=== PATIENT | female | born 1935 | race Caucasian/White ===

== ENCOUNTER 2020-07-23 14:07 | Outpatient (REF) | payer MEDICARE, SELFPAY | END 2020-07-23 14:08 | disposition home or self-care (01) | LOC: HO.LAB 14:07 | PROVIDERS: PCP Internal Medicine Geriatric Medicine; Visit Provider Internal Medicine | DX: Z20.828 Contact with and (suspected) exposure to other viral communicable diseases (principal) | CPT/HCPCS: C9803; U0003 ==

== ENCOUNTER 2020-11-04 13:27 | Outpatient (REF) | payer MEDICARE, SELFPAY ==
--- NOTE | 2020-11-04 16:35 | MHC.AU.P13 ---
Adult Audiological Evaluation Date of Visit: 11/04/20 Reason for Appointment: Audiological evaluation due to concern for decreased hearing. Patient reports that she has been having trouble with her ear and hearing since she had shingles three years ago. She reports frequent pain and drainage from her ears, especially the right ear. Does patient feel they have a hearing loss?: Yes If Yes, Which Ear?: Both Ears When Was Hearing Difficulty First Noticed?: ~3 years ago Has hearing been tested previously?: No Hearing Handicap Inventory: HHIE SCORE: 0 Based on HHIE score, patient has: No perceived hearing handicap Ear History: Recent Ear Drainage: Both Ears Recent Ear Pain: Both Ears Recent Ear Infections: Both Ears Bothersome Tinnitus/Ringing/Noises in Ears: Both Ears Medical History: Medical History: Heart Problems, High Blood Pressure, Stroke, Thyroid Disease Otoscopy: Right Ear: Unremarkable Left Ear: Unremarkable Tympanometry: Tympanometry performed due to: Conductive component found in audiometric results Right Ear: Normal Middle Ear System (Type A) Left Ear: Normal Middle Ear System (Type A) Hearing Evaluation: Transducer(s) Used: Insert Earphones, Bone Conduction Method: Conventional Audiometry Stimuli Used: Pure Tones Right Ear: Description of Hearing: Moderate mixed hearing loss from 250-1000 Hz, sloping to a moderate to severe sensorineural hearing loss from 5485-8222 Hz. Left Ear: Description of Hearing: Mild sloping to severe sensorineural hearing loss from 250-8000 Hz. Speech Recognition Threshold (SRT): Method Used: Recorded Lists Stimuli Used: Spondee Words Right Ear: 45 dBHL Left Ear: 35 dBHL Word Discrimination: Method: Recorded Lists Word Lists Used: Lista Bisil?bica (Egyptian) Right Ear: 96% at 85 dBHL Left Ear: 88% at 75 dBHL Recommendations: Audiological re-evaluation in one year. Trial with amplification is recommended. Medical clearance from a physician is required before fitting. Hearing Aid Fitting will be scheduled when all materials arrive. Referral to Ear, Nose, and Throat is recommended. See Hearing Aid Evaluation report for more information. Hearing aid(s) will be ordered after approval is received. Ms. Sanchez reports that she has an upcoming appointment at [facility] on 11/08/2020 and she would like today's report faxed over to them. Recommend seeing ENT due to conductive component in the right ear and complaints of frequent ear pain and drainage. Hearing aids are recommended. Discussed options. Going with a VENTURA style hearing aid with custom molds. Once MD clearance is received, prior authorization will be requested from her insurance. Diagnosis: Primary Diagnosis: H90.3 Bilateral Sensorineural Hearing Loss Services Performed: Services Performed: Comprehensive Audiological Evaluation (CPT 47037) Tympanometry (CPT 17451) Signature: Provider: Katelynn Higgins, CCC-A
--- NOTE | 2020-11-05 16:37 | MHC.AU.P13 ---
Hearing Aid Evaluation- Binaural Date of Visit: 11/04/20 Description of Hearing: Mild sloping to severe SNHL in the right ear, moderate mixed low-frequency loss sloping to a moderate to severe SNHL in the left ear. Additional Information: Ms. Sanchez was seen today for an audiological evaluation and diagnosed with a bilateral hearing loss. She reports hearing difficulties in many situations. Binaural amplification is recommended to facilitate improved communication. Options were discussed. She is interested in VENTURA style aids. Rechargeable is recommended due to dexterity problems and arthritis. Hearing Instrument Selection: Right Ear: Veneer Drier Tailer: Phonak Model: Audeo P70-R Battery Size: Rechargeable Color: P4- Eure Touch Up Edger: Size 1 M Type of Mold: c-Shell Left Ear: Veneer Drier Tailer: Phonak Model: Audeo P70-R Battery Size: Rechargeable Color: P4- Eure Touch Up Edger: Size 1 M Type of Mold: c-Shell Plan: Plan of Care for Hearing Instrument Fitting: Patient wishes to purchase hearing aids as prescribed Action Taken/Action Needed: Earmold Impressions Taken, Prior authorization to be requested, Medical Clearance to be requested from PCP/ENT, Hearing Fitting to be scheduled when materials arrive Diagnosis Code(s): Primary Diagnosis: H90.3 Bilateral Sensorineural Hearing Loss Signature: Provider: Katelynn Higgins, LEONEL-A
--- NOTE | 2020-11-05 16:40 | MHC.AU.MED ---
Medical Clearance for Hearing Instrumentation Date: 11/05/20 Patient Name: Ольга Sanchez Date of : 1935 Referring Provider: Francisco Murillo MD We have seen your patient on 11/05/20 and have determined that they are a candidate for amplification (See accompanying report). Specifically, they would benefit from: Hearing aid use in both ears There is a statute that addresses Medical Evaluation Requirements prior to fitting a patient with a hearing aid. According to [place] statute 265 CMR:6.03(1), (a) General. Except as provided in 265 CMR 6.03(1)(b), a mid level clinician shall not sell a hearing aid unless the prospective user has presented to the mid level clinician a written statement signed by a licensed physician that states that the patient's hearing loss has been medically evaluated and the patient may be considered a candidate for a hearing aid. The medical evaluation must have taken place within the preceding six months. Please note: Due to the [place] Statute referenced above, we cannot accept a signature other than that of a licensed physician. AUTO BUMPER STRAIGHTENER and PA signatures cannot be accepted. I am in agreement with the above recommendation. There is no medical contraindication for hearing instrumentation. Physician Signature Date Physician Name (Printed)
== END 2020-11-04 13:28 | disposition home or self-care (01) ==
LOC: HO.SH 13:27
PROVIDERS: Visit Provider Internal Medicine Geriatric Medicine
DX: Z46.1 Encounter for fitting and adjustment of hearing aid (principal); H90.3 Sensorineural hearing loss, bilateral
CPT/HCPCS: 92557; 92567; 92591; V5275

== ENCOUNTER 2020-12-17 11:55 | Outpatient (REF) | payer MEDICARE, SELFPAY | END 2020-12-17 11:56 | disposition home or self-care (01) | LOC: HO.HAP 11:55 | PROVIDERS: Visit Provider Internal Medicine Geriatric Medicine | DX: Z46.1 Encounter for fitting and adjustment of hearing aid (principal); H90.3 Sensorineural hearing loss, bilateral | CPT/HCPCS: V5011; V5020; V5160; V5261; V5264 ==

== ENCOUNTER 2020-12-22 12:07 | Outpatient (REF) | payer MEDICARE, SELFPAY ==
--- NOTE | ~2020-12-22 | MM_ITS ---
EXAMINATION: MM SCREENING DIGITAL BREAST TOMOSYNTHESIS, BILATERAL CLINICAL INFORMATION: Screening. Asymptomatic. The lifetime risk of breast cancer based on the Tyrer-Cuzick Model is 0.3%. COMPARISON: Mammography: 02/27/2019 and studies dating back to 07/09/2012 TECHNIQUE: Digital breast tomosynthesis is performed in both the craniocaudal and mediolateral oblique views along with computer-aided detection (CAD). Synthesized 2-D images are generated from the tomosynthesis. FINDINGS: There are scattered areas of fibroglandular density (ACR BI-RADS breast composition Category b). There is a stable appearance of the right breast with no new abnormal dominant mass or suspicious grouping of microcalcifications. About the anterior aspect of the left breast approximately 3 cm from the nipple, there is a somewhat lobular well-circumscribed density measuring approximately 6 x 5 mm in size for which spot compression film is recommended. MM/MM tomosynthesis screening BI IMPRESSION: Left breast density for further evaluation, as described above. ASSESSMENT: BI-RADS 0: Incomplete - Need Additional Imaging Evaluation. RECOMMENDATION: 1. Additional views of the left breast. 2. Targeted ultrasound if warranted after review of the additional views. 3. Radiology department staff will contact the patient for additional imaging.
== END 2020-12-22 12:08 | disposition home or self-care (01) ==
LOC: HO.MAMMO 12:07
PROVIDERS: Visit Provider Internal Medicine Geriatric Medicine
DX: Z12.31 Encounter for screening mammogram for malignant neoplasm of breast (principal)
CPT/HCPCS: 77063; 77067

== ENCOUNTER 2020-12-30 11:24 | Outpatient (REF) | payer MEDICARE, SELFPAY | END 2020-12-30 11:25 | disposition home or self-care (01) | LOC: HO.HAP 11:24 | PROVIDERS: Visit Provider Internal Medicine Geriatric Medicine | DX: Z13.89 Encounter for screening for other disorder (principal) ==

== ENCOUNTER 2021-01-21 10:09 | Outpatient (REF) | payer MEDICARE, SELFPAY ==
--- NOTE | ~2021-01-21 | MM_ITS ---
EXAMINATION: MM DIAGNOSTIC DIGITAL BREAST TOMOSYNTHESIS, LEFT CLINICAL INFORMATION: Recall from screening for asymmetric density anterior breast on CC view, 4 cm from nipple. No correlate MLO view. COMPARISON: Mammography: 12/22/2020, 02/27/2019, 01/29/2018 TECHNIQUE: Digital breast tomosynthesis is performed. 2D images are generated from the tomosynthesis. The following views are obtained: 3-D spot CC, 3-D rolled CC x2. FINDINGS: There are scattered areas of fibroglandular density (ACR BI-RADS breast composition Category b). Additional views show no asymmetric density. There is no mass or architectural abnormality in the targeted area. No significant changes from prior studies. Results are discussed with the patient at time of visit, using an district superintendent. MM/MM tomosynthesis added views L IMPRESSION: Additional views show no persistent asymmetric density. ASSESSMENT: BI-RADS 1: Negative RECOMMENDATION: Routine annual mammography screening. This patient's information was entered into a reminder system with a target due date for their next mammogram.
--- NOTE | ~2021-01-21 | XR_ITS ---
EXAMINATION: XR LUMBOSACRAL SPINE CLINICAL INFORMATION: Low back pain. Chronic back pain COMPARISON: None TECHNIQUE: Three views of the lumbosacral spine. FINDINGS: There is normal lumbar lordosis. Lumbar lordosis is maintained normal. There is L5-S1 bilateral pedicle screws with interconnecting rods and disc bone grafts for fusion. Mild loss of L2-L3 disc height is noted. The soft tissues are normal. The SI joints are normal. XR/XR lumbar spine 2-3V IMPRESSION: There is L5-S1 fusion with posterior hardware and a disc bone graft in satisfactory position .mild loss of L2-L3 disc height is noted
== END 2021-01-21 10:10 | disposition home or self-care (01) ==
LOC: HO.MAMMO 10:09
PROVIDERS: Absent Provider Internal Medicine Geriatric Medicine; PCP Internal Medicine Geriatric Medicine; Visit Provider Internal Medicine Geriatric Medicine
DX: G89.29 Other chronic pain (principal); M54.5 Low back pain; R92.2 Inconclusive mammogram
CPT/HCPCS: 72100; 77061; 77065

== ENCOUNTER 2021-06-07 18:36 | Outpatient (REF) | payer MEDICARE, SELFPAY ==
--- NOTE | ~2021-06-07 | MR_ITS ---
EXAMINATION: MR LUMBAR SPINE WITHOUT CONTRAST CLINICAL INFORMATION: Low back pain. COMPARISON: Lumbar spine MRI 03/01/2011. Lumbar spine radiographs 01/21/2021. TECHNIQUE: MRI of the lumbar spine was obtained using routine sequences without contrast. FINDINGS: There is transitional spinal anatomy at the lumbosacral junction with partial lumbarization of the S1 vertebral segment. There is a well-formed intervertebral disc at S1-S2. There are chronic postoperative changes of a spinal fusion with a transpedicular hardware construct extending from L5 to S1. Bridging bone completely fuses the L5 and S1 vertebra. There is slight grade 1 retrolisthesis of L2 on L3. Slight grade 1 anterolisthesis of L4 on L5. Vertebral heights are preserved. No acute bone marrow signal changes. There is slight loss of intervertebral disc height and T2 signal intensity at multiple levels related to disc degeneration. The tip of the conus medullaris is located at L1-L2. No mass effect on the conus. Visualized distal cord signal intensity is normal. At L1-L2 there is a slightly bulging disc. No canal stenosis. No mass effect on the traversing or foraminal nerve roots. At L2-L3 there is a slightly bulging disc. Bilateral facet degenerative change. No canal stenosis. No mass effect on the traversing or foraminal nerve roots. At L3-L4 there is a shallow left far lateral protrusion superimposed upon a bulging disc. Advanced facet degenerative change. Moderate canal stenosis. Subarticular zone narrowing causes medial displacement and possible compression of both traversing L4 nerve roots. Mild mass effect on the foraminal and extraforaminal segments of the left L3 nerve roots. At L4-L5 there is a pseudodisc bulge. Advanced facet degenerative change. Moderate canal stenosis. Subarticular zone narrowing causes medial displacement and possible compression of both traversing L5 nerve roots. Mild to moderate compression of both L4 foraminal nerve root. At L5-S1 the canal is decompressed. No foraminal nerve root compression. At S1-S2 there is no canal or neuroforaminal compromise. Limited visualization the retroperitoneal anatomy reveals no abnormal finding. Psoas and paraspinal muscle groups are symmetric. MR/MR lumbar spine wo con IMPRESSION: There is transitional spinal anatomy at the lumbosacral junction with lumbarization of the S1 vertebral segment. There is also a well-formed intervertebral disc at S1-S2. There are chronic changes of a spinal fusion with a transpedicular hardware construct extending from L5 to S1. Bridging bone completely fuses the L5 and S1 vertebra. There is junctional spondylosis above the fusion. Moderate canal stenosis at L3-L4 and L4-L5. There are varying degrees of mass effect on the traversing and foraminal segments the nerve roots as described above. For instance at L4-L5 there is mild to moderate compression of both L4 foraminal nerve roots.
== END 2021-06-07 18:37 | disposition home or self-care (01) ==
LOC: HO.MRI 18:36
PROVIDERS: Visit Provider Internal Medicine Geriatric Medicine
DX: M54.10 Radiculopathy, site unspecified (principal); M54.50 Low back pain, unspecified
CPT/HCPCS: 72148

== ENCOUNTER 2022-07-04 09:33 | Outpatient (REF) | payer OTHER, SELFPAY ==
--- NOTE | ~2022-07-04 | CT_ITS ---
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 COMPARISON: 09/09/2017 CT. TECHNIQUE: Contiguous axial imaging was performed from the skull base to vertex without intravenous administration of contrast. This CT examination was performed using dose optimization techniques as appropriate, variously including the following: *Automated exposure control. *Adjustment of mA and/or kV according to patient size (this includes techniques or standardized protocols for targeted exams where dose is matched to indication/reason for exam; i.e. extremities or head). *Use of iterative reconstruction technique. DLP: 731 mGy-cm FINDINGS: Brain Volume: Mild generalized diffuse brain parenchymal volume loss appears moderately progressed from previous exam. Structural: No malformations. 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 No acute cortical infarct, hemorrhage, extra-axial fluid collection, space-occupying process or mass effect. Ganglionic structures and brainstem appear grossly intact accounting for some artifacts. There are bilateral carotid calcifications of the carotid siphons similar to previous study. There are atheromatous calcifications of the vertebral arteries, left more than right, progressed from previous study. Ventricles and Subarachnoid Spaces: The ventricular system and subarachnoid spaces appear slightly more prominent than on the previous exam suggesting interval volume loss without hydrocephalus. Orbital Structures: Bilateral lens extractions are noted, unchanged in appearance. Osseous Structures, Sinuses/Mastoids, Extracranial Soft Tissues: Only a small portion of the maxillary sinuses are included in the [id number]. There is complete opacification of the visualized right maxillary sinus, with a partially imaged 2.2 cm lobulated soft tissue mass in the right nasal cavity, which has increased in size from previous study, with erosion of the right medial maxillary sinus wall suggesting the possibility of a polyp or schneiderian papilloma. Recommend correlation with direct visualization and CT of the sinuses with contrast to further assess. CT/CT head/brain wo IV con IMPRESSION: 1. 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 MRI of the brain may be of additional value for further assessment. 2. Atheromatous calcifications of the vertebral and carotid arteries progressed involving the vertebral arteries. Consider CT angiography of the head. 3. Findings in the right maxillary sinus and right nasal cavity progressed from previous study as detailed above. Cannot exclude a right nasal cavity polyp or schneiderian papilloma. Correlate with direct visualization and consider CT of the sinuses with contrast for additional assessment.
== END 2022-07-04 09:34 | disposition home or self-care (01) ==
LOC: HO.CT 09:33
PROVIDERS: PCP Internal Medicine Geriatric Medicine; Visit Provider Internal Medicine Geriatric Medicine
DX: H54.40 Blindness, one eye, unspecified eye (principal); R51.9 Headache, unspecified
CPT/HCPCS: 70450

== ENCOUNTER → 2022-08-07 09:01 | Outpatient (BNVA) | payer OTHER, SELFPAY | PROVIDERS: PCP Internal Medicine Geriatric Medicine; Visit Provider Anesthesiology | DX: M96.1 Postlaminectomy syndrome, not elsewhere classified (principal); M54.16 Radiculopathy, lumbar region; M51.36 Other intervertebral disc degeneration, lumbar region | CPT/HCPCS: 99202 ==

== ENCOUNTER 2022-11-03 08:38 | Outpatient (REF) | payer OTHER, SELFPAY ==
--- NOTE | ~2022-11-03 | US_ITS ---
EXAMINATION: US ABDOMEN COMPLETE CLINICAL INFORMATION: Weight loss. COMPARISON: MRI abdomen 09/11/2017. Ultrasound abdomen 09/09/2017 and 09/09/2013. CT abdomen and pelvis 10/29/2015. TECHNIQUE: Real-time imaging of the abdominal viscera. FINDINGS: PANCREAS: The visualized portions of the pancreas are unremarkable but a large portion of the gland is obscured by bowel gas. ABDOMINAL AORTA: Limited visualization, atherosclerotic changes are seen in the aorta. No mid or distal aneurysm is seen. The proximal aorta was not visualized. INFERIOR VENA CAVA: Visualized portions are normal. LIVER: The liver is normal in size. The liver contour is normal. No focal hepatic lesion. There is no intrahepatic biliary duct dilatation seen. GALLBLADDER: Surgically absent. COMMON BILE DUCT: Normal in caliber measuring 0.9 cm in diameter. RIGHT KIDNEY: No hydronephrosis. No renal calculi or focal parenchymal lesions. The kidney measures 9.5 cm in maximum dimension. LEFT KIDNEY: No hydronephrosis. No renal calculi or focal parenchymal lesions. The kidney measures 9.3 cm in maximum dimension. SPLEEN: Normal. The spleen measures 8.2 cm in maximum dimension. FREE FLUID: None. US/US abdomen complete IMPRESSION: A cause for the patient's weight loss has not been found. No significant abnormality is seen. A large portion of the pancreas was not visualized.
== END 2022-11-03 08:39 | disposition home or self-care (01) ==
LOC: HO.US 08:38
PROVIDERS: PCP Internal Medicine Geriatric Medicine; Visit Provider Internal Medicine Geriatric Medicine
DX: R63.4 Abnormal weight loss (principal); R79.89 Other specified abnormal findings of blood chemistry
CPT/HCPCS: 76700

== ENCOUNTER → 2022-11-15 14:06 | Outpatient (BNVA) | payer OTHER, SELFPAY | PROVIDERS: PCP Internal Medicine Geriatric Medicine; Visit Provider Anesthesiology | DX: M51.36 Other intervertebral disc degeneration, lumbar region (principal); M54.16 Radiculopathy, lumbar region; M96.1 Postlaminectomy syndrome, not elsewhere classified | CPT/HCPCS: 99212 ==

== ENCOUNTER 2022-11-27 16:51 | Emergency (ER) | payer OTHER, SELFPAY ==
[2022-11-27 16:58] VITALS: BP 132/82; BP 166/77; PULSE 76; PULSE 78; RESP 16; TEMP 36.8; O2SAT 96; O2SAT 99; BMI 28.8
--- NOTE | 2022-11-27 16:58 | ED_ITS ---
HPI - General Adult General Chief complaint: Animal Bite Stated complaint: dog bite Time Seen by Provider: 11/27/22 16:56 Source: patient, EMS and equal employment opportunity officer Mode of arrival: EMS Limitations: language barrier History of Present Illness HPI narrative: Patient is a 87 year old assigned female at with a history of type 2 DM, CAD, COPD, HTN, and hyperlipidemia presenting to the emergency department today with a dog bite to the right distal ring finger. Patient states that she was bitten by her dog when she was closing her front door to stop the dog from getting out. Patient is up to date with her tetanus shot, last one was Sep 2022. Patient states that her dog, although inside only, is 2 years late on rabies vaccinations. Patient denies any dizziness, lightheadedness, abdominal pain, nausea, vomiting, fever, chills, blurry vision, double vision, loss of vision, chest pain, difficulty breathing, shortness of breath, back pain, night sweats, pain with urination, increased urinary frequency, increased urinary urgency, blood in her urine or stool, syncope or a near syncopal episode, bowel incontinence, bladder incontinence, bowel retention, bladder retention, or any other complaints at this time. Onset (ago): hour(s) Location: upper extremity (right 4th digit) Radiation: non-radiation Severity: mild Severity scale (1-10): 3 Quality: aching Pain Consistency: intermittent Relieving factors: rest Exacerbating factors: movement Associated symptoms: denies other symptoms Treatments prior to arrival: none Related Data Home Medications Medication Instructions Recorded Confirmed amlodipine 5 mg-olmesartan 20 mg 1 tab PO DAILY 08/07/22 11/15/22 tablet aspirin 81 mg tablet,delayed 81 mg PO DAILY 08/07/22 11/15/22 release (Adult Low Dose Aspirin) atorvastatin 40 mg tablet 40 mg PO DAILY 08/07/22 11/15/22 pantoprazole 40 mg tablet,delayed 40 mg PO DAILY 08/07/22 11/15/22 release levothyroxine 75 mcg tablet 50 mcg PO DAILY 11/15/22 11/15/22 Previous Rx's Medication Instructions Recorded clindamycin HCl 150 mg capsule 450 mg PO TID 7 days #63 caps 11/27/22 doxycycline hyclate 100 mg tablet 100 mg PO BID 7 days #14 tabs 11/27/22 Allergies Allergy/AdvReac Type Severity Reaction Status Date / Time Penicillins Allergy Unknown SWELLING Verified 11/15/22 14:11 Review of Systems Constitutional: Constitutional: Reports no additional constitutional complaints, Denies chills, Denies fever(s) and Denies night sweats Eyes: Eyes: Reports no additional eye complaints, Denies blurry vision, Denies change in vision, Denies diplopia, Denies eye discharge, Denies loss of vision and Denies eye pain ENT: Denies dizziness Cardiovascular: Cardiovascular: Reports no additional cardiovascular complaints, Denies chest pain, Denies lightheadedness, Denies Loss of Consciousness and Denies dyspnea Respiratory: Respiratory: Reports no additional respiratory complaints and Denies dyspnea Gastrointestinal: Gastrointestinal: Reports no additional gastrointestinal complaints, Denies abdominal pain, Denies melena, Denies hematochezia, Denies change in bowel habits and Denies change in stool character Genitourinary: Genitourinary: Denies hematuria, Denies urinary frequency, Denies dysuria, Denies urinary incontinence, Denies urinary hesitancy and Denies urinary urgency Musculoskeletal: Musculoskeletal: Reports no additional musculoskeletal complaints, Denies numbness and Denies tingling Integumentary/Breasts: Comments: right ring finger pain Neurologic: Denies dizziness, Denies loss of vision, Denies numbness and Denies tingling Psychiatric: Psychiatric: Reports no additional psychiatric complaints Endocrine: Endocrine: Reports no additional endocrine complaints Hematologic/Lymphatic: Hematologic/Lymphatic: Reports no additional hematologic/lymphatic complaints Allergic/Immunologic: Allergic/Immunologic: Reports no additional allergic/immunologic complaints PMFSH Past Medical History Attestation statement: The following information was validated with the patient. (all information validated with the patient's daughter) Source: old records reviewed, obtained from family (patient's daughter) and nursing notes reviewed Medical History Acute epigastric pain Age related osteoporosis Angina of effort Asthma CAD (coronary artery disease) Chronic eczema Chronic radicular low back pain COPD, severe Depression Diabetes mellitus Elevated LFTs Gastroesophageal reflux History of CVA (cerebrovascular accident) History of shingles Hyperlipidemia Hypertension Pancreatitis due to common bile duct stone Pathological fracture Postherpetic neuralgia PTSD (post-traumatic stress disorder) Sciatica Venous insufficiency Surgical History History of lumbosacral spine surgery Social History Social History Advance Directives: No Advance Directives Information Provided: No Physical Exam ED Vital Signs: Vital Signs - 24 hr 11/27/22 16:58 Temperature 98.2 F Pulse Rate 78 Respiratory Rate 16 Blood Pressure 166/77 H Pulse Oximetry 96 Oxygen Delivery Method Room Air BMI result Body Mass Index 28.8 Const General: cooperative Nutritional Appearance: average body habitus Orientation/consciousness: oriented to person, oriented to place, oriented to time and patient oriented x3 Limitations: language barrier HENMT Head: Yes normal to inspection Ears: hearing grossly normal bilaterally General nose exam: Normal external nose present Face and sinus: Yes normal facial exam Mouth: Normal oral and palatal mucosa present, no drooling and no muffled voice Eyes General: appearance normal, both eyes and all related structures Periorbital: periorbital findings normal Eyelids: Yes eyelids normal Conjunctivae: conjunctivae normal Pupils: Equal, round and reactive pupils present EOM: EOMs intact bilaterally Neck Neck: Yes normal visual inspection Chest Chest palpation & inspection: normal inspection of the chest Resp Effort & Inspection: normal respiratory effort Cardio Jugular venous distension: no JVD GI Inspection: Yes normal to inspection Skin Trauma: laceration right 4th finger linear; no foreign bodies present Neuro General: oriented to person, oriented to place, oriented to time and patient oriented x3 Cranial nerves: Yes Equal, round and reactive pupils present Cognition (Neuro): normal cognition Motor exam (neuro): 5/5 motor strength present throughout Sensory Exam: Normal double simultaneous stimulation for sensation Coordination: [id number] test normal Extrem General: Yes full ROM and Yes capillary refill normal Psych Appearance: grossly normal Mental Status: mental status grossly normal Affect: normal affect Attitude: cooperative Thought process: Normal thought process present Thought content: Normal thought content present Insight: Good insight present (Psych) Medications Administered Discontinued Medications Generic Name Dose Route Start Last Admin Trade Name Freq PRN Reason Stop Dose Admin Clindamycin HCl 450 mg 11/27/22 17:22 11/27/22 18:25 Clindamycin Hcl 150 Mg Capsule PO 11/27/22 17:23 450 mg ONCE ONE Administration Doxycycline Monohydrate 100 mg 11/27/22 17:22 11/27/22 18:25 Doxycycline Monohydrate 100 Mg Capsule PO 11/27/22 17:23 100 mg ONCE ONE Administration Medical Decision Making Medical Decision Making [facility] Narrative: Patient is an 87 year old assigned female at with a history of DM type 2, CAD, COPD, HTN, hyperlipidemia presenting to the emergency department today with a dog bite to the right 4th finger. Patient's physical exam unremarkable other than the injury to the affected area as noted in the physical examination portion of this chart. Patient's injury was not gaping and did not require manual closure. I explained my physical exam findings as well as all test results to the patient and the patient's daughter. I answered all questions asked by the patient and the patient's daughter. Patient received her first dose of the rabies vaccine and immunoglobulin. I stressed the importance of the patient to finish the vaccine series. I stressed the importance of the patient continuing to take her medications as prescribed as well as taking the newly prescribed antibiotics. Patient was given first dose of antibiotics in the department while here. Patient unable to have Augmentin due to swelling/anaphylaxis secondary to PCN. I stressed the importance of the patient following up with her primary care provider. I stressed the importance of the patient returning to the emergency department immediately if her symptoms were to worsen or if she were to develop any dizziness, shortness of breath, difficulty breathing, chest pain, blurry vision, loss of vision, nausea, vomiting, abdominal pain, fever, chills, back pain, or any other complaints. Patient and the patient's daughter verbalized agreement and understanding with this treatment plan and discharge. Differential Diagnosis Differential Diagnoses: The differential diagnosis associated with the presentation includes dog bite Independent Historian Clinical information obtained from an independent historian. History obtained from or confirmed by: EMS and Other (patient's daughter) Discharge Plan Discharge Clinical Impression: Dog bite Patient Disposition: Home, Self-Care Instructions: Animal Bite (ED), Rabies (ED) Additional Instructions: TAKE YOUR ANTIBIOTICS PRESCRIBED. TAKE A PROBIOTIC WITH IT TO AVOID FURTHER INFECTION. Follow up with your primary care provider. Return to the emergency department immediately if your symptoms worsen or if you develop any dizziness, shortness of breath, difficulty breathing, chest pain, blurry vision, loss of vision, nausea, vomiting, abdominal pain, fever, chills, back pain, or any other complaints. TOME MADAI ANTIBI?TICOS SEG?N LO RECETADO. TOME UN PROBI?DOREEN PARA EVITAR M?S INFECCIONES. Neha un seguimiento con santos proveedor de atenci?n primaria. Regrese al departamento de emergencias de inmediato si madai s?ntomas empeoran o si presenta mareos, falta de aire, dificultad para respirar, dolor de pecho, visi?n borrosa, p?rdida de la visi?n, n?useas, v?mitos, dolor abdominal, fiebre, escalofr?os, dolor de espalda o cualquier otras quejas. Prescriptions: New clindamycin HCl 150 mg capsule 450 mg PO TID 7 Days Qty: 63 0RF doxycycline hyclate 100 mg tablet 100 mg PO BID 7 Days Qty: 14 0RF No Action amlodipine-olmesartan 5-20 mg tablet 1 tab PO DAILY aspirin [Adult Low Dose Aspirin] 81 mg tablet,delayed release (DR/EC) 81 mg PO DAILY atorvastatin 40 mg tablet 40 mg PO DAILY pantoprazole 40 mg tablet,delayed release (DR/EC) 40 mg PO DAILY levothyroxine 75 mcg tablet 50 mcg PO DAILY Referrals: [facility] [place]] (Call to establish and follow up with a primary care provider. If you already have a primary care provider, please follow up with them. Llame para establecer y hacer un seguimiento con un proveedor de atenci?n primaria. Si ya tiene un proveedor de atenci?n primaria, neha un seguimiento con ?l.) [facility] [Provider Group] (Call to establish and follow up with a primary care provider. If you already hubbard ve a primary care provider, please follow up with them. Llame para establecer y hacer un seguimiento con un proveedor de atenci?n primaria. Si ya tiene un proveedor de atenci?n primaria, neha un seguimiento con ?l.) [facility] [[facility]] (Call to establish and follow up with a primary care provider. If you already have a primary care provider, please follow up with them. Llame para establecer y hacer un seguimiento con un proveedor de atenci?n primaria. Si ya tiene un proveedor de atenci?n primaria, neha un seguimiento con ?l.) Print Language: Ecuadorean
--- NOTE | 2022-11-27 17:11 | PC.NURSE ---
bite to R ring finger by Candido, dog attempted to wander after granddaughter, pt attempted to stop dog from getting out of house - dog bit her. dog up to date on shots pt up to date on tetanus - this year.
[2022-11-27] MEDS: Clindamycin HCL 150 MG CAPSULE 450 MG PO (18:25)
[2022-11-27] MEDS: Doxycycline Monohydrate 100 MG CAPSULE PO (18:25)
[2022-11-27] MEDS: Rabies Immune Globulin/PF 900 UNIT/3 ML VIAL 1340 UNIT IM (18:48)
[2022-11-27] MEDS: Rabies Vaccine (PCEC)/PF 1 ML VIAL IM (18:49)
== END 2022-11-27 19:06 | disposition home or self-care (01) ==
PROVIDERS: Emergency Provider Emergency Medicine
DX: S61.254A Open bite of right ring finger without damage to nail, initial encounter (principal); W54.0XXA Bitten by dog, initial encounter; I25.10 Atherosclerotic heart disease of native coronary artery without angina pectoris; I10 Essential (primary) hypertension; Y93.9 Activity, unspecified; Y92.009 Unspecified place in unspecified non-institutional (private) residence as the place of occurrence of the external cause; Y99.9 Unspecified external cause status; Z29.14 Encounter for prophylactic rabies immune globulin; Z20.3 Contact with and (suspected) exposure to rabies; Z79.899 Other long term (current) drug therapy; Z23 Encounter for immunization
CPT/HCPCS: 90375; 90471; 90675; 96372; 99282; 99284

== ENCOUNTER 2023-02-14 11:41 | Outpatient (REF) | payer OTHER, SELFPAY ==
[2023-02-14 12:15] LABS: Ammonia 46 umol/L (13-55)
[2023-02-14 13:59] LABS: ~HepC Num1 0.19 S/CO (0.00-0.79); ~Hepatitis C Antibody Nonreactive (Nonreactive)
[2023-02-14 14:01] LABS: HBsAGNum1 0.27 S/CO (0.00-0.99); Hepatitis A Antibody IgG REACTIVE (Nonreactive); Hepatitis B Surface Antigen Negative (Negative); ~Hepatitis A Antibody IgG 10.34 S/CO (0.00-0.99)
== END 2023-02-14 11:42 | disposition home or self-care (01) ==
LOC: HO.LAB 11:41
PROVIDERS: PCP Internal Medicine Geriatric Medicine; Visit Provider Internal Medicine Geriatric Medicine
DX: K76.0 Fatty (change of) liver, not elsewhere classified (principal); K76.82 Hepatic encephalopathy; E72.20 Disorder of urea cycle metabolism, unspecified
CPT/HCPCS: 36415; 82140; 86708; 86803; 87340

== ENCOUNTER 2023-03-16 09:36 | Outpatient (AMB) | payer OTHER, SELFPAY ==
--- NOTE | 2023-03-16 09:30 | MHC.OFFVIS ---
Intake Intake Visit Reasons: Complicated UTi's Intake Note: NEW Patient presents today to established treatment for Complicated UTI'S Meds- Clindamycin? Allergies to Antibiotic- Penicillin's Blood Thinner- Aspirins PVR- 0ml Patient has been having chronic current UTI. Her symptoms causes her to be very dizzy, confused and discomfort Allergies Penicillins Allergy (Unknown, Verified 11/15/22 14:11) SWELLING Medication List - Last Reconciled 03/16/23 by Randy Vogel MD amlodipine-olmesartan 5-20 mg 1 tab PO DAILY aspirin (Adult Low Dose Aspirin) 81 mg PO DAILY atorvastatin 40 mg PO DAILY blood sugar diagnostic (FreeStyle Lite Strips) As directed calcium carbonate-vitamin D3 500 mg-10 mcg (400 unit) (Oyster Shell Calcium-Vitamin D3) 1 tab PO BID lancets (TRUEplus Lancets) As directed olmesartan 5 mg PO QAM HPI HPI Comments History of Present Illness Details Ольга is an 87-year-old female who presents to the office as a new patient evaluation for complicated UTI. 03/16/23-- The patient is a Chinese speaking female and is accompanied by her granddaughter who interpreted for her and gave the history. PMH significant for HTN and diabetes States that she had dog bite in November which required hospitalization. She was sedated during that visit and a Smalls was placed after that hospitalization she had repeated symptoms of UTI. Her UTI symptoms include dysuria and cognitive changes. Last episode of UTI was a month ago. The patient has underwent antibiotic therapies in the past for UTI. Is scheduled for a renal US ordered by her PCP due to swelling. CTAP results reviewed-- Kidneys: WNL. No renal calculi or parenchymal lesion visualized. Evaluation today UA: Blood: negative, leukocytes: 15 Carolina/uL. Bladder scan PVR: 0 mL. On exam: tenderness in the right lower quadrant and some CVA tenderness. Plan: Cystoscopy discussed to be scheduled. CTAP stone protocol scan prior was ordered. [facility] Medical History Acute epigastric pain Age related osteoporosis Angina of effort Asthma CAD (coronary artery disease) Chronic eczema Chronic radicular low back pain COPD, severe Depression Diabetes mellitus Elevated LFTs Gastroesophageal reflux History of CVA (cerebrovascular accident) History of shingles Hyperlipidemia Hypertension Pancreatitis due to common bile duct stone Pathological fracture Postherpetic neuralgia PTSD (post-traumatic stress disorder) Sciatica Venous insufficiency Surgical History History of lumbosacral spine surgery Review of Systems Const All systems reviewed & are unremarkable except as noted in HPI and below Reports no additional complaints Eyes Reports no additional complaints ENT Reports no additional complaints Card Denies dyspnea Resp Denies cough and Denies dyspnea GI Reports no additional complaints Reports no additional complaints Musc Reports no additional complaints Skin/Breast Denies rash and Denies unusual bruising Neuro Reports no additional complaints Psych Reports no additional complaints Endo Reports no additional complaints Shree/Lymph Reports no additional complaints Aller/Immun Reports no additional complaints Physical Exam Const General: cooperative, healthy appearing and no acute distress Orientation/consciousness: patient oriented x3 HEENT Head: Yes normal to inspection, Yes normocephalic and Yes atraumatic Eyes Conjunctivae: conjunctivae normal Neck Neck: Yes normal visual inspection and Yes trachea midline Chest Chest palpation & inspection: normal inspection of the chest Resp Effort & Inspection: normal respiratory effort Cardio Rate: regular rate GI Inspection: Yes normal to inspection Palpation (GI): Soft to palpation and Tenderness to palpation present (GI) in the RLQ General: Yes CVA tenderness on the right Back/Spine/Pelvis Back: CVA tenderness Skin General skin exam: no rashes or lesions noted Neuro General: patient oriented x3 Psych Appearance: grossly normal Office Procedures Post Void Residual Post Residual Void Post Void Residual (PVR): 0 [id number] Void Residual by ultrasound Results AMB Urinalysis, Automated UA Leukoctes 15 Carolina/uL Last Edit by ELOINA Bains on 03/16/23 09:56 UA Nitrite Negative Last Edit by ELOINA Bains on 03/16/23 09:56 UA Urobilinogen 0.2 mg/dL Last Edit by ELOINA Bains on 03/16/23 09:56 UA Protein 0 mg/dL Last Edit by ELOINA Bains on 03/16/23 09:56 UA pH 6.0 Last Edit by ELOINA Bains on 03/16/23 09:56 UA Blood 0 Benjy/uL Last Edit by ELOINA Bains on 03/16/23 09:56 UA Specific [place] 1.010 Last Edit by Rere Suero, RMA on 03/16/23 09:56 UA Ketone Negative Last Edit by Rere Pio, RMA on 03/16/23 09:56 UA Bilirubin 0 mg/dL Last Edit by Rere Suero, RMA on 03/16/23 09:56 UA Glucose 0 mg/dL Last Edit by Rere Suero, A on 03/16/23 09:56 Results Reviewed Results Reviewed: Laboratory Last Values Urine pH (Auto) 6.0 03/16/23 09:46 Specific [place] (Auto) 1.010 03/16/23 09:46 Urine Protein (Auto) 0 mg/dL 03/16/23 09:46 Glucose (UA)(Auto) 0 mg/dL 03/16/23 09:46 Urine Ketones (Auto) Negative 03/16/23 09:46 Urine Blood (Auto) 0 Benjy/uL 03/16/23 09:46 Urine Nitrite (Auto) Negative 03/16/23 09:46 Urine Bilirubin (Auto) 0 mg/dL 03/16/23 09:46 Urine Urobilinogen (Auto) 0.2 mg/dL 03/16/23 09:46 Leukocyte Esterase (Auto) 15 Carolina/uL 03/16/23 09:46 Date of Service: 11/03/22 EXAMINATION: US ABDOMEN COMPLETE CLINICAL INFORMATION: Weight loss. COMPARISON: MRI abdomen 09/11/2017. Ultrasound abdomen 09/09/2017 and 09/09/2013. CT abdomen and pelvis 10/29/2015. TECHNIQUE: Real-time imaging of the abdominal viscera. FINDINGS: PANCREAS: The visualized portions of the pancreas are unremarkable but a large portion of the gland is obscured by bowel gas. ABDOMINAL AORTA: Limited visualization, atherosclerotic changes are seen in the aorta. No mid or distal aneurysm is seen. The proximal aorta was not visualized. INFERIOR VENA CAVA: Visualized portions are normal. LIVER: The liver is normal in size. The liver contour is normal. No focal hepatic lesion. There is no intrahepatic biliary duct dilatation seen. GALLBLADDER: Surgically absent. COMMON BILE DUCT: Normal in caliber measuring 0.9 cm in diameter. RIGHT KIDNEY: No hydronephrosis. No renal calculi or focal parenchymal lesions. The kidney measures 9.5 cm in maximum dimension. LEFT KIDNEY: No hydronephrosis. No renal calculi or focal parenchymal lesions. The kidney measures 9.3 cm in maximum dimension. SPLEEN: Normal. The spleen measures 8.2 cm in maximum dimension. FREE FLUID: None. IMPRESSION: A cause for the patient's weight loss has not been found. No significant abnormality is seen. A large portion of the pancreas was not visualized. ? Assessment & Plan Assessment & Plan (1) Recurrent UTI: Code(s): N39.0 - Urinary tract infection, site not specified (2) Right sided abdominal pain: Code(s): R10.9 - Unspecified abdominal pain Plan Cystoscopy discussed to be scheduled. CTAP stone protocol scan prior was ordered. Orders: Orders CT abdomen pelvis wo IV con Today N39.0 - Urinary tract infection, site not specified, R10.9 - Unspecified abdominal pain AMB Urinalysis Automated Today Z13.9 - Encounter for screening, unspecified AMB Post Void Residual by ultrasound Today Z13.9 - Encounter for screening, unspecified Patient Instructions: The patient had an opportunity to ask questions regarding treatment plan. All questions were answered. Imaging, Laboratory studies and physical exam results were discussed and reviewed in detail. No major barriers to understanding were identified. The patient expressed understanding and agreement with the above treatment plan. The patient is aware they should contact our office by phone for worsening of their current condition or the appearance of new symptoms. Compliance is encouraged with any medications and followup testing that is ordered. It is a privilege to be allowed the opportunity to participate in the urologic care of your patient. If you have any questions or concerns regarding treatment for the above conditions please do not hesitate to contact me. The office telephone contact is [phone]. This note is constructed in part using voice recognition software. While every effort has been made to ensure accuracy lead solutions architect errors may have been included. Yours sincerely, Randy Vogel MD Coding Level of Care Code New Pt Level 4 (89198) Diagnoses Recurrent UTI N39.0 Right sided abdominal pain R10.9 CPT Codes Post Residual Void - PVR CPT Code: 24149-Jzsx Void Residual by ultrasound ([id number])
== END 2023-03-16 10:16 | disposition home or self-care (01) ==
PROVIDERS: PCP Registered Nurse; Visit Provider Urology
DX: N39.0 Urinary tract infection, site not specified (principal); R10.9 Unspecified abdominal pain
CPT/HCPCS: 99204

== ENCOUNTER → 2023-03-16 09:36 | Outpatient (BNVA) | payer OTHER, SELFPAY | PROVIDERS: PCP Registered Nurse; Visit Provider Urology ==

== ENCOUNTER 2023-03-16 10:25 | Outpatient (REF) | payer OTHER, SELFPAY ==
--- NOTE | ~2023-03-16 | XR_ITS ---
EXAMINATION: XR HIP, RIGHT CLINICAL INFORMATION: Acute right hip pain. COMPARISON: CT abdomen and pelvis 09/09/2017. TECHNIQUE: Two views of the right hip. FINDINGS: No fracture. Alignment is anatomic. Hip joint space is maintained. Soft tissues are unremarkable. XR/XR hip RT min 2V IMPRESSION: Normal right hip.
== END 2023-03-16 10:26 | disposition home or self-care (01) ==
LOC: HO.XRAY 10:25
PROVIDERS: PCP Internal Medicine Geriatric Medicine; Visit Provider Internal Medicine Geriatric Medicine
DX: M25.551 Pain in right hip (principal); R10.9 Unspecified abdominal pain; N39.0 Urinary tract infection, site not specified
CPT/HCPCS: 51798; 73502; 99202

== ENCOUNTER 2023-03-29 09:31 | Outpatient (REF) | payer OTHER, SELFPAY ==
--- NOTE | ~2023-03-29 | US_ITS ---
EXAMINATION: US ABDOMEN LIMITED CLINICAL INFORMATION: Other specified soft tissue disorders. Rule out ascites. COMPARISON: Ultrasound abdomen complete 11/03/2022 and 09/09/2017. MRI abdomen 09/11/2017. TECHNIQUE: Real-time imaging of the 4 quadrants and midline of the abdomen. FINDINGS: Targeted ultrasound images were obtained by the helium arc welder of the 4 quadrants of the abdomen to evaluate for possible ascites. Radiologist was not in attendance. Images were later provided for interpretation. Visualization limited due to bowel gas. No gross fluid collections to suggest ascites were identified in the 4 quadrants of the abdomen. US/US abdomen limited IMPRESSION: No gross fluid collections to suggest ascites were identified in the 4 quadrants of the abdomen. Limited visualization due to bowel gas.
== END 2023-03-29 09:32 | disposition home or self-care (01) ==
LOC: HO.US 09:31
PROVIDERS: PCP Internal Medicine Geriatric Medicine; Visit Provider Internal Medicine Geriatric Medicine
DX: K75.81 Nonalcoholic steatohepatitis (NASH) (principal); M79.89 Other specified soft tissue disorders
CPT/HCPCS: 76705

== ENCOUNTER 2023-04-12 10:07 | Outpatient (REF) | payer OTHER, SELFPAY ==
--- NOTE | ~2023-04-12 | CT_ITS ---
EXAMINATION: CT ABDOMEN AND PELVIS WITHOUT CONTRAST CLINICAL INFORMATION: Right abdominal pain; recurrent urinary tract infections. COMPARISON: Abdominal ultrasound dated 03/29/2023; MRI abdomen dated 09/11/2017; CT abdomen and pelvis dated 09/09/2017. TECHNIQUE: Multidetector volumetric imaging was performed from the superior aspect of the liver through the pubic symphysis. Sagittal and coronal reformatted images were obtained on the technologist's workstation. This CT examination was performed using dose optimization techniques as appropriate, variously including the following: *Automated exposure control *Adjustment of mA and/or kV according to patient size (this includes techniques or standardized protocols for targeted exams where dose is matched to indication/reason for exam; i.e. extremities or head) *Use of iterative reconstruction technique DLP: 380.00 mGy-cm FINDINGS: LUNG BASES: There is bibasilar linear scar/subsegmental atelectasis. There are coronary artery atherosclerotic calcifications. LIVER, GALLBLADDER, AND BILIARY TREE: The liver is normal in size, shape, and attenuation. No focal hepatic lesion or biliary ductal dilatation is present. The gallbladder is surgically absent. PANCREAS: Unremarkable. SPLEEN: Unremarkable. ADRENAL GLANDS: Unremarkable. KIDNEYS AND URETERS: The kidneys are normal in size, shape, and attenuation. No hydronephrosis, hydroureter, or calculi seen. No perinephric stranding. BLADDER: Decompressed and otherwise unremarkable. GASTROINTESTINAL TRACT: There is a moderately large stool burden, suggesting possible constipation. No obstruction, free intraperitoneal air or abscess is seen. There is no focal bowel wall thickening. The vermiform appendix is not identified with certainty; however, there is no finding to suggest appendicitis. ABDOMINAL WALL: No significant hernia is appreciated. LYMPH NODES: Normal. VASCULAR: There is moderate aortoiliac atherosclerotic calcification. No abdominal aortic aneurysm is seen PELVIC VISCERA: Surgically absent. No pelvic mass, free fluid or lymphadenopathy is seen. 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 There is stable alignment status-post L4-L5 posterior fusion and discectomy. No acute or aggressive osseous abnormality is seen. CT/CT abdomen pelvis wo IV con IMPRESSION: 1. There is a moderately large stool burden, suggesting constipation. No kem bowel obstruction is seen. 2. The gallbladder is surgically absent. 3. There is no urinary calculus or obstructive uropathy. 4. No abdominopelvic mass, free fluid or lymphadenopathy is seen. 5. There are multi-level marked degenerative changes of the thoracolumbar spine. There has been a prior posterior fusion at L4-L5. No acute or aggressive osseous finding is noted. 6. There are coronary artery atherosclerotic calcifications. Fleischner guidelines were followed.
== END 2023-04-12 10:08 | disposition home or self-care (01) ==
LOC: HO.CT 10:07
PROVIDERS: PCP Internal Medicine Geriatric Medicine; Visit Provider Urology
DX: R10.9 Unspecified abdominal pain (principal); N39.0 Urinary tract infection, site not specified
CPT/HCPCS: 74176

== ENCOUNTER 2023-06-06 12:38 | Outpatient (REF) | payer OTHER, SELFPAY ==
[2023-06-06 13:10] LABS: Ammonia 82 umol/L (13-55)
[2023-06-06 14:18] LABS: Anion Gap 12 (12-20); Blood Urea Nitrogen 17 mg/dL (9-16); Calcium 9.4 mg/dL (8.4-10.2); Carbon Dioxide 27 mmol/L (22-29); Chloride 104 mmol/L (96-108); Estimated Glomerular Filt Rate > 60; Glucose Random 80 mg/dL (60-115); Magnesium 1.8 mg/dL (1.6-2.6); Potassium 4.7 mmol/L (3.3-5.1); Sodium 138 mmol/L (135-145)
== END 2023-06-06 12:39 | disposition home or self-care (01) ==
LOC: HO.HHCL 12:38
PROVIDERS: Visit Provider Registered Nurse
DX: E83.42 Hypomagnesemia (principal)
CPT/HCPCS: 36415; 80048; 82140; 83735

== ENCOUNTER 2023-06-25 12:10 | Outpatient (REF) | payer OTHER, SELFPAY ==
[2023-06-25 14:05] LABS: Estimated Average Glucose 111 mg/dL; Hemoglobin A1c % 5.5 % (<6.0)
== END 2023-06-25 12:11 | disposition home or self-care (01) ==
LOC: HO.HHCL 12:10
PROVIDERS: Visit Provider Internal Medicine Geriatric Medicine
DX: K76.82 Hepatic encephalopathy (principal); E11.9 Type 2 diabetes mellitus without complications
CPT/HCPCS: 36415; 83036

== ENCOUNTER 2023-06-26 17:01 | Outpatient (REF) | payer OTHER, SELFPAY ==
[2023-06-26 20:00] LABS: CDiff Gene PCR NEGATIVE (Negative)
== END 2023-06-26 17:02 | disposition home or self-care (01) ==
LOC: HO.HHCLNP 17:01
PROVIDERS: Visit Provider Internal Medicine Geriatric Medicine
DX: R19.7 Diarrhea, unspecified (principal)
CPT/HCPCS: 87493

== ENCOUNTER 2023-07-09 12:51 | Outpatient (REF) | payer OTHER, SELFPAY ==
[2023-07-09 13:14] LABS: Ammonia 95 umol/L (13-55)
== END 2023-07-09 12:52 | disposition home or self-care (01) ==
LOC: HO.LAB 12:51
PROVIDERS: PCP Internal Medicine Geriatric Medicine; Visit Provider Internal Medicine Geriatric Medicine
DX: K76.82 Hepatic encephalopathy (principal)
CPT/HCPCS: 36415; 82140

== ENCOUNTER 2023-10-17 11:15 | Outpatient (REF) | payer OTHER, SELFPAY ==
[2023-10-17 11:45] LABS: MANUAL DIFF FLAG NO
[2023-10-17 11:53] LABS: Ammonia 54 umol/L (13-55)
[2023-10-17 11:57] LABS: Basophils Absolute Auto 0.1 X10*3/uL (0.0-0.2); Basophils Percent Auto 1.2 % (0-2); Eosinophils Absolute Auto 0.3 X10*3/uL (0.0-0.4); Eosinophils Percent Auto 5.3 % (0-4); Hematocrit 43.7 % (37.0-47.0); Hemoglobin 14.8 g/dl (12.0-16.0); Imm Gran Abs Auto 0.02 X10*3/uL (0.00-0.03); Imm Gran Pct Auto 0.3 % (0.0-0.4); Lymphocytes Absolute Auto 2.4 X10*3/uL (1.2-4.9); Lymphocytes Percent Auto 38.9 % (20-40); Mean Corpuscular HGB Conc 33.9 g/dl (31.0-35.0); Mean Corpuscular Hemoglobin 31.4 pg (27.0-33.0); Mean Corpuscular Volume 92.6 fL (80.0-98.0); Mean Platelet Volume 9.9 fL (9.4-12.3); Monocytes Absolute Auto 0.9 X10*3/uL (0.1-1.2); Monocytes Percent Auto 14.2 % (2-11); NRBC Pct Auto 0.5 /100WBC (0.0-0.2); Neutrophils Absolute Auto 2.4 x10*3/uL (2.0-8.3); Neutrophils Percent Auto 40.1 % (45-73); Platelet Count 195 X10*3/uL (160-400); Red Blood Count 4.72 X10*6/uL (4.20-5.50); Red Cell Distribution Width 15.5 % (11.0-16.0); White Blood Count 6.1 X10*3/uL (4.8-10.8)
[2023-10-17 12:14] LABS: Estimated Average Glucose 123 mg/dL; Hemoglobin A1c % 5.9 % (<6.0)
[2023-10-17 12:53] LABS: Alanine Aminotransferase 45 U/L (0-31); Alkaline Phosphatase 162 U/L (39-117); Anion Gap 10 (12-20); Aspartate Amino Transferase 54 U/L (5-31); Bilirubin Total 1.1 mg/dL (0.0-1.0); Blood Urea Nitrogen 13 mg/dL (9-16); Calcium 9.2 mg/dL (8.4-10.2); Carbon Dioxide 29 mmol/L (22-29); Chloride 105 mmol/L (96-108); Estimated Glomerular Filt Rate 59; Glucose Random 156 mg/dL (60-115); Potassium 4.9 mmol/L (3.3-5.1); Sodium 139 mmol/L (135-145); TSH reflex Free T4 2.43 uIU/mL (0.32-4.0); Total Protein 7.6 g/dL (6.5-8.0)
== END 2023-10-17 11:16 | disposition home or self-care (01) ==
LOC: HO.LAB 11:15
PROVIDERS: PCP Internal Medicine Geriatric Medicine; Visit Provider Internal Medicine Geriatric Medicine
DX: E11.65 Type 2 diabetes mellitus with hyperglycemia (principal); E03.9 Hypothyroidism, unspecified; R79.89 Other specified abnormal findings of blood chemistry
CPT/HCPCS: 36415; 80053; 82140; 83036; 84443; 85025

== ENCOUNTER 2024-07-25 12:03 | Outpatient (REF) | payer OTHER, SELFPAY ==
[2024-07-25 13:07] LABS: MANUAL DIFF FLAG NO
[2024-07-25 13:15] LABS: Basophils Absolute Auto 0.1 X10*3/uL (0.0-0.2); Basophils Percent Auto 1.3 % (0-2); Eosinophils Absolute Auto 0.2 X10*3/uL (0.0-0.4); Eosinophils Percent Auto 2.8 % (0-4); Hematocrit 44.5 % (37.0-47.0); Hemoglobin 15.5 g/dl (12.0-16.0); Imm Gran Abs Auto 0.02 X10*3/uL (0.00-0.03); Imm Gran Pct Auto 0.3 % (0.0-0.4); Lymphocytes Absolute Auto 1.8 X10*3/uL (1.2-4.9); Lymphocytes Percent Auto 29.4 % (20-40); Mean Corpuscular HGB Conc 34.8 g/dl (31.0-35.0); Mean Corpuscular Hemoglobin 32.4 pg (27.0-33.0); Mean Corpuscular Volume 92.9 fL (80.0-98.0); Mean Platelet Volume 10.4 fL (9.4-12.3); Monocytes Absolute Auto 0.7 X10*3/uL (0.1-1.2); Monocytes Percent Auto 11.3 % (2-11); Neutrophils Absolute Auto 3.3 x10*3/uL (2.0-8.3); Neutrophils Percent Auto 54.9 % (45-73); Platelet Count 156 X10*3/uL (160-400); Red Blood Count 4.79 X10*6/uL (4.20-5.50); Red Cell Distribution Width 14.5 % (11.0-16.0); White Blood Count 6.1 X10*3/uL (4.8-10.8)
[2024-07-25 13:33] LABS: Alanine Aminotransferase 52 U/L (0-31); Alkaline Phosphatase 178 U/L (39-117); Anion Gap 12 (12-20); Aspartate Amino Transferase 74 U/L (5-31); Bilirubin Total 1.9 mg/dL (0.0-1.0); Blood Urea Nitrogen 11 mg/dL (9-16); Calcium 9.6 mg/dL (8.4-10.2); Carbon Dioxide 27 mmol/L (22-29); Chloride 99 mmol/L (96-108); Cholesterol 115 mg/dL (<200); Estimated Glomerular Filt Rate > 60; Glucose Random 140 mg/dL (60-115); HDL Cholesterol 47 mg/dL (>40); LDL Cholesterol Calculated 57 mg/dL (<100); Potassium 5.1 mmol/L (3.3-5.1); Sodium 133 mmol/L (135-145); Total Protein 7.7 g/dL (6.5-8.0); Triglycerides 59 mg/dL (<150)
== END 2024-07-25 12:04 | disposition home or self-care (01) ==
LOC: HO.HHCL 12:03
PROVIDERS: Visit Provider Internal Medicine Geriatric Medicine
DX: E11.9 Type 2 diabetes mellitus without complications (principal)
CPT/HCPCS: 36415; 80053; 80061; 85025

== ENCOUNTER 2024-08-04 13:31 | Outpatient (REF) | payer OTHER, SELFPAY ==
[2024-08-04 17:50] LABS: Creatinine Urine 127.97 mg/dL; Microalbum/Creatinine Ratio Ur 6.2 ug/mg cr (<30)
== END 2024-08-04 13:32 | disposition home or self-care (01) ==
LOC: HO.HHCL 13:31
PROVIDERS: Visit Provider Internal Medicine Geriatric Medicine
DX: E11.9 Type 2 diabetes mellitus without complications (principal)
CPT/HCPCS: 82043; 82570

== ENCOUNTER 2024-09-26 12:23 | Outpatient (REF) | payer OTHER, SELFPAY ==
--- NOTE | ~2024-09-26 | XR_ITS ---
EXAMINATION: XR KNEE 4 OR MORE VIEWS RIGHT HISTORY: Cronic knee pain and DJD COMPARISON: There are no prior studies available for comparison. FINDINGS: Three views of the right knee are submitted. Osseous mineralization is normal. There is no fracture or dislocation. There is mild narrowing of the patellofemoral compartment. There is calcification of the popliteal artery. There is no joint effusion. XR/XR knee RT 4V IMPRESSION: Mild narrowing of the patellofemoral compartment. Electronically signed by: Nando Giron MD 09/26/2024 02:15 PM YAHIR
--- NOTE | ~2024-09-26 | XR_ITS ---
EXAMINATION: XR KNEE 4 OR MORE VIEWS LEFT HISTORY: Cronic knee pain and DJD COMPARISON: There are no prior studies available for comparison. FINDINGS: Four views of the left knee are submitted. Osseous mineralization is normal. There is no fracture or dislocation. There is mild narrowing of the patellofemoral compartment. There is no joint effusion. There is chondrocalcinosis. There is calcification of the popliteal artery. XR/XR knee LT 4V IMPRESSION: Mild narrowing of the patellofemoral compartment. Chondrocalcinosis. Electronically signed by: Nando Giron MD 09/26/2024 02:16 PM YAHIR
--- OUTSIDE RECORDS SUMMARY | 2024-09-26 14:25 | XMS_ITS | Encounter Summary ---
Author Organization [employer] Address [address] [place] [address] Care Team Providers Care Core Rescuer Name Role Phone Name, Francisco NAVA Primary Care Provider [phone] Reason for Visit * Reason Onset Date Comments Med Refill 09/25/2024 Encounter Details Date Type Department Care Team (Late st Contact Info) Description 09/25/2024 Refill [facility] [address] [place], [place] [phone] Name, MD Francisco [address] [place], [place] [phone] Lumbago with sciatica, left side Social History Tobacco Use Types Packs/Day Years Used Date Smoking Tobacco: Never Smokeless Tobacco: Never Alcohol Use Standard Drinks/Week Comments Never 0 (1 standard drink = 0.6 oz pur e alcohol) Alcohol Answer Date Recorded Frequency of Alcohol Consumption Not on file 01/02/2024 Average Number of Drinks Not on file 024 Frequency of Binge Drinking Not on file 09/2023 Score 0 01/02/2024 Depression Answer Date Recorded Patient Health Questionnaire-9 Score 0 01/02/2024 Patient Health Questionnaire-9 Score 0 01/02/2024 Last PHQ-9: Questionnaire Data Not on file 0 01/02/2024 Housing Stability Answer Date Recorded What is your housing situation today? I have jayne stevenson 01/02/[address] you li ve. Do you have problems with any of the following? None of the above 01/02/2024 Food Insecurity Answer Date Recorded Within the past 12 months, y ou worried that your food would run out before you got money to buy more: Never True 01/02/2024 Within the past 12 months,th e food you bought just didn't last and you didn't have enough money to get more: Never True 09/2023 Transportation Answer Date Recorded In the past 12 months, has l ack of transportation kept you from medical appts, meetings, work or from getting things needed for daily living? No 01/02/2024 Utilities Answer Date Recorded In the past 12 months, has t he electric, gas, oil or water company threatened to shut off services in your home? No 01/02/2024 Depression Answer Date Recorded Patient Health Questionnaire-2 Score 0 01/02/2024 Comments Unknown Sex and Gender Information Value Date Recorded Sex Assigned at Female 07/03/2022 10:14 AM EDT Legal Sex Female 10:14 AM EDT Gender Identity Female 07/03/2022 10:14 AM EDT Sexual Orientation Straight 07/03/2022 10 :14 AM EDT documented as of this encounter Miscellaneous Notes * Addendum Note - Meena Lisa RN - 09/25/2024 3:19 PM ESTAddended by: MEENA LISA on: 09/25/2024 03:19 PM Modules accepted: Orders * Telephone Encounter - Brandy Lindsay LPN - 09/25/2024 2:35 PM EST Received request on traMADol (Ultram) 50 MG tablet documented in this encounter Plan of Treatment Upcoming Encounters Date Type Department Care Team (Late st Contact Info) Description 10/10/2024 9:00 AM EST Telemedicine [facility] [address] [place] [phone] Meena Lisa RN 12/29/2024 11:00 AM EDT Office Visit [facility] [address] [place] [phone] Name, MD Francisco [address] [place] [phone] documented as of this encounter Visit Diagnoses Diagnosis Lumbago with sciatica, left side documented in this encounter Additional Health Concerns Assessment Noted Time PHQ-9 Depression Total Score: 0 01/02/20 24 11:09 AM EDT documented as of this encounter Care Teams Core Rescuer Relationship Specialty Start Date End Date Name, MD Francisco [address] [place] [address] PCP - General Family Medicine 05/16/17 documented as of this encounter
--- OUTSIDE RECORDS SUMMARY | 2024-09-26 14:25 | XMS_ITS | Encounter Summary ---
Author Organization [employer] Address [address] [place] [address] Care Team Providers Care Tube Knitter Name Role Phone Name, Francisco NAVA Primary Care Provider [phone] Reason for Visit * Reason Onset Date Comments Medication Question 07/17/2023 Encounter Details Date Type Department Care Team ([facility] st Contact Info) Description 07/17/2023 Telephone [facility] [address] [place], [place] [phone] Name, MD Francisco [address] [place], [place] [phone] Medication Question Social History Tobacco Use Types Packs/Day Years Used Date Smoking Tobacco: Never Smokeless Tobacco: Never Alcohol Use Standard Drinks/Week Comments Never 0 (1 standard drink = 0.6 oz pur e alcohol) Depression Answer Date Recorded Patient Health Questionnaire-9 Score 0 12/20/2022 Housing Stability Answer Date Recorded What is your housing situation today? I have jayne stevenson 06/19/[address] you li ve. Do you have problems with any of the following? None of the above 06/19/2023 Food Insecurity Answer Date Recorded Within the past 12 months, y ou worried that your food would run out before you got money to buy more: Never True 06/19/2023 Within the past 12 months,th e food you bought just didn't last and you didn't have enough money to get more: Never True Transportation Answer Date Recorded In the past 12 months, has l ack of transportation kept you from medical appts, meetings, work or from getting things needed for daily living? No 06/19/2023 Utilities Answer Date Recorded In the past 12 months, has t he electric, gas, oil or water company threatened to shut off services in your home? No 06/19/2023 Depression Answer Date Recorded Patient Health Questionnaire-2 Score 0 12/20/2022 Comments Unknown Sex and Gender Information Value Date Recorded Sex Assigned at Female 07/03/2022 10:14 AM EDT Legal Sex Female 10:14 AM EDT Gender Identity Female 07/03/2022 10:14 AM EDT Sexual Orientation Straight 07/03/2022 10 :14 AM EDT documented as of this encounter Miscellaneous Notes * Telephone Encounter - Georgia Tong RN - 07/20/2023 6:03 PM EST Tc from Nav with [employer] requesting a call back in regards questions on medications. Please call aNv [phone] TC was placed to Nav at above number with [facility] (patient's [facility] service).Nav stated that he was calling when with the patient. Ольга and her family were concerned about her high ammonia level in recent bloodwork and also had questions regarding a new medication. I assured Nav that I would call the patient to answer any questions and refer anything to her PCP. Nav states that he is thinking of discharging patient in the next few weeks because her grandchildren are managing her care well. He states that she was a fall risk and has inconsistent BMs. Advised Nav to please be in touch with us if he decides patient is ready to be discharged from [facility]NA services. TC placed to patient. Spoke with her granddaughter, Phuong. Phuong wanted to know last two ammonia results and inquired about prescription for rifaximin. She was informed of the ammonia level of 95 from 07/26 and the level of 82 from 06/25 and assured that the prescription for rifaximin was sent to the [facility] pharmacy ten days ago. No other questions or concerns at this time. Patient has follow-up visit with Dr. Murillo on 07/30/23. Routing message to Dr. Murillo so he is aware patient may be discharged from [facility]NA services in coming weeks. * Telephone Encounter - Ariadne Johnson - 07/17/2023 11:15 AM EST Tc from Nav with [employer] requesting a call back in regards questions on medications. Please call Nav [phone] documented in this encounter Plan of Treatment Upcoming Encounters Date Type Department Care Team (Late st Contact Info) Description 10/10/2024 9:00 AM EST Telemedicine [facility] [address] [place] [phone] Kym Lisa RN 12/29/2024 11:00 AM EDT Office Visit [facility] [address] [place] [phone] Name, MD Francisco [address] [place] [phone] documented as of this encounter Visit Diagnoses Not on filedocumented in this encounter Additional Health Concerns Assessment Noted Time PHQ-9 Depression Total Score: 0 12/21/19 23 11:04 AM EDT documented as of this encounter Care Teams Tube Knitter Relationship Specialty Start Date End Date Name, MD Francisco [address] [place] [phone] PCP - General Family Medicine 05/16/17 documented as of this encounter
--- OUTSIDE RECORDS SUMMARY | 2024-09-26 14:25 | XMS_ITS | Encounter Summary ---
Author Organization [employer] Address [address] [facility] 7[address] [place] [address] Care Team Providers Care Organisational Psychologist Name Role Phone Francisco Murillo MD Primary Care Provider [phone] Reason for Referral * Consultation (Routine) - Authorized Specialty Diagnoses / Procedures Referred By Martin t Referred To Contact Family Medicine Diagnoses Osteoarthritis of left knee, unspecified osteoarthritis type Francisco Murillo MD [address] [place] [address] Phone: tel: fax: Nicki Alvarado MD [address] [place] [address] Phone: tel: fax: Referral ID Status Reason Start Date Expiration Date Visits Requested Visits Authorized [id number] Authorized Consult and Treat 09/26/2024 09/26/2025 1 1 * Imaging (Routine) - Authorized Specialty Diagnoses / Procedures Referred By Contjeff t Referred To Contact Radiology Diagnoses Age related osteoporosis, unspecified pathological fracture presence Procedures BD DEXA Axial Francisco Murillo MD [address] [place] [address] Phone: tel: fax: [facility] [address] [place] [address] Phone: tel: fax: Referral ID Status Reason Start Date Expiration Date V isits Requested Visits Authorized [id number] Authorized 09/26/2024 09/26/2025 1 1 Reason for Visit * Reason Comments Diabetes Encounter Details Date Type Department Care Team (Latest Contact Info) Description 09/26/2024 11:00 AM EST Office Visit [facility] [address] [place] [address] Name, MD Francisco [address] [place] [address] Type 2 diabetes mellitus without complication, without long-term current use of insulin ([facility]) (Primary Dx); Acquired hypothyroidism; Age related osteoporosis, unspecified pathological fracture presence; Osteoarthritis of left knee, unspecified osteoarthritis type; Encounter for immunization Social History Tobacco Use Types Packs/Day Years Used Date Smoking Tobacco: Never Smokeless Tobacco: Never Tobacco Cessation:Counseling Given: Not Answered Alcohol Use Standard Drinks/Week Comments Never 0 [...] AM EDT documented as of this encounter Last Filed Vital Signs Vital Sign Reading Time Taken Comments Blood Pressure 109/64 09/26/2024 11:31 AM EST Pulse 110 09/26/2024 11:31 AM EST Temperature 37 ??C (98.6 ??F) 09/26/2024 11:31 AM EST Respiratory Rate 14 09/26/2024 11:31 AM EST Oxygen Saturation 96% 09/26/2024 11:31 AM EST Inhaled Oxygen Concentration - - Weight 69.6 kg (153 lb 6.4 oz) 09/26/2024 11:31 AM EST Height 167.6 cm (5' 6 ) 09/26/2024 11:31 AM EST Body Mass Index 24.76 09/26/2024 11:31 AM EST documented in this encounter Progress Notes * Francisco Murillo MD - 09/26/2024 11:00 AM EST Subjective Patient ID: Ольга Sanchez is a 89 y.o. female who presents for Diabetes. Patient comes for a follow-up visit. She is accompanied by her granddaughter that is her main crane engineer. The patient complains of bilateral knee pain secondary to DJD. 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 She describes several falls at home. She lives independently with the help of her family. Her pain is well-controlled on her current dose of tramadol. Blood sugars well-controlled on current dose of metformin. She has a past medical history of osteoporosis. She is currently treated with calcium and vitamin D that she buys [id number]. She does not have any recent bone density test. I am not sure if she ever used Fosamax. The patient has a very good memory. She is due to repeat TSH. She is on thyroid replacement therapy for hypothyroidism. Review of Systems Constitutional: Negative for chills and fever. HENT: Negative for sore throat. Respiratory: Negative for cough, shortness of breath and wheezing. Cardiovascular: Negative for chest pain, palpitations and leg swelling. Gastrointestinal: Negative for abdominal pain. Musculoskeletal: See HPI Visit Vitals BP 109/64 (BP Location: Left arm, Patient Position: Sitting, BP Cuff Size: Adult) Pulse 110 Temp 98.6 ??F (37 ??C) (Temporal) Resp 14 Ht 5' 6 (1.676 m) Wt 153 lb 6.4 oz (69.6 kg) SpO2 96% BMI 24.76 kg/m?? Smoking Status Never BSA 1.8 m?? Objective Physical Exam Constitutional: Appearance: Normal appearance. Cardiovascular: Rate and Rhythm: Normal rate and regular rhythm. Heart sounds: No murmur heard. No gallop. Pulmonary: Effort: Pulmonary effort is normal. No respiratory distress. Breath sounds: Normal breath sounds. No wheezing. Musculoskeletal: Right knee: No swelling. Decreased range of motion. Tenderness present. Left knee: No swelling. Decreased range of motion. Tenderness present. Right lower leg: No edema. Left lower leg: No edema. Neurological: Mental Status: She is alert. Lab Results Component Value Date HGBA1C 6.3 (A) 09/26/2024 HGBA1C 6.6 (A) 01/02/2024 HGBA1C 5.9 10/17/2023 HGBA1C 5.5 06/25/2023 HGBA1C 6.1 (A) 03/15/2023 HGBA1C 5.9 (H) 09/26/2022 HGBA1C 7.2 (H) 12/27/2021 Lab Results Component Value Date WBC 6.1 07/25/2024 HGB 15.5 07/25/2024 HCT 44.5 07/25/2024 MCV 92.9 07/25/2024 PLT 156 (L) 07/25/2024 Lab Results Component Value Date GLUCOSE 140 (H) 07/25/2024 NA 133 (L) 07/25/2024 K 5.1 07/25/2024 CO2 27 07/25/2024 CL 99 07/25/2024 BUN 11 07/25/2024 CREATININE 0.83 07/25/2024 Current Outpatient Medications on File Prior to Visit Medication Sig Dispense Refill albuterol 108 (90 Base) MCG/ACT inhaler Inhale 2 puffs every 4 (four) hours. Aspirin Low Dose 81 MG EC tablet TAKE 1 TABLET BY MOUTH EVERYDAY AT NOON 90 tablet 0 atorvastatin (Lipitor) 40 MG tablet TAKE 1 TABLET BY MOUTH EVERYDAY AT NOON 90 tablet 3 cyanocobalamin (Vitamin B-12) 1000 MCG tablet TAKE 1 TABLET BY MOUTH EVERY MORNING 90 tablet 3 Estrogens Conjugated (Premarin) 0.625 MG/GM cream Insert 1 each into the vagina See administration instructions. 0.5 to 1 g once daily for 2 weeks, then reduce dose and/or frequency to lowest effective dose (usual maintenance dose: 0.5 to 1 g one to 3 times/week) 30 g 1 gabapentin (Neurontin) 100 MG capsule TAKE 1 CAPSULE BY MOUTH EVERY EVENING 90 capsule 1 glucose blood (FREESTYLE LITE) test strip TEST BLOOD SUGAR ONCE DAILY 50 strip 11 lactulose (Chronulac) 10 GM/15ML solution TAKE 45 ML BY MOUTH THREE TIMES DAILY. HOLD IF 3 BOWEL MOVEMENT (s) IN 1 DAY 946 mL 3 levothyroxine (Synthroid, Levoxyl) 50 MCG tablet TAKE 1 TABLET BY MOUTH EVERY MORNING BEFORE BREAKFAST 30 tablet 5 loratadine (Claritin) 10 MG tablet TAKE 1 TABLET BY MOUTH EVERYDAY AT NOON 30 tablet 5 metFORMIN (Glucophage) 500 MG tablet Take 0.5 tablets (250 mg) by mouth with breakfast and with evening meal. 30 tablet 11 olmesartan (BENIcar) 5 MG tablet TAKE 1 TABLET BY MOUTH EVERY MORNING 90 tablet 3 pantoprazole (ProtoNix) 40 MG EC tablet TAKE 1 TABLET BY MOUTH EVERYDAY AT NOON 90 tablet 3 risperiDONE (RisperDAL) 0.25 MG tablet TAKE 1 TABLET BY MOUTH TWICE DAILY NEEDED FOR AGITATION thiamine (Vitamin B-1) 100 MG tablet TAKE 1 TABLET BY MOUTH EVERY MORNING 90 tablet 3 traMADol (Ultram) 50 MG tablet Take 1 tablet (50 mg) by mouth every 12 (twelve) hours if needed forsevere pain for up to 28 days. 56 tablet 0 Trelegy Ellipta 200-62.5-25 MCG/ACT aerosol powder INHALE 1 PUFF BY MOUTH EVERY MORNING 60 each 11 TRUEplus Lancets 33G misc TEST BLOOD SUGAR ONCE DAILY DIRECTED 100 each 3 Ca Phosphate-Cholecalciferol (Calcium 500 + D3) 250-12.5 MG-MCG chewable tablet Chew. fluticasone (Flonase) 50 MCG/ACT nasal spray Administer 1 spray into each nostril Once per day. 16 g 2 [DISCONTINUED] olmesartan (BENIcar) 5 MG tablet TAKE 1 TABLET BY MOUTH EVERY MORNING 90 tablet 3 [DISCONTINUED] traMADol (Ultram) 50 MG tablet Take 1 tablet (50 mg) by mouth every 12 (twelve) hours if needed for severe pain for up to 28 days. Do not start before August 26, 2024. 56 tablet 0 No current facility-administered medications on file prior to visit. Assessment/Plan Diagnoses and all orders for this visit: Type 2 diabetes mellitus without complication, without long-term current use of insulin ([facility]) Comments: Continue aspirin, statin, Benicar, metformin. Avoid sweets. Orders: - POCT Glucose - POCT HGB A1C Acquired hypothyroidism Comments: Continue levothyroxine and recheck TSH Orders: - TSH W/Reflex to FT4; Future Age related osteoporosis, unspecified pathological fracture presence Comments: Continue calcium plus vitamin D, check vitamin D levels, repeat bone density test. Consider starting Fosamax. Orders: - BD DEXA Axial; Future - Vitamin D, 25-Hydroxy, Total, Immunoassay; Future Osteoarthritis of left knee, unspecified osteoarthritis type Comments: Check x-ray of the knees. Referral to joint injection clinic. Orders: - XR Knee 4+ Views Right; Future - XR Knee 4+ Views Left; Future - Referral to Joint Injection Clinic; Future Encounter for immunization Comments: Flu vaccine today. Orders: - FLU VACCINE TRIVALENT HIGH DOSE 65 yrs + documented in this encounter Plan of Treatment Upcoming Encounters Date Type Department Care Team (Late st Contact Info) Description 10/10/2024 9:00 AM EST Telemedicine [facility] [address] [place] [address] Kym Lisa RN 12/29/2024 11:00 AM EDT Office Visit [facility] [address] [place] [address] Francisco Murillo MD [address] [place] [address] Scheduled Orders Name Type Priority Associated Diagnoses Orde r Schedule BD DEXA Axial Imaging Routine Age related osteoporosis, unspecified pathological fracture presence Expected: 09/26/2024, Expires: 09/26/2025 TSH W/Reflex to FT4 Lab Routine Acquired hypothyroidism Expected: 09/26/2024 (Approximate), Expires: 09/26/2025 Vitamin D, 25-Hydroxy, Total, Immunoassay Lab Routine Age related osteoporosis, unspecified pathological fracture presence Expected: 09/26/2024 (Approximate), Expires: 09/26/2025 Scheduled Referrals Name Type Priority Associated Diagnoses Orde r Schedule Referral to Joint Injection Clinic Outpatient Referral Routine Osteoarthritis of left knee, unspecified osteoarthritis type Expected: 09/26/2024 (Approximate), Expires: 09/26/2025 documented as of this encounter Procedures Procedure Name Priority Date/Time Associated Diagnosis Comments XR KNEE 4+ VIEWS RIGHT Routine 09/26/2024 1:04 PM EST Osteoarthritis of left knee, unspecified osteoarthritis type XR KNEE 4+ VIEWS LEFT Routine 09/26/2024 1:04 PM EST Osteoarthritis of left knee, unspecified osteoarthritis type POCT GLYCATED HEMOGLOBIN, TOTAL Routine 09/26/2024 11:32 AM EST Type 2 diabetes mellitus without complication, without long-term current use of insulin ([facility]) POCT GLUCOSE Routine 09/26/2024 11:32 AM EST Type 2 diabetes mellitus without complication, without long-term current use of insulin ([facility]) documented in this encounter Results * XR Knee 4+ Views Left (09/26/2024 1:04 PM EST) Anatomical Region Laterality Modality Lower Extremities, Knee Left Radiogra phic Imaging 09/26/2024 1:04 PM EST Narrative 09/26/2024 2:19 PM EST ? [facility] ?[address] ?[place] [address] ?XRay Report ? Signed ? Patient: Daniel,Emily ?MR#: [id number] ?? [id number] ? : 1935 ?Acct:[id number] ? Age/Sex: 89 / F ?ADM Date: 09/26/24 ? Loc: HO.HHCL ? Attending Dr: Francisco Murillo MD ? Ordering Physician: Francisco Murillo MD ?? Date of Service: 09/26/24 ?? Procedure(s): XR knee LT 4V ?? Accession Number(s): [id number] ? cc: Francisco Murillo MD ? EXAMINATION: ??XR KNEE 4 OR MORE VIEWS LEFT ? HISTORY: Cronic knee pain and DJD ? COMPARISON: There are no prior studies available for comparison. ? FINDINGS: ? Four views of the left knee are submitted. ??Osseous mineralization is ?? normal. ??There is no fracture or dislocation. ??There is mild narrowing ?? of the patellofemoral compartment. ??There is no joint effusion. There ?? is chondrocalcinosis. There is calcification of the popliteal artery. ? XR/XR knee LT 4V ?? IMPRESSION: ? Mild narrowing of the patellofemoral compartment. Chondrocalcinosis. ? Electronically signed by: ??Nando Giron MD ??09/26/2024 02:16 PM EST ?? RP ? Dictated By: ?Nadno Giron MD ? Signed By: ?<Electronically signed by Nando Giron MD in OV> ?09/26/24 1416 ? DD/ 1304 ? TD/TT: 09/26/24 1332 ? Dog Races Manager: ? Procedure Note Alberto Longoria - 09/26/[address] [address] XRay Report Signed Patient: Ольга Sanchez [facility]#: [id number] : 6Acct:[id number] Age/Sex: 89 / FADM Date: 09/26/24 Loc: HO.HHCL Attending Dr: Francisco Murillo MD Ordering Physician: Francisco Murillo MD Date of Service: 09/26/24 Procedure(s): XR knee LT 4V Accession Number(s): [id number] cc: Francisco Murillo MD EXAMINATION: XR KNEE 4 OR MORE VIEWS LEFT HISTORY: Cronic knee pain and DJD COMPARISON: There are no prior studies available for comparison. FINDINGS: Four views of the left knee are submitted. Osseous mineralization is normal. There is no fracture or dislocation. There is mild narrowing of the patellofemoral compartment. There is no joint effusion. There is chondrocalcinosis. There is calcification of the popliteal artery. XR/XR knee LT 4V IMPRESSION: Mild narrowing of the patellofemoral compartment. Chondrocalcinosis. Electronically signed by: Nando Giron MD 09/26/2024 02:16 PM EST RP Dictated By: Nando Giron MD Signed By: <Electronically signed by Nando Giron MD in OV> 09/26/24 1416 DD/ 1304 TD/TT: 09/26/24 1332 Dog Races Manager: us Francisco Name IMG XR PROCEDURES Final Result * XR Knee 4+ Views Right (09/26/2024 1:04 PM EST) Anatomical Region Laterality Modality Lower Extremities, Knee Right Radiogra phic Imaging 09/26/2024 1:04 PM EST Narrative 09/26/2024 2:18 PM EST ? [facility] ?[address] ?[place] [address] ?XRay Report ? Signed ? Patient: Daniel,Emily ?MR#: [id number] ?? [id number] ? : 1935 ?Acct:[id number] ? Age/Sex: 89 / F ?ADM Date: 09/26/24 ? Loc: HO.HHCL ? Attending : Francisco Murillo MD ? Ordering Physician: Name,Francisco NAVA ?? Date of Service: 09/26/24 ?? Procedure(s): XR knee RT 4V ?? Accession Number(s): [id number] ? cc: Name,Francisco NAVA ? EXAMINATION: ??XR KNEE 4 OR MORE VIEWS RIGHT ? HISTORY: Cronic knee pain and DJD ? COMPARISON: There are no prior studies available for comparison. ? FINDINGS: ? Three views of the right knee are submitted. ??Osseous mineralization is ?? normal. ??There is no fracture or dislocation. ??There is mild narrowing ?? of the patellofemoral compartment. There is calcification of the ?? popliteal artery. ??There is no joint effusion. ? XR/XR knee RT 4V ?? IMPRESSION: ? Mild narrowing of the patellofemoral compartment. ? Electronically signed by: ??Nando Giron MD ??09/26/2024 02:15 PM EST ?? RP ? Dictated By: ?Nando Giron MD ? Signed By: ?<Electronically signed by Nando Giron MD in OV> ?09/26/24 1415 ? DD/ 1304 ? TD/TT: 09/26/24 1332 ? Dog Races Manager: ? Procedure Note DonAlberto friedman - 09/26/[address] [address] XRay Report Signed Patient: Ольга Sanchez SMR#: [id number] : 6Acct:[id number] Age/Sex: 89 / FADM Date: 09/26/24 Loc: HO.HHCL Attending Dr: Francisco Murillo MD Ordering Physician: Francisco Murillo MD Date of Service: 09/26/24 Procedure(s): XR knee RT 4V Accession Number(s): [id number] cc: Francisco Murillo MD EXAMINATION: XR KNEE 4 OR MORE VIEWS RIGHT HISTORY: Cronic knee pain and DJD COMPARISON: There are no prior studies available for comparison. FINDINGS: Three views of the right knee are submitted. Osseous mineralization is normal. There is no fracture or dislocation. There is mild narrowing of the patellofemoral compartment. There is calcification of the popliteal artery. There is no joint effusion. XR/XR knee RT 4V IMPRESSION: Mild narrowing of the patellofemoral compartment. Electronically signed by: Nando Giron MD 09/26/2024 02:15 PM EST Dictated By: Nando Giron MD Signed By: <Electronically signed by Nando Giron MD in OV> 09/26/24 1415 DD/ 1304 TD/TT: 09/26/24 1332 Dog Races Manager: Francisco Murillo MD IMG XR PROCEDURES Final Result * (ABNORMAL) POCT HGB A1C (09/26/2024 11:32 AM EST) Hemoglobin A1C 6.3(A) 4.0 - 6.0 % QC Media Lot # [id number] Lot# Expiration Date 71,626 Blood 09/26/2024 11:3 2 AM EST Francisco Murillo MD POINT OF CARE TEST ENTER/EDIT OR DERABLES Final Result * POCT Glucose (09/26/2024 11:32 AM EST) Glucose Blood, POC 196 60 - 200 mg/dL QC Media Lot # [id number] Lot# Expiration Date 53,025 Blood Capillary blood specimen / Unknown 09/26/2024 11:32 AM EST Francisco Murillo MD POINT OF CARE TEST ENTER/EDIT OR DERABLES Final Result documented in this encounter Visit Diagnoses Diagnosis Type 2 diabetes mellitus without complication, without long-term current use of insulin ([facility])- Primary Acquired hypothyroidism Unspecified hypothyroidism Age related osteoporosis, unspecified pathological fracture presence Osteoarthritis of left knee, unspecified osteoarthritis type Encounter for immunization documented in this encounter Additional Health Concerns Assessment Noted Time PHQ-9 Depression Total Score: 0 01/02/20 24 11:09 AM EDT documented as of this encounter Care Teams Organisational Psychologist Relationship Specialty Start Date End Date Name, MD Francisco [address] [place] [address] PCP - General Family Medicine 05/16/17 documented as of this encounter
--- OUTSIDE RECORDS SUMMARY | 2024-09-26 14:25 | XMS_ITS | Encounter Summary ---
Author Organization [employer] Address [address] 7[address] [place] [address] Care Team Providers Care Him Director Name Role Phone Name, Francisco NAVA Primary Care Provider [phone] Reason for Visit * Reason Onset Date Comments Med Refill 09/23/2024 Encounter Details Date Type Department Care Team (Late st Contact Info) Description 09/23/2024 Refill [facility] [address], [place] [phone] Name, MD Francisco [address] [place], [place] [phone] Hypertension, unspecified type Social History Tobacco Use Types Packs/Day Years [...] encounter Miscellaneous Notes * Telephone Encounter - Rere Robles LPN - 09/23/2024 9:58 AM EST Next appointment 09/26/24. documented in this encounter Plan of Treatment Upcoming Encounters Date Type Department Care Team (Late st Contact Info) Description 10/10/2024 9:00 AM EST Telemedicine [facility] [address] [place] [address] Kmy Lisa RN 12/29/2024 11:00 AM EDT Office Visit [facility] [address] [place] [address] Name, MD Francisco [address] [place] [address] documented as of this encounter Visit Diagnoses Diagnosis Hypertension, unspecified type documented in this encounter Additional Health Concerns Assessment Noted Time PHQ-9 Depression Total Score: 0 01/02/20 24 11:09 AM EDT documented as of this encounter Care Teams Him Director Relationship Specialty Start Date End Date Name, MD Francisco [address] [place] [address] PCP - General Family Medicine 05/16/17 documented as of this encounter
--- OUTSIDE RECORDS SUMMARY | 2024-09-26 14:25 | XMS_ITS | Encounter Summary ---
Author Organization [employer] Address [address] [place] [address] Care Team Providers Care Pharmacy Consultant Name Role Phone Name, Francisco NAVA Primary Care Provider [phone] Reason for Visit * Reason Comments Med Refill Encounter Details Date Type Department Care Team (Late st Contact Info) Description 07/12/2023 Refill [facility] [address] [place] [address] Name, MD Francisco [address] [place] [address] Social History Tobacco Use Types Packs/Day Years [...] AM EDT documented as of this encounter Plan of Treatment Upcoming Encounters Date Type Department Care Team (Late st Contact Info) Description 10/10/2024 9:00 AM EST Telemedicine [facility] [address] [place] [address] Kym Lisa RN 12/29/2024 11:00 AM EDT Office Visit [facility] [address] [place] [address] Name, MD Francisco [address] [place] [address] documented as of this encounter Visit Diagnoses Not on filedocumented in this encounter Additional Health Concerns Assessment Noted Time PHQ-9 Depression Total Score: 0 12/21/19 23 11:04 AM EDT documented as of this encounter Care Teams Pharmacy Consultant Relationship Specialty Start Date End Date Name, MD Francisco [address] [place] [address] PCP - General Family Medicine 05/16/17 documented as of this encounter
--- OUTSIDE RECORDS SUMMARY | 2024-09-26 14:25 | XMS_ITS | Encounter Summary ---
Author Organization [employer] Address [address] [place] [address] Care Team Providers Care Action Finisher Name Role Phone Name, Francisco NAVA Primary Care Provider [phone] Reason for Visit * Reason Comments Med Refill Encounter Details Date Type Department Care Team (Late st Contact Info) Description 09/21/2024 Refill [facility] [address] [place], [place] [phone] Name, MD Francisco [address] [place], [place] [phone] Chronic low back pain, unspecified back pain laterality, unspecified whether sciatica present; Hypertension, unspecified type Social History Tobacco Use [...] Info) Description 10/10/2024 9:00 AM EST Telemedicine [facility] [address] [place] [address] Kym Lisa RN 12/29/2024 11:00 AM EDT Office Visit [facility] [address] [place] [phone] NameFrancisco MD [address] [place] [address] documented as of this encounter Visit Diagnoses Diagnosis Chronic low back pain, unspecified back pain laterality, unspecified whether sciatica present Hypertension, unspecified type documented in this encounter Additional Health Concerns Assessment Noted Time PHQ-9 Depression Total Score: 0 01/02/20 24 11:09 AM EDT documented as of this encounter Care Teams Action Finisher Relationship Specialty Start Date End Date Francisco Murillo MD [address] [place] [address] PCP - General Family Medicine 05/16/17 documented as of this encounter
--- OUTSIDE RECORDS SUMMARY | 2024-09-26 14:25 | XMS_ITS | Encounter Summary ---
Author Organization [employer] Address 75 [facility] 7t [place] [address] Care Team Providers Care Efficiency Engineer Name Role Phone Name, Francisco NAVA Primary Care Provider Encounter Details Date Type Department Care Team (Late Contact Info) Description 10/04/2022 Orders Only [address] [address] Brandy Lindsay LPN Social History Tobacco Use Types Packs/Day Years Used Date Smoking Tobacco: Never Smokeless Tobacco: Never Comments Unknown Sex and Gender Information Value Date Recorded Sex Assigned at Female 07/03/2022 10:14 AM EDT Legal Sex Female 10:14 AM EDT Gender Identity Female 07/03/2022 10:14 AM EDT Sexual Orientation Straight 07/03/2022 10 :14 AM EDT COVID-19 Exposure Response Date Recorded In the last 10 days, have yo u been in contact with someone who was confirmed or suspected to have Coronavirus/COVID-19? No / Unsure 09/26/2022 10:49 AM EST documented as of this encounter Plan of Treatment Upcoming Encounters Date Type Department Care Team (Late Contact Info) Description 10/10/2024 9:00 AM EST Telemedicine [address] [phone] Kym Lisa RN 12/29/2024 11:00 AM EDT Office Visit [address] [phone] NameFrancisco MD [address] [place] [address] [place] [address] documented as of this encounter Procedures Procedure Name Priority Date/Time Associated Diagnosis Comments US ABDOMEN COMPLETE Routine 11/03/2022 9 :14 AM EST documented in this encounter Results * US Abdomen Complete (11/03/2022 9:14 AM EST) Anatomical Region Laterality Modality Abdomen Ultrasound 11/03/2022 9:14 AM EST Narrative 11/05/2022 11:42 PM EST ? [facility] ?[address] ?Corine Schulte [address] ? Ultrasound Report ? Signed ? Patient: Ольга Sanchez ?MR#: [id number] ?? [id number] ? : 1935 ?Acct:[id number] ? Age/Sex: 87 / F ?ADM Date: 11/03/22 ? Loc: HO.US ? Attending Dr: Francisco Murillo MD ? Ordering Physician: Francisco Murillo MD ?? Date of Service: 11/03/22 ?? Procedure(s): US abdomen complete ?? Accession Number(s): [id number] ? cc: Francisco Murillo MD ? EXAMINATION: ?? US ABDOMEN COMPLETE ? CLINICAL INFORMATION: ?? Weight loss. ? COMPARISON: ?? MRI abdomen 09/11/2017. Ultrasound abdomen 09/09/2017 and 09/09/2013. ?? CT abdomen and pelvis 10/29/2015. ? TECHNIQUE: ?? Real-time imaging of the abdominal viscera. ? FINDINGS: ? PANCREAS: The visualized portions of the pancreas are unremarkable but ?? a large portion of the gland is obscured by bowel gas. ? ABDOMINAL AORTA: Limited visualization, atherosclerotic changes are ?? seen in the aorta. No mid or distal aneurysm is seen. The proximal ?? aorta was not visualized. ? INFERIOR VENA CAVA: Visualized portions are normal. ? LIVER: The liver is normal in size. The liver contour is normal. No ?? focal hepatic lesion. There is no intrahepatic biliary duct dilatation ?? seen. ? GALLBLADDER: Surgically absent. ? COMMON BILE DUCT: Normal in caliber measuring 0.9 cm in diameter. ? RIGHT KIDNEY: No hydronephrosis. No renal calculi or focal parenchymal ?? lesions. The kidney measures 9.5 cm in maximum dimension. ? LEFT KIDNEY: No hydronephrosis. No renal calculi or focal parenchymal ?? lesions. The kidney measures 9.3 cm in maximum dimension. ? SPLEEN: Normal. The spleen measures 8.2 cm in maximum dimension. ? FREE FLUID: None. ? US/US abdomen complete ?? IMPRESSION: ?? A cause for the patient's weight loss has not been found. No ?? significant abnormality is seen. A large portion of the pancreas was ?? not visualized. ? Dictated By: ?Nirav Perez MD ? Signed By: ?<Electronically signed by Nirav Perez MD in OV> ? 11/05/229 ? DD/ 0914 ? TD/TT: ? Golf Starter And Ranger: SS ? Procedure Note Dondeniseter, Image - 11/05/2022 [place] [address] Ultrasound Report Signed Patient: Ольга Sanchez SMR#: [id number] : 6Acct:[id number] Age/Sex: 87 / FADM Date: 11/03/22 Loc: HO.US Attending Dr: Francisco Murillo MD Ordering Physician: Francisco Murillo MD Date of Service: 11/03/22 Procedure(s): US abdomen complete Accession Number(s): [id number] cc: Francisco Murillo MD EXAMINATION: US ABDOMEN COMPLETE CLINICAL INFORMATION: Weight loss. COMPARISON: MRI abdomen 09/11/2017. Ultrasound abdomen 09/09/2017 and 09/09/2013. CT abdomen and pelvis 10/29/2015. TECHNIQUE: Real-time imaging of the abdominal viscera. FINDINGS: PANCREAS: The visualized portions of the pancreas are unremarkable but a large portion of the gland is obscured by bowel gas. ABDOMINAL AORTA: Limited visualization, atherosclerotic changes are seen in the aorta. No mid or distal aneurysm is seen. The proximal aorta was not visualized. INFERIOR VENA CAVA: Visualized portions are normal. LIVER: The liver is normal in size. The liver contour is normal. No focal hepatic lesion. There is no intrahepatic biliary duct dilatation seen. GALLBLADDER: Surgically absent. COMMON BILE DUCT: Normal in caliber measuring 0.9 cm in diameter. RIGHT KIDNEY: No hydronephrosis. No renal calculi or focal parenchymal lesions. The kidney measures 9.5 cm in maximum dimension. LEFT KIDNEY: No hydronephrosis. No renal calculi or focal parenchymal lesions. The kidney measures 9.3 cm in maximum dimension. SPLEEN: Normal. The spleen measures 8.2 cm in maximum dimension. FREE FLUID: None. US/US abdomen complete IMPRESSION: A cause for the patient's weight loss has not been found. No significant abnormality is seen. A large portion of the pancreas was not visualized. Dictated By: Nirav Perez MD Signed By: <Electronically signed by Nirav Perez MD in OV> 11/05/22 2339 DD/ TD/TT: Golf Starter And Ranger: [facility] External Provider IMG US PROCEDURES Edited Result - Final documented in this encounter Visit Diagnoses Not on filedocumented in this encounter Care Teams Efficiency Engineer Relationship Specialty Start Date End Date Name, MD Francisco [address] [place] [address] PCP - General Family Medicine 05/16/17 documented as of this encounter
--- OUTSIDE RECORDS SUMMARY | 2024-09-26 14:25 | XMS_ITS | Encounter Summary ---
Author Organization [employer] Address [address] [place] [address] 7 [place] [address] Care Team Providers Care Annealing Furnace Operator Name Role Phone Name, Francisco NAVA Primary Care Provider [phone] Encounter Details Date Type Department Care Team (Late st Contact Info) Description 09/14/2022 Orders Only [facility] [address] [place] [address] Brandy Lindsay LPN Social History Tobacco Use Types Packs/Day Years Used Date Smoking Tobacco: Never Assessed Comments Unknown Sex and Gender Information Value Date Recorded Sex Assigned at Female 07/03/2022 10:14 AM EDT Legal Sex Female 10:14 AM EDT Gender Identity Female 07/03/2022 10:14 AM EDT Sexual Orientation Straight 07/03/2022 10 :14 AM EDT documented as of this encounter Plan of Treatment Upcoming Encounters Date Type Department Care Team (Late st Contact Info) Description 10/10/2024 9:00 AM EST Telemedicine [facility] [address] [place] [address] [phone] Kym Lisa, RN 12/29/2024 11:00 AM EDT Office Visit [facility] [address] [place] [address] [phone] Francisco Murillo MD [address] [place] [address] documented as of this encounter Visit Diagnoses Not on filedocumented in this encounter Care Teams Annealing Furnace Operator Relationship Specialty Start Date End Date Francisco Murillo, MD [address] [place] [address] PCP - General Family Medicine 05/16/17 documented as of this encounter
--- OUTSIDE RECORDS SUMMARY | 2024-09-26 14:25 | XMS_ITS | Encounter Summary ---
Author Organization [employer] Address [address] [facility] [address] 7t [place] [address] Care Team Providers Care Poultry Scientist Name Role Phone Name, Francisco NAVA Primary Care Provider [phone] Encounter Details Date Type Department Care Team (Latest Contact Info) Description 09/26/2024 Travel Social History Tobacco Use Types Packs/Day Years [...] Info) Description 10/10/2024 9:00 AM EST Telemedicine [address] [address] Kym Lisa RN 12/29/2024 11:00 AM EDT Office Visit [facility] [address] [place] [address] Name, MD Francisco [address] [place] [address] documented as of this encounter Visit Diagnoses Not on filedocumented in this encounter Additional Health Concerns Assessment Noted Time PHQ-9 Depression Total Score: 0 01/02/20 24 11:09 AM EDT documented as of this encounter Care Teams Poultry Scientist Relationship Specialty Start Date End Date NameFrancisco MD [address] [place] [address] PCP - General Family Medicine 05/16/17 documented as of this encounter
--- OUTSIDE RECORDS SUMMARY | 2024-09-26 14:25 | XMS_ITS | Encounter Summary ---
Author Organization [employer] Address [address] [facility] [address] 7t [place] [address] Care Team Providers Care Spice Blender Name Role Phone Name, Francisco NAVA Primary Care Provider [phone] Reason for Visit * Reason Onset Date Comments Durable Medical Equipment 08/10/2023 Incont inence Supplies Encounter Details Date Type Department Care Team (Late st Contact Info) Description 08/10/2023 Telephone [facility] [address] [place], [place] [phone] Name, MD Francisco [address] [place], [place] [phone] Durable Medical Equipment (Incontinence Supplies) Social History Tobacco Use Types Packs/Day Years [...] encounter Miscellaneous Notes * Telephone Encounter - Bernie Sanchez - 08/20/2023 1:18 PM EST Order has been generated and placed on providers desk for review and signature. * Telephone Encounter - Eva Reynolds - 08/15/2023 11:45 AM EST Tc from pt requesting status in regards to message above. * Telephone Encounter - Eva Reynolds - 08/10/2023 9:08 AM EST Tc from granddaughter requesting a script for pull-ups (size L), Gloves (size L), and bed pads to be faxed to [phone] documented in this encounter Plan of Treatment Upcoming Encounters Date Type Department Care Team (Late st Contact Info) Description 10/10/2024 9:00 AM EST Telemedicine [facility] [address] [place] [address] Kym Lisa RN 12/29/2024 11:00 AM EDT Office Visit [facility] [address] [place] [phone] Name, MD Francisco [address] [place] [address] documented as of this encounter Visit Diagnoses Not on filedocumented in this encounter Additional Health Concerns Assessment Noted Time PHQ-9 Depression Total Score: 0 12/21/19 23 11:04 AM EDT documented as of this encounter Care Teams Spice Blender Relationship Specialty Start Date End Date Name, MD Francisco [address] [place] [address] PCP - General Family Medicine 05/16/17 documented as of this encounter
--- OUTSIDE RECORDS SUMMARY | 2024-09-26 14:25 | XMS_ITS | Encounter Summary ---
Author Organization [employer] Address [address] [facility] [address] 7t [place] [address] Care Team Providers Care Customer Solutions Supervisor Name Role Phone Name, Francisco NAVA Primary Care Provider [phone] Reason for Visit * Reason Comments Med Refill Encounter Details Date Type Department Care Team (Late st Contact Info) Description 08/24/2023 Refill [facility] PEDS [address] [place] [address] Name, MD Francisco [address] [place] [address] Social History Tobacco Use Types Packs/Day Years [...] Info) Description 10/10/2024 9:00 AM EST Telemedicine [facility] [address] [place] [address] Kym Lisa RN 12/29/2024 11:00 AM EDT Office Visit [facility] [address] [place] [phone] Name, MD Francisco [address] [place] [address] documented as of this encounter Visit Diagnoses Not on filedocumented in this encounter Additional Health Concerns Assessment Noted Time PHQ-9 Depression Total Score: 0 12/21/19 23 11:04 AM EDT documented as of this encounter Care Teams Customer Solutions Supervisor Relationship Specialty Start Date End Date Name, MD Francisco [address] [place] [address] PCP - General Family Medicine 05/16/17 documented as of this encounter
--- OUTSIDE RECORDS SUMMARY | 2024-09-26 14:25 | XMS_ITS | Encounter Summary ---
Author Organization [employer] Address 75 [facility] 7 [place] [address] Care Team Providers Care Linen Keeper Name Role Phone Name, Francisco NAVA Primary Care Provider [phone] Reason for Visit * Reason Comments Med Refill Encounter Details Date Type Department Care Team ([facility] Contact Info) Description 10/16/2022 Refill [facility] [address] [place] [address] [phone] Name, MD Francisco [address] [place], [place] [phone] Social History Tobacco Use Types Packs/Day Years [...] Upcoming Encounters Date Type Department Care Team ([facility] Contact Info) Description 10/10/2024 9:00 AM EST Telemedicine [facility] [address] [place] [address] Kym Lisa RN 12/29/2024 11:00 AM EDT Office Visit [facility] [address] [place] [address] Name, MD Francisco [address] [place] [address] documented as of this encounter Visit Diagnoses Not on filedocumented in this encounter Care Teams Linen Keeper Relationship Specialty Start Date End Date Name, MD Francisco [address] [place] [address] PCP - General Family Medicine 05/16/17 documented as of this encounter
--- OUTSIDE RECORDS SUMMARY | 2024-09-26 14:25 | XMS_ITS | Encounter Summary ---
Author Organization [employer] Address 75 [facility] 7t [place] [address] Care Team Providers Care Mechanical Laboratory Technician Name Role Phone Name, Francisco NAVA Primary Care Provider [phone] Encounter Details Date Type Department Care Team (Late Contact Info) Description 11/06/2022 Orders Only [facility] PEDS [address] [place] [address] Rere Robles LPN Social History Tobacco Use Types Packs/Day [...] Info) Description 10/10/2024 9:00 AM EST Telemedicine [facility] [address] [place] [address] [phone] Kym Lisa, RN 12/29/2024 11:00 AM EDT Office Visit [facility] [address] [place] [address] [phone] Name, MD Francisco [address] [place] [address] documented as of this encounter Visit Diagnoses Not on filedocumented in this encounter Care Teams Mechanical Laboratory Technician Relationship Specialty Start Date End Date Name, MD Francisco [address] [place] [address] PCP - General Family Medicine 05/16/17 documented as of this encounter
--- OUTSIDE RECORDS SUMMARY | 2024-09-26 14:25 | XMS_ITS | Clinical Summary ---
Author Organization [employer] [facility] Address [address] [place] [address] Care Team Providers Care Early Childhood Education Specialist Name Role Phone Elvin Freedman NP Primary Care Provider [phone] Social History Tobacco Use Types Packs/Day Years Used Date Smoking Tobacco: Never Assessed Sex and Gender Information Value Date Recorded Sex Assigned at Not on file Gender Identity Not on file Sexual Orientation Not on file Plan of Treatment Health Maintenance Due Date Last Done Comments DTaP,Tdap,and Td Vaccines (1 - Tdap) 1955 Zoster Vaccines (1 of 2) 1986 Pneumococcal Vaccine: 65+ Ye ars (1 of 1 - PCV) 2001 RSV Immunization Patients 60 + Years Old (1 - 1-dose 75+ series) 2011 Depression Screening 10/02/2023 Falls Risk Assessment 10/02/2023 Osteoporosis Screening (Bone Density Screening) 10/02/2023 Social Influencers of Health Screening 10/02/2023 COVID-19 Vaccine ( - 2023-2 5 season) 2024 Influenza Vaccine (#1) 2024 HIB Vaccines Aged Out No longer eligi ble based on patient's age to complete this topic HPV Vaccines Aged Out No longer eligi ble based on patient's age to complete this topic Hepatitis A Vaccines Aged Out No long er eligible based on patient's age to complete this topic Hepatitis B Vaccines Aged Out No long er eligible based on patient's age to complete this topic IPV Vaccines Aged Out No longer eligi ble based on patient's age to complete this topic MMR Vaccines Aged Out No longer eligi ble based on patient's age to complete this topic Meningococcal ACWY Vaccine Aged Out N o longer eligible based on patient's age to complete this topic RSV Immunization Patients Un michael 20 months Aged Out No longer eligible b ased on patient's age to complete this topic Varicella Vaccines Aged Out No longer eligible based on patient's age to complete this topic Care Teams Early Childhood Education Specialist Relationship Specialty Start Date End Date Elvin Freedman NP [address] [facility] NILSON Shen PCP - General 06/22/08
--- OUTSIDE RECORDS SUMMARY | 2024-09-26 14:25 | XMS_ITS | Encounter Summary ---
Author Organization [employer] Address [address] [facility] [address] 7t [place] [address] Care Team Providers Care Friction Paint Machine Tender Name Role Phone Name, Francisco NAVA Primary Care Provider [phone] Reason for Visit * Reason Comments Med Refill Encounter Details Date Type Department Care Team (Late st Contact Info) Description 12/28/2023 Refill [facility] [address] [place], [place] [phone] Name, MD Francisco [address] [place], [place] [phone] Lumbago with sciatica, left side Social History [...] Info) Description 10/10/2024 9:00 AM EST Telemedicine [facility] [address] [place] [address] Kym Lisa RN 12/29/2024 11:00 AM EDT Office Visit [facility] [address] [place] [address] Name, MD Francisco [address] [place] [address] documented as of this encounter Visit Diagnoses Diagnosis Lumbago with sciatica, left side documented in this encounter Additional Health Concerns Assessment Noted Time PHQ-9 Depression Total Score: 0 12/21/19 23 11:04 AM EDT documented as of this encounter Care Teams Friction Paint Machine Tender Relationship Specialty Start Date End Date NameFrancisco MD [address] [place] [address] PCP - General Family Medicine 05/16/17 documented as of this encounter
--- OUTSIDE RECORDS SUMMARY | 2024-09-26 14:25 | XMS_ITS ---
Author Organization [facility] Address [address] [place] [phone] Care Team Providers Care Hand Spray Operator Name Role Phone NICK OWENS MD Primary Care Provider Unavaila Nando Garcia Unavailable [phone] REASON FOR VISIT New pt no showed Encounters Encounter Location Date Provider Diagnosis [place] [facility] [address] [place] [phone] 10/03/2023 Nando Sparks PLAN OF TREATMENT No Information
--- OUTSIDE RECORDS SUMMARY | 2024-09-26 14:25 | XMS_ITS | Encounter Summary ---
Author Organization [employer] Address 75 [facility] 7t [place] [address] Care Team Providers Care Melter Supervisor Open Hearth Furnace Name Role Phone Name, Francisco NAVA Primary Care Provider [phone] Reason for Visit * Reason Comments Med Refill Encounter Details Date Type Department Care Team (Late st Contact Info) Description 10/04/2022 Refill [facility] [address] [place], [place] [phone] Name, MD Francisco [address] [place], [place] [phone] Social History Tobacco Use Types Packs/Day Years [...] AM EST documented as of this encounter Miscellaneous Notes * Telephone Encounter - Francisco Murillo MD - 10/04/2022 11:09 AM EST I am holding for now, she was not eating much, was loosing weight and the HbA1c is now below 6 documented in this encounter Plan of Treatment Upcoming Encounters Date Type Department Care Team (Late st Contact Info) Description 10/10/2024 9:00 AM EST Telemedicine [address] [address] Kym Lisa RN 12/29/2024 11:00 AM EDT Office Visit [address] [address] Francisco Murillo MD [address] [place] [phone] documented as of this encounter Visit Diagnoses Not on filedocumented in this encounter Care Teams Melter Supervisor Open Hearth Furnace Relationship Specialty Start Date End Date Francisco Murillo MD [address] [place] [address] PCP - General Family Medicine 05/16/17 documented as of this encounter
--- OUTSIDE RECORDS SUMMARY | 2024-09-26 14:25 | XMS_ITS ---
Author Organization [facility] Address [address] [place] [phone] Care Team Providers Care Offal Separator Name Role Phone NICK OWENS MD Primary Care Provider UnavailNando Lagunas Unavailable [phone] REASON FOR VISIT Patient presents today for elevated amonia level Encounters Encounter Location Date Provider Diagnosis [facility] [address] [place] [address] 10/03/2023 Nando Sparks PLAN OF TREATMENT No Information
--- OUTSIDE RECORDS SUMMARY | 2024-09-26 14:25 | XMS_ITS | Encounter Summary ---
Author Organization [employer] Address 75 [facility] 7t [place] [address] Care Team Providers Care Auto Accessories Installer Name Role Phone Name, Francisco NAVA Primary Care Provider [phone] Encounter Details Date Type Department Care Team (Late Contact Info) Description 02/13/2023 Abstract [facility] [address] [place], [place] [phone] Name, MD Francisco [address] [place] [address] Social History Tobacco Use Types Packs/Day Years Used Date Smoking Tobacco: Never Smokeless Tobacco: Never Alcohol Use Standard Drinks/Week Comments Never 0 (1 standard drink = 0.6 oz pur e alcohol) Depression Answer Date Recorded Patient Health Questionnaire-9 Score 0 12/20/2022 Depression Answer Date Recorded Patient Health Questionnaire-2 [...] suspected to have Coronavirus/COVID-19? No / Unsure 02/09/2023 10:59 AM EDT documented as of this encounter Plan of Treatment Upcoming Encounters Date Type Department Care Team (Late st Contact Info) Description 10/10/2024 9:00 AM EST Telemedicine [facility] [address] [place] [address] Kym Lisa, RN 12/29/2024 11:00 AM EDT Office Visit [address] [address] Name, MD Francisco [address] [place] [address] documented as of this encounter Visit Diagnoses Not on filedocumented in this encounter Additional Health Concerns Assessment Noted Time PHQ-9 Depression Total Score: 0 12/21/19 23 11:04 AM EDT documented as of this encounter Care Teams Auto Accessories Installer Relationship Specialty Start Date End Date Name, MD Francisco [address] [place] [address] PCP - General Family Medicine 05/16/17 documented as of this encounter
--- OUTSIDE RECORDS SUMMARY | 2024-09-26 14:26 | XMS_ITS | Encounter Summary ---
Author Organization [employer] Address [address] [place] [address] Care Team Providers Care Account Relationship Manager Name Role Phone Name, Francisco NAVA Primary Care Provider [phone] Reason for Visit * Reason Onset Date Comments ER Follow-up 05/23/2023 Encounter Details Date Type Department Care Team (Late st Contact Info) Description 05/23/2023 Telephone [facility] MEDICINE [address], [place] [phone] Name, MD Francisco [address] [place], [place] [phone] ER Follow-up Social History Tobacco Use Types Packs/Day Years [...] the past 12 months, has t he [employer], gas, oil or water [employer] threatened to shut off services in your [...] encounter Miscellaneous Notes * Telephone Encounter - Meghan Looney RN - 05/23/2023 11:27 AM EDT Triage call with granddaughter , MARIA GUADALUPE Dawson, [facility] visit yesterday 05/22/23 with transfer to Ed. Pt dx is low magnesium. Pt has no further vomiting, nausea today. Pt does have mild cough, congestion today. Pt bowels were ok but, in order to keep ammonia level down Pt must continue to drink lactulose tid. Pt is aware and is cooperating. ED follow up apt with ANDERSON Montes De [facility], 1130am 06/06/23. Insurance is verified as active prior to booking. Protocol Used: Nausea (Adult) Protocol-Based Disposition: See in Office or Video Visit within 2 Weeks Video visit not offered Positive Triage Question: * Nausea is a chronic symptom (recurrent or ongoing AND present > 4 weeks) * All higher-acuity triage questions were negative Care Advice Discussed: * Reassurance and Education - Nausea * Clear Fluids * Reasons To Call Back - Nausea lasts over 1 week - You become worse * Telephone Encounter - Beck Jimenez - 05/23/2023 10:41 AM EDT Patient calling to report ED visit on 05/22/23at [facility]. Diagnosed with low magnesium Reports to be seen for vomiting, dizziness, stomachache,, states still feels lightheaded. Patient advised will forward to team nurse for follow up. Please contact at [phone] documented in this encounter Plan of Treatment Upcoming Encounters Date Type Department Care Team (Late st Contact Info) Description 10/10/2024 9:00 AM EST Telemedicine [address] [address] Kym Lisa RN 12/29/2024 11:00 AM EDT Office Visit [facility] MEDICINE [address] [place] [phone] Name, MD Francisco [address] [place] [phone] documented as of this encounter Visit Diagnoses Not on filedocumented in this encounter Additional Health Concerns Assessment Noted Time PHQ-9 Depression Total Score: 0 12/21/19 11:04 AM EDT documented as of this encounter Care Teams Account Relationship Manager Relationship Specialty Start Date End Date Name, MD Francisco [address] [place] [phone] PCP - General Family Medicine 05/16/17 documented as of this encounter
--- OUTSIDE RECORDS SUMMARY | 2024-09-26 14:26 | XMS_ITS | Clinical Summary ---
Author Organization [employer] Address [address] [facility] [address] [place] [address] Care Team Providers Care Door Liner Name Role Phone Name, Francisco NAVA Primary Care Provider [phone] Allergies Active Allergy Reactions Criticality Noted Date Comments Acetaminophen 08/30/2010 Other reaction(s): vomiting Ceftriaxone 02/05/2019 Codeine 08/30/2010 Other reaction(s): vomiting Lisinopril 09/07/2017 Other reaction(s): Rash Penicillin V 08/30/2010 Other reaction(s): unspecified Vancomycin 01/04/2023 Medications albuterol 108 (90 Base) MCG/ACT inhaler Inhale 2 puffs every 4 (four) hours. 019 Active risperiDONE (RisperDAL) 0.25 MG tablet TAKE 1 TABLET BY MOUTH TWICE DAILY NEEDED FOR AGITATION 023 Active TRUEplus Lancets 33G misc TEST BLOOD SUGAR ONCE DAILY DIRECTED 100 each 3 023 Active Estrogens Conjugated (Premarin) 0.625 MG/GM cream Insert 1 each into the vagina See administration instructions. 0.5 to 1 g once daily for 2 weeks, then reduce dose and/or frequency to lowest effective dose (usual maintenance dose: 0.5 to 1 g one to 3 times/week) 30 g 1 023 Active lactulose (Chronulac) 10 GM/15ML solution TAKE 45 ML BY MOUTH THREE TIMES DAILY. HOLD IF 3 BOWEL MOVEMENT (s) IN 1 DAY 946 mL 3 02/14/2 024 Active cyanocobalamin (Vitamin B-12) 1000 MCG tablet TAKE 1 TABLET BY MOUTH EVERY MORNING 90 tablet 3 Active thiamine (Vitamin B-1) 100 MG tablet TAKE 1 TABLET BY MOUTH EVERY MORNING 90 tablet 3 Active fluticasone (Flonase) 50 MCG/ACT nasal spray Administer 1 spray into each nostril Once per day. 16 g 2 Active metFORMIN (Glucophage) 500 MG tablet Take 0.5 tablets (250 mg) by mouth with breakfast and with evening meal. 30 tablet 2024 Active Trelegy Ellipta 200-62.5-25 MCG/ACT aerosol powder INHALE 1 PUFF BY MOUTH EVERY MORNING 60 each Active glucose blood (FREESTYLE LITE) test strip TEST BLOOD SUGAR ONCE DAILY 50 strip Active levothyroxine (Synthroid, Levoxyl) 50 MCG tabletIndicati ons:Hypothyroi dism, unspecified type TAKE 1 TABLET BY MOUTH EVERY MORNING BEFORE BREAKFAST 30 tablet 5 024 Active atorvastatin (Lipitor) 40 MG tablet TAKE 1 TABLET BY MOUTH EVERYDAY AT NOON 90 tablet 3 024 Active pantoprazole (ProtoNix) 40 MG EC tablet TAKE 1 TABLET BY MOUTH EVERYDAY AT NOON 90 tablet 3 024 Active loratadine (Claritin) 10 MG tabletIndicati ons:Asthma, unspecified asthma severity, unspecified whether complicated, unspecified whether persistent TAKE 1 TABLET BY MOUTH EVERYDAY AT NOON 30 tablet 5 024 Active gabapentin (Neurontin) 100 MG capsuleIndicat ions:Chronic low back pain, unspecified back pain laterality, unspecified whether sciatica present TAKE 1 CAPSULE BY MOUTH EVERY EVENING 90 capsule 1 024 Active Aspirin Low Dose 81 MG EC tablet TAKE 1 TABLET BY MOUTH EVERYDAY AT NOON 90 tablet 024 Active olmesartan (BENIcar) 5 MG tabletIndicati ons:Hypertensi on, unspecified type TAKE 1 TABLET BY MOUTH EVERY MORNING 90 tablet 3 025 Active traMADol (Ultram) 50 MG tabletIndicati ons:Lumbago with sciatica, left side Take 1 tablet (50 mg) by mouth every 12 (twelve) hours if needed for severe pain for up to 28 days. 56 tablet 025 2024 Active Ca Phosphate-Chol ecalciferol (Calcium 500 + D3) 250-12.5 MG-MCG chewable tablet Chew. Active olmesartan (BENIcar) 5 MG tabletIndicati ons:Hypertensi on, unspecified type TAKE 1 TABLET BY MOUTH EVERY MORNING 90 tablet 3 024 2024 Discontinued(R eorder (will not trigger notification to Pharmacy)) traMADol (Ultram) 50 MG tabletIndicati ons:Lumbago with sciatica, left side Take 1 tablet (50 mg) by mouth every 12 (twelve) hours if needed for severe pain for up to 28 days. Do not start before August 26, 2024. 56 tablet 024 2024 Discontinued(R eorder (will not trigger notification to Pharmacy)) Active Problems Problem Noted Date Diagnosed Date Cortical visual impairment 01/02/2024 Overview (01/02/2024): CT/CT head/brain wo IV con IMPRESSION: 1. 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 MRI of the brain may be of additional value for further assessment. 2. Atheromatous calcifications of the vertebral and carotid arteries progressed involving the vertebral arteries. Consider CT angiography of the head. 3. Findings in the right maxillary sinus and right nasal cavity progressed from previous study as detailed above. Cannot exclude a right nasal cavity polyp or schneiderian papilloma. Correlate with direct visualization and consider CT of the sinuses with contrast for additional assessment. Dictated By: JUJU HIDALGO MD Signed By: <Electronically signed by JUJU HIDALGO MD in OV> 07/05/222020 Clostridium difficile diarrhea 03/02/2023 Type 2 diabetes mellitus wit hout complication, without long-term current use of insulin 09/19/2022 Chronic low back pain 12/05/2018 Elevated LFTs 10/11/2018 Osteoporosis 04/19/2018 Hypothyroidism 04/19/2018 Chronic eczema of hand 04/19/2018 Coronary arteriosclerosis 09/26/2017 Exercise-induced angina 08/03/2017 Emphysema/COPD 07/24/2017 Posttraumatic stress disorder 07/05/2017 Idiopathic urticaria 06/26/2017 Osteopenia 08/02/2012 Depressive disorder 03/18/2012 Hyperlipidemia 03/08/2012 Chronic GERD 03/08/2012 Hypertension 03/08/2012 Asthma 03/08/2012 Resolved Problems Problem Noted Date Diagnosed Date Resolved Date Neuropathy 02/08/2023 09/26/2024 Complicated UTI (urinary tract infection) 01/17/2023 01/02/2024 Assessment & Plan (01/24/2023 4:58 PM EDT): Advised vaginal hygiene, lots of fluids (cranberry juice). ED precautions advised. Patient never picked up her previous script of levofloxacin. Previous culture showed susceptibility to levofloxacin New prescription sent Stat referral to urology sent. Nerve root disorder 12/05/2018 09/26/19 25 Pain in lower limb 10/11/2018 Disorder of vein 02/05/2018 10/17/2023 Gallstone pancreatitis 10/15/201710/17 Overview (03/15/2023): Remote history cholecystectomy ERCP at [facility] 2018 Common bile duct calculus 09/26/2017 Postherpetic neuralgia 08/23/201709/26 Epigastric pain 08/23/2017 10/17/2023 Dizziness 08/23/2017 10/17/2023 Dyspnea on exertion 07/05/2017 10/17/19 24 Encounters Date Type Department Care Team Description 09/26/2024 11:00 AM EST Office Visit [facility] [address] [place], [place] [phone] Name, MD Francisco Type 2 diabetes mellitus without complication, without long-term current use of insulin ([facility]) (Primary Dx); Acquired hypothyroidism; Age related osteoporosis, unspecified pathological fracture presence; Osteoarthritis of left knee, unspecified osteoarthritis type; Encounter for immunization 09/26/2024 Travel 09/25/2024 Refill [facility] [address] [place], [place] [phone] NameFrancisco MD Lumbago with sciatica, left side 09/23/2024 Refill [facility] [address] [place] [address] NameFrancisco MD Hypertension, unspecified type 09/21/2024 Refill [facility] [address] [place] [address] Francisco Murillo MD Chronic low back pain, unspecified back pain laterality, unspecified whether sciatica present; Hypertension, unspecified type 08/25/2024 Refill [facility] [address] [place] [address] Francisco Murillo MD Lumbago with sciatica, left side 08/25/2024 Refill [facility] [address] [place] [address] Annetta Holland NP Lumbago with sciatica, left side 08/06/2024 Telephone [facility] [address] [place] [address] Beverley Xiao MA D[facility] [place] 07/28/2024 Refill [facility] [address] [place] [address] Francisco Murillo MD Lumbago with sciatica, left side 07/18/2024 10:30 AM EST Telemedicine [facility] [address] [place] [address] Kym Lisa RN Chronic low back pain, unspecified back pain laterality, unspecified whether sciatica present 07/18/2024 Travel 07/17/2024 Refill [facility] [address] [place] [address] Francisco Murillo MD 07/04/2024 Telephone [facility] [address] [place] [address] Alexx Mancini MA jamison recalls 07/04/2024 Telephone [facility] [address] [place] [phone] Francisco Murillo MD Lab Orders 07/01/2024 Refill [facility] [address] [place] [address] Francisco Murillo MD Lumbago with sciatica, left side from Last 3 Months Immunizations Name Administration Dates Next Due Influenza High-dose Quadriva lent Preservative Free 06/06/2023,06/02/2022,09/30/2020 Influenza injectable quadriv alent IIV4 with preservative 07/05/2017,05/26/2016,05/31/2015 Influenza injectable quadriv alent preservative free 08/09/2018 Influenza, High Dose Seasona l, Preservative Free 09/26/2024,07/15/2019 Influenza, IIV3, injectable 06/30/2014, 1 Influenza, Split (incl. romario fied surface antigen) 06/17/2013,06/03/2012 Pneumococcal Conjugate PCV 13 07/05/2017 Pneumococcal Polysaccharide PPSV23 04/15/2009 Rabies - IM Fibroblast Culture 11/27/2022 Rabies, IM Diploid Cell Culture 12/11/2022,12/04,11/30/2022 TD (adult), 2 Lf tetanus tox oid, preservative free, adsorbed 04/15/2009 Tdap 10/17/2023,06/03/2012 Zoster, Recombinant 12/03/2020,10/01/2020 Zoster, live 06/30/2014 Social History Tobacco Use Types Packs/Day Years [...] Orientation Straight 07/03/2022 10 :14 AM EDT Last Filed Vital Signs Vital Sign Reading [...] Mass Index 24.76 09/26/2024 11:31 AM EST Plan of Treatment Upcoming Encounters Date Type Department Care Team (Late st Contact Info) Description 10/10/2024 9:00 AM EST Telemedicine [facility] [address] [place] [phone] Kym Lisa RN 12/29/2024 11:00 AM EDT Office Visit [facility] [address] [place] [phone] Name, MD Francisco [address] [place] [phone] Health Maintenance Due Date Last Done Comments RSV Patients and Patients Aged 60 years or older (1 - 1-dose 75+ series) 2011 Eye Exam 01/19/2024 01/18/2023 COVID-19 Vaccine ( season) 2024 06/29/2022, 08/18/2021, 01/21/2021, Additional history exists Alcohol/Substance Use Screening 01/01/2025 01/02/2024 Depression Screening 01/01/2025 01/02/2024, 01/02/20 Diabetes: Foot Exam 01/01/2025 01/02/2024, 01/02/2024, 01/02/2024, Additional history exists SDOH Screening 01/01/2025 01/02/2024 Diabetes: Hemoglobin A1C 03/26/2025 025, 01/02/2024, 10/17/2023, Additional history exists Lipid Panel 07/25/2025 07/25/2024, 05/16/2021 Diabetes: Urine Protein Screening 08/04/2025 08/04/2024 Tobacco Screening 09/26/2025 09/26/2024 DTaP/Tdap/Td Vaccines (3 - Td or Tdap) 10/17/2033 10/17/2023, 06/03/2012, 04/15/2009 Pneumococcal Vaccine: 65+ Years Completed 07/05/2017, 04/15/2009 Zoster Vaccines Completed 12/03/2020, 09/04, 06/30/2014 Influenza Vaccine Completed 09/26/2024, , 06/02/2022, Additional history exists HIB Vaccines Aged Out No longer eligi [...] patient's age to complete this topic Meningococcal Vaccine Aged Out No iron clara eligible based on patient's age to complete this topic RSV under 20 months Aged Out No longe r eligible based on patient's age to complete this topic Rotavirus Vaccines Aged Out No longer eligible based on patient's age to complete this topic Procedures Procedure Name Priority Date/Time Associated Diagnosis Comments XR KNEE 4+ VIEWS LEFT Routine 09/26/2024 1:04 PM EST Osteoarthritis of left knee, unspecified osteoarthritis type XR KNEE 4+ VIEWS RIGHT Routine 09/26/2024 1:04 PM EST Osteoarthritis of left knee, unspecified osteoarthritis type POCT GLYCATED HEMOGLOBIN, TOTAL Routine 09/26/2024 11:32 AM EST Type 2 diabetes mellitus without complication, without long-term current use of insulin (CMS/HCC) POCT GLUCOSE Routine 09/26/2024 11:32 AM EST Type 2 diabetes mellitus without complication, without long-term current use of insulin (CMS/HCC) ALBUMIN, RANDOM URINE W/CREATININE Routine 08/04/2024 1:00 PM EST Type 2 diabetes mellitus without complication, without long-term current use of insulin (CMS/HCC) LIPID PANEL, STANDARD Routine 07/25/2024 12:05 PM EST Type 2 diabetes mellitus without complication, without long-term current use of insulin (CMS/HCC) CBC WITH AUTO DIFFERENTIAL Routine 07/25/2024 12:05 PM EST Type 2 diabetes mellitus without complication, without long-term current use of insulin (CMS/HCC) COMPREHENSIVE METABOLIC PANEL Routine 07/25/2024 12:05 PM EST Type 2 diabetes mellitus without complication, without long-term current use of insulin (CMS/HCC) HM DIABETES EYE EXAM Routine 01/18/2023 from Last 3 Months or Most Recently Relevant to Health Maintenance Results * XR Knee 4+ Views Right (09/26/2024 1:04 PM EST) Anatomical Region Laterality Modality Lower Extremities, Knee Right Radiogra phic Imaging 09/26/2024 1:04 PM EST Narrative 09/26/2024 2:18 PM EST ? [facility] ?[address] ?[place] [address] ?XRay Report ? Signed ? Patient: Daniel,Emily ?MR#: [id number] ?? [id number] ? : 1935 ?Acct:[id number] ? Age/Sex: 89 / F ?ADM Date: 09/26/24 ? Loc: HO.HHCL ? Attending Dr: Francisco Murillo MD ? Ordering Physician: Francisco Murillo MD ?? Date of Service: 09/26/24 ?? Procedure(s): XR knee RT 4V ?? Accession Number(s): [id number] ? cc: Francisco Murillo MD ? EXAMINATION: [...] DD/ 1304 ? TD/TT: 09/26/24 1332 ? Quality Assurance Intern: ? Procedure Note Von, Alberto - 09/26/[address] [address] XRay Report Signed Patient: Ольга Sanchez [facility]#: [id number] : 6Acct:[id number] Age/Sex: 89 / FADM Date: 09/26/24 Loc: HO.HHCL Attending Dr: Francisco Murillo MD Ordering Physician: Francisco Murillo MD Date of Service: 09/26/24 Procedure(s): XR knee RT 4V Accession Number(s): [id number] cc: Francisco Murillo MD EXAMINATION: XR KNEE [...] Nando Giron MD 09/26/2024 02:15 PM EST RP Dictated By: Nadno Giron MD Signed By: <Electronically signed by Nando Giron MD in OV> 09/26/24 1415 DD/ 1304 TD/TT: 09/26/24 1332 Quality Assurance Intern: Francisco Murillo MD IMG XR PROCEDURES Final Result * XR Knee 4+ Views Left (09/26/2024 1:04 PM EST) Anatomical Region Laterality Modality Lower Extremities, Knee Left Radiogra phic Imaging 09/26/2024 1:04 PM EST Narrative 09/26/2024 2:19 PM EST ? [facility] ?[address] ?[place] [address] ?XRay Report ? Signed ? Patient: Ольга Sanchez ?MR#: [id number] ?? [id number] ? : 1935 ?Acct:[id number] ? Age/Sex: 89 / F ?ADM Date: 09/26/24 ? Loc: HO.HHCL ? Attending Dr: Francisco Murillo MD ? Ordering Physician: NameFrancisco MD ?? Date of Service: 09/26/24 ?? Procedure(s): XR knee LT 4V ?? Accession Number(s): [id number] ? cc: Name,Francisco NAVA ? EXAMINATION: ??XR [...] ??Nando Giron MD ??09/26/2024 02:16 PM EST ? Dictated By: ?Nando Giron MD ? Signed By: ?<Electronically signed by Nando Giron MD in OV> ?09/26/24 1416 ? DD/ 1304 ? TD/TT: 09/26/24 1332 ? Quality Assurance Intern: ? Procedure Note Von, Image - 09/26/2024 [place] [address] XRay Report Signed Patient: Ольга Sanchez SMR#: [id number] : 6Acct:[id number] Age/Sex: 89 / FADM Date: 09/26/24 Loc: .CL Attending Dr: Francisco Murillo MD Ordering Physician: Francisco Murillo MD Date of Service: 09/26/24 Procedure(s): XR knee LT 4V Accession Number(s): [id number] cc: Francisco Murillo MD EXAMINATION: XR KNEE [...] by: Nando Giron MD 09/26/2024 02:16 PM [facility] Dictated By: Nando Giron MD Signed By: <Electronically signed by Nando Giron MD in OV> 09/26/24 1416 DD/ 1304 TD/TT: 09/26/24 1332 Quality Assurance Intern: Result Karrie Murillo MD IMG XR PROCEDURES Final Result * (ABNORMAL) POCT HGB A1C (09/26/2024 11:32 AM EST) Hemoglobin A1C 6.3(A) 4.0 - 6.0 % QC Media Lot # [id number] Lot# Expiration Date 71,626 Blood 09/26/2024 11:3 2 AM EST Result Karrie Murillo MD POINT OF CARE TEST ENTER/EDIT OR DERABLES Final Result * POCT Glucose (09/26/2024 11:32 AM EST) Glucose Blood, POC 196 60 - 200 mg/dL QC Media Lot # [id number] Lot# Expiration Date 53,025 Blood Capillary blood specimen / Unknown 09/26/2024 11:32 AM EST Result Karrie Murillo MD POINT OF CARE TEST ENTER/EDIT OR DERABLES Final Result * Albumin, Random Urine W/Creatinine (08/04/2024 1:00 PM EST) Creatinine, Urine 127.97 mg/dL [facility] Microalbumin Urine 8.0 mg/L [facility] Microalbum Creatinine Ratio Ur 6.2 <30 ug/mg cr [facility] Comment:Albumin/Creatinine R atio Reference Ranges: Normal: < 30 ug/mg creatinine Microalbuminuria: 30 - 300 ug/mg creatinineClinical Albuminuria: > 300 ug/mg creatinine Urine (Urine, Random) 08/04/2024 1:00 PM EST 08/04/2024 4:25 PM EST Result Karrie Murillo MD LAB URINE ORDERABLES Final Resul t [facility] [address] [place] [address] [phone] * (ABNORMAL) CBC auto differential (07/25/2024 12:05 PM EST) White Blood Count 6.1 4.8 - 10.8 X10*3/uL [facility] Red Blood Count 4.79 4.20 - 5.50 X10*6/uL [facility] Hemoglobin 15.5 12.0 - 16.0 g/dl [facility] Hematocrit 44.5 37.0 - 47.0 % [facility] Mean Corpuscular Volume 92.9 80.0 - 98.0 fL [facility] Mean Corpuscular Hemoglobin 32.4 27.0 - 33.0 pg [facility] Mean Corpuscular HGB Conc 34.8 31.0 - 35.0 g/dl [facility] Red Cell Distribution Width 14.5 11.0 - 16.0 % [facility] Platelet Count 156(L) 160 - 400 X10*3/uL [facility] Mean Platelet Volume 10.4 9.4 - 12.3 fL [facility] Neutrophils Percent Auto 54.9 45 - 73 % [facility] Imm Gran Pct Auto 0.3 0.0 - 0.4 % [facility] Lymphocytes Percent Auto 29.4 20 - 40 % [facility] Monocytes Percent Auto 11.3(H) 2 - 11 % [facility] Eosinophils Percent Auto 2.8 0 - 4 % [facility] Basophils Percent Auto 1.3 0 - 2 % [facility] NRBC Pct Auto 0.0 0.0 - 0.2 /100WBC [facility] Neutrophils Absolute Auto 3.3 2.0 - 8.3 x10*3/uL [facility] Imm Gran Abs Auto 0.02 0.00 - 0.03 X10*3/uL [facility] Lymphocytes Absolute Auto 1.8 1.2 - 4.9 X10*3/uL [facility] Monocytes Absolute Auto 0.7 0.1 - 1.2 X10*3/uL [facility] Eosinophils Absolute Auto 0.2 0.0 - 0.4 X10*3/uL [facility] Basophils Absolute Auto 0.1 0.0 - 0.2 X10*3/uL [facility] NRBC Abs Auto 0.000 0.0 - 0.012 X10*3/uL [facility] Blood Venous blood specimen / Unknown 07/25/2024 12:05 PM EST 07/25/2024 1:03 PM EST us Francisco Murillo MD LAB BLOOD ORDERABLES Final Resul t [facility] [address] [place] [address] [phone] * Lipid Panel, Standard (07/25/2024 12:05 PM EST) Triglycerides 59 <150 mg/dL [facility] Comment:Desirable Triglyceri de: less than 150 mg/dLBorderline High Triglyceride 150-199 mg/dLHigh Triglyceride: 200-499 mg/dLVery High Triglyceride: greater than or equal to 5OO mg/dL Cholesterol 115 <200 mg/dL [facility] Comment:Desirable Cholestero l: less than 200 mg/dLBorderline High Cholesterol: 200-239 mg/dLHigh Cholesterol: greater than 239 mg/dL LDL Cholesterol Calculated 57 <100 mg/dL [facility] Comment:Desirable LDL: less than 100 mg/dLNear Optimal/Above Optimal LDL: 110- 129 mg/dLBorderline High LDL: 130-159 mg/dLHigh LDL: 160-189 mg/dLVery High LDL: greater than or equal to 190 mg/dL HDL Cholesterol 47 >40 mg/dL [facility] Comment:Desirable HDL: great er than 40 mg/dL Note: This HDL assay may give artificially low results in patients with liver disease. Blood Venous blood specimen / Unknown 07/25/2024 12:05 PM EST 07/25/2024 1:07 PM EST us Francisco Murillo MD LAB BLOOD ORDERABLES Final Resul t Performing Organization Address [facility]/ZIP Co de Phone Number [facility] [address] [place] [address] [phone] * (ABNORMAL) Comprehensive Metabolic Panel (07/25/2024 12:05 PM EST) Sodium 133(L) 135 - 145 mmol/L [facility] Potassium 5.1 3.3 - 5.1 mmol/L [facility] Chloride 99 96 - 108 mmol/L [facility] Carbon Dioxide 27 22 - 29 mmol/L [facility] Anion Gap 12 12 - 20 [facility] Urea Nitrogen (BUN) 11 9 - 16 mg/dL [facility] Creatinine, Serum 0.83 0.5 - 1.4 mg/dL [facility] Estimated Glomerular Filt Rate >60 [facility] Comment:Chronic Kidney Disea se: Estimated GFR < 60 mL/min/1.20n2Hkowfc Kidney Disease: Estimated GFR < 15 mL/min/1.73m2 Glucose 140(H) 60 - 115 mg/dL [facility] Calcium 9.6 8.4 - 10.2 mg/dL [facility] Bilirubin, Total 1.9(H) 0.0 - 1.0 mg/dL [facility] Comment:Slight Icterus. Aspartate Amino Transferase 74(H) 5 - 31 U/L [facility] Alanine Aminotransferase 52(H) 0 - 31 U/L [facility] Total Protein 7.7 6.5 - 8.0 g/dL [facility] Albumin Level 3.0(L) 3.5 - 5.0 g/dL [facility] Alkaline Phosphatase 178(H) 39 - 117 U/L [facility] Blood Venous blood specimen / Unknown 07/25/2024 12:05 PM EST 07/25/2024 1:07 PM EST us Francisco Name LAB BLOOD ORDERABLES Final Resul t Performing Organization Address City/[facility]/ZIP Co de Phone Number [facility] [address] [place] [phone] * Diabetes Eye Exam (01/18/2023) Eye Exam Normal Normal Francisco Murillo MD HEALTH MAINTENANCE Final Result from Last 3 Months or Most Recently Relevant to Health Maintenance [place] [id number] - [employer] Care Teams Door Liner Relationship Specialty Start Date End Date Name, MD Francisco [address] [place] [phone] PCP - General Family Medicine 05/16/17
--- OUTSIDE RECORDS SUMMARY | 2024-09-26 14:26 | XMS_ITS | Encounter Summary ---
Author Organization [employer] Address 75 [facility] 7t [place] [address] Care Team Providers Care Financial Internship Name Role Phone Name, Francisco NAVA Primary Care Provider [phone] Reason for Visit * Reason Onset Date Comments call back 01/25/2023 Encounter Details Date Type Department Care Team (Late st Contact Info) Description 01/25/2023 Telephone [facility] 230 [place], [place] [phone] Name, MD Francisco 230 [place], [place] [phone] call back Social History Tobacco Use Types Packs/Day Years [...] suspected to have Coronavirus/COVID-19? No / Unsure 01/24/2023 2:19 PM EDT documented as of this encounter Miscellaneous Notes * Telephone Encounter - Orquidea Stout - 01/25/2023 12:27 PM EDT VM left at [facility] for Janeth regarding Boost for patient. * Telephone Encounter - Nav Herring - 01/25/2023 11:47 AM EDT Tc from Radha with [facility] requesting a call back to have verbal order for script for boost shakes and what kind of flavor. Please contact radha at [phone] ext [phone] documented in this encounter Plan of Treatment Upcoming Encounters Date Type Department Care Team (Late st Contact Info) Description 10/10/2024 9:00 AM EST Telemedicine [facility] [address] [place] [phone] Kym Lisa, FITZ 12/29/2024 11:00 AM EDT Office Visit [facility] [address] [place] [address] Name, MD Francisco [address] [place] [address] documented as of this encounter Visit Diagnoses Not on filedocumented in this encounter Additional Health Concerns Assessment Noted Time PHQ-9 Depression Total Score: 0 12/21/19 23 11:04 AM EDT documented as of this encounter Care Teams Financial Internship Relationship Specialty Start Date End Date Name, MD Francisco [address] [place] [address] PCP - General Family Medicine 05/16/17 documented as of this encounter
--- OUTSIDE RECORDS SUMMARY | 2024-09-26 14:26 | XMS_ITS | Patient Health Record ---
Author Organization [facility] Address [address] [place] [phone] Care Team Providers Care Post Exchange Manager Name Role Phone NICK OWENS MD Primary Care Provider Nando Hernandez [phone] REASON FOR REFERRAL No Information SOCIAL HISTORY Sex Assigned At : Social History Observation Description Sex Assigned At Unknown Encounters Encounter Location Date Provider Diagnosis [facility] [address] [place] [phone] 10/03/2023 Nando Sparks [facility] [address] [place] [phone] 10/03/2023 Nando Sparks PLAN OF TREATMENT No Information Insurance Providers Payer Name Payer Address Payer Phone Subscriber Number Group Number Insured Name Patient Relationship to Insured Coverage Start Date Coverage End Date [facility] [address] [place] [address] [id number] EMILE ZAVALA Self - patient is the insured
[2024-09-26 16:52] LABS: TSH reflex Free T4 1.27 uIU/mL (0.32-4.0); Vitamin D 25-OH Total 6.9 ng/mL (>30)
== END 2024-09-26 12:24 | disposition home or self-care (01) ==
LOC: HO.HHCL 12:23
PROVIDERS: Visit Provider Internal Medicine Geriatric Medicine
DX: E03.9 Hypothyroidism, unspecified (principal); M17.12 Unilateral primary osteoarthritis, left knee; M81.0 Age-related osteoporosis without current pathological fracture; M25.561 Pain in right knee
CPT/HCPCS: 36415; 73564; 82306; 84443

== ENCOUNTER → 2024-09-26 13:04 | Outpatient (BNV) | payer OTHER, SELFPAY | PROVIDERS: Visit Provider Radiology Diagnostic Radiology | DX: M11.262 Other chondrocalcinosis, left knee (principal); M25.561 Pain in right knee; M17.11 Unilateral primary osteoarthritis, right knee | CPT/HCPCS: 73564 ==

== ENCOUNTER 2024-11-03 12:21 | Outpatient (REF) | payer OTHER, SELFPAY ==
--- NOTE | ~2024-11-03 | XR_ITS ---
EXAMINATION: XR RIBS, RIGHT CLINICAL INFORMATION: 89 y.o F s/p fall, right rib pain COMPARISON: September 09, 2017. TECHNIQUE: 3 views of the right ribs were obtained. FINDINGS: Cortical irregularity/deformity in the anterior lateral aspect of the ribs in the right lower hemithorax probably involving the right eighth, ninth and questionable 10th ribs. Pulmonary reticular pattern no fully included in the [id number]. Vascular clips in the right upper quadrant abdomen. Multilevel thoracolumbar spondylosis. XR/XR ribs RT 2V IMPRESSION: Probable old traumatic deformities in the anterior lateral right eighth ninth and questionable 10th ribs. Electronically signed by: Angel Bueno MD 11/04/2024 10:12 AM YAHIR HOANG
--- OUTSIDE RECORDS SUMMARY | 2024-11-03 14:31 | XMS_ITS | Encounter Summary ---
Author Organization [employer] Address [address] [facility] [address] 7t [place] [address] Care Team Providers Care Mining Engineering Technologist Name Role Phone Name, Francisco NAVA Primary Care Provider [phone] Reason for Visit * Reason Onset Date Comments Medication Question 07/17/2023 Encounter Details Date Type Department Care Team ([facility] st Contact Info) Description 07/17/2023 Telephone [facility] 230 [place], [place] [phone] Name, MD Francisco 230 [place], [place] [phone] Medication Question Social History Tobacco Use Types [...] 6:03 PM EST Tc from Nav with [employer] requesting a call back in regards questions on medications. Please call Nav [phone] TC was placed to Nav at above number with [employer] (patient's VNA service).Nav stated that he was [...] prescription for rifaximin was sent to the [facility] pharmacy ten days ago. No other questions or concerns at this time. Patient has follow-up visit with Dr. Murillo on 07/30/23. Routing message to Dr. Murillo so he is aware patient may be discharged from [facility]NA services in coming weeks. * Telephone Encounter - Ariadne Johnson - 07/17/2023 11:15 AM EST Tc from [facility] with [employer] requesting a call back in regards questions on medications. Please call Nav [phone] documented in this encounter Plan of Treatment Upcoming Encounters Date Type Department Care Team (Late st Contact Info) Description 11/14/2024 10:15 AM EDT Procedure Visit [facility] CH[facility] MED & PEDS [address] [place], [place] [phone] Nicki Alvarado MD 505 [place] [address] 12/29/2024 11:00 AM EDT Office Visit [facility] MED[facility]INE 230 [place] [address] Name, MD Francisco 230 [place] [address] documented as of this encounter Visit Diagnoses Not on filedocumented in this encounter Additional Health Concerns Assessment Noted Time PHQ-9 Depression Total Score: 0 12/21/19 23 11:04 AM EDT documented as of this encounter Care Teams Mining Engineering Technologist Relationship Specialty Start Date End Date NameFrancisco MD [address] [place] [address] PCP - General Family Medicine 05/16/17 documented as of this encounter
--- OUTSIDE RECORDS SUMMARY | 2024-11-03 14:31 | XMS_ITS | Encounter Summary ---
Author Organization [employer] Address [address] [facility] [address] 7[address] [place] [address] Care Team Providers Care Automatic Drilling Machine Operator Name Role Phone Name, Francisco NAVA Primary Care Provider [phone] Reason for Visit * Reason Comments Med Refill Encounter Details Date Type Department Care Team (Late st Contact Info) Description 07/12/2023 Refill [facility] MED & PEDS [address] [place] [address] Name, MD Francisco 230 [place] [address] Social History Tobacco Use Types Packs/Day Years [...] Description 11/14/2024 10:15 AM EDT Procedure Visit [facility] MED & PEDS 505 [place] [address] Nicki Alvarado MD 505 [place] [address] 12/29/2024 11:00 AM EDT Office Visit [facility] MEDICINE 230 [place] [address] Francisco Murillo MD 230 [place] [address] documented as of this encounter Visit Diagnoses Not on filedocumented in this encounter Additional Health Concerns Assessment Noted Time PHQ-9 Depression Total Score: 0 12/21/19 23 11:04 AM EDT documented as of this encounter Care Teams Automatic Drilling Machine Operator Relationship Specialty Start Date End Date Francisco Murillo MD [address] [place] [address] PCP - General Family Medicine 05/16/17 documented as of this encounter
--- OUTSIDE RECORDS SUMMARY | 2024-11-03 14:31 | XMS_ITS ---
Author Organization [facility] Address [address] [place] [phone] Care Team Providers Care Nutritional Yeast Supervisor Name Role Phone NICK OWENS MD Primary Care Provider Unavaila Nando Garcia Unavailable [phone] REASON FOR VISIT New pt no showed Encounters Encounter Location Date Provider Diagnosis [facility] [address] [place] [phone] 10/03/2023 Nando Sparks PLAN OF TREATMENT No Information
--- OUTSIDE RECORDS SUMMARY | 2024-11-03 14:31 | XMS_ITS ---
Author Organization [facility] Address [address] [place] [phone] Care Team Providers Care Butt Presser Name Role Phone NICK OWENS MD Primary Care Provider UnavailNando Lagunas Unavailable [phone] REASON FOR VISIT Patient presents today for elevated amonia level Encounters Encounter Location Date Provider Diagnosis [facility] [address] [place] [address] 10/03/2023 Nando Sparks PLAN OF TREATMENT No Information
--- OUTSIDE RECORDS SUMMARY | 2024-11-03 14:31 | XMS_ITS | Encounter Summary ---
Author Organization [employer] Address [address] [facility] [address] 7t [place] [address] Care Team Providers Care Pack Train Driver Name Role Phone Name, Francisco NAVA Primary Care Provider [phone] Reason for Visit * Reason Comments Med Refill Encounter Details Date Type Department Care Team (Late st Contact Info) Description 12/28/2023 Refill [facility] MED[facility]INE 230 [place], [place] [phone] Name, MD Francisco 230 [place], [place] [phone] Lumbago with sciatica, left side Social History [...] Description 11/14/2024 10:15 AM EDT Procedure Visit [facility] CH[facility] MED & PEDS 505 [place] [address] Nicki Alvarado MD 505 [place] [address] 12/29/2024 11:00 AM EDT Office Visit [facility] MEDICINE 230 [place] [address] NameFrancisco MD 230 [place] [address] documented as of this encounter Visit Diagnoses Diagnosis Lumbago with sciatica, left side documented in this encounter Additional Health Concerns Assessment Noted Time PHQ-9 Depression Total Score: 0 12/21/19 23 11:04 AM EDT documented as of this encounter Care Teams Pack Train Driver Relationship Specialty Start Date End Date Name, MD Francisco [address] [place] [address] PCP - General Family Medicine 05/16/17 documented as of this encounter
--- OUTSIDE RECORDS SUMMARY | 2024-11-03 14:31 | XMS_ITS | Encounter Summary ---
Author Organization [employer] Address [address] [facility] [address] 7t [place] [address] Care Team Providers Care Cover Stripper Name Role Phone Name, Francisco NAVA Primary Care Provider [phone] Reason for Visit * Reason Onset Date Comments Durable Medical Equipment 08/10/2023 Incont inence Supplies Encounter Details Date Type Department Care Team (Late st Contact Info) Description 08/10/2023 Telephone [facility] MED[facility]INE 230 [place], [place] [phone] Name, MD Francisco 230 [place], [place] [phone] Durable Medical Equipment (Incontinence Supplies) Social History [...] and bed pads to be faxed to [phone] documented in this encounter Plan of Treatment Upcoming Encounters Date Type Department Care Team (Late st Contact Info) Description 11/14/2024 10:15 AM EDT Procedure Visit [facility] MED & PEDS 505 [place] [address] Nicki Alvarado MD 505 [place] [address] 12/29/2024 11:00 AM EDT Office Visit [facility] 230 [place] [address] Name, MD Francisco 230 [place] [address] documented as of this encounter Visit Diagnoses Not on filedocumented in this encounter Additional Health Concerns Assessment Noted Time PHQ-9 Depression Total Score: 0 12/21/19 23 11:04 AM EDT documented as of this encounter Care Teams Cover Stripper Relationship Specialty Start Date End Date Name, MD Francisco [address] [place] [address] PCP - General Family Medicine 05/16/17 documented as of this encounter
--- OUTSIDE RECORDS SUMMARY | 2024-11-03 14:31 | XMS_ITS | Encounter Summary ---
Author Organization [employer] Address [address] [facility] [address] 7t [place] [address] Care Team Providers Care Tax Assistant Name Role Phone Name, Francisco NAAV Primary Care Provider [phone] Reason for Visit * Reason Comments Med Refill Encounter Details Date Type Department Care Team (Late st Contact Info) Description 08/24/[address] [facility] MED & PEDS [address] [place] [address] Name, MD Francisco [address] [place] [address] Social History Tobacco Use Types Packs/Day Years [...] Description 11/14/2024 10:15 AM EDT Procedure Visit [facility] MED & PEDS 505 [place] [address] Nicki Alvarado MD 505 [place] [address] 12/29/2024 11:00 AM EDT Office Visit [facility] MED[facility] 230 [place] [address] Francisco Murillo MD 230 [place] [address] documented as of this encounter Visit Diagnoses Not on filedocumented in this encounter Additional Health Concerns Assessment Noted Time PHQ-9 Depression Total Score: 0 12/21/19 23 11:04 AM EDT documented as of this encounter Care Teams Tax Assistant Relationship Specialty Start Date End Date Francisco Murillo MD [address] [place] [address] PCP - General Family Medicine 05/16/17 documented as of this encounter
--- OUTSIDE RECORDS SUMMARY | 2024-11-03 14:31 | XMS_ITS | Encounter Summary ---
Author Organization [employer] Address [address] [facility] 7t [place] [address] Care Team Providers Care Computer Technologist Name Role Phone Name, Francisco NAVA Primary Care Provider [phone] Reason for Visit * Reason Comments Med Refill Encounter Details Date Type Department Care Team (Late st Contact Info) Description 10/04/2022 Refill [facility] MED[facility]INE 230 [place], [place] [phone] Name, MD Francisco [address] [place], [place] [phone] Social History Tobacco Use Types Packs/Day Years [...] Description 11/14/2024 10:15 AM EDT Procedure Visit [facility] MED & PEDS [address] [place] [address] Nicki Alvarado MD 505 [place] [address] 12/29/2024 11:00 AM EDT Office Visit [facility] MED[facility] 230 [place] [address] Francisco Murillo MD 230 [place] [address] documented as of this encounter Visit Diagnoses Not on filedocumented in this encounter Care Teams Computer Technologist Relationship Specialty Start Date End Date Francisco Murillo MD [address] [place] [address] PCP - General Family Medicine 05/16/17 documented as of this encounter
--- OUTSIDE RECORDS SUMMARY | 2024-11-03 14:31 | XMS_ITS | Encounter Summary ---
Author Organization [employer] Address [address] [facility] 7 [place] [address] Care Team Providers Care Electrical Timing Device Calibrator Name Role Phone Name, Francisco NAVA Primary Care Provider [phone] Encounter Details Date Type Department Care Team (Late st Contact Info) Description 09/14/2022 Orders Only [facility] MEDICINE [address] [place] [phone] Brandy Lindsay LPN Social History Tobacco Use [...] Description 11/14/2024 10:15 AM EDT Procedure Visit [facility] CHC MED & PEDS [address] [place] [address] Nicki Alvarado MD 505 [place] [address] 12/29/2024 11:00 AM EDT Office Visit [facility] MEDICINE [address] [place] [address] Name, MD Francisco 230 [place] [address] documented as of this encounter Visit Diagnoses Not on filedocumented in this encounter Care Teams Electrical Timing Device Calibrator Relationship Specialty Start Date End Date Name, MD Francisco 230 [place] [address] PCP - General Family Medicine 05/16/17 documented as of this encounter
--- OUTSIDE RECORDS SUMMARY | 2024-11-03 14:31 | XMS_ITS | Clinical Summary ---
Author Organization [facility] Address [address] [place] [address] Phone Care Team Providers Care Truck Sales Representative Name Role Phone Elvin Freedman NP Primary Care Provider [phone] Allergies Active Allergy Reactions Criticality Noted Date Comments Penicillins Hives,Swelling 10/14/2024 Medications atorvastatin (LIPITOR) 40 mg tablet Take 1 tablet (40 mg total) by mouth 1 (one) time each day. Active cholecalcifero l (VITAMIN D3) 1,250 mcg (50,000 unit) tablet Take 1 tablet (50,000 Units total) by mouth 1 (one) time per week. 09/29/19 25 025 Active cyanocobalamin (VITAMIN B-12) 1,000 mcg tablet Take 1 tablet (1,000 mcg total) by mouth 1 (one) time each day in the morning. 12/18/19 24 Active gabapentin (NEURONTIN) 100 mg capsule Take 1 capsule (100 mg total) by mouth at bedtime. 05/20/20 24 Active levothyroxine (SYNTHROID, LEVOTHROID) 50 mcg tablet Take 1 tablet (50 mcg total) by mouth 1 (one) time each day before breakfast. 10/13/19 25 Active loratadine (CLARITIN) 10 mg tablet Take 1 tablet (10 mg total) by mouth 1 (one) time each day. NOON Active metFORMIN (GLUCOPHAGE) 500 mg tablet Take 0.5 tablets (250 mg total) by mouth 2 (two) times a day with meals. NOON + EVENING 01/02/20 24 025 Active thiamine 100 mg tablet Take 1 tablet (100 mg total) by mouth 1 (one) time each day in the morning. 09/19/19 Active lactulose (CHRONULAC) solution Take 15 mL (10 g total) by mouth 2 (two) times a day. 480 mL 10/15/19 Active pantoprazole (PROTONIX) 40 mg EC tablet Take 1 tablet (40 mg total) by mouth 2 (two) times a day. NOON 60 each 10/16/19 025 Active aspirin 81 mg EC tablet Take 1 tablet (81 mg total) by mouth 1 (one) time each day. 07/17/20 025 Discontinued(St op Taking at Discharge) fluticasone propionate (FLONASE) 50 mcg/actuation nasal spray Administer 1 spray into each nostril 1 (one) time each day. 025 Discontinued(En tered in Error) Trelegy Ellipta 200-62.5-25 mcg inhaler Inhale 1 puff (200 mcg total) by mouth 1 (one) time each day. 01/30/20 025 Discontinued(En tered in Error) olmesartan (BENICAR) 5 mg tablet Take 1 tablet (5 mg total) by mouth 1 (one) time each day in the morning. 09/23/19 025 Discontinued(St op Taking at Discharge) pantoprazole (PROTONIX) 40 mg EC tablet Take 1 tablet (40 mg total) by mouth 1 (one) time each day before breakfast. NOON 025 Discontinued traMADoL (ULTRAM) 50 mg tablet Take 2 tablets (100 mg total) by mouth at bedtime. 09/26/19 025 Discontinued(St op Taking at Discharge) Active Problems Problem Noted Date Diagnosed Date Gait instability 10/14/2024 Right orbital fracture 10/14/2024 Postconcussive syndrome 10/14/2024 Resolved Problems Problem Noted Date Diagnosed Date Resolved Date Hepatic encephalopathy 10/14/202410/15 Encounters Date Type Department Care Team Description 10/14/2024 2:51 PM EST - 10/16/2024 6:49 PM EST Emergency [facility] [address] [place] [id number] Sourav Russ MD Bukalo, Nermina, MD Ishtiaq, Rizwan, MD Bell, Alistair A, MD Encephalopathy, unspecified type (Primary Dx); Head injury with loss of consciousness (CMS/HCC); Closed fracture of orbital floor, unspecified laterality, initial encounter (CMS/HCC) Discharge Disposition: Home-Health Care [facility] from Last 3 Months Medical History Medical History Date Comments COPD (chronic obstructive pulmonary disease) (CM S/HCC) Diabetes mellitus (CMS/HCC) GERD (gastroesophageal reflux disease) Headache Hypercholesteremia Hypertension Hepatic steatosis Hyperammonemia (CMS/HCC) Disease of thyroid gland Family History Medical History Relation Name Comments Diabetes Neg Hx Social History Tobacco Use Types Packs/Day Years Used Date Smoking Tobacco: Never Smokeless Tobacco: Never Tobacco Cessation:Counseling Given: Not Answered Alcohol Use Standard Drinks/Week Comments Not Currently 0 (1 standard drink = 0.6 oz pur e alcohol) Interpersonal Safety Answer Date Record ed Physical Abuse 10/14/2024 Verbal Abuse 10/14/2024 Comments Unknown Sex and Gender Information Value Date Recorded Sex Assigned at Female 10/14/2024 3:25 PM EST Legal Sex Female 4:55 AM EST Gender Identity Female 10/14/2024 3:25 PM EST Sexual Orientation Straight 10/14/2024 3: 25 PM EST Obstetrics History Last Filed Vital Signs Vital Sign Reading Time Taken Comments Blood Pressure 145/66 10/16/2024 2:51 PM EST Pulse 77 10/16/2024 2:51 PM EST Temperature 36.8 ??C (98.3 ??F) 10/16/2024 2:51 PM ES T Respiratory Rate 14 10/16/2024 2:51 PM EST Oxygen Saturation 96% 10/16/2024 2:51 PM EST Inhaled Oxygen Concentration - - Weight 63.5 kg (139 lb 15.9 oz) 10/16/2024 1:21 PM EST Height 165.1 cm (5' 5 ) 10/16/2024 1:27 PM EST Body Mass Index 23.3 10/16/2024 1:21 PM EST Plan of Treatment Health Maintenance Due Date Last Done Comments Diabetes: Annual Foot Exam 1945 Diabetes: Annual Retina Eye Exam 1945 RSV Immunization Patients 60+ Years Old (1 - 1-dose 75+ series) 2011 Medicare Annual Wellness Visit 10/02/2023 Osteoporosis Screening (Bone Density Screening) 10/02/2023 Social Influencers of Health Screening 10/02/2023 COVID-19 Vaccine ( season) 2024 06/29/2022, 08/18/2021, 01/21/2021, Additional history exists Depression Screening 01/01/2025 01/02/2024 Diabetes: Blood Sugar Control Test (HGBA1C) 03/26/2025 09/26/2024 Falls Risk Assessment 10/16/2025 10/16/2024 Hypertension/CHF/CAD Annual BMP Blood Test 10/16/2025 10/16/2024, 10/15/2024, 10/14/2024, Additional history exists Cholesterol Screening (Lipid Panel) 07/25/2029 07/25/2024 DTaP,Tdap,and Td Vaccines (4 - Td or Tdap) 10/17/2033 10/17/2023, 06/03/2012, 04/15/2009 Pneumococcal Vaccine: 50+ Years Completed 07/05/2017, 04/15/2009 Zoster Vaccines Completed [...] patient's age to complete this topic Meningococcal B Vacine Aged Out No lo nger eligible based on patient's age to complete this topic RSV Immunization Patients Under 20 months Aged Out No longer eligible based on patient's age to complete this topic Varicella Vaccines Aged Out No longer eligible based on patient's age to complete this topic Procedures Procedure Name Priority Date/Time Associated Diagnosis Comments HEMOGLOBIN AND HEMATOCRIT Timed 10/16/2024 4:23 PM EST POCT GLUCOSE BLOOD Routine 10/16/2024 11 :11 AM EST POCT GLUCOSE BLOOD Routine 10/16/2024 8: 13 AM EST HEMOGLOBIN AND HEMATOCRIT Timed 10/16/2024 6:49 AM EST BASIC METABOLIC PANEL Routine 10/16/2024 6:49 AM EST HEMOGLOBIN AND HEMATOCRIT Timed 10/16/2024 12:15 AM EST POCT GLUCOSE BLOOD Routine 10/15/2024 9: 33 PM EST HEMOGLOBIN AND HEMATOCRIT Timed 10/15/2024 4:00 PM EST POCT GLUCOSE BLOOD Routine 10/15/2024 3: 54 PM EST POCT GLUCOSE BLOOD Routine 10/15/2024 11 :13 AM EST POCT GLUCOSE BLOOD Routine 10/15/2024 8: 20 AM EST CBC WITH AUTO DIFFERENTIAL Routine 10/15/2024 7:07 AM EST MAGNESIUM Routine 10/15/2024 7:07 AM EST CBC AND DIFFERENTIAL Routine 10/15/2024 7:07 AM EST AMMONIA Routine 10/15/2024 7:07 AM EST COMPREHENSIVE METABOLIC PANEL Routine 10/15/2024 7:07 AM EST ECG 12-LEAD STAT 10/14/2024 10:23 PM EST OCCULT BLOOD STOOL, GUAIAC Routine 10/14/2024 9:[address] CERVICAL SPINE WO CONTRAST STAT 10/14/2024 3:[address] MAXILLOFACIAL WO CONTRAST STAT 10/14/2024 3:[address] HEAD WO CONTRAST STAT 10/14/2024 3 :55 PM EST AMMONIA STAT 10/14/2024 3:26 PM EST CBC WITH AUTO DIFFERENTIAL STAT 10/14/2024 3:26 PM EST BASIC METABOLIC PANEL STAT 10/14/2024 3:26 PM EST CBC AND DIFFERENTIAL STAT 10/14/2024 3:26 PM EST from Last 3 Months Results * Hemoglobin and hematocrit (10/16/2024 4:23 PM EST) Only the most recent of4 resultswithin the time period is included. Pathologist [facility] Hemoglobin 12.8 11.5 - 16.0 g/dL LAB HEMETOLOGY METHOD 10/16/2024 4:37 PM EST [facility] Hematocrit 37.9 35.0 - 47.0 % LAB HEMETOLOGY METHOD 10/16/2024 4:37 PM EST [facility] Blood Venous blood specimen / Unknown Venipuncture / Unknown 10/16/2024 4:23 PM EST 10/16/2024 4:30 PM EST us Marcos Dawson MD LAB BLOOD ORDERABLES Final Re sult [facility] [address] [place] [address], * (ABNORMAL) POCT Glucose, blood (10/16/2024 11:11 AM EST) Only the most recent of6 resultswithin the time period is included. Glucose POCT 131(H) 70 - 100 mg/dL 10/16/2024 11:12 AM [facility] Blood Capillary blood specimen / Unknown 10/16/2024 11:11 AM EST 10/16/2024 11:13 AM EST us Marcos Dawson MD LAB POINT OF CARE TE ST DOCKED DEVICE UNSOLICITED RESULTS Final Result [facility] [address] [place] [address], [place] [phone] * (ABNORMAL) Basic metabolic panel (10/16/2024 6:49 AM EST) Only the most recent of2 resultswithin the time period is included. Sodium 140 133 - 145 mmol/L LAB CHEMISTRY METHOD 10/16/2024 7:41 AM [facility] Potassium 3.5 3.5 - 5.5 mmol/L LAB CHEMISTRY METHOD 10/16/2024 7:41 AM [facility] Chloride 105 96 - 110 mmol/L LAB CHEMISTRY METHOD 10/16/2024 7:41 AM [facility] CO2 29 21 - 32 mmol/L LAB CHEMISTRY METHOD 10/16/2024 7:41 AM [facility] Anion Gap 6 3 - 11 LAB CHEMISTRY METHOD 10/16/2024 7:41 AM [facility] Glucose 127(H) 70 - 100 mg/dL LAB CHEMISTRY METHOD 10/16/2024 7:41 AM [facility] BUN 16 5 - 25 mg/dL LAB CHEMISTRY METHOD 10/16/2024 7:41 AM [facility] Creatinine 1.08 0.50 - 1.10 mg/dL LAB CHEMISTRY METHOD 10/16/2024 7:41 AM [facility] eGFR 50(L) >=60 mL/min/1. 73m2 LAB CHEMISTRY METHOD 10/16/2024 7:41 AM [facility] Comment:Calculation based on the??Chronic Kidney Disease Epidemiology Collaboration (CKD-EPI) equation refit??without adjustment for race. BUN/Creatinine Ratio 14.8 LAB CHEMISTRY METHOD 10/16/2024 7:41 AM [facility] Calcium 8.9 8.5 - 10.5 mg/dL LAB CHEMISTRY METHOD 10/16/2024 7:41 AM [facility] Blood Venous blood specimen / Unknown Venipuncture / Unknown 10/16/2024 6:49 AM EST 10/16/2024 7:04 AM EST us Marcos Dawson MD LAB BLOOD ORDERABLES Final Re sult [facility] [address] [place] [address], * (ABNORMAL) CBC auto differential (10/15/2024 7:07 AM EST) Only the most recent of2 resultswithin the time period is included. WBC 10.2 4.8 - 10.8 K/mcL LAB HEMETOLOGY METHOD 10/15/2024 7:44 AM [facility] RBC 4.40 3.80 - 4.80 M/mcL LAB HEMETOLOGY METHOD 10/15/2024 7:44 AM [facility] Hemoglobin 14.2 11.5 - 16.0 g/dL LAB HEMETOLOGY METHOD 10/15/2024 7:44 AM [facility] Hematocrit 41.8 35.0 - 47.0 % LAB HEMETOLOGY METHOD 10/15/2024 7:44 AM [facility] MCV 94.1 79.0 - 98.0 FL LAB HEMETOLOGY METHOD 10/15/2024 7:44 AM [facility] MCH 32.0 27.0 - 32.0 pcg LAB HEMETOLOGY METHOD 10/15/2024 7:44 AM [facility] MCHC 34.0 32.0 - 37.0 g/dL LAB HEMETOLOGY METHOD 10/15/2024 7:44 AM [facility] RDW 14.7 11.0 - 15.0 % LAB HEMETOLOGY METHOD 10/15/2024 7:44 AM [facility] Platelets 165 130 - 400 K/mcL LAB HEMETOLOGY METHOD 10/15/2024 7:44 AM [facility] MPV 10.3 7.0 - 11.0 FL LAB HEMETOLOGY METHOD 10/15/2024 7:44 AM [facility] NRBC 0.0 <1.0 % LAB HEMETOLOGY METHOD 10/15/2024 7:44 AM [facility] NRBC Absolute 0.00 <0.10 K/mcL LAB HEMETOLOGY METHOD 10/15/2024 7:44 AM [facility] Neutrophils Relative 77.1 % LAB HEMETOLOGY METHOD 10/15/2024 7:44 AM [facility] Lymphocytes Relative 12.4 % LAB HEMETOLOGY METHOD 10/15/2024 7:44 AM [facility] Monocytes Relative 9.7 % LAB HEMETOLOGY METHOD 10/15/2024 7:44 AM [facility] Eosinophils Relative 0.0 % LAB HEMETOLOGY METHOD 10/15/2024 7:44 AM [facility] Basophils Relative 0.3 % LAB HEMETOLOGY METHOD 10/15/2024 7:44 AM [facility] Immature Granulocytes Relative 0.5 % LAB HEMETOLOGY METHOD 10/15/2024 7:44 AM [facility] Neutrophils Absolute 7.90(H) 1.50 - 7.00 K/mcL LAB HEMETOLOGY METHOD 10/15/2024 7:44 AM EST [facility] Lymphocytes Absolute 1.27 1.00 - 5.00 K/mcL LAB HEMETOLOGY METHOD 10/15/2024 7:44 AM EST [facility] Monocytes Absolute 0.99 0.20 - 1.00 K/mcL LAB HEMETOLOGY METHOD 10/15/2024 7:44 AM EST [facility] Eosinophils Absolute 0.00 0.00 - 0.50 K/[facility] LAB HEMETOLOGY METHOD 10/15/2024 7:44 AM EST [facility] Basophils Absolute 0.03 0.00 - 0.20 K/mcL LAB HEMETOLOGY METHOD 10/15/2024 7:44 AM EST [facility] Immature Granulocytes Absolute 0.05(H) 0.00 - 0.03 K/mcL LAB HEMETOLOGY METHOD 10/15/2024 7:44 AM EST [facility] Blood Venous blood specimen / Unknown Venipuncture / Unknown 10/15/2024 7:07 AM EST 10/15/2024 7:24 AM EST us Surya Prieto MD LAB BLOOD ORDERABLES Final Res ult [facility] [address] [place] [address], [place] [phone] * (ABNORMAL) Magnesium (10/15/2024 7:07 AM EST) Magnesium 1.4(L) 1.9 - 2.6 mg/dL LAB CHEMISTRY METHOD 10/15/2024 8:09 AM EST [facility] Blood Venous blood specimen / Unknown Venipuncture / Unknown 10/15/2024 7:07 AM EST 10/15/2024 7:24 AM EST us Surya Prieto MD LAB BLOOD ORDERABLES Final Res ult [facility] [address] [place] [address], [place] [phone] * (ABNORMAL) Ammonia (10/15/2024 7:07 AM EST) Only the most recent of2 resultswithin the time period is included. Ammonia 54(H) 11 - 35 mcmol/L LAB CHEMISTRY METHOD 10/15/2024 7:52 AM [facility] Blood Venous blood specimen / Unknown Venipuncture / Unknown 10/15/2024 7:07 AM EST 10/15/2024 7:23 AM EST Surya Prieto MD LAB BLOOD ORDERABLES Final Res ult [facility] [address] [place] [address], * (ABNORMAL) Comprehensive metabolic panel (10/15/2024 7:07 AM EST) Sodium 135 133 - 145 mmol/L LAB CHEMISTRY METHOD 10/15/2024 8:09 AM [facility] Potassium 3.8 3.5 - 5.5 mmol/L LAB CHEMISTRY METHOD 10/15/2024 8:09 AM [facility] Chloride 105 96 - 110 mmol/L LAB CHEMISTRY METHOD 10/15/2024 8:09 AM [facility] CO2 25 21 - 32 mmol/L LAB CHEMISTRY METHOD 10/15/2024 8:09 AM [facility] Anion Gap 5 3 - 11 LAB CHEMISTRY METHOD 10/15/2024 8:09 AM [facility] Glucose 151(H) 70 - 100 mg/dL LAB CHEMISTRY METHOD 10/15/2024 8:09 AM [facility] BUN 13 5 - 25 mg/dL LAB CHEMISTRY METHOD 10/15/2024 8:09 AM [facility] Creatinine 0.96 0.50 - 1.10 mg/dL LAB CHEMISTRY METHOD 10/15/2024 8:09 AM [facility] eGFR 57(L) >=60 mL/min/1. 73m2 LAB CHEMISTRY METHOD 10/15/2024 8:09 AM [facility] Comment:Calculation based on the??Chronic Kidney Disease Epidemiology Collaboration (CKD-EPI) equation refit??without adjustment for race. BUN/Creatinine Ratio 13.5 LAB CHEMISTRY METHOD 10/15/2024 8:09 AM [facility] Calcium 9.1 8.5 - 10.5 mg/dL LAB CHEMISTRY METHOD 10/15/2024 8:09 AM [facility] AST (SGOT) 64(H) 10 - 42 unit/L LAB CHEMISTRY METHOD 10/15/2024 8:09 AM [facility] ALT (SGPT) 49 10 - 60 unit/L LAB CHEMISTRY METHOD 10/15/2024 8:09 AM [facility] Alkaline Phosphatase 143(H) 42 - 121 unit/L LAB CHEMISTRY METHOD 10/15/2024 8:09 AM [facility] Total Protein 6.9 6.0 - 8.0 g/dL LAB CHEMISTRY METHOD 10/15/2024 8:09 AM [facility] Albumin 2.6(L) 3.2 - 5.0 g/dL LAB CHEMISTRY METHOD 10/15/2024 8:09 AM [facility] Total Bilirubin 1.7(H) 0.0 - 1.4 mg/dL LAB CHEMISTRY METHOD 10/15/2024 8:09 AM [facility] Blood Venous blood specimen / Unknown Venipuncture / Unknown 10/15/2024 7:07 AM EST 10/15/2024 7:24 AM EST us Surya Prieto MD LAB BLOOD ORDERABLES Final Res ult [facility] [address] [place] [address], [place] [phone] * ECG 12 lead PRN (10/14/2024 10:23 PM EST) Ventricular Rate ECG 94 BPM GEMUSE Atrial Rate 94 BPM GEMUSE P-R Interval 190 ms GEMUSE QRS Duration 78 ms GEMUSE Q-T Interval 408 ms GEMUSE QTc 510 ms GEMUSE P Wave [place] 50 degrees GEMUSE R [place] -29 degrees GEMUSE T [place] 81 degrees GEMUSE ECG Interpretation Normal sinus rhythm Minimal voltage criteria for LVH, may be normal variant Prolonged QT Abnormal ECG When compared with ECG of 22-MAY-2023 13:43, No significant changes are noted Confirmed by STACY IRWIN ([id number]) on 10/15/2024 11:34:59 AM GEMUSE 10/14/2024 10:2 3 PM EST 10/15/2024 11:34 AM EST Surya Prieto MD ECG ORDERABLES Final Result Performing Organization Address [facility] de Phone Number MARILY * (ABNORMAL) Occult blood stool, guaiac (10/14/2024 9:54 PM EST) Pathologist [facility] Occult Blood, Stool #1 Positive( A) Negative 10/14/2024 10:09 PM EST [facility] Stool Stoma site / Unknown Non-blood Collection / Unknown 10/14/2024 9:54 PM EST 10/14/2024 10:00 PM EST Meghan ALFREDO LAB BODY FLUIDS AND STOOLS OR DERABLES Final Result Performing Organization Address [facility] Co de Phone Number [facility] [address] [place] [address], [place] [phone] * CT Cervical Spine wo Contrast (10/14/2024 3:55 PM EST) Anatomical Region Laterality Modality Spine, C-spine Computed Tomogra phy 10/14/2024 4:23 PM EST Impressions 10/14/2024 4:25 PM EST No acute cervical spine fracture. -------- FINAL REPORT -------- Dictated By: Antonieta Trent Dictated Date: 10/14/2024 16:23 ET Assigned Physician: Antonieta Trent Reviewed and Electronically Signed By: Antonieta Trent Signed Date: 10/14/2024 16:25 ET Workstation ID: [id number] Transcribed By: Self Edit Transcribed Date: 10/14/2024 16:23 ET Narrative 10/14/2024 4:25 PM EST PROCEDURE: CT cervical spine INDICATION: Trauma TECHNIQUE: Noncontrast CT of the cervical spine with multiplanar reformats. The examination was performed utilizing dose reduction techniques. COMPARISON: ??No priors available. FINDINGS: ?? No fracture or prevertebral swelling. Multilevel degenerative changes are seen throughout the cervical spine with uncovertebral spurring and facet arthropathy present. ??Endplate degenerative changes and intervertebral disc height loss. ??There is straightening of the cervical spine. ??Multilevel posterior disc osteophyte complexes. Lung apices are clear. Soft tissues of the neck are unremarkable. Procedure Note Antonieta Trent MD - 10/14/2024 PROCEDURE: CT cervical spine INDICATION: Trauma TECHNIQUE: Noncontrast CT of the cervical spine with multiplanarreformats. The examination was performed utilizing dose reduction techniques. COMPARISON: No priors available. FINDINGS: No fracture or prevertebral swelling. Multilevel degenerative changes are seen throughout the cervical spinewith uncovertebral spurring and facet arthropathy present. Endplatedegenerative changes and intervertebral disc height loss. There isstraightening of the cervical spine. Multilevel posterior disc osteophytecomplexes. Lung apices are clear. Soft tissues of the neck are unremarkable. IMPRESSION: No acute cervical spine fracture. -------- FINAL REPORT -------- Dictated By: Antonieta Trent Dictated Date: 10/14/2024 16:23 ET Assigned Physician: Antonieta Trent Reviewed and Electronically Signed By: Antonieta Trent Signed Date: 10/14/2024 16:25 ET Workstation ID: [id number] Transcribed By: Self Edit Transcribed Date: 10/14/2024 16:23 ET us Dale ALFREDO IM CT PROCEDURES Final Resu lt * CT Maxillofacial wo Contrast (10/14/2024 3:55 PM EST) Anatomical Region Laterality Modality Head and Neck Computed Tomogra phy 10/14/2024 4:15 PM EST Impressions 10/14/2024 4:21 PM EST Large right periorbital hematoma without retrobulbar hematoma or visible globe injury. ??This hematoma extends to the premaxillary region. There is chronic opacification of the right maxillary sinus, underlying lesion is not excluded. ??There is a nondisplaced fracture of the inferior orbital wall as well as subtle fractures involving the anterior and lateral maxillary sinus jin. -------- FINAL REPORT -------- Dictated By: Antonieta Trent Dictated Date: 10/14/2024 16:15 ET Assigned Physician: Antonieta Trent Reviewed and Electronically Signed By: Antonieta Trent Signed Date: 10/14/2024 16:21 ET Workstation ID: [id number] Transcribed By: Self Edit Transcribed Date: 10/14/2024 16:15 ET Narrative 10/14/2024 4:21 PM EST PROCEDURE: HEAD CT INDICATION: Trauma TECHNIQUE: CT of the head without intravenous contrast. Multiplanar reformats. The examination was performed utilizing dose reduction techniques. Total DLP 2100 COMPARISON: ??No priors available. FINDINGS: ??There is a right periorbital hematoma. ??There is no retrobulbar hematoma. ??There is a nondisplaced fracture of the inferior orbital wall. ??There is a mildly displaced fracture of the lateral wall of the maxillary sinus. Complete opacification of the right maxillary sinus with expansion of the jin and appear most likely chronic nondisplaced fracture of the adjacent jin with thinning and bowing of the medial wall. ??Dentures. ??No mandible fracture. ??There is debris within the left maxillary sinus, sphenoid sinuses and ethmoid air cells. ??Mastoid air cells are unremarkable. Procedure Note Antonieta Trent MD - 02/11/2025 PROCEDURE: HEAD CT INDICATION: Trauma TECHNIQUE: CT of the head without intravenous contrast. Multiplanarreformats. The examination was performed utilizing dose reductiontechniques. Total DLP 2100 COMPARISON: No priors available. FINDINGS: There is a right periorbital hematoma. There is no retrobulbarhematoma. There is a nondisplaced fracture of the inferior orbital wall.There is a mildly displaced fracture of the lateral wall of the maxillarysinus. Complete opacification of the right maxillary sinus with expansion of thewalls and appear most likely chronic nondisplaced fracture of the adjacentwalls with thinning and bowing of the medial wall. Dentures. No mandiblefracture. There is debris within the left maxillary sinus, sphenoidsinuses and ethmoid air cells. Mastoid air cells are unremarkable. IMPRESSION: Large right periorbital hematoma without retrobulbar hematoma or visibleglobe injury. This hematoma extends to the premaxillary region. There is chronic opacification of the right maxillary sinus, underlyinglesion is not excluded. There is a nondisplaced fracture of the inferiororbital wall as well as subtle fractures involving the anterior andlateral maxillary sinus jin. -------- FINAL REPORT -------- Dictated By: Antonieta Trent Dictated Date: 10/14/2024 16:15 ET Assigned Physician: Antonieta Trent Reviewed and Electronically Signed By: Antonieta Trent Signed Date: 10/14/2024 16:21 ET Workstation ID: [id number] Transcribed By: Self Edit Transcribed Date: 10/14/2024 16:15 ET Dale ALFREDO IMFelipe CT PROCEDURES Final Resu lt * CT Head wo Contrast (10/14/2024 3:55 PM EST) Anatomical Region Laterality Modality Head and Neck Computed Tomogra phy 10/14/2024 4:09 PM EST Impressions 10/14/2024 4:15 PM EST NO ACUTE INTRACRANIAL ABNORMALITY. -------- FINAL REPORT -------- Dictated By: Antonieta Trent Dictated Date: 10/14/2024 16:09 ET Assigned Physician: Antonieta Trent Reviewed and Electronically Signed By: Antonieta Trent Signed Date: 10/14/2024 16:15 ET Workstation ID: [id number] Transcribed By: Self Edit Transcribed Date: 10/14/2024 16:09 ET Narrative 10/14/2024 4:15 PM EST PROCEDURE: HEAD CT INDICATION: Trauma TECHNIQUE: CT of the head without intravenous contrast. Multiplanar reformats. The examination was performed utilizing dose reduction techniques. Total DLP 2100 COMPARISON: ??No priors available. FINDINGS: ?? No acute territorial infarct, mass effect, or intracranial hemorrhage. Severe scattered periventricular and subcortical white matter hypodensities are most likely related to chronic small vessel ischemic change. Ventricles, sulci, and cisterns are normal in size and configuration. No hydrocephalus or volume loss. Visualized paranasal sinuses and mastoid air cells are clear. Right periorbital hematoma without underlying fracture visualized, see CT face dictated separately. Procedure Note Antonieta Trent MD - 10/14/2024 PROCEDURE: HEAD CT INDICATION: Trauma TECHNIQUE: CT of the head without intravenous contrast. Multiplanarreformats. The examination was performed utilizing dose reductiontechniques. Total DLP 2100 COMPARISON: No priors available. FINDINGS: No acute territorial infarct, mass effect, or intracranial hemorrhage. Severe scattered periventricular and subcortical white matterhypodensities are most likely related to chronic small vessel ischemicchange. Ventricles, sulci, and cisterns are normal in size and configuration. Nohydrocephalus or volume loss. Visualized paranasal sinuses and mastoid air cells are clear. Right periorbital hematoma without underlying fracture visualized, see CTface dictated separately. IMPRESSION: NO ACUTE INTRACRANIAL ABNORMALITY. -------- FINAL REPORT -------- Dictated By: Antonieta Trent Dictated Date: 10/14/2024 16:09 ET Assigned Physician: Antonieta Trent Reviewed and Electronically Signed By: Antonieta Trent Signed Date: 10/14/2024 16:15 ET Workstation ID: [id number] Transcribed By: Self Edit Transcribed Date: 10/14/2024 16:[address] PROCEDURES Final Resu lt from Last 3 Months Insurance MEDICAID - [place] [employer] MEDICARE Member Subscriber Plan / Payer (Ef fective 2017-Present) Name:Ольга Sanchez Relation to Subscriber:Self Name:Ольга Sanchez Payer ID:[id number] Group ID:[id number] Type:Not on file Address: [address] [place] [address] Advance Directives * Full Code - Default (Latest Code Status on File) Date Activated Date Inactivated Comments 10/14/2024 5:25 PM 10/16/2024 8:59 PM This is orde r is used when code status has not been discussed with the patient, or code status is otherwise unknown/unconfirmed To update the patient's code status, place a code status order. Do not modify or discontinue any currently active code status orders. Care Teams Truck Sales Representative Relationship Specialty Start Date End Date Elvin Freedman NP [address] [place], [place] PCP - General 06/22/08
--- OUTSIDE RECORDS SUMMARY | 2024-11-03 14:31 | XMS_ITS | Encounter Summary ---
Author Organization [employer] Address [address] [facility] 7 [place] [address] Care Team Providers Care Wrist Closer Name Role Phone Name, Francisco NAVA Primary Care Provider [phone] Encounter Details Date Type Department Care Team (Late st Contact Info) Description 11/06/2022 Orders Only [facility] MED & PEDS [address] [place] [address] Rere Robles LPN Social History Tobacco Use [...] Description 11/14/2024 10:15 AM EDT Procedure Visit [facility] MED & PEDS [address] [place] [address] Nicki Alvarado MD [address] [place] [address] 12/29/2024 11:00 AM EDT Office Visit [facility] MEDICINE [address] [place], [place] [phone] Name, MD Francisco [address] [place] [address] documented as of this encounter Visit Diagnoses Not on filedocumented in this encounter Care Teams Wrist Closer Relationship Specialty Start Date End Date Name, MD Francisco [address] [place] [address] PCP - General Family Medicine 05/16/17 documented as of this encounter
--- OUTSIDE RECORDS SUMMARY | 2024-11-03 14:32 | XMS_ITS | Encounter Summary ---
Author Organization [email or web address] Address [address] [place] [address] Care Team Providers Care Manufacturing Recruiter Name Role Phone Name, Francisco NAVA Primary Care Provider [phone] Reason for Visit * Reason Onset Date Comments Lab Orders 10/22/2024 Encounter Details Date Type Department Care Team (Late st Contact Info) Description 10/22/2024 Telephone [facility] MEDICINE [address] [place], [place] [phone] Name, MD Francisco [address] [place], [place] [phone] Lab Orders Social History Tobacco Use Types Packs/Day Years [...] t he electric, gas, oil or water [employer] threatened to shut off services in your [...] encounter Miscellaneous Notes * Telephone Encounter - Federica Gu RN - 10/23/2024 2:09 PM EST Call returned to pt's granddaughter who reports they were able to obtain a sooner appointment and agrees to discuss x-ray request at scheduled [facility]. * Telephone Encounter - Erik Bernal - 10/22/2024 9:31 AM EST Tc from pt requesting to get a Imaging order for a Xray. Pt was advised by the Doctor at the ER to get it done due to the Fall that he had the week before. Contact pt Granddaughter at [phone] documented in this encounter Plan of Treatment Upcoming Encounters Date Type Department Care Team (Late st Contact Info) Description 11/14/2024 10:15 AM EDT Procedure Visit [facility] MED & PEDS [address] [place] [address] Nicki Alvarado MD [address] [place] [address] 12/29/2024 11:00 AM EDT Office Visit [facility] MED[facility]INE [address] [place] [address] Name, MD Francisco [address] [place] [address] documented as of this encounter Visit Diagnoses Not on filedocumented in this encounter Additional Health Concerns Assessment Noted Time PHQ-9 Depression Total Score: 0 01/02/20 11:09 AM EDT documented as of this encounter Care Teams Manufacturing Recruiter Relationship Specialty Start Date End Date Name, MD Francisco [address] [place] [address] PCP - General Family Medicine 05/16/17 documented as of this encounter
--- OUTSIDE RECORDS SUMMARY | 2024-11-03 14:32 | XMS_ITS | Encounter Summary ---
Author Organization [employer] Address [address] [place] [address] Care Team Providers Care Giant Tire Repairer Name Role Phone Name, Francisco NAVA Primary Care Provider [phone] Reason for Visit * Reason Onset Date Comments Recommend SYSTEM SPECIALIST Tele Tier 2 10/15/2024 Encounter Details Date Type Department Care Team (Late st Contact Info) Description 10/15/2024 Telephone [facility] MEDICINE [address] [place] [address] Kym Lisa, FITZ Recommend SYSTEM SPECIALIST Tele Tier 2 Social History Tobacco Use Types Packs/Day Years [...] encounter Miscellaneous Notes * Telephone Encounter - Kym Lisa RN - 10/15/2024 7:53 AM EST What SYSTEM SPECIALIST Tier would you like this patient to be? I recommend Tele Tier 2, please let me know if you agree or would rather patient be in another SYSTEM SPECIALIST Tier. Tier 1 = HIGH RISK, Monthly SYSTEM SPECIALIST visits Tier 2 = MODerate RISK, Q3 Month visits Tier 3 = LOW RISK = Q4-6 month visits documented in this encounter Plan of Treatment Upcoming Encounters Date Type Department Care Team (Late st Contact Info) Description 11/14/2024 10:15 AM EDT Procedure Visit [facility] CHC MED & PEDS [address] [place] [address] Nicki Alvarado MD [address] [place] [address] 12/29/2024 11:00 AM EDT Office Visit [facility] MEDICINE [address] [place] [address] Name, MD Francisco [address] [place] [address] documented as of this encounter Visit Diagnoses Not on filedocumented in this encounter Additional Health Concerns Assessment Noted Time PHQ-9 Depression Total Score: 0 01/02/20 24 11:09 AM EDT documented as of this encounter Care Teams Giant Tire Repairer Relationship Specialty Start Date End Date Name, MD Francisco [address] [place] [address] PCP - General Family Medicine 05/16/17 documented as of this encounter
--- OUTSIDE RECORDS SUMMARY | 2024-11-03 14:32 | XMS_ITS | Encounter Summary ---
Author Organization [employer] Address [address] 7[address] [place] [address] Care Team Providers Care Punchboard Stuffer Name Role Phone Name, Francisco NAVA Primary Care Provider [phone] Encounter Details Date Type Department Care Team ([facility] st Contact Info) Description 10/17/2024 Telephone [facility] MEDICINE [address] [place], [place] [phone] Name, MD Francisco [address] [place], [place] [phone] Social History Tobacco Use Types Packs/Day Years [...] Description 11/14/2024 10:15 AM EDT Procedure Visit [facility] CH[facility] MED & PEDS [address] [place] [address] Nicki Alvarado MD [address] [place] [address] 12/29/2024 11:00 AM EDT Office Visit [facility] MEDICINE [address] [place] [address] Francisco Murillo MD [address] [place] [address] documented as of this encounter Visit Diagnoses Not on filedocumented in this encounter Additional Health Concerns Assessment Noted Time PHQ-9 Depression Total Score: 0 01/02/20 24 11:09 AM EDT documented as of this encounter Care Teams Punchboard Stuffer Relationship Specialty Start Date End Date Francisco Murillo MD [address] [place] [address] PCP - General Family Medicine 05/16/17 documented as of this encounter
--- OUTSIDE RECORDS SUMMARY | 2024-11-03 14:32 | XMS_ITS | Encounter Summary ---
Author Organization [employer] Address [address] [place] [address] Care Team Providers Care Rip/Mould Operator Name Role Phone Name, Francisco NAVA Primary Care Provider [phone] Reason for Visit * Reason Onset Date Comments Durable Medical Equipment 10/06/2024 boost Encounter Details Date Type Department Care Team (Late st Contact Info) Description 10/06/2024 Telephone [facility] MEDICINE [address] [place], [place] [phone] Name, MD [employer]co [address] [place], [place] [phone] Durable Medical Equipment (boost) Social History Tobacco Use Types Packs/Day Years [...] encounter Miscellaneous Notes * Telephone Encounter - Vera Gupta - 10/08/2024 10:34 AM EST Confirmation of order for Boost signed and faxed to Sylvia . Confirmation received and sent to scan. If patient calls to check status on above, please advise them to contact Sylvia at [phone]. * Telephone Encounter - Vera Gupta - 10/06/2024 3:29 PM EST Confirmation of order for Boost from Sylvia placed on PCP desk for signature. documented in this encounter Plan of Treatment Upcoming Encounters Date Type Department Care Team ([facility] st Contact Info) Description 11/14/2024 10:15 AM EDT Procedure Visit [facility] MED & PEDS [address] [place] [address] Nicki Alvarado MD [address] [place], [place] [phone] 12/29/2024 11:00 AM EDT Office Visit [facility] MEDICINE [address] [place] [address] Name, MD Francisco [address] [place] [address] documented as of this encounter Visit Diagnoses Not on filedocumented in this encounter Additional Health Concerns Assessment Noted Time PHQ-9 Depression Total Score: 0 01/02/20 24 11:09 AM EDT documented as of this encounter Care Teams Rip/Mould Operator Relationship Specialty Start Date End Date Name, MD Francisco [address] [place] [address] PCP - General Family Medicine 05/16/17 documented as of this encounter
--- OUTSIDE RECORDS SUMMARY | 2024-11-03 14:32 | XMS_ITS | Encounter Summary ---
Author Organization [employer] Address [address] [place] [address] Care Team Providers Care Autoglazier Name Role Phone Name, Francisco NAVA Primary Care Provider [phone] Reason for Visit * Reason Onset Date Comments Error (VOID this visit) 10/15/2024 Encounter Details Date Type Department Care Team ([facility] st Contact Info) Description 10/15/2024 Telephone [facility] MEDICINE [address] [place] [address] Kym Lisa, FITZ Error (VOID this visit) Social History Tobacco Use Types Packs/Day Years [...] Description 11/14/2024 10:15 AM EDT Procedure Visit [facility] MED & PEDS [address] [place] [address] Nicki Alvarado MD [address] [place] [address] 12/29/2024 11:00 AM EDT Office Visit [facility] MEDICINE [address] [place] [address] Francisco Murillo MD [address] [place] [address] documented as of this encounter Visit Diagnoses Not on filedocumented in this encounter Additional Health Concerns Assessment Noted Time PHQ-9 Depression Total Score: 0 01/02/20 24 11:09 AM EDT documented as of this encounter Care Teams Autoglazier Relationship Specialty Start Date End Date Francisco Murillo MD [address] [place] [address] PCP - General Family Medicine 05/16/17 documented as of this encounter
--- OUTSIDE RECORDS SUMMARY | 2024-11-03 14:32 | XMS_ITS | Encounter Summary ---
Author Organization [employer] Address [address] [facility] [address] [place] [address] Care Team Providers Care Mutual Fund Manager Name Role Phone Name, Francisco NAVA Primary Care Provider [phone] Reason for Referral * Consultation (Routine) - Authorized Specialty Diagnoses / Procedures Referred By Martin valdovinos Referred To Contact Gastroenterology Diagnoses Chronic liver disease Lou Galaviz FNP [address] [place] [address] Phone: tel: fax: [facility] [address] [place] [address] [address] [place], [place] Phone: tel: fax: Referral ID Status Reason Start Date Expiration Date Visits Requested Visits Authorized [id number] Authorized Specialty Services Required 10/26/2024 10/26/2025 1 1 Reason for Visit * Reason Comments Hospital discharge Encounter Details Date Type Department Care Team (Late st Contact Info) Description 10/24/2024 1:30 PM EST Office Visit [facility] [address] [place] [address] Lou Galaviz FNP [address] [place], [place] Orbital fracture, closed, initial encounter (CMS/HCC) (Primary Dx); Rib pain on right side; Primary hypertension; Chronic liver disease; Encounter for removal of sutures Social History Tobacco Use Types Packs/Day Years [...] Sign Reading Time Taken Comments Blood Pressure 118/72 10/24/2024 1:34 PM EST Pulse 89 10/24/2024 1:34 PM EST Temperature 36.8 ??C (98.2 ??F) 10/24/2024 1:34 PM ES T Respiratory Rate 20 10/24/2024 1:34 PM EST Oxygen Saturation 98% 10/24/2024 1:34 PM EST Inhaled Oxygen Concentration - - Weight 69.4 kg (153 lb) 10/24/2024 1:34 PM EST Height 167.6 cm (5' 6 ) 10/24/2024 1:34 PM EST Body Mass Index 24.69 10/24/2024 1:34 PM EST documented in this encounter Progress Notes * [facility], INVESTIGATIONS CHIEF - 10/24/2024 1:30 PM ESTAssociated Order(s): Suture Removal Post-Procedure Diagnose(s): Encounter for removal of sutures SUBJECTIVE: Ольга Sanchez is a 89 y.o. year old female with type 2 diabetes, hypertension, coronary artery disease, chronic liver disease who presents for hospital discharge follow-up. Accompanied by her granddaughter, Eunice. [facility] (10/14/24-10/16/24) Patient with PMH including chronic liver disease, mild dementia, T2DM presented following a witnessed fall and striking their face. CT scan of head showed large right periorbital hematoma. Patient also had nondisplaced fracture of the inferior orbital wall and subtle fractures involving anterior and lateral maxillary sinus jin. Admitted for observation. Facial swelling and pain improved with conservative treatment. Noted to have elevated ammonia of 103 which improved to 54 with lactulose. Denied taking lactulose at home. Vomited coffee-ground emesis, likely swallowed blood. GI consulted, likely esophagitis or gastritis. No EGD was recommended. pantoprazole increased to twice a day. PT recommended home PT. Patient was discharged. Added Lactulose 15 ml (10 mg) twice a day Changed Pantoprazole 40 mg once daily increased to twice a day Discontinued: aspirin, olmesartan, tramadol Today patient reports right sided rib pain at place of impact where she fall. Ribs were not imaged during hospital stay. Difficulty sleeping due to pain. Previously on chronic tramadol through PCP which was discontinued during hospitalization due to fall risk concern Established with home PT Patient Active Problem List Diagnosis Idiopathic urticaria Emphysema/COPD (CMS/HCC) Posttraumatic stress disorder Osteoporosis Osteopenia Type 2 diabetes mellitus without complication, without long-term current use of insulin (CMS/HCC) Hypothyroidism Hyperlipidemia Chronic GERD Exercise-induced angina (CMS/HCC) Elevated LFTs Depressive disorder Coronary arteriosclerosis Chronic low back pain Chronic eczema of hand Hypertension Asthma Clostridium difficile diarrhea Cortical visual impairment Review of Systems Constitutional: Negative for fatigue, fever and unexpected weight change. HENT: Positive for facial swelling. Eyes: Negative for photophobia, discharge and visual disturbance. Respiratory: Negative for apnea, chest tightness and shortness of breath. Cardiovascular: Negative for chest pain, palpitations and leg swelling. Neurological: Negative for dizziness, light-headedness and headaches. OBJECTIVE: Vitals: 10/24/24 1334 BP: 118/72 Pulse: 89 Resp: 20 Temp: 98.2 ??F (36.8 ??C) SpO2: 98% Physical Exam Constitutional: General: She is not in acute distress. Appearance: Normal appearance. HENT: Head: Normocephalic. Contusion present. Comments: Right periorbital ecchymosis, edema; Right Ear: External ear normal. Left Ear: External ear normal. Nose: Nose normal. Eyes: Extraocular Movements: Extraocular movements intact. Conjunctiva/sclera: Conjunctivae normal. Cardiovascular: Rate and Rhythm: Normal rate and regular rhythm. Heart sounds: Normal heart sounds. Pulmonary: Effort: Pulmonary effort is normal. Breath sounds: Normal breath sounds. Musculoskeletal: Comments: Tenderness along lateral aspect of right ribs at approximately level of ninth rib Skin: General: Skin is warm and dry. Comments: Laceration, well-approximated with [address], located along right eyebrow Neurological: General: No focal deficit present. Mental Status: She is alert and oriented to person, place, and time. Psychiatric: Mood and Affect: Mood normal. Behavior: Behavior normal. ASSESSMENT/PLAN Suture Removal Date/Time: 10/24/2024 3:11 PM Performed by: MEREDITH Hendricks Authorized by: MEREDITH Hendricks Consent: Consent obtained: Written Consent given by: Patient Risks, benefits, and alternatives were discussed: yes Risks discussed: Bleeding, pain and wound separation Alternatives discussed: Referral Tonica protocol: Procedure explained and questions answered to patient or proxy's satisfaction: yes Relevant documents present and verified: yes Required blood products, implants, devices, and special equipment available: yes Immediately prior to procedure, a time out was called: yes Patient identity confirmed: Verbally with patient Location: Location: Head/neck Head/neck location: Eyebrow Eyebrow location: R eyebrow Procedure details: Wound appearance: No signs of infection, good wound healing and clean Number of sutures removed: 7 Post-procedure details: Post-removal: Antibiotic ointment applied Procedure completion: Tolerated Right rib pain -Will obtain x-ray and follow-up pending results Orbital wall fracture - Significant improvement in ecchymosis and edema - No retrobulbar hematoma, no globe injury on imaging. Patient denies pain with eye movement, no new vision abnormalities. - conservative management only at this time. Caregivers advised to contact [facility] if new visual concern at which time would consult with ophthalmology-Shared decision making with patient and daughter regarding restarting tramadol prescription. Pain options limited due to concern for gastritis, chronic liver disease - Will provide short-term course x 2 weeks of tramadol with close home monitoring for dizziness or over sedation -Follow-up with PCP regarding long-term tramadol use GI - Continue pantoprazole twice daily - No further episodes of coffee-ground emesis - Continue to hold aspirin - No evidence of ascites on exam - Referral to [facility] for chronic liver disease - Continue lactulose 15 mL twice daily Skin laceration -Laceration along superior aspect of right orbital hollow appears well-healed -7 stitches were removed in office without incident -Patient and daughter instructed to apply bacitracin ointment -See procedure note above HTN - Olmesartan 5 mg was held during hospitalization - Blood pressure remains well-controlled - Will continue to hold at this time -Continue to monitor BP and follow-up with PCP Diagnosis Plan 1. Orbital fracture, closed, initial encounter ([facility]) 2. Rib pain on right side XR Ribs 2 Views Right XR Ribs 2 Views Right traMADol (Ultram) 50 MG tablet 3. Primary hypertension Blood Pressure kit 4. Chronic liver disease Referral to Gastroenterology Referral to Gastroenterology 5. Encounter for removal of sutures Suture Removal Follow Up: 1 month with PCP Current Outpatient Medications on File Prior to Visit Medication Sig Dispense Refill albuterol 108 (90 Base) MCG/ACT inhaler Inhale 2 puffs every 4 (four) hours. atorvastatin (Lipitor) 40 MG tablet TAKE 1 TABLET BY MOUTH EVERYDAY AT NOON 90 tablet 3 Ca Phosphate-Cholecalciferol (Calcium 500 + D3) 250-12.5 MG-MCG chewable tablet Chew. cholecalciferol (Vitamin D3) 1.25 MG (25534 UT) tablet Take 1 tablet (50,000 Units) by mouth 1 (one) time per week. Please write the instructions in Tanzanian also. Make sure she knows is once a week for 2 months only 4 tablet 1 cyanocobalamin (Vitamin B-12) 1000 MCG tablet TAKE 1 TABLET BY MOUTH EVERY MORNING 90 tablet 3 Estrogens Conjugated (Premarin) 0.625 MG/GM cream Insert 1 each into the vagina See administration instructions. 0.5 to 1 g once daily for 2 weeks, then reduce dose and/or frequency to lowest effective dose (usual maintenance dose: 0.5 to 1 g one to 3 times/week) 30 g 1 fluticasone (Flonase) 50 MCG/ACT nasal spray Administer 1 spray into each nostril Once per day. 16 g 2 gabapentin (Neurontin) 100 MG capsule TAKE 1 [...] 1 TABLET BY MOUTH EVERY MORNING BEFORE MEALS 30 tablet 5 loratadine (Claritin) 10 MG tablet TAKE 1 TABLET BY MOUTH EVERYDAY AT NOON 30 tablet 5 metFORMIN (Glucophage) 500 MG tablet Take 0.5 tablets (250 mg) by mouth with breakfast and with evening meal. 30 tablet 11 pantoprazole (ProtoNix) 40 MG EC tablet TAKE 1 TABLET BY MOUTH EVERYDAY AT NOON 90 tablet 3 risperiDONE (RisperDAL) 0.25 MG tablet TAKE 1 TABLET BY MOUTH TWICE DAILY NEEDED FOR AGITATION thiamine (Vitamin B-1) 100 MG tablet TAKE 1 TABLET BY MOUTH EVERY MORNING 90 tablet 3 Trelegy Ellipta 200-62.5-25 MCG/ACT aerosol powder INHALE 1 PUFF BY MOUTH EVERY MORNING 60 each 11 TRUEplus Lancets 33G misc TEST BLOOD SUGAR ONCE DAILY DIRECTED 100 each 3 [DISCONTINUED] Aspirin Low Dose 81 MG EC tablet TAKE 1 TABLET BY MOUTH EVERYDAY AT NOON 90 tablet 0 [DISCONTINUED] olmesartan (BENIcar) 5 MG tablet TAKE 1 TABLET BY MOUTH EVERY MORNING 90 tablet 3 [DISCONTINUED] traMADol (Ultram) 50 MG tablet Take 1 tablet (50 mg) by mouth every 12 (twelve) hours if needed for severe pain for up to 28 days. 56 tablet 0 No current facility-administered medications on file prior to visit. Tanzanian Translation: Provided by patient's granddaughter with her consent documented in this encounter Plan of Treatment Upcoming Encounters Date Type Department Care Team (Late st Contact Info) Description 11/14/2024 10:15 AM EDT Procedure Visit [facility] [address] [place], [place] [phone] Nicki Alvarado MD [address] [place], [place] [phone] 12/29/2024 11:00 AM EDT Office Visit [facility] [address] [place], [place] [phone] Francisco Murillo MD [address] [place] [address] Scheduled Orders Name Type Priority Associated Diagnoses Orde r Schedule XR Ribs 2 Views Right Imaging Routine Rib pain on right side Expected: 10/24/2024, Expires: 10/24/2025 Scheduled Referrals Name Type Priority Associated Diagnoses Order Schedule Referral to Gastroenterology Outpatient Referral Routine Chronic liver disease Expected: 10/26/2024 (Approximate), Expires: 10/26/2025 documented as of this encounter Procedures Procedure Name Priority Date/Time Associated Diagnosis Comments SUTURE REMOVAL Routine 10/24/2024 3:11 PM EST Encounter for removal of sutures documented in this encounter Results * Suture Removal (10/24/2024 3:11 PM EST) Lou Guidry FNP - 10/24/2024 3:11 PM EST MEREDITH Hendricks ? 10/27/2024 ??4:09 PM Suture Removal Date/Time: 10/24/2024 3:11 PM Performed by: MEREDITH Hendricks Authorized by: MEREDITH Hendricks ?? Consent: ??Consent obtained: ??Written ??Consent given by: ??Patient ??Risks, benefits, and alternatives were discussed: yes ?Risks discussed: ??Bleeding, pain and wound separation ??Alternatives discussed: ??Referral Tonica protocol: ??Procedure explained and questions answered to patient or proxy's satisfaction: yes ?Relevant documents present and verified: yes ?Required blood products, implants, devices, and special equipment available: yes ?Immediately prior to procedure, a time out was called: yes ?Patient identity confirmed: ??Verbally with patient Location: ??Location: ??Head/neck ??Head/neck location: ??Eyebrow ??Eyebrow location: ??R eyebrow Procedure details: ??Wound appearance: ??No signs of infection, good wound healing and clean ??Number of sutures removed: ??7 Post-procedure details: ??Post-removal: ??Antibiotic ointment applied ??Procedure completion: ??Tolerated Result [facility] INVESTIGATIONS CHIEF IN CLINIC/BEDSIDE ORDERABLES Final Result documented in this encounter Visit Diagnoses Diagnosis Orbital fracture, closed, initial encounter (CMS/HCC)- Primary Rib pain on right side Primary hypertension Unspecified essential hypertension Chronic liver disease Unspecified chronic liver disease without mention of alcohol Encounter for removal of sutures documented in this encounter Additional Health Concerns Assessment Noted Time PHQ-9 Depression Total Score: 0 01/02/20 24 11:09 AM EDT documented as of this encounter Care Teams Mutual Fund Manager Relationship Specialty Start Date End Date Name, MD Francisco [address] [place] [id number] PCP - General Family Medicine 05/16/17 documented as of this encounter
--- OUTSIDE RECORDS SUMMARY | 2024-11-03 14:32 | XMS_ITS | Encounter Summary ---
Author Organization [employer] Address [address] [place] [address] Care Team Providers Care Event Specialist Food Demonstrator Name Role Phone Name, Francisco NAVA Primary Care Provider [phone] Reason for Visit * Reason Onset Date Comments Call Back Request 10/21/2024 Encounter Details Date Type Department Care Team (Late st Contact Info) Description 10/21/2024 Telephone [facility] [address] [place], [place] [phone] Name, MD Francisco [address] [place], [place] [phone] Call Back Request Social History Tobacco Use Types Packs/Day Years [...] the past 12 months, has t he [employer], gas, oil or water [employer] threatened to shut off services in your [...] encounter Miscellaneous Notes * Telephone Encounter - Ilia Alves RN - 10/23/2024 9:40 AM EST Late entry. Returned call to patients daughter. Patient scheduled for 10/24/24. See patient out reach encounter from 10/17/24. * Telephone Encounter - Erik Bernal - 10/22/2024 9:35 AM EST Tc from pt regarding prior message. Pt would like to speak to a Nurse regarding Getting a Sooner Apt with PCP for Follow up. Contact Pt granddaughter at [phone] * Telephone Encounter - Rozina Davenport - 10/21/2024 11:02 AM EST Tc from granddaughter returning call 10/17. [phone] Eunice documented in this encounter Plan of Treatment Upcoming Encounters Date Type Department Care Team (Late st Contact Info) Description 11/14/2024 10:15 AM EDT Procedure Visit [facility] [address] [place], [place] [phone] Nicki Alvarado MD [address] [place], [place] [phone] 12/29/2024 11:00 AM EDT Office Visit [facility] [address] [place] [address] Name, MD Francisco [address] [place], [place] [phone] documented as of this encounter Visit Diagnoses Not on filedocumented in this encounter Additional Health Concerns Assessment Noted Time PHQ-9 Depression Total Score: 0 01/02/20 24 11:09 AM EDT documented as of this encounter Care Teams Event Specialist Food Demonstrator Relationship Specialty Start Date End Date Name, MD Francisco [address] [place] [phone] PCP - General Family Medicine 05/16/17 documented as of this encounter
--- OUTSIDE RECORDS SUMMARY | 2024-11-03 14:32 | XMS_ITS | Encounter Summary ---
Author Organization [employer] Address [address] [facility] [address] [place] [address] Care Team Providers Care Bilingual Teacher Name Role Phone Name, Francisco NAVA Primary Care Provider [phone] Reason for Visit * Reason Comments Med Refill Encounter Details Date Type Department Care Team ([facility] Contact Info) Description 10/16/2022 Refill [facility] [address] [place], [place] [phone] Name, MD Francisco [address] [place] [address] Social History Tobacco Use Types Packs/Day Years [...] Department Care Team (Late Contact Info) Description 11/14/2024 10:15 AM EDT Procedure Visit [facility] [address] [place] [address] Nicki Alvarado MD [address] [place] [address] 12/29/2024 11:00 AM EDT Office Visit [facility] [address] [place] [address] Name, MD Francisco [address] [place] [phone] documented as of this encounter Visit Diagnoses Not on filedocumented in this encounter Care Teams Bilingual Teacher Relationship Specialty Start Date End Date Name, MD Francisco [address] [place] [phone] PCP - General Family Medicine 05/16/17 documented as of this encounter
--- OUTSIDE RECORDS SUMMARY | 2024-11-03 14:32 | XMS_ITS | Encounter Summary ---
Author Organization [employer] Address [address] [place] [address] Care Team Providers Care Pmo Consultant Name Role Phone Elvin Freedman NP Primary Care Provider [phone] Reason for Visit * Reason Comments Fall * Auth/Cert (Routine) Specialty Diagnoses / Procedures Referred By Contjeff t Referred To Contact Diagnoses Gait instability Head injury with loss of consciousness (CMS/HCC) Closed fracture of orbital floor, unspecified laterality, initial encounter (CMS/HCC) Encephalopathy, unspecified type Procedures . Sharda Correia MD [address] [place] [address] Phone: tel: fax: [facility] [address] [place] [phone] Phone: tel: Referral ID Status Reason Start Date Expiration Date Visits Re quested Visits Authorized [id number] 1 1 Encounter Details Date Type Department Care Team (Late st Contact Info) Description 10/14/2024 2:51 PM EST - 10/16/2024 6:49 PM EST Emergency [facility] [address] [place] [phone] Sourav Russ MD [address] [place] [address] Sharda Correia MD [address] [place] [address] Surya Prieto MD [address] [place] [phone] Marcos Dawson MD [address] [place] [phone] Encephalopathy, unspecified type (Primary Dx); Head injury with loss of consciousness ([facility]); Closed fracture of orbital floor, unspecified laterality, initial encounter ([facility]) Discharge Disposition: Home-Health Care [facility] Social History Tobacco Use Types Packs/Day Years [...] Orientation Straight 10/14/2024 3: 25 PM EST documented as of this encounter Last Filed [...] Mass Index 23.3 10/16/2024 1:21 PM EST documented in this encounter Discharge Summaries * Marcos Dawson MD - 10/16/2024 3:27 PM EST Images from the original note were not included. HOSPITAL MEDICINE DISCHARGE SUMMARY Patient Information Ольга Sanchez : 1935 [89 y.o.] Admitting Provider Sharda Correia MD Discharge Provider Marcos Dawson MD Primary Care Physician Elvni Freedman NP Admission Date 10/14/2024 Discharge Date 10/16/2024 Summary of Hospital Problems Primary Discharge Diagnosis: Gait instability Facial bone fracture Fall Secondary Discharge Diagnosis: Hematemesis Liver cirrhosis Discharge Disposition Home-Health Care [facility] Code Status at Discharge: Full Code - Default Hospital Course Summary Presenting Problem/History of Present Illness Gait instability [R26.81] Head injury with loss of consciousness ([facility]) [S06.9X9A] Closed fracture of orbital floor, unspecified laterality, initial encounter ([facility]) [S02.30XA] Encephalopathy, unspecified type [G93.40] Chief Complaint Patient presents with ??? Fall HPI Patient is an 89-year-old female with a past medical history of hepatic steatosis, mild dementia, diabetes type 2 and ataxia who presents to the emergency room status post a fall witnessed by her granddaughter. She was not using her wheeled walker at the time while getting out of bed she fell forward onto her right side striking her face. Workup in the emergency room was performedWhite blood cellcount 6.0 hemoglobin 13.9 glucose 162 sodium 134 BUN [address] scan of the head showed large right periorbital hematoma without retrobulbar hematoma or visible globe injury. Patient has a nondisplaced fracture of the inferior orbital wall as well as subtle fractures involving anterior and lateral maxillary sinus jin. CT scan was negative for cervical neck fracture. She will be admitted for observation Hospital Course Ольга Sanchez is a 89 y.o. female who has PMH of liver cirrhosis, dementia, diabetes type 2, ataxia. Patient presented to hospital after suffering a witnessed fall. Patient was getting out of bed without using her walker when she fell and hit the right side of her face. CT head showed no acute intracranial abnormality. CT C-spine was unremarkable, CT maxillofacial showed large right periorbitalhematoma without visible globe injury, nondisplaced fracture of the inferior orbital wall and septal fractures along the anterior and lateral maxillary sinus jin. 1. Mechanical fall Patient seen by physical therapist and recommendation was for home PT. 2. Facial fracture CT showed nondisplaced inferior orbital and septal fractures along anterior and lateral maxillary sinus jni. Facial swelling and pain improved with conservative treatment. 3. Liver cirrhosis Clinically no ascites. Patient had elevated ammonia of 103 which improved to 54 with lactulose. According to patient's granddaughter she has not been taking lactulose at home. Lactulose was prescribed. She follows with GI at [place]. 4. Hematemesis Patient had vomited coffee-ground, likely swallowed blood. Hemoglobin remained stable. GI was consulted and no endoscopic evaluation recommended at this time. Likely esophagitis or gastritis. Protonix was increased to twice daily. Prior to discharge she was tolerating diet well without any vomiting. 5. Dementia Reportedly has mild dementia. Patient is oriented to person and place. 6. COPD Not currently in exacerbation, not wheezing. Operative Procedures Performed: None Consults: GI LABS/IMAGING CT Cervical Spine wo Contrast Result Date: 10/14/2024 PROCEDURE: CT cervical spine INDICATION: Trauma TECHNIQUE: Noncontrast CT of the cervical spine with multiplanar reformats. The examination was performed utilizing dose reduction techniques. COMPARISON: No priors available. FINDINGS: No fracture or prevertebral swelling. Multilevel degenerative changes are seen throughout the cervical spine with uncovertebral spurring and facet arthropathy present. Endplate degenerative changes and intervertebral disc height loss. There is straightening of the cervical spine. Multilevel posterior disc osteophyte complexes. Lung apices are clear. Soft tissues of the neck are unremarkable. No acute cervical spine fracture. -------- FINAL REPORT -------- Dictated By: Antonieta Trent Dictated Date: 10/14/2024 16:23 ET Assigned Physician: Antonieta Trent Reviewed and Electronically Signed By: Antonieta Trent Signed Date: 10/14/2024 16:25 ET Workstation ID: [id number] Transcribed By: Self Edit Transcribed Date: 10/14/2024 16:[address] Maxillofacial wo Contrast Result Date: 10/14/2024 PROCEDURE: HEAD CT INDICATION: Trauma TECHNIQUE: CT of the head without intravenous contrast. Multiplanar reformats. The examination was performed utilizing dose reduction techniques. Total DLP 2100 COMPARISON: No priors available. FINDINGS: There is a right periorbital hematoma. There is no retrobu lbar hematoma. There is a nondisplaced fracture of the inferior orbital wall. There is a mildly displaced fracture of the lateral wall of the maxillary sinus. Complete opacification of the right maxillary sinus with expansion of the jin and appear most likely chronic nondisplaced fracture of the adjacent jin with thinning and bowing of the medial wall. Dentures. No mandible fracture. There isdebris within the left maxillary sinus, sphenoid sinuses and ethmoid air cells. Mastoid air cells are unremarkable. Large right periorbital hematoma without retrobulbar hematoma or visible globe injury. This hematoma extends to the premaxillary region. There is chronic opacification of the right maxillary sinus, underlying lesion is not excluded. There is a nondisplaced fracture of the inferior orbital wall as well as subtle fractures involving the anterior and lateral maxillary sinus jin. -------- FINAL REPORT -------- Dictated By: Antonieta Trent Dictated Date: 10/14/2024 16:15 ET Assigned Physician: Antonieta Trent Reviewed and Electronically Signed By: Antonieta Trent Signed Date: 10/14/2024 16:21 ET WorkstationID: [id number] Transcribed By: Self Edit Transcribed Date: 10/14/2024 16:[address] Head wo Contrast Result Date: 10/14/2024 PROCEDURE: HEAD CT INDICATION: Trauma TECHNIQUE: CT of the head without intravenous contrast. Multiplanar reformats. The examination was performed utilizing dose reduction techniques. Total DLP 2100 COMPARISON: No priors available. FINDINGS: No acute territorial infarct, mass effect, or intracranial hemorrhage. Severe scattered periventricular and subcortical white matter hypodensities are most likely related to chronic small vessel ischemic change. Ventricles, sulci, and cisterns are normal insize and configuration. No hydrocephalus or volume loss. Visualized paranasal sinuses and mastoid air cells are clear. Right periorbital hematoma without underlying fracture visualized, see CT face dictated separately. NO ACUTE INTRACRANIAL ABNORMALITY. -------- FINAL REPORT -------- Dictated By: Antonieta Trent DictatedDate: 10/14/2024 16:09 ET Assigned Physician: Antonieta Trent Reviewed and Electronically Signed By: Antonieta Trent Signed Date: 10/14/2024 16:15 ET Workstation ID: [id number] Transcribed By: Self Edit Transcribed Date: 10/14/2024 16:09 ET No results found for: INR , PROTIME Lab Results Component Value Date NA 140 10/16/2024 K 3.5 10/16/2024 CL 105 10/16/2024 CO2 29 10/16/2024 GLUCOSE 131 (H) 10/16/2024 BUN 16 10/16/2024 CREATININE 1.08 10/16/2024 CALCIUM 8.9 10/16/2024 PROT 6.9 10/15/2024 ALBUMIN 2.6 (L) 10/15/2024 BILITOT 1.7 (H) 10/15/2024 AST 64 (H) 10/15/2024 ALT 49 10/15/2024 MG 1.4 (L) 10/15/2024 ALKPHOS 143 (H) 10/15/2024 EGFR 50 (L) 10/16/2024 Lab Results Component Value Date WBC 10.2 10/15/2024 HGB 13.6 10/16/2024 HCT 40.5 10/16/2024 MCV 94.1 10/15/2024 PLT 165 10/15/2024 Discharge Medications Your medication list START taking these medications Instructions Last Dose Given Next Dose Due lactulose solution Commonly known as: CHRONULAC Take 15 mL (10 g total) by mouth 2 (two) times a day. CHANGE how you take these medications Instructions Last Dose Given Next Dose Due pantoprazole 40 mg EC tablet Commonly known as: PROTONIX What changed: when to take this Take 1 tablet (40 mg total) by mouth 2 (two) times a day. NOON CONTINUE taking these medications Instructions Last Dose Given Next Dose Due atorvastatin 40 mg tablet Commonly known as: LIPITOR Take 1 tablet (40 mg total) by mouth 1 (one) time each day. cholecalciferol 1,250 mcg (50,000 unit) tablet Commonly known as: VITAMIN D3 Take 1 tablet (50,000 Units total) by mouth 1 (one) time per week. cyanocobalamin 1,000 mcg tablet Commonly known as: VITAMIN B-12 Take 1 tablet (1,000 mcg total) by mouth 1 (one) time each day in the morning. gabapentin 100 mg capsule Commonly known as: NEURONTIN Take 1 capsule (100 mg total) by mouth at bedtime. levothyroxine 50 mcg tablet Commonly known as: SYNTHROID, LEVOTHROID Take 1 tablet (50 mcg total) by mouth 1 (one) time each day before breakfast. loratadine 10 mg tablet Commonly known as: CLARITIN Take 1 tablet (10 mg total) by mouth 1 (one) time each day. NOON metFORMIN 500 mg tablet Commonly known as: GLUCOPHAGE Take 0.5 tablets (250 mg total) by mouth 2 (two) times a day with meals. NOON + EVENING thiamine 100 mg tablet Commonly known as: VITAMIN B-1 Take 1 tablet (100 mg total) by mouth 1 (one) time each day in the morning. STOP taking these medications aspirin 81 mg EC tablet olmesartan 5 mg tablet Commonly known as: BENICAR traMADoL 50 mg tablet Commonly known as: ULTRAM Where to Get Your Medications These medications were sent to [facility] at [address] [address] lactulose solution pantoprazole 40 mg EC tablet Follow-Up Instructions and Recommendations No follow-up provider specified. No discharge procedures on file. There are no outpatient Patient Instructions on file for this admission. Outpatient Follow-Up No future appointments. Test Results Pending at Discharge Physical Exam at time of Discharge Vitals Visit Vitals BP (!) 145/66 (BP Location: Left arm, Patient Position: Lying) Pulse 77 Temp 36.8 ??C (98.3 ??F) (Temporal) Resp 14 Temp (24hrs), Av.7 ??C (98 ??F), Min:36.5 ??C (97.7 ??F), Max:36.8 ??C (98.3 ??F) Body mass index is 23.3 kg/m??. No results found for: PTWT , PTHT Physical Exam Vitals and nursing note reviewed. Constitutional: General: She is not in acute distress. Appearance: She is not toxic-appearing. HENT: Head: Comments: Right facial swelling with right periorbital hematoma and right lower face bruising Nose: Nose normal. Mouth/Throat: Mouth: Mucous membranes are moist. Eyes: Extraocular Movements: Extraocular movements intact. Pupils: Pupils are equal, round, and reactive to light. Cardiovascular: Rate and Rhythm: Normal rate and regular rhythm. Pulmonary: Effort: Pulmonary effort is normal. Breath sounds: Normal breath sounds. Abdominal: General: There is no distension. Palpations: Abdomen is soft. Tenderness: There is no abdominal tenderness. There is no guarding. Musculoskeletal: General: No swelling. Normal range of motion. Cervical back: Normal range of motion. Skin: General: Skin is warm and dry. Neurological: General: No focal deficit present. Mental Status: She is alert. Sensory: No sensory deficit. Motor: No weakness. I spoke with the patient and daughter regarding the discharge plan. The discharge plan was discussed with case management and nursing staff. Patient verbalized understanding and was agreeable with the discharge plan. Total Time Spent on Discharge Process: Greater than 30 minutes. Time was spent educating patient, making a comprehensive discharge plan, discussion with staff regarding the discharge plan, medication reconciliation and discharge summary. Marcos Dawson MD 10/16/2024 3:29 PM EST * Geena Marcano RD - 10/16/2024 1:57 PM EST Dietitian provided diet education handouts in Indian with name and department number. Handouts from nutrition care manual included: carbohydrate counting for people with diabetes, diabetes label reading tips, using nutrition labels: carbohydrates, plate method for people with diabetes, eating right with plate method, sodium free flavoring tips, low sodium nutrition therapy. documented in this encounter Discharge Instructions * Discharge Instructions* Marcos Dawson MD - 10/15/2024 9:23 AM EST Make follow-up appointment to see primary care provider. Monitor for symptoms such as headache, increased lethargy, vomiting, feeling weakness. Take Tylenol as needed for pain. * Attachments The following attachments cannot be sent through Care Everywhere. * Acute Concussion (Indian) * Facial Fracture (Indian) documented in this encounter Medications at Time of Discharge atorvastatin (LIPITOR) 40 mg tablet Take 1 tablet (40 mg total) by mouth 1 (one) time each day. cyanocobalamin (VITAMIN B-12) 1,000 mcg tablet Take 1 tablet (1,000 mcg total) by mouth 1 (one) time each day in the morning. 12/18/2023 gabapentin (NEURONTIN) 100 mg capsule Take 1 capsule (100 mg total) by mouth at bedtime. 05/20/2024 levothyroxine (SYNTHROID, LEVOTHROID) 50 mcg tablet Take 1 tablet (50 mcg total) by mouth 1 (one) time each day before breakfast. 10/13/2024 loratadine (CLARITIN) 10 mg tablet Take 1 tablet (10 mg total) by mouth 1 (one) time each day. NOON metFORMIN (GLUCOPHAGE) 500 mg tablet Take 0.5 tablets (250 mg total) by mouth 2 (two) times a day with meals. NOON + EVENING 01/02/2024 01/01/2025 pantoprazole (PROTONIX) 40 mg EC tablet Take 1 tablet (40 mg total) by mouth 2 (two) times a day. NOON 60 each 10/16/2024 11/15/2024 thiamine 100 mg tablet Take 1 tablet (100 mg total) by mouth 1 (one) time each day in the morning. 09/19/2024 cholecalciferol (VITAMIN D3) 1,250 mcg (50,000 unit) tablet Take 1 tablet (50,000 Units total) by mouth 1 (one) time per week. 09/29/2024 11/24/2024 lactulose (CHRONULAC) solution Take 15 mL (10 g total) by mouth 2 (two) times a day. 480 mL 10/15/2024 06/12/2025 documented as of this encounter Ordered Prescriptions Prescription Sig Dispense Quantity Refills Last Filled Start Date End Date pantoprazole (PROTONIX) 40 mg EC tablet Take 1 tablet (40 mg total) by mouth 2 (two) times a day. NOON 60 each 10/16/2024 11/15/2024 lactulose (CHRONULAC) solution Take 15 mL (10 g total) by mouth 2 (two) times a day. 480 mL 10/15/2024 06/12/2025 documented in this encounter Discharge Disposition Disposition Code Departure Means Destination Comment s Home-Health Care [facility] Car Home documented in this encounter Progress Notes * Galina Magallanes RN - 10/16/2024 6:00 PM EST Problem: Cognitive: Acute Pain Goal: Expressions of feelings of enhanced comfort will increase Outcome: Progressing Problem: Bowel/Gastric: Nausea Goal: Occurrences of nausea will decrease Outcome: Progressing Problem: Fluid Volume: Nausea Goal: Will show no signs and symptoms of electrolyte imbalance Outcome: Progressing Problem: Cognitive:Nausea Goal: Will verbalize understanding of the information provided Outcome: Progressing Problem: Nutritional:Nausea Goal: Maintenance of adequate nutrition will improve Outcome: Progressing Goals: Identify possible barriers to meeting goals/advancing plan of care: N/V Stability of the patient: Moderately Stable - Low risk of patient condition declining or worsening End of Shift Summary: VSS, PT DENIES N/V. PAIN WELL CONTROLLED, MINIMAL PAIN. PT BEING DC HOME AT 1800 IN THE CARE OF GRANDDAUGHTER * Cat Lema RN - 10/16/2024 3:33 PM EST 10/16/24 1533 Initial Transition Plan Initial Transition Plan Home Health Care Discharge Planning Living Arrangements Children Type of Residence Private residence Assistive Devices Other (Comment) Support Systems Immediate family;Children Medication Coverage Has Med Coverage Under Insurance Plan Yes Medication Affordability No concerns related to payment for meds Anticipated Discharge Needs Discipline following for SNF placement Financial Investment Adviser Informed Choice Informed Choice Given? Yes Transportation Transportation at discharge Family Final Discharge Disposition Home Health Care Services * Christopher Schmitz - 10/16/2024 2:37 PM EST SPIRITUAL CARE Date/Time:10/16/24 at 2:37 PM EST Type of Visit: Initial Visit and Supervisor Contingents Rounding Reason for Visit: Spiritual/Emotional Support Time Spent: 10 Minutes Location: [address] [place] [address] Sacramental Encounters: Sacrament of Sick-Anointing: Anointed Spiritual Distress Assessment: Spiritual Assessment/Distress Spiritual Care Assessment: Assessment: Ольга, is Indian speaking and some Paraguayan. Raised no concern. Voiced desire to receive anointing when asked if she would love to receive the sacrament. Prayed for recovery and good health. Thankful for the visit. Intervention: NE Spiritual Care Interventions : provided support and provided prayer Outcomes: expressed gratitude Plan of Care: Visit as needed *Reference: Spiritual Distress Assessment Tool: The SDAT is a clinical tool used by chaplains to identify unmet spiritual and emotional needs that can impact Goals of Care in the following categories: Spiritual Distress Assessment Legend Spiritual Needs Related Questions Meaning Are you having difficulties coping with what is happening to your now? Does your hospitalization have any repercussions on the way you live usually? Transcendence Do you have a particular spiritism, ace, or spirituality? Is your spiritism/spirituality/ace challenged by what is happening to you now? Values Do you think that the health professionals caring for you know you well enough? Do you feel that you are participating in the decisions made about your care? Psycho-Social Identity Do you have any worries or difficulties regarding your family or other persons close to you? Do you feel lonely? Do you have links to your ace community? SCALE 0= no evidence of unmet spiritual needs 1= some evidence of unmet spiritual needs 2= substantial evidence of unmet spiritual needs 3= evidence of severe unmet spiritual needs * Geena MarcanoBURAK - 10/16/2024 1:44 PM EST 10/16/2024 @ 1:57 PM EST Nutrition Initial Assessment Asphalt Distributor Operator Services: Language: Bristle Machine Operator Name or Number: [id number] Reason for RD Intervention: Assessment Type: Nutrition Trigger Reason for Assessment: High MST Score Anthropometrics: Height: 165.1 cm (65 ) Weight: 63.5 kg (139 lb 15.9 oz) Weight Method: (per nursing stated) BMI (Calculated): 23.3 BMI Class: Normal IBW (lbs): 125 % IBW: 111.99 Recent Weight Change: Yes Other (Comment): pt was 163 pounds 5 months ago, 154 pounds 2 to 3 weeks ago, stated weight of 140 pound on admission ABW Needed: No Current Diet and Supplements: Dietary Orders (From admission, onward) Start Ordered 10/16/24 1346 Adult diet [facility]; General; Regular Diet effective now Question Answer Comment Location [facility] Diet Type (req) General General Diet Regular 10/16/24 1345 History of presenting illness: Patient is a 89 y.o. female with a history of Past Medical History: Diagnosis Date COPD (chronic obstructive pulmonary disease) (CMS/HCC) Diabetes mellitus (CMS/HCC) Disease of thyroid gland GERD (gastroesophageal reflux disease) Headache Hepatic steatosis Hyperammonemia (CMS/HCC) Hypercholesteremia Hypertension History reviewed. No pertinent surgical history. admitted 10/14/2024 with Gait instability. Food/Nutrition History: Previously prescribed diets: (pt/tungter deny food allergies, dificulty chewing/swallowing or food insecurities. pt has new and old dentures. pt recieves food stamps. uyen reports pt lost 10 pounds in 5 months from 163 5 months ago to 154 2 to 3 weeks ago.) Previous Diet / Nutrition Education / Counseling: (constipation is chronic, pt has aBM every 2-3 days and it takes her a long time to go ) Self-selected diet(s) followed: pt follows a low sodium, no concentrated sweets diet Appetite MORTGAGE OR LOAN UNDERWRITER: Poor Intake MORTGAGE OR LOAN UNDERWRITER: Decreased Weight History: Wt Readings from Last 10 Encounters: 10/16/24 63.5 kg (139 lb 15.9 oz) Subjective Assessment: Pt admitted after fall-striking head. Pt with hepatic encephalopathy and mild dementia. Pt has an episode of bloody vomiting 10/15, 350 ml. No further evidence of bleeding- GI following. Per GI note, family noted pt often vomits when she gets constipated. Pt has been NPO/clear liquids for 3 days since admission. RN reports pt tolerating clears well and likely diet to be advanced. Stated weight of 140 pounds on admission. Last BM 10/15. Pt reports trying to follow low salt, no concentrated sweets.Pt and granddaughter agreeable to diet education. Provided diabetic, low sodium diet handouts in Indian, with name and department number Nutrition-Related Lab Values: Results from last 7 days Lab Units 10/16/24 1111 10/16/24 0813 10/16/24 0649 10/15/24 0820 10/15/24 0707 SODIUM mmol/L -- -- 140 -- 135 POTASSIUM mmol/L -- -- 3.5 -- 3.8 MAGNESIUM mg/dL -- -- -- -- 1.4* CHLORIDE mmol/L -- -- 105 -- 105 CO2 mmol/L -- -- 29 -- 25 BUN mg/dL -- -- 16 -- 13 CREATININE mg/dL -- -- 1.08 -- 0.96 EGFR mL/min/1.73m2 -- -- 50* -- 57* CALCIUM mg/dL -- -- 8.9 -- 9.1 BILIRUBIN TOTAL mg/dL -- -- -- -- 1.7* ALK PHOS unit/L -- -- -- -- 143* ALT unit/L -- -- -- -- 49 AST unit/L -- -- -- -- 64* POCT GLUCOSE mg/dL 131* < > -- < > -- GLUCOSE mg/dL -- -- 127* -- 151* WBC AUTO K/mcL -- -- -- -- 10.2 < > = values in this interval not displayed. No results found for: LIPASE Medications: atorvastatin, 40 mg, oral, Daily cyanocobalamin, 1,000 mcg, oral, q AM gabapentin, 100 mg, oral, Nightly insulin lispro, 1-6 Units, subcutaneous, TID AC lactulose, 20 g, oral, TID levothyroxine, 50 mcg, oral, q AM AC losartan, 25 mg, oral, Daily pantoprazole, 40 mg, oral, q AM AC thiamine, 100 mg, oral, q AM CONTINUOUS: PRN medications: acetaminophen, dextrose 50%, dextrose 50%, dextrose, dextrose, glucagon injection,morphine OR morphine, naloxone, promethazine Energy Needs: kcal, gm protein, mL fluid per day. Total Energy Estimated Needs: based on 64 [id number] calories (25-30 gus/kg), 64 g protien (1 g/kg), 8318-4370 ml fluid (25-30 ml/kg) Height: 165.1 cm (65 ) Weight Used for Equation Calculations: 63.5 kg (139 lb 15.9 oz) [place] Equation: [facility] Equation (Overweight or Obese Patients): 1066 Temp: 36.5 ??C (97.7 ??F) Food/Nutrition-Current Status: Intake Type: P.O. (clear liquids) Current Diet Status: Appropriate Current Supplement Status: (not yet ordered) Appetite: Poor Intake Amount (%): 0-25% Intake Assessment: Inadequate Main IVF: None Propofol?: No Nutrition Focused Physical Findings: Overall Appearance: pt lying in bed blankets half covering face. then clear liquid lunch came. physical exam deferred. Digestive System (Mouth to Rectum): (last BM 10/15) Nerves and Cognition: Alert Skin: intact, bruised Fluid Accumulation/Edema: Not Examined Nutrition Diagnosis: Code Type: (at risk for malnutrition. pt with 5.5% loss of body weight in 5 monnths, not yet significant.) Status: New Diagnosis: Inadequate Oral Intake Etiology: Changes in taste and appetite or preference Symptoms: as evidenced by report of 5.5% loss of body weight in the past 5 months along with decreased appetite Nutrition Interventions: Medical Food Supplement Medical Food Supplement(s): Ensure Clear (asked for nutrition consult to be ordered so dietitian can add supplements) Ensure Clear Frequency: TID Goals: Patient will tolerate diet progression. , Patient will initially consume at least 50% of meals. , Patient will consume ONS., Monitor/control glucose levels, Improvement in renal labs., Electrolytes within normal range., Maintain weight., Stooling appropriately., and Maintain skin integrity. Coordination of Patient Care: Discussed with RN via [email or web address] Secure [email or web address]. , Verbal discussion with provider., and Discussed with provider(s) via Relaborate Chat/[email or web address]. Monitoring/Evaluation: Fluid/Beverage Intake, Weight, Renal/Electrolyte Profile, Gastrointestinal Profile, Diet Order Nutrition Recommendations/Plan of Care: Follow Up: Nutrition Priority Level: Moderate Follow up Date: 10/20/24 Please consult nutrition if needed sooner. Nutritional Discharge Recommendations: Recommended Discharge Diet: (low sodium, diabetic diet) RD remains available and will continue to follow. Signature: Geena Marcano RD * Lien Balderas MD - 10/16/2024 11:12 AM EST GI PROGRESS NOTE Acute overnight events: No further vomiting overnight. Tolerated her medication and lactulose this morning. She denies any further dysphagia or odynophagia. She denies any sort of pain or discomfort at this time. She is interested in eating. Per nursing she has not moved her bowels yet. PHYSICAL EXAM: Visit Vitals BP (!) 168/87 (BP Location: Left arm, Patient Position: Lying) Pulse 98 Temp 36.5 ??C (97.7 ??F) (Temporal) Resp 16 Ht 1.651 m (65 ) Wt 63.5 kg (140 lb) SpO2 97% BMI 23.30 kg/m?? Smoking Status Never BSA 1.7 m?? APPEARANCE: No distress. Non-toxic appearing. HEART: RRR with normal S1 and S2, no murmurs appreciated LUNG: CTA on anterior exam. Not on supplemental O2. ABDOMEN: Obese and soft RECTAL: Exam deferred EXTREMITIES: No edema. NEURO: AOx3. No focal weaknesses. SKIN: No jaundice. LABS: Lab Results Component Value Date WBC 10.2 10/15/2024 HGB 13.6 10/16/2024 HCT 40.5 10/16/2024 MCV 94.1 10/15/2024 PLT 165 10/15/2024 Lab Results Component Value Date ALT 49 10/15/2024 AST 64 (H) 10/15/2024 ALKPHOS 143 (H) 10/15/2024 BILITOT 1.7 (H) 10/15/2024 Lab Results Component Value Date NA 140 10/16/2024 K 3.5 10/16/2024 CL 105 10/16/2024 CO2 29 10/16/2024 GLUCOSE 129 (H) 10/16/2024 BUN 16 10/16/2024 CREATININE 1.08 10/16/2024 CALCIUM 8.9 10/16/2024 PROT 6.9 10/15/2024 ALBUMIN 2.6 (L) 10/15/2024 BILITOT 1.7 (H) 10/15/2024 AST 64 (H) 10/15/2024 ALT 49 10/15/2024 MG 1.4 (L) 10/15/2024 ALKPHOS 143 (H) 10/15/2024 EGFR 50 (L) 10/16/2024 No results found for: LIPASE IMAGING: Pertinent new radiology results/studies: CT Cervical Spine wo Contrast Narrative: PROCEDURE: CT cervical spine INDICATION: Trauma TECHNIQUE: Noncontrast CT of the cervical spine with multiplanar reformats. The examination was performed utilizing dose reduction techniques. COMPARISON: No priors available. FINDINGS: No fracture or prevertebral swelling. Multilevel degenerative changes are seen throughout the cervical spine with uncovertebral spurring and facet arthropathy present. Endplate degenerative changes and intervertebral disc height loss. There is straightening of the cervical spine. Multilevel posterior disc osteophyte complexes. Lung apices are clear. Soft tissues of the neck are unremarkable. Impression: No acute cervical spine fracture. -------- FINAL REPORT -------- Dictated By: Antonieta Trent Dictated Date: 10/14/2024 16:23 ET Assigned Physician: Antonieta Trent Reviewed and Electronically Signed By: Antonieta Trent Signed Date: 10/14/2024 16:25 ET Workstation ID: [id number] Transcribed By: Self Edit Transcribed Date: 10/14/2024 16:[address] Maxillofacial wo Contrast Narrative: PROCEDURE: HEAD CT INDICATION: Trauma TECHNIQUE: CT of the head without intravenous contrast. Multiplanar reformats. The examination was performed utilizing dose reduction techniques. Total DLP 2100 COMPARISON: No priors available. FINDINGS: There is a right periorbital hematoma. There is no retrobulbar hematoma. There is a nondisplaced fracture of the inferior orbital wall. There is a mildly displaced fracture of the lateral wall of the maxillary sinus. Complete opacification of the right maxillary sinus with expansion of the jin and appear most likely chronic nondisplaced fracture of the adjacent jin with thinning and bowing of the medial wall.Dentures. No mandible fracture. There is debris within the left maxillary sinus, sphenoid sinuses and ethmoid air cells. Mastoid air cells are unremarkable. Impression: Large right periorbital hematoma without retrobulbar hematoma or visible globe injury. This hematoma extends to the premaxillary region. There is chronic opacification of the right maxillary sinus, underlying lesion is not excluded. There is a nondisplaced fracture of the inferior orbital wall as well as subtle fractures involving theanterior and lateral maxillary sinus jin. -------- FINAL REPORT -------- Dictated By: Antonieta Trent Dictated Date: 10/14/2024 16:15 ET Assigned Physician: Antonieta Trent Reviewed and Electronically Signed By: Antonieta Trent Signed Date: 10/14/2024 16:21 ET Workstation ID: [id number] Transcribed By: Self Edit Transcribed Date: 10/14/2024 16:[address] Head wo Contrast Narrative: PROCEDURE: HEAD CT INDICATION: Trauma TECHNIQUE: CT of the head without intravenous contrast. Multiplanar reformats. The examination was performed utilizing dose reduction techniques. Total DLP 2100 COMPARISON: No priors available. FINDINGS: No acute territorial infarct, mass effect, or intracranial hemorrhage. Severe scattered periventricular and subcortical white matter hypodensities are most likely relatedto chronic small vessel ischemic change. Ventricles, sulci, and cisterns are normal in size and configuration. No hydrocephalus or volume loss. Visualized paranasal sinuses and mastoid air cells are clear. Right periorbital hematoma without underlying fracture visualized, see CT face dictated separately. Impression: NO ACUTE INTRACRANIAL ABNORMALITY. -------- FINAL REPORT -------- Dictated By: Antonieta Trent Dictated Date: 10/14/2024 16:09 ET Assigned Physician: Antonieta Trent Reviewed and Electronically Signed By: Antonieta Trent Signed Date: 10/14/2024 16:15 ET Workstation ID: [id number] Transcribed By: Self Edit Transcribed Date: 10/14/2024 16:09 ET ASSESSMENT AND PLAN: Vomiting with possible coffee-ground emesis: 89-year-old woman admitted after a fall at home with a resulting facial contusion and orbital fracture. In the ER she had an episode of emesis that looked coffee-ground in nature and was heme positive. Patient's blood count has been completely stable. She has had no further vomiting today. She may have had some mild esophagitis or gastritis. She is already on pantoprazole and I would continue that. I do not feel that she needs EGD as it will most likely not global director air and climate change at this time. I would advance her diet and monitor her clinically. If she is has recurrent issues with vomiting or any evidence of active GI bleeding please let me know. Signatures Board Certified, Gastroenterology and Internal Medicine Gastroenterology and Hepatology Practice [facility] [phone] [place] [address] [email or web address] * Johanna Dahl, PT - 10/16/2024 10:30 AM EST [facility] Physical Therapy Evaluation & Treatment PT Discharge Recommendations: Home PT Staff Recommendations for safe patient handling: CG with walker 30' Modified [place] Scale Score: Precautions Medical Precautions: Fall Risk (dementia) Safety Interventions: Call dawson within reach, ID band on, Bed alarm RUE Weight Bearing Status: Full LUE Weight Bearing Status: Full RLE Weight Bearing Status: Full LLE Weight Bearing Status: Full Fall prevention education provided including use of call light in hospital, use of appropriate assistive device, safe mobility techniques, and safety measures at home. PT Received On: 10/16/24 PT Start Time: 1030 PT Stop Time: 1100 PT Time Calculation (min): 30 min General Family/Caregiver Present: No Precautions Medical Precautions: Fall Risk (dementia) Safety Interventions: Call dawson within reach, ID band on, Bed alarm RUE Weight Bearing Status: Full LUE Weight Bearing Status: Full RLE Weight Bearing Status: Full LLE Weight Bearing Status: Full Cognition Overall Cognitive Status: Impaired Arousal/Alertness: Appropriate responses to stimuli Orientation Level: (alert to self and that she is in the hospital, does not remember falling) Following Commands: Follows all commands and directions without difficulty Safety Judgment: Decreased awareness of need for safety Hearing: Intact Vision: Intact Speech: Intact Integumentary: large bruised area right eye and lower face with mod edema History of Present Illness: Patient is a 89 y.o. female admitted to [facility] on 10/14/2024. Patient Active Problem List Diagnosis Gait instability Right orbital fracture (CMS/HCC) Postconcussive syndrome Past Medical History: Diagnosis Date COPD (chronic obstructive pulmonary disease) (CMS/HCC) Diabetes mellitus (CMS/HCC) Disease of thyroid gland GERD (gastroesophageal reflux disease) Headache Hepatic steatosis Hyperammonemia (CMS/HCC) Hypercholesteremia Hypertension History reviewed. No pertinent surgical history. Social History Home Living Environment: Home Living Type of Home: House Lives With: Family Home Adaptive Equipment: Walker - rolling, Wheelchair-manual Home Living Comments: chart indicates the pt has 24 our care at home Home Layout: One level Home Access: Level entry Prior Function Level of [place]: Needs assistance with mobility, Needs assistance with functional transfers Ambulation Status: Household ambulator Receives Help From: Family Indoor Mobility Assistance: Needed Some Help Prior Device Use: Walker Which is your dominant hand?: Right General Assessment I 10/16/24 1030 PT Last Visit PT Received On 10/16/24 General Family/Caregiver Present No PT Time Calculation PT Start Time 1030 PT Stop Time 1100 PT Time Calculation (min) 30 min Precautions Medical Precautions Fall Risk (dementia) Safety Interventions Call dawson within reach;ID band on;Bed alarm RUE Weight Bearing Status Full LUE Weight Bearing Status Full RLE Weight Bearing Status Full LLE Weight Bearing Status Full Vital Signs Patient Identification Yes Pain Assessment Pain Assessment 0-10 Pain Score 0 - No pain Cognition Overall Cognitive Status Impaired Arousal/Alertness Appropriate responses to stimuli Orientation Level (alert to self and that she is in the hospital, does not remember falling) Following Commands Follows all commands and directions without difficulty Safety Judgment Decreased awareness of need for safety Home Living Type of Home House Lives With Family Home Adaptive Equipment Walker - rolling;Wheelchair-manual Home Living Comments chart indicates the pt has 24 our care at home Home Layout One level Home Access Level entry Prior Function Level of [place] Needs assistance with mobility;Needs assistance with functional transfers Ambulation Status Household ambulator Receives Help From Family Indoor Mobility Assistance Needed Some Help Prior Device Use Walker Which is your dominant hand? Right Static Sitting Balance Static Sitting-Level of Assistance Supervision Dynamic Sitting Balance Dynamic Sitting-Level of Assistance Supervision Static Standing Balance Static Standing-Level of Assistance Contact guard Static Standing-Balance Support Right upper extremity supported;Left upper extremity supported Dynamic Standing Balance Dynamic Standing-Level of Assistance Contact guard Dynamic Standing-Balance Ambulation Bed Mobility Sitting to Lying Assistance Supervision Lying to Sitting Assistance Supervision Transfers Sit to Stand Assistance Contact guard Sit to Stand Deficit Steadying Chair/Bed to Chair/Bed Transfer Assistance Contact guard Chair/Bed to Chair/Bed Transfer Deficit Steadying Ambulation Walking Assistance Contact guard Walking Deficit Steadying Device Rolling walker Distance Ambulated (ft) 40 Additional Ambulation Assessments? (the pt demonstrates mild ataxia with ambulation but no overt loss of balance) RUE Assessment RUE Assessment Within Functional Limits LUE Assessment LUE Assessment Within Functional Limits RLE Assessment RLE Assessment Within Functional Limits LLE Assessment LLE Assessment Within Functional Limits PT Assessment PT Assessment Results Decreased strength;Decreased endurance Prognosis Good Evaluation/Treatment Tolerance Patient tolerated treatment well Medical Staff Made Aware Yes Plan Treatment/Interventions LE strengthening/ROM;Endurance training;Patient/family training;Gait training;Balance training PT Plan Skilled PT PT Frequency 2-5 days per week PT Discharge Recommendations Home PT PT - Evaluation Status Complete PT Evaluation Time Entry PT Evaluation (Moderate) Time Entry 30 Treatment performed during evaluation: None performed ADDITIONAL COMMENTS: Chart reviewed. RN clears pt for session. Pt agrees to participate and presented in supine upon PT arrival. All lines in place. Medical precautions observed appropriately. Initiated education on the importance of PT, bed mobility safety, Transfer Safety, Ambulation Safety , Therapy Plan of Care, Home Safety, Energy Conservations strategies, and importance of OOB activity . Pt verbalized understanding. EXIT STATUS: Session ended with patient supine, tray table and call light within reach, and RN made aware. Physical Therapy Assessment/Plan Ольга Sanchez is a 89 y.o. female admitted to [facility] on 10/14/2024 for Gait instability [R26.81] Head injury with loss of consciousness ([facility]) [S06.9X9A] Closed fracture of orbital floor, unspecified laterality, initial encounter ([facility]) [S02.30XA] Encephalopathy, unspecified type [G93.40] . Pt presents with decreased BLE strength, balance deficits, decreased activity tolerance, and far below functional baseline. Pt performed bed mobility Supervision, , Transfers with Contact guard, FWW and ambulates Contact guard with FWW 30 ft . Pt will benefit from skilled acute PT during hospital stay to improve the deficits listed above and optimize function. PT recommends Home PT when medically stable for safe discharge and to optimize functional mobility and independence. Goals Encounter Problems Encounter Problems (Active) Template: Physical Therapy Problem: PT Short Term Goals Dates: Start: 10/16/24 Goal: PT STG 1 the pt will ambulate 40' with walker and supervision Dates: Start: 10/16/24 Expected End: 10/23/24 Goal: PT STG 2 the pt will complete al transfers with supervision Dates: Start: 10/16/24 Expected End: 10/23/24 Encounter Problems (Resolved) There are no resolved problems. Education Documentation Mobility Training, taught by Johanna Dahl, PT at 10/16/2024 3:06 PM. Learner: Patient Readiness: Acceptance Method: Explanation, Cognitively Impaired Response: Verbalizes Understanding Comment: The pt states she wants to go home. She appears appropriate to go home with home PT services. Needs reinforcement for safety Education Comments No comments found. Johanna Dahl, PT * Pam Bar RN - 10/15/2024 4:41 PM EST Problem: Cognitive: Acute Pain Goal: Expressions of feelings of enhanced comfort will increase Outcome: Progressing Problem: Bowel/Gastric: Nausea Goal: Occurrences of nausea will decrease Outcome: Progressing Problem: Fluid Volume: Nausea Goal: Will show no signs and symptoms of electrolyte imbalance Outcome: Progressing Problem: Cognitive:Nausea Goal: Will verbalize understanding of the information provided Outcome: Progressing Problem: Nutritional:Nausea Goal: Maintenance of adequate nutrition will improve Outcome: Progressing Identify possible barriers to meeting goals/advancing plan of care: IV fluids, tolerate diet and emesis. Stability of the patient: Moderately Stable - Low risk of patient condition declining or worsening End of Shift Summary: Patient alert & orient with stable VS. GI was consulted for EGD. Patient rested comfortably. * Marcos Dawson MD - 10/15/2024 9:48 AM EST Images from the original note were not included. BAILEY PROGRESS NOTE Date: 10/15/2024 Author: Marcos Dawson MD Patient ID: Ольга Sanchez is a 89 y.o. female : 1935 MR#: [id number] ASSESSMENT & PLAN Assessment/Plan Principal Problem: Gait instability Active Problems: Right orbital fracture (CMS/HCC) Postconcussive syndrome Ольга Sanchez is a 89 y.o. female who has PMH of liver cirrhosis, dementia, diabetes type 2, ataxia. Patient presented to hospital after suffering a witnessed fall. Patient was getting out of bed without using her walker when she fell and hit the right side of her face. CT head showed no acute intracranial abnormality. CT C-spine was unremarkable, CT maxillofacial showed large right periorbitalhematoma without visible globe injury, nondisplaced fracture of the inferior orbital wall and septal fractures along the anterior and lateral maxillary sinus jin. 1. Mechanical fall Pending PT eval. 2. Facial fracture Patient complaining of right-sided facial pain. She has no focal deficit. Plan is conservative, continue with acetaminophen for pain. 3. Liver cirrhosis Clinically no ascites. Patient had elevated ammonia of 103 which improved to 54. I will continue lactulose. As per patient's relative she is not taking lactulose at home. 4. Hematemesis Patient had vomited coffee-ground, likely swallowed blood. Hemoglobin has been stable at 14.2. Willmonitor for further vomiting and monitor hemoglobin. 5. Dementia Reportedly has mild dementia. Patient is oriented to person only. She thought she was at [facility]. 6. COPD Not currently in exacerbation, not wheezing. SUBJECTIVE Subjective No events overnight. Patient complained of vomit x 1 overnight and vomited x 1 this morning with coffee-ground. She denied abdominal pain, nausea, fever, chill, chest pain, shortness of breath. Allergies Penicillins Current Medications: atorvastatin, 40 mg, oral, Daily cyanocobalamin, 1,000 mcg, oral, q AM gabapentin, 100 mg, oral, Nightly insulin lispro, 1-6 Units, subcutaneous, TID AC lactulose, 20 g, oral, TID levothyroxine, 50 mcg, oral, q AM AC losartan, 25 mg, oral, Daily pantoprazole, 40 mg, oral, q AM AC thiamine, 100 mg, oral, q AM PRN medications: acetaminophen, dextrose 50%, dextrose 50%, dextrose, dextrose, glucagon injection,morphine OR morphine, naloxone, promethazine OBJECTIVE Vitals: 10/14/24 1836 10/14/24 1946 10/15/24 0313 10/15/24 0818 BP: (!) 163/89 (!) 163/88 (!) 120/98 (!) 164/86 BP Location: Right arm;Upper Left arm Right arm Right arm Patient Position: Lying Lying Lying Lying Pulse: 95 95 99 92 Resp: 16 18 15 Temp: 36.8 ??C (98.2 ??F) 36.3 ??C (97.3 ??F) 36.6 ??C (97.9 ??F) 36.5 ??C (97.7 ??F) TempSrc: Oral Temporal Temporal Temporal SpO2: 95% 99% 100% 97% Weight: Height: Physical Exam Vitals and nursing note reviewed. Constitutional: General: She is not in acute distress. Appearance: She is not toxic-appearing. HENT: Head: Comments: Right facial swelling with right periorbital hematoma and right lower face bruising Nose: Nose normal. Mouth/Throat: Mouth: Mucous membranes are moist. Eyes: Extraocular Movements: Extraocular movements intact. Pupils: Pupils are equal, round, and reactive to light. Cardiovascular: Rate and Rhythm: Normal rate and regular rhythm. Pulmonary: Effort: Pulmonary effort is normal. Breath sounds: Normal breath sounds. Abdominal: General: There is no distension. Palpations: Abdomen is soft. Tenderness: There is no abdominal tenderness. There is no guarding. Musculoskeletal: General: No swelling. Normal range of motion. Cervical back: Normal range of motion. Skin: General: Skin is warm and dry. Neurological: General: No focal deficit present. Mental Status: She is alert. Sensory: No sensory deficit. Motor: No weakness. LABS HEMATOLOGY Lab Results Component Value Date WBC 10.2 10/15/2024 HGB 14.2 10/15/2024 HCT 41.8 10/15/2024 MCV 94.1 10/15/2024 PLT 165 10/15/2024 CHEMISTRY Lab Results Component Value Date GLUCOSE 141 (H) 10/15/2024 NA 135 10/15/2024 K 3.8 10/15/2024 CO2 25 10/15/2024 CL 105 10/15/2024 BUN 13 10/15/2024 CREATININE 0.96 10/15/2024 EGFR 57 (L) 10/15/2024 CALCIUM 9.1 10/15/2024 MG 1.4 (L) 10/15/2024 ANIONGAP 5 10/15/2024 No results found for this or any previous visit (from the past week). Imaging: CT Cervical Spine wo Contrast Narrative: PROCEDURE: CT cervical spine INDICATION: Trauma TECHNIQUE: Noncontrast CT of the cervical spine with multiplanar reformats. The examination was performed utilizing dose reduction techniques. COMPARISON: No priors available. FINDINGS: No fracture or prevertebral swelling. Multilevel degenerative changes are seen throughout the cervical spine with uncovertebral spurring and facet arthropathy present. Endplate degenerative changes and intervertebral disc height loss. There is straightening of the cervical spine. Multilevel posterior disc osteophyte complexes. Lung apices are clear. Soft tissues of the neck are unremarkable. Impression: No acute cervical spine fracture. -------- FINAL REPORT -------- Dictated By: Antonieta Trent Dictated Date: 10/14/2024 16:23 ET Assigned Physician: Antonieta Trent Reviewed and Electronically Signed By: Antonieta Trent Signed Date: 10/14/2024 16:25 ET Workstation ID: [id number] Transcribed By: Self Edit Transcribed Date: 10/14/2024 16:[address] Maxillofacial wo Contrast Narrative: PROCEDURE: HEAD CT INDICATION: Trauma TECHNIQUE: CT of the head without intravenous contrast. Multiplanar reformats. The examination was performed utilizing dose reduction techniques. Total DLP 2100 COMPARISON: No priors available. FINDINGS: There is a right periorbital hematoma. There is no retrobulbar hematoma. There is a nondisplaced fracture of the inferior orbital wall. There is a mildly displaced fracture of the lateral wall of the maxillary sinus. Complete opacification of the right maxillary sinus with expansion of the jin and appear most likely chronic nondisplaced fracture of the adjacent jin with thinning and bowing of the medial wall.Dentures. No mandible fracture. There is debris within the left maxillary sinus, sphenoid sinuses and ethmoid air cells. Mastoid air cells are unremarkable. Impression: Large right periorbital hematoma without retrobulbar hematoma or visible globe injury. This hematoma extends to the premaxillary region. There is chronic opacification of the right maxillary sinus, underlying lesion is not excluded. There is a nondisplaced fracture of the inferior orbital wall as well as subtle fractures involving theanterior and lateral maxillary sinus jin. -------- FINAL REPORT -------- Dictated By: Antonieta Trent Dictated Date: 10/14/2024 16:15 ET Assigned Physician: Antonieta Trent Reviewed and Electronically Signed By: Antonieta Trent Signed Date: 10/14/2024 16:21 ET Workstation ID: [id number] Transcribed By: Self Edit Transcribed Date: 10/14/2024 16:[address] Head wo Contrast Narrative: PROCEDURE: HEAD CT INDICATION: Trauma TECHNIQUE: CT of the head without intravenous contrast. Multiplanar reformats. The examination was performed utilizing dose reduction techniques. Total DLP 2100 COMPARISON: No priors available. FINDINGS: No acute territorial infarct, mass effect, or intracranial hemorrhage. Severe scattered periventricular and subcortical white matter hypodensities are most likely relatedto chronic small vessel ischemic change. Ventricles, sulci, and cisterns are normal in size and configuration. No hydrocephalus or volume loss. Visualized paranasal sinuses and mastoid air cells are clear. Right periorbital hematoma without underlying fracture visualized, see CT face dictated separately. Impression: NO ACUTE INTRACRANIAL ABNORMALITY. -------- FINAL REPORT -------- Dictated By: Antonieta Trent Dictated Date: 10/14/2024 16:09 ET Assigned Physician: Antonieta Trent Reviewed and Electronically Signed By: Antonieta Trent Signed Date: 10/14/2024 16:15 ET Workstation ID: [id number] Transcribed By: Self Edit Transcribed Date: 10/14/2024 16:09 ET DAILY CARE CHECKLIST Length of Stay: VTE Prophylaxis: Mechanical Resuscitation: Full Code - Default IV Access: Peripheral Tubes, Catheters, Devices: None PCP: Elvin Freedman NP Disposition: Pending PT eval. Likely discharge within 24 hours Marcos Dawson MD 10/15/24 9:48 AM EST * Niels Pollock RN - 10/15/2024 2:58 AM EST Goals: Identify possible barriers to meeting goals/advancing plan of care: nausea, encephalopathy, fracture Stability of the patient: Moderately Unstable - Medium risk of patient condition declining or worsening End of Shift Summary: Pt was nauseous and vomited early in the shift. Emesis was sent to lab and was + for blood. Pt was given Promethazine for nausea which worked. Pain was treated w/ Morphine 2 mg.Pt still slept a few hours. Pt was made NPO. Eyelid is purple w/ sutures, and swollen; R sided orbital fx; no cranial injury, no neck fx. Pt was admitted for observation. * Juan Leyva RN - 10/14/2024 6:40 PM EST ED RN HANDOFF (All Remy Below Must Be Completed) Reason/Diagnosis for Admission: Encephalopathy Type of Admission: [x] Medsurg, [] Telemetry Already in a Hospital Bed: [] Yes / [x] No Room Considerations/Precautions (ex: fever, diarrhea, or any infectious concerns): [] Yes / [x] No Supervisor Graphite: [] Yes / [x] No If YES, Cardiac Rhythm: [] NSR, [] SB, [] ST, [] A-FIB, [] A-Flutter, [] Pacemaker, [] 1st Degree HB, [] 2nd Degree HB, [] 3rd Degree HB Reason for Supervisor Graphite: VS: Visit Vitals BP (!) 163/89 (BP Location: Right arm;Upper, Patient Position: Lying) Pulse 95 Temp 36.8 ??C (98.2 ??F) (Oral) Resp 14 Ht 1.651 m (65 ) Wt 63.5 kg (140 lb) SpO2 95% BMI 23.30 kg/m?? BSA 1.7 m?? Current Mental Status: A/O x [x]4, []3, []2, []1 Current Ambulation Status: unknown IV Access: [x] Yes / [] No Field IV present: [] Yes / [x] No Hx of Violence: [] Yes / [x] No / [] Unknown Fall Risk:[x] Yes / [] No Yellow Bracelet Applied [x] Yes / [] No Yellow Socks Applied [x] Yes / [] No Patient Belongings inventoried and BL completed: [x] Yes / [] No Patient belongings stored in the security closet: [] Yes (If Yes please supply Security bag #): [x] No Patient Medications stored in Pharmacy: [] Yes (If Yes please supply Medication Security bag #): [x] No ED Summary of Care: unwitneesed fall at home. CT head negative. Ct maxillo resulted showing nonsidplaced fx of inferior orbital wall. Tylenol 1,0000 mg given. Lactulose 20 mg adminsitered for ammoniaof 103. Aox4 with periods of confusion. Submitted by and Phone Extension: Juan Leyva [phone] * Juan Leyva RN - 10/14/2024 6:39 PM EST This RN qualified bilingual nurse in portuguese so no need for construction trades contractor at this time. * Juan Leyva RN - 10/14/2024 6:38 PM EST Fall risk band applied. Fall risk non-skid socks on patient. Stretcher at lowest position. Gurney rails up x2. Call dawson within reach. Pt instructed not to get out of bed without assistance. * Juan Leyva RN - 10/14/2024 2:57 PM EST BIBA from home for a fall. Mechanical fall out of bed. + head strike. 2 in lac above R eye. R sidedfacial swelling. Not on any blood thinners. No LOC. 2nd fall this week. C-collar in place. Denies any neck or back pain. * Sourav Russ MD - 10/14/2024 2:41 PM EST This is a split/shared visit with JUNI Carrero. I personally performed the medical decision making (MDM) for the care of this patient on 10/14/2024 as documented below 89-year-old female with a history of hepatic encephalopathy presents after fall. Family states patient had a fall striking the right side of the head. No intracranial injury on CT. She does have a right sided inferior orbital fracture without evidence of entrapment. Ammonia elevated, fall most likely due to hepatic encephalopathy. Admit for hepatic encephalopathy, orbital floor fracture, head injury without loss of consciousness.. Sourav Russ MD 10/14/24 6:59 PM EST Emergency Medicine Note Patient Name: Ольга Sanchez Initial Evaluation: 10/14/2024 : 1935 Patient's PCP: Elvin Freedman NP Emergency Physician: Sourav Russ MD History of Present Illness Chief Complaint: Chief Complaint Patient presents with Fall HPI: 89-year-old female with a history of liver disease/hepatic encephalopathy comes to the emergency via EMS secondary to a fall. Patient's granddaughter states that her grandmother was supposed to use a walker to ambulate, however when she was getting out of bed today she did not use her walker fell forward onto her right side striking her head and face. There was significant bleeding so the granddaughter called 911 and patient was transported to hospital. Patient's states that the patient issupposed to be taking lactulose for hepatic encephalopathy but she does not always take it as prescribed. There is no report of recent illness. ROS: I have performed a ROS with the pertinent positives and negatives documented in the history ofpresent illness. Previous History History reviewed. No pertinent past medical history. History reviewed. No pertinent surgical history. No family history on file. is allergic to penicillins. No current facility-administered medications on file prior to encounter. Current Outpatient Medications on File Prior to Encounter Medication Sig Dispense Refill aspirin 81 mg EC tablet Take 1 tablet (81 mg total) by mouth 1 (one) time each day. atorvastatin (LIPITOR) 40 mg tablet Take 1 tablet (40 mg total) by mouth 1 (one) time each day. cyanocobalamin (VITAMIN B-12) 1,000 mcg tablet Take 1 tablet (1,000 mcg total) by mouth 1 (one) time each day in the morning. gabapentin (NEURONTIN) 100 mg capsule Take 1 capsule (100 mg total) by mouth at bedtime. levothyroxine (SYNTHROID, LEVOTHROID) 50 mcg tablet Take 1 tablet (50 mcg total) by mouth 1 (one) time each day before breakfast. loratadine (CLARITIN) 10 mg tablet Take 1 tablet (10 mg total) by mouth 1 (one) time each day. NOON metFORMIN (GLUCOPHAGE) 500 mg tablet Take 0.5 tablets (250 mg total) by mouth 2 (two) times a day with meals. NOON + EVENING olmesartan (BENICAR) 5 mg tablet Take 1 tablet (5 mg total) by mouth 1 (one) time each day in the morning. pantoprazole (PROTONIX) 40 mg EC tablet Take 1 tablet (40 mg total) by mouth 1 (one) time each day before breakfast. NOON thiamine 100 mg tablet Take 1 tablet (100 mg total) by mouth 1 (one) time each day in the morning. traMADoL (ULTRAM) 50 mg tablet Take 2 tablets (100 mg total) by mouth at bedtime. cholecalciferol (VITAMIN D3) 1,250 mcg (50,000 unit) tablet Take 1 tablet (50,000 Units total) by mouth 1 (one) time per week. fluticasone propionate (FLONASE) 50 mcg/actuation nasal spray Administer 1 spray into each nostril 1 (one) time each day. (Patient not taking: Reported on 10/14/2024) Trelegy Ellipta 200-62.5-25 mcg inhaler Inhale 1 puff (200 mcg total) by mouth 1 (one) time each day. (Patient not taking: Reported on 10/14/2024) Physical Exam ED Triage Vitals [10/14/24 1506] Temp Heart Rate Resp BP 36.4 ??C (97.5 ??F) 87 14 (!) 149/81 SpO2 Temp src Heart Rate Source Patient Position 96 % -- -- -- BP Location FiO2 (%) -- -- General: Well-appearing, well nourished, in no acute distress HEENT: PERRL, EOMI, external ears and nose appear unremarkable, airway is patent. 3.5 cm lacerationnoted to the right lateral supraorbital ridge. There is circumocular ecchymosis. Extraocular motionintact no hyphema Neck: Supple, full range of motion Chest: Clear to auscultation; no evidence of respiratory distress Circulatory: RRR, extremities well perfused Abdomen: Non-distended, Non-Tender Extremities: Normal ROM, No edema Skin: Warm and dry Neuro: Alert and oriented, no focal deficits Results Labs Reviewed BASIC METABOLIC PANEL - Abnormal Result Value Sodium 134 Potassium 3.8 Chloride 102 CO2 26 Anion Gap 6 Glucose 162 (*) BUN 9 Creatinine 0.86 eGFR 65 BUN/Creatinine Ratio 10.5 Calcium 9.2 AMMONIA - Abnormal Ammonia 103 (*) CBC AND DIFFERENTIAL Narrative: The following orders were created for panel order CBC and differential. Procedure Abnormality Status --------- ------ CBC auto differential[[id number]] Final result Please view results for these tests on the individual orders. CBC WITH AUTO DIFFERENTIAL WBC 6.0 RBC 4.30 Hemoglobin 13.9 Hematocrit 41.5 MCV 95.6 MCH 32.0 MCHC 33.5 RDW 14.7 Platelets 156 MPV 10.5 NRBC 0.0 NRBC Absolute 0.00 Neutrophils Relative 35.6 Lymphocytes Relative 41.9 Monocytes Relative 15.2 Eosinophils Relative 5.7 Basophils Relative 1.3 Immature Granulocytes Relative 0.3 Neutrophils Absolute 2.13 Lymphocytes Absolute 2.51 Monocytes Absolute 0.91 Eosinophils Absolute 0.34 Basophils Absolute 0.08 Immature Granulocytes Absolute 0.02 Abnormal Labs Reviewed BASIC METABOLIC PANEL - Abnormal; Notable for the following components: Result Value Glucose 162 (*) All other components within normal limits AMMONIA - Abnormal; Notable for the following components: Ammonia 103 (*) All other components within normal limits CT Head wo Contrast Final Result NO ACUTE INTRACRANIAL ABNORMALITY. -------- FINAL REPORT -------- Dictated By: Antonieta Trent Dictated Date: 10/14/2024 16:09 ET Assigned Physician: Antonieta Trent Reviewed and Electronically Signed By: Antonieta Trent Signed Date: 10/14/2024 16:15 ET Workstation ID: [id number] Transcribed By: Self Edit Transcribed Date: 10/14/2024 16:[address] Maxillofacial wo Contrast Final Result Large right periorbital hematoma without retrobulbar hematoma or visible globe injury. This hematoma extends to the premaxillary region. There is chronic opacification of the right maxillary sinus, underlying lesion is not excluded. There is a nondisplaced fracture of the inferior orbital wall as well as subtle fractures involving theanterior and lateral maxillary sinus jin. -------- FINAL REPORT -------- Dictated By: Antonieta Trent Dictated Date: 10/14/2024 16:15 ET Assigned Physician: Antonieta Trent Reviewed and Electronically Signed By: Antonieta Trent Signed Date: 10/14/2024 16:21 ET Workstation ID: [id number] Transcribed By: Self Edit Transcribed Date: 10/14/2024 16:[address] Cervical Spine wo Contrast Final Result No acute cervical spine fracture. -------- FINAL REPORT -------- Dictated By: Antonieta Trent Dictated Date: 10/14/2024 16:23 ET Assigned Physician: Antonieta Trent Reviewed and Electronically Signed By: Antonieta Trent Signed Date: 10/14/2024 16:25 ET Workstation ID: [id number] Transcribed By: Self Edit Transcribed Date: 10/14/2024 16:23 ET I have discussed the incidental/abnormal imaging and/or lab abnormalities with the patient and haveinstructed them the need for further evaluation and workup with their primary care doctor. I have provided the patient with a paper copy of the abnormality. The laboratory results, imaging results and other diagnostic exam results were reviewed in the EMR. EKG Interpretation Critical Care Time None ? Medical Decision Making Medications ibuprofen (ADVIL,MOTRIN) tablet 400 mg (has no administration in time range) lactulose (CHRONULAC) solution 20 g (has no administration in time range) acetaminophen (TYLENOL) tablet 1,000 mg (has no administration in time range) naloxone (NARCAN) injection 0.04 mg (has no administration in time range) morphine 2 mg/mL injection 2 mg (has no administration in time range) morphine injection 4 mg (has no administration in time range) lidocaine-EPINEPHrine (XYLOCAINE W/EPI) 1 %-1:100,000 injection 10 mL (10 mL infiltration Given 10/14/24 1650) lactulose (CHRONULAC) solution 20 g (20 g oral Given 10/14/24 1716) Clinical Impressions as of 10/14/24 1859 Encephalopathy, unspecified type Head injury with loss of consciousness (CMS/[facility]) Closed fracture of orbital floor, unspecified laterality, initial encounter ([facility]) Patient was evaluated. Patient arrived via EMS with cervical collar in place. Brain cervical spine CT scan negative, however there is a nondisplaced fracture of the inferior orbital wall was well as subtle fractures involving the anterior and lateral maxillary sinus jin. Extraocular motions are intact. Laceration was anesthetized with 1% lidocaine and epinephrine. Cleansed using sterile 4 x 4 and saline and closed using seven 6-0 Ethilon sutures. aMMONIA is 103. Care will be transferred to hospitalist service Procedures Procedures Diagnosis 1. Encephalopathy, unspecified type 2. Head injury with loss of consciousness (CMS/HCC) 3. Closed fracture of orbital floor, unspecified laterality, initial encounter (CMS/[facility]) Hepatic encephalopathy/facial laceration Disposition Admit to Inpatient Admit ED Prescriptions None Physician Attestation JUNI Carrero 10/14/24 1541 JUNI Carrero 10/14/24 1708 JUNI Carrero 10/14/24 1716 Sourav Russ MD 10/14/24 1859 documented in this encounter H&P Notes * JUNI Schmid - 10/14/2024 9:11 PM EST Images from the original note were not included. [facility]IST[facility] PHYS[facility] Please contact author [JUNI Schmid] via [email or web address] Patient: Ольга Sanchez Admission Date/Time: 10/14/2024 2:51 PM : 1935 [89 y.o.] Patient's PCP: Elvin Freedman NP Attending Provider: Surya Prieto MD CHIEF COMPLAINT Fall with head trauma HISTORY OF PRESENT ILLNESS Patient is an 89-year-old female with a past medical history of hepatic steatosis, mild dementia, diabetes type 2 and ataxia who presents to the emergency room status post a fall witnessed by her granddaughter. She was not using her wheeled walker at the time while getting out of bed she fell forward onto her right side striking her face. Workup in the emergency room was performedWhite blood cellcount 6.0 hemoglobin 13.9 glucose 162 sodium 134 BUN [address] scan of the head showed large right periorbital hematoma without retrobulbar hematoma or visible globe injury. Patient has a nondisplaced fracture of the inferior orbital wall as well as subtle fractures involving anterior and lateral maxillary sinus jin. CT scan was negative for cervical neck fracture. She will be admitted for observation Review of Systems Patient lying in bed she speaks Indian primarily Indian translation provided Sagar #[id number] Patient had an episode of nausea and vomiting over the side of her bed it is dark-colored no groundemesis undigested food is present. Denies headache at this time but does have a large right sided facial ecchymosis. No dizziness chest pain or palpitation she states is 2023 the month is September andwalter is in the hospital. She states she lives with her granddaughter Phuong and mentions another granddaughter but I did not catch the name legibly. In the computer phone number for daughter granddaughters [phone] I did attempt to call there is no option to leave a message and no one answered. MEDICAL HISTORY Past Medical History Past Medical History: Diagnosis Date COPD (chronic obstructive pulmonary disease) (CMS/HCC) Diabetes mellitus (CMS/HCC) Disease of thyroid gland GERD (gastroesophageal reflux disease) Headache Hepatic steatosis Hyperammonemia (CMS/HCC) Hypercholesteremia Hypertension Past Surgical History History reviewed. No pertinent surgical history. Social History reports that she has never smoked. She has never used smokeless tobacco. She reports that she does not currently use alcohol. She states she is lives in a house with her granddaughter does have a wheeled walker and a wheelchair at home for mobility Family History family history is not on file. He denies any family history of diabetes Allergies is allergic to penicillins. Home Medications No current facility-administered medications on file prior to encounter. Current Outpatient Medications on File Prior to Encounter Medication Sig Dispense Refill aspirin 81 mg EC tablet Take 1 tablet (81 mg total) by mouth 1 (one) time each day. atorvastatin (LIPITOR) 40 mg tablet Take 1 tablet (40 mg total) by mouth 1 (one) time each day. cyanocobalamin (VITAMIN B-12) 1,000 mcg tablet Take 1 tablet (1,000 mcg total) by mouth 1 (one) time each day in the morning. gabapentin (NEURONTIN) 100 mg capsule Take 1 capsule (100 mg total) by mouth at bedtime. levothyroxine (SYNTHROID, LEVOTHROID) 50 mcg tablet Take 1 tablet (50 mcg total) by mouth 1 (one) time each day before breakfast. loratadine (CLARITIN) 10 mg tablet Take 1 tablet (10 mg total) by mouth 1 (one) time each day. NOON metFORMIN (GLUCOPHAGE) 500 mg tablet Take 0.5 tablets (250 mg total) by mouth 2 (two) times a day with meals. NOON + EVENING olmesartan (BENICAR) 5 mg tablet Take 1 tablet (5 mg total) by mouth 1 (one) time each day in the morning. pantoprazole (PROTONIX) 40 mg EC tablet Take 1 tablet (40 mg total) by mouth 1 (one) time each day before breakfast. NOON thiamine 100 mg tablet Take 1 tablet (100 mg total) by mouth 1 (one) time each day in the morning. traMADoL (ULTRAM) 50 mg tablet Take 2 tablets (100 mg total) by mouth at bedtime. cholecalciferol (VITAMIN D3) 1,250 mcg (50,000 unit) tablet Take 1 tablet (50,000 Units total) by mouth 1 (one) time per week. [DISCONTINUED] fluticasone propionate (FLONASE) 50 mcg/actuation nasal spray Administer 1 spray into each nostril 1 (one) time each day. (Patient not taking: Reported on 10/14/2024) [DISCONTINUED] Trelegy Ellipta 200-62.5-25 mcg inhaler Inhale 1 puff (200 mcg total) by mouth 1 (one) time each day. (Patient not taking: Reported on 10/14/2024) OBJECTIVE Vitals Visit Vitals BP (!) 163/88 (BP Location: Left arm, Patient Position: Lying) Pulse 95 Temp 36.3 ??C (97.3 ??F) (Temporal) Resp 16 Temp (24hrs), Av.5 ??C (97.7 ??F), Min:36.3 ??C (97.3 ??F), Max:36.8 ??C (98.2 ??F) Body mass index is 23.3 kg/m??. No results found for: PTWT , PTHT Physical Examination Patient lying in bed in no acute distress. HEENT: Right periorbital ecchymosis and edema patient is able to open both eyes and see appropriately without double vision no subconjunctival hemorrhage Cardiac: S1-S2 regular rate and rhythm no rubs murmurs gallops Lungs: Clear to auscultation bilaterally Abdomen: Soft, nontender,bowel sounds in all 4 quadrants Extremities: Patient without pitting edema. Neuro: alert and oriented ??3 without focal neurologic deficit LAB RESULTS (most recent) HEMATOLOGY Lab Results Component Value Date WBC 6.0 10/14/2024 HGB 13.9 10/14/2024 HCT 41.5 10/14/2024 MCV 95.6 10/14/2024 PLT 156 10/14/2024 CHEMISTRY Lab Results Component Value Date GLUCOSE 162 (H) 10/14/2024 NA 134 10/14/2024 K 3.8 10/14/2024 CO2 26 10/14/2024 CL 102 10/14/2024 BUN 9 10/14/2024 CREATININE 0.86 10/14/2024 EGFR 65 10/14/2024 CALCIUM 9.2 10/14/2024 ANIONGAP 6 10/14/[address] Head wo Contrast Final Result NO ACUTE INTRACRANIAL ABNORMALITY. -------- FINAL REPORT -------- Dictated By: Antonieta Trent Dictated Date: 10/14/2024 16:09 ET Assigned Physician: Antonieta Trent Reviewed and Electronically Signed By: Antonieta Trent Signed Date: 10/14/2024 16:15 ET Workstation ID: [id number] Transcribed By: Self Edit Transcribed Date: 10/14/2024 16:[address] Maxillofacial wo Contrast Final Result Large right periorbital hematoma without retrobulbar hematoma or visible globe injury. This hematoma extends to the premaxillary region. There is chronic opacification of the right maxillary sinus, underlying lesion is not excluded. There is a nondisplaced fracture of the inferior orbital wall as well as subtle fractures involving theanterior and lateral maxillary sinus jin. -------- FINAL REPORT -------- Dictated By: Antonieta Trent Dictated Date: 10/14/2024 16:15 ET Assigned Physician: Antonieta Trent Reviewed and Electronically Signed By: Antonieta Trent Signed Date: 10/14/2024 16:21 ET Workstation ID: [id number] Transcribed By: Self Edit Transcribed Date: 10/14/2024 16:[address] Cervical Spine wo Contrast Final Result No acute cervical spine fracture. -------- FINAL REPORT -------- Dictated By: Antonieta Trent Dictated Date: 10/14/2024 16:23 ET Assigned Physician: Antonieta Trent Reviewed and Electronically Signed By: Antonieta Trent Signed Date: 10/14/2024 16:25 ET Workstation ID: [id number] Transcribed By: Self Edit Transcribed Date: 10/14/2024 16:23 ET ASSESSMENT & PLAN #Mechanical fall with facial trauma Right orbital fracture without entrapment on CT scan Patient with nausea and vomiting no signs of postconcussive syndrome== added Phenergan as patient has mildly prolonged QT at 510 added guaiac of emesis being obtained Hold aspirin and anticoagulant therapy #Hyperammonemia with a history of hepatic steatosis Ammonia level 103 may be the cause of mental status change and fall. Lactulose added 3 times daily monitor for loose stool per prior admissions patient had been on rifaximin but not on sidebar centimeter he called to discussed with patient's granddaughter whom she lives with as patient does not recall unable to leave a message #COPD will need to resume Trelegy at home as nonformulary would add albuterol as needed for shortness of breath or wheeze #Dementia: With Indian translation patient is forgetful Lives with her grandchildren who provide care #Diabetes type 2 she states new diagnosis Started metformin 250 at noon and 5 PM Monitor [id number] with sliding scale Patient with neuropathy on gabapentin 100 mg at bedtime #Dyslipidemia continuing statin #Hypothyroid continue levothyroxine #hypertension-continuing antihypertensives Hold aspirin due to increased risk of fall and bleed with known facial trauma Unclear as to why she is on this medication no history of coronary artery disease listed versus benefits should be discussed #GERD continue Protonix 40 mg per record before breakfast and lunch Did have nausea vomiting could be COVID postconcussive cause was maroon tinge without coffee grounds hemoglobin is 13.9 repeat CBC a.m. Case discussed Shereen with the care plan above Critical Care Time Please note that -60--- minutes or greater was spent on performing a medically appropriate history and physical examination, review of laboratory and radiology data requiring a high level of medical decision making. Admission checklist [x] Code status: Full Code - Default Dietary Orders (From admission, onward) Start Ordered 10/14/242120 Adult NPO diet Location: [facility]; Diet: NPO- Except for Medications Diet effective now Question Answer Comment Location [facility] Diet NPO- Except for Medications 10/14/242119 [x] Medication reconciliation--sidebar summary used tried to reconcile with healthcare proxy phone number listed however unavailable and could not leave a message Phuong Foreman [phone] Health Care proxy with Phone number Cosigned by Surya Prieto MD at 10/16/2024 9:25 AM EST Associated attestation - Surya Prieto MD - 10/16/2024 9:25 AM EST I have personally seen and examined the patient with the resident/PA/CRATE BUILDER and mendez elements of all parts of the encounter were performed by me. Patient was reassessed on more than one occasion when required. I reviewed the interval history, interpreted all available radiographic, laboratory and physiological data at the time of service. I agree with the assessment and plan as documented by the resident/PA/CRATE BUILDER with additions. 89-year-old female being admitted to the hospital for hepatic encephalopathy. Patient coming into the hospital after a fall striking the right side of forehead. On physical exam, the patient has right sided panda eye. On imaging, no intracranial injury. Patient has right-sided inferior orbital fracture on imaging. Patient being admitted for hepatic encephalopathy. Continue with lactulose 3 times daily for now. Titrate to 2-3 bowel movements per day. Tylenol and morphine for pain control. Zofranfor nausea. Will get one-time EKG for QTc. Check labs tomorrow. Patient had episode of hematemesis in the hospital. Will keep the patient n.p.o. for now. Additional records from previous providers were reviewed in detail. Case was discussed with control technician as well. I spent greater than 80 minutes caring for this patient today with greater than 50% of the time spent in direct offb-ym-tehw care/counseling/coordination with medical staff director, consultants, and reviewing patient chart. Surya Prieto MD [facility], 7am-7pm Available thru tiger text After 7pm, please tiger text cross coverage 10/16/2024 9:25 AM EST documented in this encounter Consult Notes * Lien Balderas MD - 10/15/2024 1:53 PM EST GI CONSULT CHIEF COMPLAINT: Consult was requested for the patient's coffee-ground emesis HPI: Ольга Sanchez is a 89 y.o. old female who was referred to us by Marcos Dawson MD for evaluation of coffee-ground emesis. Patient presented to the emergency room yesterday after having a fall at home where she hit the right side of her face. She had a right sided inferior orbital fracture and subsequent CT scan. In the emergency room she had an episode of vomiting that was noted to contain old food as well as what looks like coffee-ground emesis. She had 2 further episodes since coming to the floor overnight. She has had no hematemesis. She has no known history of GI bleeding. She reportedly has a history of encephalopathy however does not carry a diagnosis of cirrhosis. Patient currently complains of a headache. She also has had some mild odynophagia since her vomiting episodes. There is been no notable melena, hematochezia or bright red blood per rectum. She has remained hemodynamically stable with a normal hemoglobin and hematocrit. Patient is Indian-speaking and history is taken with family members at the bedside and through the chart. After speaking with her granddaughterit seems that the patient vomits quite frequently when she gets constipated. She is normally followed by Dr. Sparks in [place] for her GI care. ROS: Review of Systems Constitutional: Negative. HENT: Negative. Eyes: Negative. Respiratory: Negative. Cardiovascular: Negative. Gastrointestinal: Positive for vomiting. Negative for abdominal pain, constipation, diarrhea and nausea. Endocrine: Negative. Musculoskeletal: Positive for gait problem. Skin: Negative. PAST MEDICAL HISTORY: Patient Active Problem List Diagnosis Gait instability Right orbital fracture (CMS/HCC) Postconcussive syndrome Hepatic steatosis Mild dementia Type 2 diabetes Ataxia COPD Hypertension Hyperlipidemia GERD PAST SURGICAL HISTORY: Status post cholecystectomy Post right fourth finger I&D after dog bite SOCIAL HISTORY: Social History Tobacco Use Smoking status: Never Smokeless tobacco: Never Substance Use Topics Alcohol use: Not Currently She is wheelchair-bound but has limited use of a rolling walker as well. [facility] family members areinvolved in her care. FAMILY HISTORY: Family History Problem Relation Name Age of Onset Diabetes Neg Hx MEDICATIONS: Home medications: Aspirin, atorvastatin, vitamin B12, gabapentin, Synthroid, Claritin, metformin, Benicar, pantoprazole, thiamine, tramadol, vitamin D3, Flonase, Trelegy Ellipta. Current Facility-Administered Medications: acetaminophen (TYLENOL) tablet 650 mg, 650 mg, oral, q8h PRN, Surya Prieto MD atorvastatin (LIPITOR) tablet 40 mg, 40 mg, oral, Daily, JUNI Schmid, 40 mg at 10/15/24931 cyanocobalamin (VITAMIN B-12) tablet 1,000 mcg, 1,000 mcg, oral, q AM, JUNI Schmid, 1,000 mcg at 10/15/24 0614 dextrose (D50W) 50% injection 12.5 g, 12.5 g, intravenous, q15 min PRN, JUNI Schmid dextrose (D50W) 50% injection 25 g, 25 g, intravenous, q15 min PRN, JUNI Schmid dextrose 15 gram/60 mL oral solution 15 g, 15 g, oral, q15 min PRN, JUNI Schmid dextrose 15 gram/60 mL oral solution 30 g, 30 g, oral, q15 min PRN, JUNI Schmid gabapentin (NEURONTIN) capsule 100 mg, 100 mg, oral, Nightly, JUNI Schmid, 100 mg at 10/14/242051 Glucagon HCl (rDNA) injection 1 mg, 1 mg, intramuscular, Once PRN, JUNI Schmid insulin lispro injection 1-6 Units, 1-6 Units, subcutaneous, TID AC, JUNI Schmid lactated Ringer's infusion, 100 mL/hr, intravenous, Continuous, Marcos Dawson MD lactulose (CHRONULAC) solution 20 g, 20 g, oral, TID, Sharda Correia MD, 20 g at 10/15/24931 levothyroxine (SYNTHROID, LEVOTHROID) tablet 50 mcg, 50 mcg, oral, q AM AC, JUNI Schmid, 50mcg at 10/15/2412 losartan (COZAAR) tablet 25 mg, 25 mg, oral, Daily, JUNI Schmid, 25 mg at 02/12/25 0932 morphine 2 mg/mL injection 1 mg, 1 mg, intravenous, q4h PRN OR morphine 2 mg/mL injection 2 mg,2 mg, intravenous, q4h PRN, Surya Prieto MD, 2 mg at 10/15/24 0532 naloxone (NARCAN) injection 0.04 mg, 0.04 mg, intravenous, PRN, Sharda Correia MD [Held by provider] pantoprazole (PROTONIX) EC tablet 40 mg, 40 mg, oral, q AM AC, JUNI Schmid, 40 mg at 10/15/24 0613 pantoprazole (PROTONIX) injection 40 mg, 40 mg, intravenous, q12h [facility], Marcos Dawson MD, 40 mg at 10/15/24 1150 promethazine (PHENERGAN) tablet 12.5 mg, 12.5 mg, oral, q6h PRN, JUNI Schmid, 12.5 mg at 10/15/24 0612 thiamine (VITAMIN B-1) tablet 100 mg, 100 mg, oral, q AM, JUNI Schmid, 100 mg at 10/15/24 0612 ALLERGIES: Allergies Allergen Reactions Penicillins Hives and Swelling PHYSICAL EXAM: Visit Vitals BP (!) 144/74 (BP Location: Left arm, Patient Position: Lying) Pulse 94 Temp 36.5 ??C (97.7 ??F) (Oral) Resp 17 Ht 1.651 m (65 ) Wt 63.5 kg (140 lb) SpO2 99% BMI 23.30 kg/m?? Smoking Status Never BSA 1.7 m?? Physical Exam Constitutional: Appearance: She is obese. HENT: Head: Normocephalic. Contusion present. Comments: Significant ecchymoses around right orbit/cheek/forehead Mouth/Throat: Mouth: Mucous membranes are dry. Cardiovascular: Rate and Rhythm: Normal rate and regular rhythm. Pulmonary: Effort: Pulmonary effort is normal. Breath sounds: Normal breath sounds. Abdominal: Palpations: Abdomen is soft. Tenderness: There is no abdominal tenderness. There is no guarding or rebound. Comments: obese Skin: General: Skin is warm and dry. Neurological: General: No focal deficit present. Mental Status: She is alert. LABS: Lab Results Component Value Date WBC 10.2 10/15/2024 HGB 14.2 10/15/2024 HCT 41.8 10/15/2024 MCV 94.1 10/15/2024 PLT 165 10/15/2024 , Lab Results Component Value Date GLUCOSE 137 (H) 10/15/2024 CALCIUM 9.1 10/15/2024 NA 135 10/15/2024 K 3.8 10/15/2024 CO2 25 10/15/2024 CL 105 10/15/2024 BUN 13 10/15/2024 CREATININE 0.96 10/15/2024 , Lab Results Component Value Date NA 135 10/15/2024 K 3.8 10/15/2024 CL 105 10/15/2024 CO2 25 10/15/2024 GLUCOSE 137 (H) 10/15/2024 BUN 13 10/15/2024 CREATININE 0.96 10/15/2024 CALCIUM 9.1 10/15/2024 PROT 6.9 10/15/2024 ALBUMIN 2.6 (L) 10/15/2024 BILITOT 1.7 (H) 10/15/2024 AST 64 (H) 10/15/2024 ALT 49 10/15/2024 MG 1.4 (L) 10/15/2024 ALKPHOS 143 (H) 10/15/2024 EGFR 57 (L) 10/15/2024 , Lab Results Component Value Date ALT 49 10/15/2024 AST 64 (H) 10/15/2024 ALKPHOS 143 (H) 10/15/2024 BILITOT 1.7 (H) 10/15/2024 IMAGING: CT Head wo Contrast [[id number]] Collected: 10/14/24 1609 Order Status: Completed Updated: 10/14/24 1620 Narrative: PROCEDURE: HEAD CT INDICATION: Trauma TECHNIQUE: CT of the head without intravenous contrast. Multiplanar reformats. The examination was performed utilizing dose reduction techniques. Total DLP 2100 COMPARISON: No priors available. FINDINGS: No acute territorial infarct, mass effect, or intracranial hemorrhage. Severe scattered periventricular and subcortical white matter hypodensities are most likely relatedto chronic small vessel ischemic change. Ventricles, sulci, and cisterns are normal in size and configuration. No hydrocephalus or volume loss. Visualized paranasal sinuses and mastoid air cells are clear. Right periorbital hematoma without underlying fracture visualized, see CT face dictated separately. Impression: NO ACUTE INTRACRANIAL ABNORMALITY. -------- FINAL REPORT -------- Dictated By: Antonieta Trent Dictated Date: 10/14/2024 16:09 ET Assigned Physician: Antonieta Trent Reviewed and Electronically Signed By: Antonieta Trent Signed Date: 10/14/2024 16:15 ET Workstation ID: [id number] Transcribed By: Self Edit Transcribed Date: 10/14/2024 16:[address] Maxillofacial wo Contrast [[id number]] Collected: 10/14/24 1615 Order Status: Completed Updated: 10/14/24 1626 Narrative: PROCEDURE: HEAD CT INDICATION: Trauma TECHNIQUE: CT of the head without intravenous contrast. Multiplanar reformats. The examination was performed utilizing dose reduction techniques. Total DLP 2100 COMPARISON: No priors available. FINDINGS: There is a right periorbital hematoma. There is no retrobulbar hematoma. There is a nondisplaced fracture of the inferior orbital wall. There is a mildly displaced fracture of the lateral wall of the maxillary sinus. Complete opacification of the right maxillary sinus with expansion of the jin and appear most likely chronic nondisplaced fracture of the adjacent jin with thinning and bowing of the medial wall.Dentures. No mandible fracture. There is debris within the left maxillary sinus, sphenoid sinuses and ethmoid air cells. Mastoid air cells are unremarkable. Impression: Large right periorbital hematoma without retrobulbar hematoma or visible globe injury. This hematoma extends to the premaxillary region. There is chronic opacification of the right maxillary sinus, underlying lesion is not excluded. There is a nondisplaced fracture of the inferior orbital wall as well as subtle fractures involving theanterior and lateral maxillary sinus jin. -------- FINAL REPORT -------- Dictated By: Antonieta Trent Dictated Date: 10/14/2024 16:15 ET Assigned Physician: Antonieta Trent Reviewed and Electronically Signed By: Antonieta Trent Signed Date: 10/14/2024 16:21 ET Workstation ID: [id number] Transcribed By: Self Edit Transcribed Date: 10/14/2024 16:[address] Cervical Spine wo Contrast [[id number]] Collected: 10/14/24 1623 Order Status: Completed Updated: 10/14/24 1630 Narrative: PROCEDURE: CT cervical spine INDICATION: Trauma TECHNIQUE: Noncontrast CT of the cervical spine with multiplanar reformats. The examination was performed utilizing dose reduction techniques. COMPARISON: No priors available. FINDINGS: No fracture or prevertebral swelling. Multilevel degenerative changes are seen throughout the cervical spine with uncovertebral spurring and facet arthropathy present. Endplate degenerative changes and intervertebral disc height loss. There is straightening of the cervical spine. Multilevel posterior disc osteophyte complexes. Lung apices are clear. Soft tissues of the neck are unremarkable. Impression: No acute cervical spine fracture. -------- FINAL REPORT -------- Dictated By: Antonieta Trent Dictated Date: 10/14/2024 16:23 ET Assigned Physician: Antonieta Trent Reviewed and Electronically Signed By: Antonieta Trent Signed Date: 10/14/2024 16:25 ET Workstation ID: [id number] Transcribed By: Self Edit Transcribed Date: 10/14/2024 16:23 ET ASSESSMENT AND PLAN: Coffee ground emesis: 89-year-old woman with baseline ataxia who had a fall at home with nondisplaced orbital fracture and significant hematoma who also was noted to have episodes of coffee-ground emesis. She has had no evidence of active GI bleeding. Her hemoglobin and hematocrit have remained quite stable. She does describe some mild odynophagia after these episodes and may indeed have some esophagitis. The differential diagnosis includes gastritis, AVMs or small ulcers/erosions. There is no urgent need for endoscopic evaluation today. I would continue to give her Protonix and bowel rest. Iwill reassess her in the morning for possible endoscopy tomorrow if needed. I would also continue a significant bowel regimen as the patient's family does report frequent vomiting with constipation. I would like to thank Marcos Dawson MD for the opportunity to partake in the patient's care. Board Certified, Gastroenterology and Internal Medicine Gastroenterology and Hepatology Practice [facility] Lien Balderas MD 10/15/24 2:06 PM [facility] [phone] [place] [address] [email or web address] cc: Elvin Freedman NP documented in this encounter Plan of Treatment Not on file documented as of this encounter Procedures Procedure [...] AUTO DIFFERENTIAL Routine 10/15/2024 7:07 AM EST CBC AND DIFFERENTIAL Routine 10/15/2024 7:07 AM EST MAGNESIUM Routine 10/15/2024 7:07 AM EST AMMONIA Routine [...] CONTRAST STAT 10/14/2024 3 :55 PM EST CBC WITH AUTO DIFFERENTIAL STAT 10/14/2024 3:26 PM EST CBC AND DIFFERENTIAL STAT 10/14/2024 3:26 PM EST AMMONIA STAT 10/14/2024 3:26 PM EST BASIC METABOLIC PANEL STAT 10/14/2024 3:26 PM EST documented in this encounter Results * Hemoglobin and hematocrit (10/16/2024 4:23 PM EST) Hemoglobin 12.8 11.5 - 16.0 g/dL LAB HEMETOLOGY METHOD 10/16/2024 4:[address] [facility] Hematocrit 37.9 35.0 - 47.0 % LAB HEMETOLOGY METHOD 10/16/2024 4:[address] [facility] Blood Venous blood specimen / Unknown Venipuncture / Unknown 10/16/2024 4:23 PM EST 10/16/2024 4:30 PM EST us Marcos Dawson MD LAB BLOOD ORDERABLES Final Re sult [facility] [address] [place] [address], * (ABNORMAL) POCT Glucose, blood (10/16/2024 11:11 AM EST) Glucose POCT 131(H) 70 - 100 mg/dL 10/16/2024 11:[address] [facility] Blood Capillary blood specimen / Unknown 10/16/2024 11:11 AM EST 10/16/2024 11:13 AM EST us Marcos Dawson MD LAB POINT OF CARE TE ST DOCKED DEVICE UNSOLICITED RESULTS Final Result [facility] [address] [place] [address], [place] [phone] * (ABNORMAL) POCT Glucose, blood (10/16/2024 8:13 AM EST) [facility] Signature Glucose POCT 129(H) 70 - 100 mg/dL 10/16/2024 8:[address] [facility] Blood Capillary blood specimen / Unknown 10/16/2024 8:13 AM EST 10/16/2024 8:15 AM EST us Marcos Dawson MD LAB POINT OF CARE TE ST DOCKED DEVICE UNSOLICITED RESULTS Final Result [facility] [address] [place] [address], [place] [phone] * Hemoglobin and hematocrit (10/16/2024 6:49 AM EST) Hemoglobin 13.6 11.5 - 16.0 g/dL LAB HEMETOLOGY METHOD 10/16/2024 7:[address] [facility] Hematocrit 40.5 35.0 - 47.0 % LAB HEMETOLOGY METHOD 10/16/2024 7:[address] [facility] Blood Venous blood specimen / Unknown Venipuncture / Unknown 10/16/2024 6:49 AM EST 10/16/2024 7:03 AM EST us Marcos Dawson MD LAB BLOOD ORDERABLES Final Re sult [facility] [address] [place] [address], * (ABNORMAL) Basic metabolic panel (10/16/2024 6:49 AM EST) Sodium 140 133 - 145 mmol/L LAB CHEMISTRY METHOD 10/16/2024 7:[address] [facility] Potassium 3.5 3.5 - 5.5 mmol/L LAB CHEMISTRY METHOD 10/16/2024 7:41 AM [facility] Chloride 105 96 - 110 mmol/L LAB CHEMISTRY METHOD 10/16/2024 7:41 AM [facility] CO2 29 21 - 32 mmol/L LAB CHEMISTRY METHOD 10/16/2024 7:41 AM [facility] Anion Gap 6 3 - 11 LAB CHEMISTRY METHOD 10/16/2024 7:41 AM [facility] Glucose 127(H) 70 - 100 mg/dL LAB CHEMISTRY METHOD 10/16/2024 7:41 AM [facility] BUN 16 5 - 25 mg/dL LAB CHEMISTRY METHOD 10/16/2024 7:41 AM [facility] Creatinine 1.08 0.50 - 1.10 mg/dL LAB CHEMISTRY METHOD 10/16/2024 7:41 AM [facility] eGFR 50(L) >=60 mL/min/1. 73m2 LAB CHEMISTRY METHOD 10/16/2024 7:41 AM [facility] Comment:Calculation based on the??Chronic Kidney Disease Epidemiology Collaboration (CKD-EPI) equation refit??without adjustment for race. BUN/Creatinine Ratio 14.8 LAB CHEMISTRY METHOD 10/16/2024 7:41 AM [facility] Calcium 8.9 8.5 - 10.5 mg/dL LAB CHEMISTRY METHOD 10/16/2024 7:[address] [facility] Blood Venous blood specimen / Unknown Venipuncture / Unknown 10/16/2024 6:49 AM EST 10/16/2024 7:04 AM EST us Marcos Dawson MD LAB BLOOD ORDERABLES Final Re sult Performing Organization Address City/[facility]/ZIP Co de Phone Number [facility] [address] [place] [address], [place] [phone] * Hemoglobin and hematocrit (10/16/2024 12:15 AM EST) Hemoglobin 13.3 11.5 - 16.0 g/dL LAB HEMETOLOGY METHOD 10/16/2024 12:[address] [facility] Hematocrit 39.5 35.0 - 47.0 % LAB HEMETOLOGY METHOD 10/16/2024 12:[address] [facility] Blood Venous blood specimen / Unknown Venipuncture / Unknown 10/16/2024 12:15 AM EST 10/16/2024 12:27 AM EST us Marcos Dawson MD LAB BLOOD ORDERABLES Final Re sult Performing Organization Address [facility]/ZIP Co de Phone Number [facility] [address] [place] [address], [place] [phone] * (ABNORMAL) POCT Glucose, blood (10/15/2024 9:33 PM EST) Glucose POCT 136(H) 70 - 100 mg/dL 10/15/2024 9:[address] [facility] POCT Comment RN Notified 10/15/2024 9:[address] [facility] Blood Capillary blood specimen / Unknown 10/15/2024 9:33 PM EST 10/15/2024 9:35 PM EST us Marcos Dawson MD LAB POINT OF CARE TE ST DOCKED DEVICE UNSOLICITED RESULTS Final Result Performing Organization Address City/[facility]/ZIP Co de Phone Number [facility] [address] [place] [address], [place] [phone] * Hemoglobin and hematocrit (10/15/2024 4:00 PM EST) Hemoglobin 13.8 11.5 - 16.0 g/dL LAB HEMETOLOGY METHOD 10/15/2024 4:[address] [facility] Hematocrit 41.2 35.0 - 47.0 % LAB HEMETOLOGY METHOD 10/15/2024 4:[address] [facility] Blood Venous blood specimen / Unknown Venipuncture / Unknown 10/15/2024 4:00 PM EST 10/15/2024 4:10 PM EST us Marcos Dawson MD LAB BLOOD ORDERABLES Final Re sult Performing Organization Address City/[facility]/ZIP Co de Phone Number [facility] [address] [place] [address], [place] [phone] * (ABNORMAL) POCT Glucose, blood (10/15/2024 3:54 PM EST) Glucose POCT 126(H) 70 - 100 mg/dL 10/15/2024 3:[address] [facility] Blood Capillary blood specimen / Unknown 10/15/2024 3:54 PM EST 10/15/2024 3:56 PM EST us Marcos Dawson MD LAB POINT OF CARE TE ST DOCKED DEVICE UNSOLICITED RESULTS Final Result Performing Organization Address City/[facility]/ZIP Co de Phone Number [facility] [address] [place] [address], [place] [phone] * (ABNORMAL) POCT Glucose, blood (10/15/2024 11:13 AM EST) Glucose POCT 137(H) 70 - 100 mg/dL 10/15/2024 11:[address] [facility] Blood Capillary blood specimen / Unknown 10/15/2024 11:13 AM EST 10/15/2024 11:15 AM EST us Marcos Dawson MD LAB POINT OF CARE TE ST DOCKED DEVICE UNSOLICITED RESULTS Final Result [facility] [address] [place] [address], [place] [phone] * (ABNORMAL) POCT Glucose, blood (10/15/2024 8:20 AM EST) Glucose POCT 141(H) 70 - 100 mg/dL 10/15/2024 8:[address] [facility] Blood Capillary blood specimen / Unknown 10/15/2024 8:20 AM EST 10/15/2024 8:21 AM EST us Marcos Dawson MD LAB POINT OF CARE TE ST DOCKED DEVICE UNSOLICITED RESULTS Final Result [facility] [address] [place] [address], [place] [phone] * (ABNORMAL) CBC auto differential (10/15/2024 7:07 AM EST) WBC 10.2 4.8 - 10.8 K/mcL LAB HEMETOLOGY METHOD 10/15/2024 7:[address] [facility] RBC 4.40 3.80 - 4.80 M/mcL LAB HEMETOLOGY METHOD 10/15/2024 7:[address] [facility] Hemoglobin 14.2 11.5 - 16.0 g/dL LAB HEMETOLOGY METHOD 10/15/2024 7:44 AM [facility] Hematocrit 41.8 35.0 - 47.0 % LAB HEMETOLOGY METHOD 10/15/2024 7:44 AM [facility] MCV 94.1 79.0 - 98.0 FL LAB HEMETOLOGY METHOD 10/15/2024 7:44 AM [facility] MCH 32.0 27.0 - 32.0 pcg LAB HEMETOLOGY METHOD 10/15/2024 7:44 AM [facility] MCHC 34.0 32.0 - 37.0 g/dL LAB HEMETOLOGY METHOD 10/15/2024 7:44 AM [facility] RDW 14.7 11.0 - 15.0 % LAB HEMETOLOGY METHOD 10/15/2024 7:44 AM [facility] Platelets 165 130 - 400 K/mcL LAB HEMETOLOGY METHOD 10/15/2024 7:44 AM [facility] MPV 10.3 7.0 - 11.0 FL LAB HEMETOLOGY METHOD 10/15/2024 7:44 AM [facility] NRBC 0.0 <1.0 % LAB HEMETOLOGY METHOD 10/15/2024 7:44 AM [facility] NRBC Absolute 0.00 <0.10 K/mcL LAB HEMETOLOGY METHOD 10/15/2024 7:44 AM [facility] Neutrophils Relative 77.1 % LAB HEMETOLOGY METHOD 10/15/2024 7:44 AM [facility] Lymphocytes Relative 12.4 % LAB HEMETOLOGY METHOD 10/15/2024 7:44 AM [facility] Monocytes Relative 9.7 % LAB HEMETOLOGY METHOD 10/15/2024 7:44 AM [facility] Eosinophils Relative 0.0 % LAB HEMETOLOGY METHOD 10/15/2024 7:[address] [facility] Basophils Relative 0.3 % LAB HEMETOLOGY METHOD 10/15/2024 7:44 AM [facility] Immature Granulocytes Relative 0.5 % LAB HEMETOLOGY METHOD 10/15/2024 7:44 AM [facility] Neutrophils Absolute 7.90(H) 1.50 - 7.00 K/mcL LAB HEMETOLOGY METHOD 10/15/2024 7:44 AM [facility] Lymphocytes Absolute 1.27 1.00 - 5.00 K/mcL LAB HEMETOLOGY METHOD 10/15/2024 7:44 AM [facility] Monocytes Absolute 0.99 0.20 - 1.00 K/mcL LAB HEMETOLOGY METHOD 10/15/2024 7:44 AM [facility] Eosinophils Absolute 0.00 0.00 - 0.50 K/mcL LAB HEMETOLOGY METHOD 10/15/2024 7:44 AM [facility] Basophils Absolute 0.03 0.00 - 0.20 K/mcL LAB HEMETOLOGY METHOD 10/15/2024 7:44 AM [facility] Immature Granulocytes Absolute 0.05(H) 0.00 - 0.03 K/mcL LAB HEMETOLOGY METHOD 10/15/2024 7:44 AM [facility] Blood Venous blood specimen / Unknown Venipuncture / Unknown 10/15/2024 7:07 AM EST 10/15/2024 7:24 AM EST us Surya Prieto MD LAB BLOOD ORDERABLES Final Res ult [facility] [address] [place] [address], * (ABNORMAL) Magnesium (10/15/2024 7:07 AM EST) Magnesium 1.4(L) 1.9 - 2.6 mg/dL LAB CHEMISTRY METHOD 10/15/2024 8:[address] [facility] Blood Venous blood specimen / Unknown Venipuncture / Unknown 10/15/2024 7:07 AM EST 10/15/2024 7:24 AM EST us Surya Prieto MD LAB BLOOD ORDERABLES Final Res ult [facility] [address] [place] [address], [place] [phone] * (ABNORMAL) Ammonia (10/15/2024 7:07 AM EST) Pathologist [facility] Ammonia 54(H) 11 - 35 mcmol/L LAB CHEMISTRY METHOD 10/15/2024 7:[address] [facility] Blood Venous blood specimen / Unknown Venipuncture / Unknown 10/15/2024 7:07 AM EST 10/15/2024 7:23 AM EST us Surya Prieto MD LAB BLOOD ORDERABLES Final Res ult Performing Organization Address City/[facility]/ZIP Co de Phone Number [facility] [address] [place] [address], [place] [phone] * (ABNORMAL) Comprehensive metabolic panel (10/15/2024 7:07 AM EST) [facility] Sodium 135 133 - 145 mmol/L LAB CHEMISTRY METHOD 10/15/2024 8:[address] [facility] Potassium 3.8 3.5 - 5.5 mmol/L LAB CHEMISTRY METHOD 10/15/2024 8:[address] [facility] Chloride 105 96 - 110 mmol/L LAB CHEMISTRY METHOD 10/15/2024 8:[address] [facility] CO2 25 21 - 32 mmol/L LAB CHEMISTRY METHOD 10/15/2024 8:[address] [facility] Anion Gap 5 3 - 11 LAB CHEMISTRY METHOD 10/15/2024 8:09 AM [facility] Glucose 151(H) 70 - 100 mg/dL LAB CHEMISTRY METHOD 10/15/2024 8:09 AM [facility] BUN 13 5 - 25 mg/dL LAB CHEMISTRY METHOD 10/15/2024 8:09 AM [facility] Creatinine 0.96 0.50 - 1.10 mg/dL LAB CHEMISTRY METHOD 10/15/2024 8:09 AM [facility] eGFR 57(L) >=60 mL/min/1. 73m2 LAB CHEMISTRY METHOD 10/15/2024 8:09 AM [facility] Comment:Calculation based on the??Chronic Kidney Disease Epidemiology Collaboration (CKD-EPI) equation refit??without adjustment for race. BUN/Creatinine Ratio 13.5 LAB CHEMISTRY METHOD 10/15/2024 8:09 AM [facility] Calcium 9.1 8.5 - 10.5 mg/dL LAB CHEMISTRY METHOD 10/15/2024 8:09 AM [facility] AST (SGOT) 64(H) 10 - 42 unit/L LAB CHEMISTRY METHOD 10/15/2024 8:09 AM [facility] ALT (SGPT) 49 10 - 60 unit/L LAB CHEMISTRY METHOD 10/15/2024 8:09 AM [facility] Alkaline Phosphatase 143(H) 42 - 121 unit/L LAB CHEMISTRY METHOD 10/15/2024 8:09 AM [facility] Total Protein 6.9 6.0 - 8.0 g/dL LAB CHEMISTRY METHOD 10/15/2024 8:09 AM [facility] Albumin 2.6(L) 3.2 - 5.0 g/dL LAB CHEMISTRY METHOD 10/15/2024 8:09 AM [facility] Total Bilirubin 1.7(H) 0.0 - 1.4 mg/dL LAB CHEMISTRY METHOD 10/15/2024 8:[address] [facility] Blood Venous blood specimen / Unknown Venipuncture / Unknown 10/15/2024 7:07 AM EST 10/15/2024 7:24 AM EST Surya Prieto MD LAB BLOOD ORDERABLES Final Res ult Performing Organization Address City/[facility]/ZIP Co de Phone Number [facility]) [facility] [address] [place] [address], [place] [phone] * ECG 12 lead PRN (10/14/2024 10:23 PM EST) Ventricular Rate ECG 94 BPM GEMUSE Atrial Rate 94 BPM GEMUSE P-R Interval 190 ms GEMUSE QRS Duration 78 ms GEMUSE Q-T Interval 408 ms GEMUSE QTc 510 ms GEMUSE P Wave [place] 50 degrees GEMUSE R [place] -29 degrees GEMUSE T [place] 81 degrees GEMUSE ECG Interpretation Normal sinus rhythm Minimal voltage criteria for LVH, may be normal variant Prolonged QT Abnormal ECG When compared with ECG of 22-MAY-2023 13:43, No significant changes are noted Confirmed by STACY IRWIN ([id number]) on 10/15/2024 11:34:59 AM GEMUSE 10/14/2024 10:2 3 PM EST 10/15/2024 11:34 AM EST Surya Prieto MD ECG ORDERABLES Final Result Performing Organization Address City/[facility]/ZIP Co de Phone Number GEMUSE * (ABNORMAL) Occult blood stool, guaiac (10/14/2024 9:54 PM EST) Occult Blood, Stool #1 Positive( A) Negative 10/14/2024 10:[address] [facility] Stool Stoma site / Unknown Non-blood Collection / Unknown 10/14/2024 9:54 PM EST 10/14/2024 10:00 PM EST us Meghan ALFREDO LAB BODY FLUIDS AND STOOLS OR DERABLES Final Result [facility] [address] [place] [address], * CT Cervical Spine wo Contrast (10/14/2024 [...] Signed Date: 10/14/2024 16:25 ET Workstation ID: [id number] Transcribed By: Self Edit Transcribed Date: 10/14/2024 [...] Signed Date: 10/14/2024 16:25 ET Workstation ID: [id number] Transcribed By: Self Edit Transcribed Date: 10/14/2024 16:23 ET us Dale ALFREDO IMG CT PROCEDURES Final Resu lt * CT [...] Signed Date: 10/14/2024 16:21 ET Workstation ID: [id number] Transcribed By: Self Edit Transcribed Date: 10/14/2024 [...] Signed Date: 10/14/2024 16:21 ET Workstation ID: [id number] Transcribed By: Self Edit Transcribed Date: 10/14/2024 16:15 ET us Dale GUADALUPEG CT PROCEDURES Final Resu lt * CT [...] Signed Date: 10/14/2024 16:15 ET Workstation ID: [id number] Transcribed By: Self Edit Transcribed Date: 10/14/2024 [...] Signed Date: 10/14/2024 16:15 ET Workstation ID: [id number] Transcribed By: Self Edit Transcribed Date: 10/14/2024 16:09 ET Dale ALFREDO IMG CT PROCEDURES Final Resu lt * (ABNORMAL) Ammonia (10/14/2024 3:26 PM EST) [facility] Ammonia 103(H) 11 - 35 mcmol/L LAB CHEMISTRY METHOD 10/14/2024 4:[address] [facility] Comment:Hemolysis present Blood Venous blood specimen / Unknown Venipuncture / Unknown 10/14/2024 3:26 PM EST 10/14/2024 3:38 PM EST Dale ALFREDO LAB BLOOD ORDERABLES Final R esult [facility] [address] [place] [address], [place] [phone] * CBC auto differential (10/14/2024 3:26 PM EST) [facility] WBC 6.0 4.8 - 10.8 K/mcL LAB HEMETOLOGY METHOD 10/14/2024 3:[address] [facility] RBC 4.30 3.80 - 4.80 M/mcL LAB HEMETOLOGY METHOD 10/14/2024 3:[address] [facility] Hemoglobin 13.9 11.5 - 16.0 g/dL LAB HEMETOLOGY METHOD 10/14/2024 3:[address] [facility] Hematocrit 41.5 35.0 - 47.0 % LAB HEMETOLOGY METHOD 10/14/2024 3:54 PM [facility] MCV 95.6 79.0 - 98.0 FL LAB HEMETOLOGY METHOD 10/14/2024 3:[address] [facility] MCH 32.0 27.0 - 32.0 pcg LAB HEMETOLOGY METHOD 10/14/2024 3:54 PM [facility] MCHC 33.5 32.0 - 37.0 g/dL LAB HEMETOLOGY METHOD 10/14/2024 3:54 PM [facility] RDW 14.7 11.0 - 15.0 % LAB HEMETOLOGY METHOD 10/14/2024 3:54 PM [facility] Platelets 156 130 - 400 K/mcL LAB HEMETOLOGY METHOD 10/14/2024 3:54 PM [facility] MPV 10.5 7.0 - 11.0 FL LAB HEMETOLOGY METHOD 10/14/2024 3:54 PM [facility] NRBC 0.0 <1.0 % LAB HEMETOLOGY METHOD 10/14/2024 3:54 PM [facility] NRBC Absolute 0.00 <0.10 K/mcL LAB HEMETOLOGY METHOD 10/14/2024 3:54 PM [facility] Neutrophils Relative 35.6 % LAB HEMETOLOGY METHOD 10/14/2024 3:54 PM [facility] Lymphocytes Relative 41.9 % LAB HEMETOLOGY METHOD 10/14/2024 3:54 PM [facility] Monocytes Relative 15.2 % LAB HEMETOLOGY METHOD 10/14/2024 3:54 PM [facility] Eosinophils Relative 5.7 % LAB HEMETOLOGY METHOD 10/14/2024 3:54 PM [facility] Basophils Relative 1.3 % LAB HEMETOLOGY METHOD 10/14/2024 3:54 PM [facility] Immature Granulocytes Relative 0.3 % LAB HEMETOLOGY METHOD 10/14/2024 3:54 PM [facility] Neutrophils Absolute 2.13 1.50 - 7.00 K/mcL LAB HEMETOLOGY METHOD 10/14/2024 3:[address] [facility] Lymphocytes Absolute 2.51 1.00 - 5.00 K/mcL LAB HEMETOLOGY METHOD 10/14/2024 3:[address] [facility] Monocytes Absolute 0.91 0.20 - 1.00 K/[facility] LAB HEMETOLOGY METHOD 10/14/2024 3:[address] [facility] Eosinophils Absolute 0.34 0.00 - 0.50 K/[facility] HEMETOLOGY METHOD 10/14/2024 3:[address] [facility] Basophils Absolute 0.08 0.00 - 0.20 K/[facility] HEMETOLOGY METHOD 10/14/2024 3:54 PM [facility] Immature Granulocytes Absolute 0.02 0.00 - 0.03 K/[facility] HEMETOLOGY METHOD 10/14/2024 3:54 PM [facility] Blood Venous blood specimen / Unknown Venipuncture / Unknown 10/14/2024 3:26 PM EST 10/14/2024 3:38 PM EST us Sourav Russ MD LAB BLOOD ORDERABLES Final Resu lt [facility] [address] [place] [address], * (ABNORMAL) Basic metabolic panel (10/14/2024 3:26 PM EST) Sodium 134 133 - 145 mmol/L LAB CHEMISTRY METHOD 10/14/2024 4:[address] [facility] Potassium 3.8 3.5 - 5.5 mmol/L LAB CHEMISTRY METHOD 10/14/2024 4:17 PM [facility] Chloride 102 96 - 110 mmol/L LAB CHEMISTRY METHOD 10/14/2024 4:[address] [facility] CO2 26 21 - 32 mmol/L LAB CHEMISTRY METHOD 10/14/2024 4:17 PM [facility] Anion Gap 6 3 - 11 LAB CHEMISTRY METHOD 10/14/2024 4:17 PM [facility] Glucose 162(H) 70 - 100 mg/dL LAB CHEMISTRY METHOD 10/14/2024 4:17 PM [facility] BUN 9 5 - 25 mg/dL LAB CHEMISTRY METHOD 10/14/2024 4:17 PM [facility] Creatinine 0.86 0.50 - 1.10 mg/dL LAB CHEMISTRY METHOD 10/14/2024 4:17 PM [facility] eGFR 65 >=60 mL/min/1. 73m2 LAB CHEMISTRY METHOD 10/14/2024 4:17 PM [facility] Comment:Calculation based on the??Chronic Kidney Disease Epidemiology Collaboration (CKD-EPI) equation refit??without adjustment for race. BUN/Creatinine Ratio 10.5 LAB CHEMISTRY METHOD 10/14/2024 4:17 PM [facility] Calcium 9.2 8.5 - 10.5 mg/dL LAB CHEMISTRY METHOD 10/14/2024 4:17 PM [facility] Blood Venous blood specimen / Unknown Venipuncture / Unknown 10/14/2024 3:26 PM EST 10/14/2024 3:38 PM EST us Sourav Russ MD LAB BLOOD ORDERABLES Final Resu lt [facility] [address] [place] [address], [place] [phone] documented in this encounter Visit Diagnoses Diagnosis Gait instability- Primary Abnormality of gait Encephalopathy, unspecified type Head injury with loss of consciousness (CMS/HCC) Closed fracture of orbital floor, unspecified laterality, initial encounter (CMS/HCC) Right orbital fracture (CMS/HCC) Postconcussive syndrome Postconcussion syndrome Hepatic encephalopathy (CMS/HCC) Hepatic encephalopathy documented in this encounter Admitting Diagnoses Diagnosis Gait instability Abnormality of gait documented in this encounter Administered Medications Inactive Administered Medications - up to 3 most recent administrations Medication Order MAR Action Action Date Dose Rate Site acetaminophen (TYLENOL) tablet 1,000 mg 1,000 mg, oral, Every 12 hours, First dose on Sun10/14/24 at 1640 Given 10/14/2024 4:42 PM EST 1,000 mg acetaminophen (TYLENOL) tablet 650 mg 650 mg, oral, Every 8 hours PRN, mild pain, fever - temperature GREATER than 38 C (100.4 F), headaches, Starting on Sun10/14/24 at 2300, Scheduled medication for mild pain atorvastatin (LIPITOR) tablet 40 mg 40 mg, oral, Daily, First dose on Sun10/14/24 at 204 Given 10/16/2024 9:05 AM EST 40 mg Given 10/15/2024 9:32 AM EST 40 mg Given 10/14/2024 8:52 PM EST 40 mg cyanocobalamin (VITAMIN B-12) tablet 1,000 mcg 1,000 mcg, oral, Every morning, First dose on Sun10/15/24 at 0700 Given 10/15/2024 6:14 AM EST 1,000 mcg dextrose (D50W) 50% injection 12.5 g 12.5 g, intravenous, Every 15 min PRN, low blood sugar, moderate hypoglycemia *Patient is Unconscious, NPO, unable to swallow: BG 54 - 69 mg/dl*, Starting on Sun10/14/24 at 2018 dextrose (D50W) 50% injection 25 g 25 g, intravenous, Every 15 min PRN, low blood sugar, severe hypoglycemia *Patient is Unconscious, NPO, unable to swallow: BG LESS than 54 mg/dL*, Starting on Sun10/14/24 at 2019 dextrose 15 gram/60 mL oral solution 15 g 15 g, oral, Every 15 min PRN, low blood sugar, hypoglycemia *Patient conscious AND able to drink and swallow safely*, Starting on Sun10/14/24 at 2018 dextrose 15 gram/60 mL oral solution 30 g 30 g, oral, Every 15 min PRN, low blood sugar, hypoglycemia *Patient conscious AND able to drink and swallow safely*, Starting on Sun10/14/24 at 2018 gabapentin (NEURONTIN) capsule 100 mg 100 mg, oral, Nightly, First dose on Sun10/14/24 at 2100 Given 10/14/2024 8:52 PM EST 100 mg Glucagon HCl (rDNA) injection 1 mg 1 mg, intramuscular, Once as needed, low blood sugar, severe hypoglycemia, Starting on Sun10/14/24 at 2019, For 1 dose insulin lispro injection 1-6 Units 1-6 Units, subcutaneous, 3 times daily before meals, First dose on Sun10/15/24 at 0730, Indication: Total Daily Dose (TDD) LESS than 40 units Correction Scale: Low Dose Administer with meal and/or mealtime dose of insulin to correct high blood glucose If mealtime insulin dose not given (e.g. patient NPO or not eating), still administer correction factor for high blood glucose lactated Ringer's infusion 100 mL/hr, intravenous, Continuous, Starting on Sun10/15/24 at 1430, For 10 hours New Bag 10/15/2024 2:47 PM EST 100 mL/hr 100 mL/hr lactulose (CHRONULAC) solution 20 g 20 g, oral, Once, On Sun10/14/24 at 1711, For 1 dose Given 10/14/2024 5:16 PM EST 20 g lactulose (CHRONULAC) solution 20 g 20 g, oral, 3 times daily, First dose on Sun10/14/24 at 2100 Given 10/16/2024 2:55 PM EST 20 g Given 10/16/2024 9:05 AM EST 20 g Given 10/15/2024 2:51 PM EST 20 g levothyroxine (SYNTHROID, LEVOTHROID) tablet 50 mcg 50 mcg, oral, Every morning before breakfast, First dose on Sun10/15/24 at 0700, ORAL ROUTE: take on an empty stomach and separate from other medications. ENTERAL TUBE ROUTE: If newly initiated enteral nutrition duration is over 5 days, hold enteral nutrition 1 hour before and after drug administration, per ASPEN guidelines. Given 10/15/2024 6:12 AM EST 50 mcg lidocaine-EPINEPHrine (XYLOCAINE W/EPI) 1 %-1:100,000 injection 10 mL 10 mL, infiltration, Once, On Sun10/14/24 at 1644, For 1 dose Given 10/14/2024 4:50 PM EST 10 mL losartan (COZAAR) tablet 25 mg 25 mg, oral, Daily, First dose on Sun10/15/24 at 0900 Given 10/16/2024 9:05 AM EST 25 mg Given 10/15/2024 9:32 AM EST 25 mg morphine 2 mg/mL injection 1 mg 1 mg, intravenous, Every 4 hours PRN, moderate pain, Starting on Sun10/14/24 at 2115 morphine 2 mg/mL injection 2 mg 2 mg, intravenous, Every 4 hours PRN, severe pain, Starting on Sun10/14/24 at 2115 Given 10/15/2024 5:32 AM EST 2 mg pantoprazole (PROTONIX) EC tablet 40 mg 40 mg, oral, Every morning before breakfast, First dose on Sun10/15/24 at 0700, Do not crush, chew, or split. Given 10/15/2024 6:13 AM EST 40 mg pantoprazole (PROTONIX) injection 40 mg 40 mg, intravenous, Administer over 2 Minutes, Every 12 hours scheduled, First dose on Sun10/15/24 at 1145, Pantroprazole - IV push: Reconstitute powder for injection with 10 mL NS; final concentration: 4 mg/mL., Indication for IV Push Pantoprazole? Other, Indication for use? GI bleed Given 10/16/2024 9:05 AM EST 40 mg Given 10/15/2024 8:55 PM EST 40 mg Given 10/15/2024 11:50 AM EST 40 mg R ight Forearm promethazine (PHENERGAN) tablet 12.5 mg 12.5 mg, oral, Every 6 hours PRN, nausea, vomiting, Starting on Sun10/14/24 at 2230 Given 10/15/2024 6:12 AM EST 12 .5 mg thiamine (VITAMIN B-1) tablet 100 mg 100 mg, oral, Every morning, First dose on Sun10/15/24 at 0700 Given 10/15/2024 6:12 AM EST 100 mg traMADoL (ULTRAM) tablet 100 mg 100 mg, oral, Nightly, First dose on Sun10/14/24 at 2100, For 10 days, Max of 300 mg daily for patients greater than 75 years of age. Given 10/14/2024 8:51 PM EST 100 mg documented in this encounter Discontinued Medications Medication Sig Discontinue Reason Start Date End Da te fluticasone propionate (FLONASE) 50 mcg/actuation nasal spray Administer 1 spray into each nostril 1 (one) time each day. Entered in Error 10/14/2024 Trelegy Ellipta 200-62.5-25 mcg inhaler Inhale 1 puff (200 mcg total) by mouth 1 (one) time each day. Entered in Error 01/30/2024 10/14/2024 pantoprazole (PROTONIX) 40 mg EC tablet Take 1 tablet (40 mg total) by mouth 1 (one) time each day before breakfast. NOON 10/16/2024 aspirin 81 mg EC tablet Take 1 tablet (81 mg total) by mouth 1 (one) time each day. Stop Taking at Discharge 07/17/2024 10/16/2024 olmesartan (BENICAR) 5 mg tablet Take 1 tablet (5 mg total) by mouth 1 (one) time each day in the morning. Stop Taking at Discharge 09/23/2024 10/16/2024 traMADoL (ULTRAM) 50 mg tablet Take 2 tablets (100 mg total) by mouth at bedtime. Stop Taking at Discharge 09/26/2024 10/16/2024 documented as of this encounter Historical Medications * This list may reflect changes made after this encounter. thiamine 100 mg tablet Take 1 tablet (100 mg total) by mouth 1 (one) time each day in the morning. 09/19/2024 metFORMIN (GLUCOPHAGE) 500 mg tablet Take 0.5 tablets (250 mg total) by mouth 2 (two) times a day with meals. NOON + EVENING 01/02/2024 loratadine (CLARITIN) 10 mg tablet Take 1 tablet (10 mg total) by mouth 1 (one) time each day. NOON levothyroxine (SYNTHROID, LEVOTHROID) 50 mcg tablet Take 1 tablet (50 mcg total) by mouth 1 (one) time each day before breakfast. 10/13/2024 gabapentin (NEURONTIN) 100 mg capsule Take 1 capsule (100 mg total) by mouth at bedtime. 05/20/2024 cyanocobalamin (VITAMIN B-12) 1,000 mcg tablet Take 1 tablet (1,000 mcg total) by mouth 1 (one) time each day in the morning. 12/18/2023 cholecalciferol (VITAMIN D3) 1,250 mcg (50,000 unit) tablet Take 1 tablet (50,000 Units total) by mouth 1 (one) time per week. 09/29/2024 5 atorvastatin (LIPITOR) 40 mg tablet Take 1 tablet (40 mg total) by mouth 1 (one) time each day. traMADoL (ULTRAM) 50 mg tablet Take 2 tablets (100 mg total) by mouth at bedtime. 09/26/2024 5 pantoprazole (PROTONIX) 40 mg EC tablet Take 1 tablet (40 mg total) by mouth 1 (one) time each day before breakfast. NOON 5 olmesartan (BENICAR) 5 mg tablet Take 1 tablet (5 mg total) by mouth 1 (one) time each day in the morning. 09/23/2024 5 Trelegy Ellipta 200-62.5-25 mcg inhaler Inhale 1 puff (200 mcg total) by mouth 1 (one) time each day. 01/30/2024 5 fluticasone propionate (FLONASE) 50 mcg/actuation nasal spray Administer 1 spray into each nostril 1 (one) time each day. 5 aspirin 81 mg EC tablet Take 1 tablet (81 mg total) by mouth 1 (one) time each day. 07/17/2024 5 added in this encounter Active and Recently Administered Medications Times are shown in EST. Scheduled Medication Order 10/14/2024 10/15/2024 10/16/2024 acetaminophen (TYLENOL) tablet 1,000 mg (CANCELED) 1,000 mg, oral, Every 12 hours, First dose on Sun10/14/24 at 1640 1642 (Given - Provider: Juan Leyva RN) atorvastatin (LIPITOR) tablet 40 mg 40 mg, oral, Daily, First dose on Sun10/14/24 at 2045 2052 (Given - Provider: Niels Pollock RN) 0932 (Given - Provider: Pam Bar RN) 0905 (Given - Provider: Galina Magallanes RN) cyanocobalamin (VITAMIN B-12) tablet 1,000 mcg 1,000 mcg, oral, Every morning, First dose on Sun10/15/24 at 0700 0614 (Given - Provider: Niels Pollock RN) 0602 (Not Given - Provider: Ebony Cerda RN - Reason: NPO) gabapentin (NEURONTIN) capsule 100 mg 100 mg, oral, Nightly, First dose on Sun10/14/24 at 2100 2051 (Given - Provider: Niels Pollock RN) 2044 (Not Given - Provider: Ebony Cerda, FITZ - Reason: NPO) insulin lispro injection 1-6 Units 1-6 Units, subcutaneous, 3 times daily before meals, First dose on Sun10/15/24 at 0730, Indication: Total Daily Dose (TDD) LESS than 40 units Correction Scale: Low Dose Administer with meal and/or mealtime dose of insulin to correct high blood glucose If mealtime insulin dose not given (e.g. patient NPO or not eating), still administer correction factor for high blood glucose 0827 (Not Given - Provider: Pam Bar RN - Reason: Order parameters not met - Comment: POC 141)1119 (Not Given - Provider: Pam Bar RN - Reason: Order parameters not met - Comment: POC 137)1634 (Not Given - Provider: Pam Bar RN - Reason: Order parameters not met - Comment: POC 126) 0821 (Not Given - Provider: Galina Magallanes RN - Reason: Order parameters not met)1114 (Not Given - Provider: Galina Magallanes RN - Reason: Order parameters not met)1631 (Not Given - Provider: Galina Magallanes RN - Reason: Patient/Resident/Age nt refused - education provided - Comment: pt refused poc. tried x2) lactulose (CHRONULAC) solution 20 g (COMPLETED) 20 g, oral, Once, On Sun10/14/24 at 1711, For 1 dose 1716 (Given - Provider: Juan Leyva RN) lactulose (CHRONULAC) solution 20 g 20 g, oral, 3 times daily, First dose on Sun10/14/24 at 2100 2051 (Given - Provider: Niels Pollock RN) 0932 (Given - Provider: Pam Bar RN)1451 (Given - Provider: Pam Bar RN)2045 (Not Given - Provider: Ebony Cerda RN - Reason: NPO) 0905 (Given - Provider: Galina Magallanes, FITZ)1455 (Given - Provider: Galina Magallanes RN) levothyroxine (SYNTHROID, LEVOTHROID) tablet 50 mcg 50 mcg, oral, Every morning before breakfast, First dose on Sun10/15/24 at 0700, ORAL ROUTE: take on an empty stomach and separate from other medications. ENTERAL TUBE ROUTE: If newly initiated enteral nutrition duration is over 5 days, hold enteral nutrition 1 hour before and after drug administration, per ASPEN guidelines. 0612 (Given - Provider: Niels Pollock RN) 0602 (Not Given - Provider: Ebony Cerda RN - Reason: NPO) lidocaine-EPINEPHrine (XYLOCAINE W/EPI) 1 %-1:100,000 injection 10 mL (COMPLETED) 10 mL, infiltration, Once, On Sun10/14/24 at 1644, For 1 dose 1650 (Given - Provider: Juan Leyva RN) losartan (COZAAR) tablet 25 mg 25 mg, oral, Daily, First dose on Sun10/15/24 at 0900 0932 (Given - Provider: Pam Bar RN) 0905 (Given - Provider: Galina Magallanes RN) pantoprazole (PROTONIX) EC tablet 40 mg 40 mg, oral, Every morning before breakfast, First dose on Sun10/15/24 at 0700, Do not crush, chew, or split. 0613 (Given - Provider: Niels Pollock RN)1127 (Held by provider - Provider: Marcos Dawson MD - Reason: Other) 0700 (Not Given - Provider: Ebony Cerda RN - Reason: NPO - Comment: auto held by provider)1345 (Unheld by provider - Provider: Marcos Dawson MD) pantoprazole (PROTONIX) injection 40 mg (CANCELED) 40 mg, intravenous, Administer over 2 Minutes, Every 12 hours scheduled, First dose on Sun10/15/24 at 1145, Pantroprazole - IV push: Reconstitute powder for injection with 10 mL NS; final concentration: 4 mg/mL., Indication for IV Push Pantoprazole? Other, Indication for use? GI bleed 1150 (Given - Provider: Pam Bar, RN)2054 (Given - Provider: Ebony Cerda, FITZ) 09 (Given - Provider: Galina Magallanes, FITZ) thiamine (VITAMIN B-1) tablet 100 mg 100 mg, oral, Every morning, First dose on Sun10/15/24 at 0700 0612 (Given - Provider: Niels Pollock, FITZ) 06 (Not Given - Provider: Ebony Cerda RN - Reason: NPO) traMADoL (ULTRAM) tablet 100 mg (CANCELED) 100 mg, oral, Nightly, First dose on Sun10/14/24 at 2100, For 10 days, Max of 300 mg daily for patients greater than 75 years of age. 2050 (Given - Provider: Niels Pollock RN) Continuous Medication Order 10/14/2024 10/15/2024 10/16/2024 lactated Ringer's infusion (CANCELED) 100 mL/hr, intravenous, Continuous, Starting on Sun10/15/24 at 1430, For 10 hours 1447 (New Bag - Provider: Pam Bar RN) 1114 (Stopped - Provider: Galina Magallanes, RN) PRN Medication Order 10/14/2024 10/15/2024 10/16/2024 acetaminophen (TYLENOL) tablet 650 mg 650 mg, oral, Every 8 hours PRN, mild pain, fever - temperature GREATER than 38 C (100.4 F), headaches, Starting on Sun10/14/24 at 2300, Scheduled medication for mild pain dextrose (D50W) 50% injection 12.5 g 12.5 g, intravenous, Every 15 min PRN, low blood sugar, moderate hypoglycemia *Patient is Unconscious, NPO, unable to swallow: BG 54 - 69 mg/dl*, Starting on Sun10/14/24 at 2018 dextrose (D50W) 50% injection 25 g 25 g, intravenous, Every 15 min PRN, low blood sugar, severe hypoglycemia *Patient is Unconscious, NPO, unable to swallow: BG LESS than 54 mg/dL*, Starting on Sun10/14/24 at 2018 dextrose 15 gram/60 mL oral solution 15 g 15 g, oral, Every 15 min PRN, low blood sugar, hypoglycemia *Patient conscious AND able to drink and swallow safely*, Starting on Sun10/14/24 at 2019 dextrose 15 gram/60 mL oral solution 30 g 30 g, oral, Every 15 min PRN, low blood sugar, hypoglycemia *Patient conscious AND able to drink and swallow safely*, Starting on Sun10/14/24 at 2019 Glucagon HCl (rDNA) injection 1 mg 1 mg, intramuscular, Once as needed, low blood sugar, severe hypoglycemia, Starting on Sun10/14/24 at 2019, For 1 dose morphine 2 mg/mL injection 1 mg(Linked Group 1) 1 mg, intravenous, Every 4 hours PRN, moderate pain, Starting on Sun10/14/24 at 2115 0532 (See Alternative - Provider: Niels Pollock RN) morphine 2 mg/mL injection 2 mg(Linked Group 1) 2 mg, intravenous, Every 4 hours PRN, severe pain, Starting on Sun10/14/24 at 2115 0532 (Given - Provider: Abhijeet Pollock RN) naloxone (NARCAN) injection 0.04 mg 0.04 mg, intravenous, As needed, opioid reversal, IV Push every 1 min for 10 doses, Starting on Sun10/14/24 at 1725, For 10 doses, To Dilute: -Use 0.4 mg/mL vial , withdraw 1 mL and add 9 mL NS -FOLLOWING DILUTION, dose of 0.04 mg = 1 mL For PARTIAL Opioid Reversal: -For respiratory rate LESS than 10 or [place] Opioid-induced Sedation Scale (POSS) equal to 4 -May be repeated at 1 minute intervals to restore adequate respirations -Administer up to 10 doses (0.4 mg) promethazine (PHENERGAN) tablet 12.5 mg 12.5 mg, oral, Every 6 hours PRN, nausea, vomiting, Starting on Sun10/14/24 at 2230 0612 (Given - Provider: Abhijeet Pollock RN) Linked Groups Order Group 1: morphine 2 mg/mL injection 1 mgJump to med 1 mg, intravenous, Every 4 hours PRN, moderate pain, Starting on Sun10/14/24 at 2115 Or morphine 2 mg/mL injection 2 mgJump to med 2 mg, intravenous, Every 4 hours PRN, severe pain, Starting on Sun10/14/24 at 2115 documented in this encounter Orders Medications Ordered That Rizwan ht Not Have Been Administered Count Last Ordered Date First Ordered Date acetaminophen (TYLENOL) tablet 1,000 mg 1 0 10/14/2024 acetaminophen (TYLENOL) tablet 650 mg 1 07/2025 dextrose (D50W) 50% injection 12.5 g 1 10/04 dextrose (D50W) 50% injection 25 g 1 2024 dextrose 15 gram/60 mL oral solution 15 g 1 10/14/2024 dextrose 15 gram/60 mL oral solution 30 g 1 10/14/2024 Glucagon HCl (rDNA) injection 1 mg 1 2024 ibuprofen (ADVIL,MOTRIN) tablet 400 mg 1 insulin lispro injection 1-6 Units 1 2024 metFORMIN (GLUCOPHAGE) tablet 250 mg 1 10/04 morphine 2 mg/mL injection 1 mg 1 morphine 2 mg/mL injection 2 mg 1 morphine injection 4 mg 1 10/14/2024 naloxone (NARCAN) injection 0.04 mg 1 10/14 ondansetron (PF) (ZOFRAN) injection 4 mg 1 10/14/2024 Lab Orders Without Results Count Last Ordered D ate First Ordered Date POCT GLUCOSE, BLOOD 8 10/16/2024 10/14/19 25 Consult Count Last Ordered Date First Orde red Date IP CONSULT TO NUTRITION SERVICES 1 10/16/19 25 POST ACUTE HOME HEALTH CARE REQUEST 2 10/1610/15/2024 Admission Count Last Ordered Date First Orde red Date INITIATE OBSERVATION STATUS 1 10/14/2024 Transfer Count Last Ordered Date First Orde red Date ED TO FLOOR BED REQUEST 1 10/14/2024 Discharge Count Last Ordered Date First Orde red Date DISCHARGE PATIENT 1 10/16/2024 documented in this encounter Care Teams Pmo Consultant Relationship Specialty Start Date End Date Elvin Freedman NP [address] [facility] [place] PCP - General 06/22/08 documented as of this encounter
--- OUTSIDE RECORDS SUMMARY | 2024-11-03 14:32 | XMS_ITS | Encounter Summary ---
Author Organization [employer] Address [address] [place] [address] Care Team Providers Care Nanosystems Engineer Name Role Phone Name, Francisco NAVA Primary Care Provider [phone] Reason for Visit * Reason Onset Date Comments Appointment Request 10/07/2024 Encounter Details Date Type Department Care Team (Late st Contact Info) Description 10/07/2024 Telephone [facility] MEDICINE [address] [place], [place] [phone] Name, MD Francisco [address] [place], [place] [phone] Appointment Request Social History Tobacco Use Types Packs/Day [...] the past 12 months, has t he [employer], gas, oil or water [employer] threatened to shut off services in your [...] Telephone Encounter - Kym Lisa RN - 10/07/2024 2:42 PM EST TC to granddaughter EuniceBEN RV appt rescheduled for 10/16/24 @ 11:30am. * Telephone Encounter - Erik Bernal - 10/07/2024 9:27 AM EST TC from pt Granddaughter requesting to r/s Appt for 10/10 due to not being able to be present during that time. Granddaughter is requesting to see if its possible to get a later time that day. Contact pt Granddaughter at [phone] documented in this encounter Plan of Treatment Upcoming Encounters Date Type Department Care Team ([facility] st Contact Info) Description 11/14/2024 10:15 AM EDT Procedure Visit [facility] MED & PEDS [address] [place] [address] Nicki Alvarado MD [address] [place] [address] 12/29/2024 11:00 AM EDT Office Visit [facility] MEDICINE [address] [place] [address] Name, MD Francisco [address] [place] [id number] documented as of this encounter Visit Diagnoses Not on filedocumented in this encounter Additional Health Concerns Assessment Noted Time PHQ-9 Depression Total Score: 0 01/02/20 24 11:09 AM EDT documented as of this encounter Care Teams Nanosystems Engineer Relationship Specialty Start Date End Date Name, MD Francisco [address] [place] [id number] PCP - General Family Medicine 05/16/17 documented as of this encounter
--- OUTSIDE RECORDS SUMMARY | 2024-11-03 14:32 | XMS_ITS | Encounter Summary ---
Author Organization [employer] Address [address] [place] [address] Care Team Providers Care Lacquer Maker Name Role Phone Name, Francisco NAVA Primary Care Provider [phone] Reason for Visit * Reason Comments Med Refill Encounter Details Date Type Department Care Team (Late st Contact Info) Description 10/12/[address] [facility] MEDICINE [address] [place], [place] [phone] Name, MD Francisco [address] [place], [place] [phone] Hypothyroidism, unspecified type Social History Tobacco Use Types [...] the past 12 months, has t he [employer], gas, oil or water company threatened to [...] 10:15 AM EDT Procedure Visit [facility] MED & PEDS [address] [place], [place] [phone] Nicki Alvarado MD [address] [place] [address] 12/29/2024 11:00 AM EDT Office Visit [facility] MEDICINE [address] [place] [address] Francisco Murillo MD [address] [place] [address] documented as of this encounter Visit Diagnoses Diagnosis Hypothyroidism, unspecified type documented in this encounter Additional Health Concerns Assessment Noted Time PHQ-9 Depression Total Score: 0 01/02/20 24 11:09 AM EDT documented as of this encounter Care Teams Lacquer Maker Relationship Specialty Start Date End Date Francisco Murillo MD [address] [place] [address] PCP - General Family Medicine 05/16/17 documented as of this encounter
--- OUTSIDE RECORDS SUMMARY | 2024-11-03 14:32 | XMS_ITS | Encounter Summary ---
Author Organization [employer] Address [address] [facility] [address] [place] [address] Care Team Providers Care Paper Reel Operator Name Role Phone Name, Francisco NAVA Primary Care Provider [phone] Reason for Visit * Reason Onset Date Comments call back 01/25/2023 Encounter Details Date Type Department Care Team (Late st Contact Info) Description 01/25/2023 Telephone [facility] MEDICINE [address] [place], [place] [phone] Name, MD Francisco [address] [place], [place] [phone] call back Social History Tobacco Use Types [...] kind of flavor. Please contact radha at [phone] ext [phone] documented in this encounter Plan of Treatment Upcoming Encounters Date Type Department Care Team (Late st Contact Info) Description 11/14/2024 10:15 AM EDT Procedure Visit [facility] MED & PEDS [address] [place] [address] Nicki Alvarado MD [address] [place] [address] 12/29/2024 11:00 AM EDT Office Visit [facility] MEDICINE [address] [place] [address] NameFrancisco MD [address] [place] [address] documented as of this encounter Visit Diagnoses Not on filedocumented in this encounter Additional Health Concerns Assessment Noted Time PHQ-9 Depression Total Score: 0 12/21/19 23 11:04 AM EDT documented as of this encounter Care Teams Paper Reel Operator Relationship Specialty Start Date End Date Name, MD Francisco [address] [place] [id number] PCP - General Family Medicine 05/16/17 documented as of this encounter
--- OUTSIDE RECORDS SUMMARY | 2024-11-03 14:32 | XMS_ITS | Encounter Summary ---
Author Organization [employer] Address [address] [place] [address] Care Team Providers Care Product Development Manager Name Role Phone Name, Francisco NAVA Primary Care Provider Reason for Visit * Reason Onset Date Comments Durable Medical Equipment 10/27/2024 Encounter Details Date Type Department Care Team (Late st Contact Info) Description 10/27/2024 Telephone [facility] MEDICINE [address] [place], [place] [phone] Name, MD Francisco [address] [place], [place] [phone] Durable Medical Equipment Social History Tobacco Use Types Packs/Day Years [...] the past 12 months, has t he [employer], gas, oil or water [employer] threatened to shut off services in your [...] * Telephone Encounter - Vera Gupta - 10/31/2024 8:15 AM EST RX for Wipes signed and faxed to Jessica . Confirmation received and sent to scan. If patient calls to check status on above, please advise them to contact Jessica at [phone]. * Telephone Encounter - Vera Gupta - 10/27/2024 2:22 PM EST After School Teacher called pt grandchild/Eunice and lvm with status as well as L&C and Jessica ph# to call for updates. After School Teacher also provided info noted below: Boost (Vanilla) - Faxed to [facility], order in progress. Gloves, underpads and pull ups - Faxed to [facility] 10/13. Called Jessica today s/w [place] who stated fax was not received. Refaxed DME form for gloves, underpads and briefs 10/27/24. Wipes - DME Rx generated today. Placed on pcp desk for signature. * Telephone Encounter - Daisy Jr - 10/27/2024 11:18 AM EST Tc from granddaughter Eunice requesting DME Boost (Vanilla) Gloves size large Wipes Pull ups size Large documented in this encounter Plan of Treatment Upcoming Encounters Date Type Department Care Team (Late st Contact Info) Description 11/14/2024 10:15 AM EDT Procedure Visit [facility] MED & PEDS [address] [place], [place] [phone] Nicki Alvarado MD [address] [place] [address] 12/29/2024 11:00 AM EDT Office Visit [facility] MEDICINE [address] [place] [address] Name, MD Francisco [address] [place] [address] documented as of this encounter Visit Diagnoses Not on filedocumented in this encounter Additional Health Concerns Assessment Noted Time PHQ-9 Depression Total Score: 0 01/02/20 11:09 AM EDT documented as of this encounter Care Teams Product Development Manager Relationship Specialty Start Date End Date Name, MD Francisco [address] [place] [address] PCP - General Family Medicine 05/16/17 documented as of this encounter
--- OUTSIDE RECORDS SUMMARY | 2024-11-03 14:32 | XMS_ITS | Encounter Summary ---
Author Organization [employer] Address [address] [facility] [address] [place] [address] Care Team Providers Care Test Fixture Assembler Name Role Phone Name, Francisco NAVA Primary Care Provider [phone] Encounter Details Date Type Department Care Team (Late Contact Info) Description 02/13/2023 Abstract [facility] MEDICINE [address] [place], [place] [phone] Name, MD Francisco [address] [place] [address] Social History Tobacco Use Types Packs/Day Years [...] Description 11/14/2024 10:15 AM EDT Procedure Visit [facility] MED & PEDS [address] [place], [place] [phone] Nicki Alvarado MD [address] [place] [address] 12/29/2024 11:00 AM EDT Office Visit [facility] MEDICINE [address] [place] [address] Name, MD Francisco [address] [place] [address] documented as of this encounter Visit Diagnoses Not on filedocumented in this encounter Additional Health Concerns Assessment Noted Time PHQ-9 Depression Total Score: 0 12/21/19 23 11:04 AM EDT documented as of this encounter Care Teams Test Fixture Assembler Relationship Specialty Start Date End Date NameFrancisco MD [address] [place] [id number] PCP - General Family Medicine 05/16/17 documented as of this encounter
--- OUTSIDE RECORDS SUMMARY | 2024-11-03 14:32 | XMS_ITS | Clinical Summary ---
Author Organization [employer] Address [address] [facility] 7t [place] [address] Care Team Providers Care Wrapper Selector Name Role Phone Name, Francisco NAVA Primary Care Provider [phone] Allergies Active Allergy Reactions Criticality Noted Date [...] and with evening meal. 30 tablet 11 024 2024 Active Trelegy Ellipta 200-62.5-25 MCG/ACT aerosol powder INHALE 1 PUFF BY MOUTH EVERY MORNING 60 each Active glucose blood (FREESTYLE LITE) test strip TEST BLOOD SUGAR ONCE DAILY 50 strip 11 Active atorvastatin (Lipitor) 40 MG tablet TAKE 1 TABLET BY MOUTH EVERYDAY AT NOON 90 tablet 3 024 Active pantoprazole (ProtoNix) 40 MG EC tablet TAKE 1 TABLET BY MOUTH EVERYDAY AT NOON 90 tablet 3 024 Active loratadine (Claritin) 10 MG tabletIndicatio ns:Asthma, unspecified asthma severity, unspecified whether complicated, unspecified whether persistent TAKE 1 TABLET BY MOUTH EVERYDAY AT NOON 30 tablet 5 024 Active gabapentin (Neurontin) 100 MG capsuleIndicati ons:Chronic low back pain, unspecified back pain laterality, unspecified whether sciatica present TAKE 1 CAPSULE BY MOUTH EVERY EVENING 90 capsule 1 Active Ca Phosphate-Paula calciferol (Calcium 500 + D3) 250-12.5 MG-MCG chewable tablet Chew. Active cholecalciferol (Vitamin D3) 1.25 MG (18421 UT) tabletIndicatio ns:Vitamin D deficiency Take 1 tablet (50,000 Units) by mouth 1 (one) time per week. Please write the instructions in Maori also. Make sure she knows is once a week for 2 months only 4 tablet 1 025 2024 Active levothyroxine (Synthroid, Levoxyl) 50 MCG tabletIndicatio ns:Hypothyroidi sm, unspecified type TAKE 1 TABLET BY MOUTH EVERY MORNING BEFORE MEALS 30 tablet 5 025 Active traMADol (Ultram) 50 MG tabletIndicatio ns:Rib pain on right side Take 1 tablet (50 mg) by mouth every 12 (twelve) hours if needed for severe pain for up to 14 days. 10 tablet 025 2024 Active Blood Pressure kitIndications: Primary hypertension Use as directed 1 kit 025 Active levothyroxine (Synthroid, Levoxyl) 50 MCG tabletIndicatio ns:Hypothyroidi sm, unspecified type TAKE 1 TABLET BY MOUTH EVERY MORNING BEFORE BREAKFAST 30 tablet 5 024 2024 Discontinued Aspirin Low Dose 81 MG EC tablet TAKE 1 TABLET BY MOUTH EVERYDAY AT NOON 90 tablet 024 2024 Discontinued(M ed list cleanup (will not trigger notification to Pharmacy)) olmesartan (BENIcar) 5 MG tabletIndicatio ns:Hypertension , unspecified type TAKE 1 TABLET BY MOUTH EVERY MORNING 90 tablet 3 025 2024 Discontinued(M ed list cleanup (will not trigger notification to Pharmacy)) traMADol (Ultram) 50 MG tabletIndicatio ns:Lumbago with sciatica, left side Take 1 tablet (50 mg) by mouth every 12 (twelve) hours if needed for severe pain for up to 28 days. 56 tablet 025 2024 Discontinued(M ed list cleanup (will not trigger notification to Pharmacy)) Active [...] Overview (03/15/2023): Remote history cholecystectomy ERCP at [facility] 2018 Common bile duct calculus 09/26/2017 Postherpetic neuralgia 08/23/201709/26 Epigastric pain 08/23/2017 10/17/2023 Dizziness 08/23/2017 10/17/2023 Dyspnea on exertion 07/05/2017 10/17/19 24 Encounters Date Type Department Care Team Description 11/03/2024 Telephone [facility] [address] [place] [address] Francisco Murillo MD [employer] (Boost, vanilla tetra brik 8oz (/)) 10/27/2024 Telephone [facility] [place] [address] Francisco Murillo MD Durable Medical Equipment 10/24/2024 1:30 PM EST Office Visit [facility] [place] [address] Mull[place], Gab[place], [facility] Orbital fracture, closed, initial encounter (CMS/HCC) (Primary Dx); Rib pain on right side; Primary hypertension; Chronic liver disease; Encounter for removal of sutures 10/24/2024 Travel 10/24/[address] [address] Lamar Prescott MD 10/22/[address] [address] Francisco Murillo MD Lab Orders 10/21/[address] [address] Francisco Murillo MD Call Back Request 10/17/[address] [address] Francisco Murillo MD 10/17/2024 Patient Outreach [facility] [address] [place], [place] [phone] Francisco Murillo MD Transition Of Care (Tcm) (HDF unscheduled. ) 10/17/[address] [address] Francisco Murillo MD Hospital Follow-up 10/15/[address] [address] Kym Lisa, FITZ Error (VOID this visit) 10/15/[address] [address] Kym Lisa, RN Recommend ENGINEERING LABORATORY TECHNICIAN Tele Tier 2 10/12/2024 Refill [facility] [address] [place] [address] Francisco Murillo MD Hypothyroidism, unspecified type 10/07/2024 Telephone [facility] [address] [place] [address] Francisco Murillo MD Appointment Request 10/06/2024 Telephone [facility] [address] [place] [address] Francisco Murillo MD Durable Medical Equipment (boost) 09/29/2024 Telephone [facility] [address] [place] [address] Francisco Murillo MD Durable Medical Equipment 09/29/2024 Orders Only [facility] [address] [place] [address] Francisco Murillo MD Vitamin D deficiency (Primary Dx) 09/26/2024 11:00 AM EST Office Visit [facility] [address] [place] [address] Francisco Murillo MD Type 2 diabetes mellitus without complication, without long-term current use of insulin ([facility]) (Primary Dx); Acquired hypothyroidism; Age related osteoporosis, unspecified pathological fracture presence; Osteoarthritis of left knee, unspecified osteoarthritis type; Encounter for immunization 09/26/2024 Travel 09/25/2024 Refill [facility] [address] [place] [address] Francisco Murillo MD Lumbago with sciatica, left side 09/23/2024 Refill [facility] [address] [place] [address] Francisco Murillo MD Hypertension, unspecified type 09/21/2024 Refill [facility] [address] [place] [address] Francisco Murillo MD Chronic low back pain, unspecified back pain laterality, unspecified whether sciatica present; Hypertension, unspecified type 08/25/2024 Refill [facility] [address] [place] [address] Francisco Murillo MD Lumbago with sciatica, left side 08/25/2024 Refill [facility] [address] [place] [address] Annetta Holland NP Lumbago with sciatica, left side 08/06/2024 Telephone [facility] [address] [place] [address] Beverley Xiao MA DME Jessica from Last 3 Months Immunizations Name Administration [...] Mass Index 24.69 10/24/2024 1:34 PM EST Plan of Treatment Upcoming Encounters Date Type Department Care Team (Late st Contact Info) Description 11/14/2024 10:15 AM EDT Procedure Visit [facility] [address] [facility] [place] [address] Nicki Alvarado MD [address] [place] [address] 12/29/2024 11:00 AM EDT Office Visit [facility] [address] [place] [address] Name, MD Francisco [address] [place] [address] Health Maintenance Due Date Last Done Comments Hepatitis A Vaccines (1 of 2 - Risk 2-dose series) 1955 Hepatitis B Vaccines (1 of 3 - Risk 3-dose series) 1996 RSV Patients and Patients Aged 60 years [...] Urine Protein Screening 08/04/2025 08/04/2024 Tobacco Screening 10/26/2025 10/26/2024 DTaP/Tdap/Td Vaccines (3 - Td or Tdap) [...] PM EST Encounter for removal of sutures XR KNEE 4+ VIEWS LEFT Routine 09/26/2024 1:04 PM EST Osteoarthritis of left knee, unspecified osteoarthritis type XR KNEE 4+ VIEWS RIGHT Routine 09/26/2024 1:04 PM EST Osteoarthritis of left knee, unspecified osteoarthritis type VITAMIN D,25-OH,TOTAL,IA Routine 09/26/2024 12:25 PM EST Age related osteoporosis, unspecified pathological fracture presence TSH W/REFLEX TO FT4 Routine 09/26/2024 12:25 PM EST Acquired hypothyroidism POCT GLYCATED HEMOGLOBIN, TOTAL Routine 09/26/2024 11:32 [...] Recently Relevant to Health Maintenance Results * Suture Removal (10/24/2024 3:11 PM EST) Lou Guidry FNP - 10/24/2024 3:11 PM EST MEREDITH Hendricks ? 10/27/2024 ??4:09 PM Suture Removal Date/Time: 10/24/2024 3:11 PM Performed by: MEREDITH Hendricks Authorized by: MEREDITH Hendricks ?? Consent: ??Consent obtained: ??Written ??Consent given by: ??Patient ??Risks, benefits, and alternatives were discussed: yes ?Risks discussed: ??Bleeding, pain and wound separation ??Alternatives discussed: ??Referral Orma protocol: ??Procedure explained and questions answered to [...] ??Antibiotic ointment applied ??Procedure completion: ??Tolerated Result [facility] Lou HARPER IN CLINIC/BEDSIDE ORDERABLES Final Result * XR Knee 4+ Views Right (09/26/2024 1:04 PM EST) Anatomical Region Laterality Modality Lower Extremities, Knee Right [facility] 09/26/2024 1:04 PM EST Narrative 09/26/2024 2:18 PM EST ? [facility] ?[address] ?[place] [address] ?XRay Report ? Signed ? Patient: Daniel,Emily ?MR#: [id number] ?? [id number] ? : 1935 ?Acct:[id number] ? Age/Sex: 89 / F ?ADM Date: /24/25 ? Loc: HO.HHCL ? Attending Dr: Francisco Murillo MD ? Ordering Physician: Lidia,Francisco NAVA ?? Date of Service: 09/26/24 ?? Procedure(s): XR knee RT 4V ?? Accession Number(s): [id number] ? cc: Name,Francisco NAVA ? EXAMINATION: ??XR [...] DD/ 1304 ? TD/TT: 09/26/24 1332 ? Surveyor Geophysical Prospecting: ? Procedure Note Alberto Longoria - 09/26/2024 [place] [address] XRay Report Signed Patient: Ольга Sanchez [facility]#: [id number] : 6Acct:[id number] Age/Sex: 89 / FADM Date: 09/26/24 Loc: HO.HHCL Attending Dr: Francisco Murillo MD Ordering Physician: Francisco Murillo MD Date of Service: 09/26/24 Procedure(s): XR knee RT 4V Accession Number(s): [id number] cc: Francisco Murillo MD EXAMINATION: XR KNEE [...] 09/26/2024 02:15 PM EST RP Dictated By: Nando Giron MD Signed By: <Electronically signed by Nnado Giron MD in OV> 09/26/24 1415 DD/ 1304 TD/TT: 09/26/24 1332 Surveyor [employer]ophysical Prospecting: us Francisco Name IMG XR PROCEDURES Final Result * XR Knee 4+ Views Left (09/26/2024 1:04 PM EST) Anatomical Region Laterality Modality Lower Extremities, Knee Left Radiogra phic Imaging 09/26/2024 1:04 PM EST Narrative 09/26/2024 2:19 PM EST ? [facility] ?[address] ?[place] [address] ?XRay Report ? Signed ? Patient: Ольга Sanchez ?MR#: [id number] ?? [id number] ? : 1935 ?Acct:[id number] ? Age/Sex: 89 / F ?ADM Date: 09/26/24 ? Loc: HO.HHCL ? Attending Dr: Francisco Murillo MD ? Ordering Physician: Name,Francisco NAVA ?? Date of Service: 09/26/24 ?? Procedure(s): XR knee LT 4V ?? Accession Number(s): [id number] ? cc: Francisco Murilol MD ? EXAMINATION: ??XR KNEE 4 OR [...] DD/ 1304 ? TD/TT: 09/26/24 1332 ? Surveyor [employer]: ? Procedure Note Dondeniseter, Image - 09/26/[address] [address] XRay Report Signed Patient: Ольга Sanchez SMR#: [id number] : 6Acct:[id number] Age/Sex: 89 / FADM Date: 09/26/24 Loc: .HHCL Attending Dr: Francisco Murillo MD Ordering Physician: Francisco Murillo MD Date of Service: 09/26/24 Procedure(s): XR knee LT 4V Accession Number(s): [id number] cc: Francisco Murillo MD EXAMINATION: XR KNEE [...] Nando Giron MD 09/26/2024 02:16 PM EST Dictated By: Nando Giron MD Signed By: <Electronically signed by Nando Giron MD in OV> 09/26/24 1416 DD/ 1304 TD/TT: 09/26/24 1332 [employer]or [employer]ing: Francisco Murillo MD IMG XR PROCEDURES Final Result * (ABNORMAL) Vitamin D, 25-Hydroxy, Total, Immunoassay (09/26/2024 12:25 PM EST) Vitamin D 25-OH Total 6.9(L) >30 ng/mL [facility] Comment:Health Based Referen ce Values*< 20 ng/mL Fdxsvyyns86-56 ng/mL Insufficient> 30 ng/mL Sufficient*Maryam PLEITEZ. N Engl J Med. 2007;357:266-280Care must be taken in interpreting Vitamin D results fromdifferent laboratories and methodologies. Published datademonstrated that results from patients undergoinghemodialysis may show a negative bias when tested withvarious automated 25-OH vitamin D assays when compared toLC-MS/MS.When testing samples from patients whose predominant form ofVitamin D is Vitamin D2, such as patients receiving VitaminD2 supplementation, results that are subtherapeutic shouldbe confirmed with another method such as LC-MS/MS. Blood Venous blood specimen / Unknown 09/26/2024 12:25 PM EST 09/26/2024 4:10 PM EST us Francisco Murillo MD LAB BLOOD ORDERABLES Final Resul t Performing Organization Address [facility] Co de Phone Number [facility] [address] [place] [phone] * TSH W/Reflex to FT4 (09/26/2024 12:25 PM EST) Pathologist [facility] TSH reflex Free T4 1.27 0.32 - 4.0 uIU/mL [facility] Blood Venous blood specimen / Unknown 09/26/2024 12:25 PM EST 09/26/2024 4:10 PM EST us Francisco Murillo MD LAB BLOOD ORDERABLES Final Resul t Performing Organization Address [facility] Co de Phone Number [facility] [address] [place] [phone] * (ABNORMAL) POCT HGB A1C (09/26/2024 11:32 AM EST) Hemoglobin A1C 6.3(A) 4.0 - 6.0 % QC Media Lot # [id number] Lot# Expiration Date 71,626 Blood 09/26/2024 11:3 2 AM EST us Francisco Murillo MD POINT OF CARE TEST ENTER/EDIT OR DERABLES Final Result * POCT Glucose (09/26/2024 11:32 AM EST) Glucose Blood, POC 196 60 - 200 mg/dL QC Media Lot # [id number] Lot# Expiration Date 53,025 Blood Capillary blood specimen / Unknown 09/26/2024 11:32 AM EST us Francisco Murillo MD POINT OF CARE TEST ENTER/EDIT OR DERABLES Final Result * Albumin, Random Urine W/Creatinine (08/04/2024 1:00 PM EST) Creatinine, Urine 127.97 mg/dL [facility] Microalbumin Urine 8.0 mg/L [facility] Microalbum Creatinine Ratio Ur 6.2 <30 ug/mg cr [facility] Comment:Albumin/Creatinine R atio Reference Ranges: Normal: < 30 ug/mg creatinine Microalbuminuria: 30 - 300 ug/mg creatinineClinical Albuminuria: > 300 ug/mg creatinine Urine (Urine, Random) 08/04/2024 1:00 PM EST 08/04/2024 4:25 PM EST Result Karrie Murillo MD LAB URINE ORDERABLES Final Resul t [facility] [address] [place] [phone] * Lipid Panel, Standard (07/25/2024 12:05 PM EST) Triglycerides 59 <150 mg/dL [facility] Comment:Desirable Triglyceri de: less than 150 mg/dLBorderline High Triglyceride 150-199 mg/dLHigh Triglyceride: 200-499 mg/dLVery High Triglyceride: greater than or equal to 5OO mg/dL Cholesterol 115 <200 mg/dL [facility] Comment:Desirable Cholestero l: less than 200 mg/dLBorderline High Cholesterol: 200-239 mg/dLHigh Cholesterol: greater than 239 mg/dL LDL Cholesterol Calculated 57 <100 mg/dL [facility] Comment:Desirable LDL: less than 100 mg/dLNear Optimal/Above Optimal LDL: 110- 129 mg/dLBorderline High LDL: 130-159 mg/dLHigh LDL: 160-189 mg/dLVery High LDL: greater than or equal to 190 mg/dL HDL Cholesterol 47 >40 mg/dL [facility] Comment:Desirable HDL: great er than 40 mg/dL Note: This HDL assay may give artificially low results in patients with liver disease. Blood Venous blood specimen / Unknown 07/25/2024 12:05 PM EST 07/25/2024 1:07 PM EST us Francisco Murillo MD LAB BLOOD ORDERABLES Final Resul t [facility] [address] [place] [phone] * Diabetes Eye Exam (01/18/2023) [facility] Signature Eye Exam Normal Normal us Francisco Murillo MD HEALTH MAINTENANCE Final Result from Last 3 Months or Most Recently Relevant to Health Maintenance Insurance [facility] Care Teams Wrapper Selector Relationship Specialty Start Date End Date Name, MD Francisco [address] [place] [phone] PCP - General Family Medicine 05/16/17
--- OUTSIDE RECORDS SUMMARY | 2024-11-03 14:32 | XMS_ITS | Patient Health Record ---
Author Organization [employer] Address [address] [place] [phone] Care Team Providers Care Music Industry Intern Name Role Phone NICK OWENS MD Primary Care Provider Nando Hernandez [phone] REASON FOR REFERRAL No Information SOCIAL HISTORY Sex Assigned At : Social History Observation Description Sex Assigned At Unknown PLAN OF TREATMENT No Information Insurance Providers Payer Name Payer Address Payer Phone Subscriber Number Group Number Insured Name Patient Relationship to Insured Coverage Start Date Coverage End Date [facility] [address] [place] [address] [id number] EMILE ZAVALA Self - patient is the insured
--- OUTSIDE RECORDS SUMMARY | 2024-11-03 14:32 | XMS_ITS | Encounter Summary ---
Author Organization [employer] Address [address] [facility] 7t [place] [address] Care Team Providers Care Assistant Corporate Secretary Name Role Phone Name, Francisco NAVA Primary Care Provider [phone] Reason for Visit * Reason Onset Date Comments [employer] 11/03/2024 B osuzanne guillen brik 8oz () Encounter Details Date Type Department Care Team (Late st Contact Info) Description 11/03/2024 Telephone [facility] [address] [place], [place] [phone] Name, MD Francisco [address] [place], [place] [phone] [employer] (Boost, suzanne james brik 8oz ()) Social History Tobacco Use Types Packs/Day Years [...] encounter Miscellaneous Notes * Telephone Encounter - Loly Dutta [place] - 11/03/2024 2:09 PM EST Received medical necessity for Boost, vanilla tetra brik 8oz (27/cs). Form has been filled out and placed on PCP desk for signature. documented in this encounter Plan of Treatment Upcoming Encounters Date Type Department Care Team (Late st Contact Info) Description 11/14/2024 10:15 AM EDT Procedure Visit [facility] & PEDS [address] [place] [address] Nicki Alvarado MD [address] [place] [address] 12/29/2024 11:00 AM EDT Office Visit [facility] MED[facility] [address] [place], [place] [phone] Name, MD Francisco [address] [place] [address] documented as of this encounter Visit Diagnoses Not on filedocumented in this encounter Additional Health Concerns Assessment Noted Time PHQ-9 Depression Total Score: 0 01/02/20 24 11:09 AM EDT documented as of this encounter Care Teams Assistant Corporate Secretary Relationship Specialty Start Date End Date Name, MD Francisco [address] [place] [address] PCP - General Family Medicine 05/16/17 documented as of this encounter
--- OUTSIDE RECORDS SUMMARY | 2024-11-03 14:32 | XMS_ITS | Encounter Summary ---
Author Organization [employer] Address [address] [facility] [address] [place] [address] Care Team Providers Care Vegetable Washing Machine Operator Name Role Phone Name, Francisco NAVA Primary Care Provider [phone] Reason for Visit * Reason Onset Date Comments Hospital Follow-up 10/17/2024 Encounter Details Date Type Department Care Team (Late st Contact Info) Description 10/17/2024 Telephone [facility] [address] [place], [place] [phone] Name, MD Francisco [address] [place], [place] [phone] Hospital Follow-up Social History Tobacco Use Types Packs/Day [...] the past 12 months, has t he [employer], gas, oil or water [employer] threatened to shut off services in your [...] encounter Miscellaneous Notes * Telephone Encounter - Rosalio Goel - 10/17/2024 10:51 AM EST Tc from pt requesting a HDF appt. Hospital: [facility] Date of admission: 10/14/2024 Discharge date: 10/16/2024 Diagnosed: Concussion and stitches on eyebrow (Right) *Send message to [place] Clinical Care Coordinators documented in this encounter Plan of Treatment Upcoming Encounters Date Type Department Care Team (Late st Contact Info) Description 11/14/2024 10:15 AM EDT Procedure Visit [facility] & [facility]EDS [address] [place] [address] Nicki Alvarado MD [address] [place] [address] 12/29/2024 11:00 AM EDT Office Visit [facility] [address] [place] [address] Name, MD Francisco [address] [place] [address] documented as of this encounter Visit Diagnoses Not on filedocumented in this encounter Additional Health Concerns Assessment Noted Time PHQ-9 Depression Total Score: 0 01/02/20 24 11:09 AM EDT documented as of this encounter Care Teams Vegetable Washing Machine Operator Relationship Specialty Start Date End Date Name, MD Francisco [address] [place] [address] PCP - General Family Medicine 05/16/17 documented as of this encounter
--- OUTSIDE RECORDS SUMMARY | 2024-11-03 14:32 | XMS_ITS | Encounter Summary ---
Author Organization [employer] Address [address] [place] [address] Care Team Providers Care Benefits Clerk Name Role Phone Name, Francisco NAVA Primary Care Provider [phone] Encounter Details Date Type Department Care Team (Latest Contact Info) Description 10/24/2024 Travel Social History Tobacco Use Types Packs/Day [...] Description 11/14/2024 10:15 AM EDT Procedure Visit [facility] PEDS [address] [place] [address] Nicki Alvarado MD [address] [place] [address] 12/29/2024 11:00 AM EDT Office Visit [facility] MEDICINE [address] [place] [address] Name, MD Francisco [address] [place] [address] documented as of this encounter Visit Diagnoses Not on filedocumented in this encounter Additional Health Concerns Assessment Noted Time PHQ-9 Depression Total Score: 0 01/02/20 24 11:09 AM EDT documented as of this encounter Care Teams Benefits Clerk Relationship Specialty Start Date End Date Name, MD Francisco [address] [place] [address] PCP - General Family Medicine 05/16/17 documented as of this encounter
--- OUTSIDE RECORDS SUMMARY | 2024-11-03 14:32 | XMS_ITS | Encounter Summary ---
Author Organization [employer] Address [address] [place] [address] Care Team Providers Care Curriculum Development Coordinator Name Role Phone Name, Francisco NAVA Primary Care Provider [phone] Reason for Visit * Reason Comments Med Refill Encounter Details Date Type Department Care Team (Late st Contact Info) Description 10/24/2024 Refill [facility] MEDICINE [address] [place], [place] [phone] Lamar Prescott MD [address] [place], [place] [phone] Social History Tobacco Use Types Packs/Day Years [...] the past 12 months, has t he [employer], oil or water company threatened to [...] Description 11/14/2024 10:15 AM EDT Procedure Visit [facility] CHC MED & PEDS [address] [place], [place] [phone] Nicki Alvarado MD [address] [place] [address] 12/29/2024 11:00 AM EDT Office Visit [facility] MEDICINE [address] [place] [address] Francisco Murillo MD [address] [place] [address] documented as of this encounter Visit Diagnoses Not on filedocumented in this encounter Additional Health Concerns Assessment Noted Time PHQ-9 Depression Total Score: 0 01/02/20 24 11:09 AM EDT documented as of this encounter Care Teams Curriculum Development Coordinator Relationship Specialty Start Date End Date Francisco Murillo MD [address] [place] [address] PCP - General Family Medicine 05/16/17 documented as of this encounter
--- OUTSIDE RECORDS SUMMARY | 2024-11-03 14:32 | XMS_ITS | Encounter Summary ---
Author Organization [employer] Address [address] [place] [address] Care Team Providers Care Strategic Buyer Name Role Phone Name, Francisco NAVA Primary Care Provider [phone] Reason for Visit * Reason Comments Transition Of Care (Tcm) HDF unscheduled . Encounter Details Date Type Department Care Team ([facility] st Contact Info) Description 10/17/2024 Patient Outreach [facility] MED & PEDS [address] [place], [place] [phone] Name, MD Francisco [address] [place] [address] Transition Of Care (Tcm) (HDF unscheduled. ) Social History Tobacco Use Types Packs/Day Years [...] AM EDT documented as of this encounter Progress Notes * Mary Almanza RN - 10/17/2024 11:06 AM EST TC placed to pt via [facility] assistant food service director (Sam ID#[id number]) to schedule HDF. No answer, LVM to call office back and ask to speak to marydel team nurses. * Ilia Alves RN - 10/17/2024 11:06 AM EST TC placed to patient to book HDF appt. Spoke to patient grand daughter. Patient scheduled for appt on 10/24/24 with [facility]. Patient verbalized understanding and agrees with plan. See pt outreach encounter from 10/17/24. documented in this encounter Miscellaneous Notes * Significant Event - Funmilayo Nima - 10/17/2024 11:12 AM EST 10/17/24 1106 Hospital Discharges and Admission for [facility] Type of Visit Hospital Admission Date of Admission/Visit 10/14/24 Date of Discharge 10/16/24 [facility] Diagnosis Concussion, stitches on eyebrow ( right ) Disposition Discharged Home Follow-Up Actions Follow-Up Needed Provider appointment Follow-Up Outcome Spoke to Caregiver Initial Contact Date 10/17/24 AN Chand placed outbound call to patient for HDF outreach. Patient's name and were confirmed. Patient granddaughter educated on the importance of follow up with provider following inpatient admission. Patient offered an HDF appt. Patient granddaughter stated the appointment given was too far out and patient needed to see provider sooner. Patient was admitted to [facility] due to a fall causing a concussion and needing stitches. Patient would like a sooner appointment. CC offered a different appointment with a different provider, but unfortunately only appointment available its on 10/31. Please assist on finding a sooner appointment for patient. CC will request discharge summary to be scann ed into patient's chart. Contact granddaughter to [phone]. documented in this encounter Plan of Treatment Upcoming Encounters Date Type Department Care Team ([facility] st Contact Info) Description 11/14/2024 10:15 AM EDT Procedure Visit [facility] CHC MED & PEDS [address] [place] [address] Nicki Alvarado MD [address] [place] [address] 12/29/2024 11:00 AM EDT Office Visit [facility] MEDICINE [address] [place] [address] Lidia, MD Francisco [address] [place] [address] documented as of this encounter Visit Diagnoses Not on filedocumented in this encounter Additional Health Concerns Assessment Noted Time PHQ-9 Depression Total Score: 0 01/02/20 24 11:09 AM EDT documented as of this encounter Care Teams Strategic Buyer Relationship Specialty Start Date End Date Name, MD Francisco [address] [place] [address] PCP - General Family Medicine 05/16/17 documented as of this encounter
--- OUTSIDE RECORDS SUMMARY | 2024-11-03 14:32 | XMS_ITS | Encounter Summary ---
Author Organization [employer] Address [address] [facility] 7t [place] [address] Care Team Providers Care Marketing Operations Intern Name Role Phone Name, Francisco NAVA Primary Care Provider [phone] Encounter Details Date Type Department Care Team (Late Contact Info) Description 10/04/2022 Orders Only [facility] MEDICINE [address] [place] [address] Brandy Lindsay LPN Social History Tobacco Use [...] 11/14/2024 10:15 AM EDT Procedure Visit [facility] CHC MED & PEDS [address] [place] [address] Nicki Alvarado MD 505 [place] [address] 12/29/2024 11:00 AM EDT Office Visit [facility] MEDICINE [address] [place] [address] Name, MD Francisco [address] [place] [address] documented as of this encounter Procedures Procedure Name Priority Date/Time Associated Diagnosis Comments US ABDOMEN COMPLETE Routine 11/03/2022 9 :14 AM EST documented in this encounter Results * US Abdomen Complete (11/03/2022 9:14 AM EST) Anatomical Region Laterality Modality Abdomen Ultrasound 11/03/2022 9:14 AM EST Narrative 11/05/2022 11:42 PM EST ? [facility] ?[address] ?[place] [address] ? Ultrasound Report ? Signed ? Patient: Ольга Sanchez ?MR#: [id number] ?? [id number] ? : 1935 ?Acct:[id number] ? Age/Sex: 87 / F ?ADM Date: 11/03/22 ? Loc: HO.US ? Attending Dr: Francisco Murillo MD ? Ordering Physician: Francisco Murillo MD ?? Date of Service: 11/03/22 ?? Procedure(s): US abdomen complete ?? Accession Number(s): [id number] ? cc: Francisco Murillo MD ? EXAMINATION: [...] 11/05/229 ? DD/ 0914 ? TD/TT: ? Accounts Payable Specialist: SS ? Procedure Note Von, Alberto - 11/05/2022 [place] [address] Ultrasound Report Signed Patient: Ольга Sanchez [facility]#: [id number] : 1935Acct:[id number] Age/Sex: 87 / FADM Date: 11/03/22 Loc: HO.US Attending Dr: Francisco Murillo MD Ordering Physician: Francisco Murillo MD Date of Service: 11/03/22 Procedure(s): US abdomen complete Accession Number(s): [id number] cc: Francisco Murillo MD EXAMINATION: US ABDOMEN [...] Perez MD in OV> 11/05/22 2339 DD/ 0914 TD/TT: Accounts Payable Specialist: SS [facility] External Provider IMG US PROCEDURES Edited Result - Final documented in this encounter Visit Diagnoses Not on filedocumented in this encounter Care Teams Marketing Operations Intern Relationship Specialty Start Date End Date Name, MD Francisco [address] [place] [address] PCP - General Family Medicine 05/16/17 documented as of this encounter
== END 2024-11-03 12:22 | disposition home or self-care (01) ==
LOC: HO.XRAY 12:21
PROVIDERS: PCP Internal Medicine Geriatric Medicine; Visit Provider Registered Nurse
DX: R07.81 Pleurodynia (principal)
CPT/HCPCS: 71100

== ENCOUNTER → 2024-11-03 12:27 | Outpatient (BNV) | payer OTHER, SELFPAY | PROVIDERS: PCP Internal Medicine Geriatric Medicine; Visit Provider Radiology Diagnostic Radiology | DX: R07.82 Intercostal pain (principal) | CPT/HCPCS: 71100 ==

== ENCOUNTER → 2024-11-27 11:30 | Outpatient (BNV) | payer OTHER, SELFPAY | PROVIDERS: PCP Internal Medicine Geriatric Medicine; Visit Provider Radiology Diagnostic Radiology | DX: E28.39 Other primary ovarian failure (principal) | CPT/HCPCS: 77080 ==

== ENCOUNTER 2024-11-27 11:38 | Outpatient (REF) | payer OTHER, SELFPAY ==
--- NOTE | ~2024-11-27 | MM_ITS ---
EXAMINATION: DXA BONE DENSITY AXIAL HISTORY: Estrogen deficiency TECHNIQUE: [facility] Dual energy absorptiometry (DEXA) of the lumbar spine, total left hip, and femoral neck was performed. COMPARISON: Comparison is made with the prior examination dated 12/31/2012. FINDINGS: The bone mineral density of the lumbar spine is 0.807 with a T-score of -3.0, and a Z-score of -1.3. This is indicative of osteoporosis. This represents a BMD change of -9.0% compared to the prior exam. This is statistically significant. The bone mineral density of the left total hip is 0.692 with a T-score of -2.5, and a Z-score of -0.2. This is indicative of osteoporosis. This represents a BMD change of -27.7% compared to the prior exam. This is statistically significant. The bone mineral density of the left femoral neck is 0.700 with a T-score of -2.4, and a Z-score of -0.1. This is indicative of osteopenia. This represents a BMD change of -19.7% compared to the prior exam. MM/XR DEXA axial skeleton IMPRESSION: Based on bone mineral density, and according to World Health Organization (WHO) criteria, the diagnosis is consistent with osteoporosis. All bone density values are in grams per centimeter squared (g/cm2). Statistically, 68% of repeat scans fall within 1 SD (+/- 0.010 g/cm2 for AP spine L1-L4) and 1 SD (+/- 0.012 g/cm2 for femur total) FRAX is a trademark of the [employer] [place] [employer] Metabolic Bone Disease, a World Health Organization (WHO) Collaborating Center. Electronically signed by: Nando Giron MD 11/27/2024 01:27 PM EDT
== END 2024-11-27 11:39 | disposition home or self-care (01) ==
LOC: HO.MAMMO 11:38
PROVIDERS: PCP Internal Medicine Geriatric Medicine; Visit Provider Internal Medicine Geriatric Medicine
DX: M81.0 Age-related osteoporosis without current pathological fracture (principal)
CPT/HCPCS: 77080

== ENCOUNTER 2025-01-21 12:00 | Outpatient (REF) | payer OTHER, SELFPAY ==
--- OUTSIDE RECORDS SUMMARY | 2025-01-21 13:04 | XMS_ITS | Encounter Summary ---
Author Organization [employer] Address [address] [place] [address] Care Team Providers Care Motor Mechanic Name Role Phone Name, Francisco NAVA Primary Care Provider [phone] Encounter Details Date Type Department Care Team ([facility] Contact Info) Description 10/17/2024 Telephone [facility] MEDICINE [address] [place], [place] [phone] Name, MD Francisco [address] [place] [address] Social History Tobacco Use Types Packs/Day Years [...] Care Team (Late st Contact Info) Description 01/23/2025 10:15 AM EDT Procedure Visit [facility] CHC MED & PEDS [address] [place] [address] Nicki Alvarado MD [address] [place] [address] 01/27/2025 11:00 AM EDT Telemedicine [facility] MEDICINE [address] [place] [address] 03/02/2025 11:00 AM EDT Office Visit [facility] MEDICINE [address] [place] [address] Francisco Murillo MD [address] [place] [address] documented as of this encounter Visit Diagnoses Not on filedocumented in this encounter Additional Health Concerns Assessment Noted Time PHQ-9 Depression Total Score: 0 01/02/20 24 11:09 AM EDT documented as of this encounter Care Teams Motor Mechanic Relationship Specialty Start Date End Date NameFracnisco MD [address] [place] [address] PCP - General Family Medicine 05/16/17 [facility] 10/18/24 documented as of this encounter
--- OUTSIDE RECORDS SUMMARY | 2025-01-21 13:04 | XMS_ITS | Clinical Summary ---
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 16 g 2 024 Active Trelegy Ellipta 200-62.5-25 MCG/ACT aerosol powder INHALE 1 PUFF BY MOUTH EVERY MORNING 60 each 11 024 Active glucose blood (FREESTYLE LITE) test strip TEST BLOOD SUGAR ONCE DAILY 50 strip 024 Active atorvastatin (Lipitor) 40 MG tablet TAKE 1 TABLET BY MOUTH EVERYDAY AT NOON 90 tablet 3 024 Active pantoprazole (ProtoNix) 40 MG EC tablet TAKE 1 TABLET BY MOUTH EVERYDAY AT NOON 90 tablet 3 024 Active Ca Phosphate-Paula calciferol (Calcium 500 + D3) 250-12.5 MG-MCG chewable tablet Chew. Active levothyroxine (Synthroid, Levoxyl) 50 MCG tabletIndicatio ns:Hypothyroidi sm, unspecified type TAKE 1 TABLET BY MOUTH EVERY MORNING BEFORE MEALS 30 tablet 5 025 Active Blood Pressure kitIndications: Primary hypertension Use as directed 1 kit 025 Active lactulose (Chronulac) 10 GM/15ML solution TAKE 45 ML BY MOUTH THREE TIMES DAILY. HOLD IF 3 BOWEL MOVEMENT (s) IN 1 DAY 946 mL 025 Active loratadine (Claritin) 10 MG tabletIndicatio ns:Asthma, unspecified asthma severity, unspecified whether complicated, unspecified whether persistent TAKE 1 TABLET BY MOUTH EVERYDAY AT NOON 30 tablet 5 025 Active gabapentin (Neurontin) 100 MG capsuleIndicati ons:Chronic low back pain, unspecified back pain laterality, unspecified whether sciatica present TAKE 1 CAPSULE BY MOUTH EVERY EVENING 90 capsule 1 025 Active metFORMIN (Glucophage) 500 MG tablet Take 1 tablet (500 mg) by mouth Once per day for 10 days. 10 tablet 025 Active thiamine (Vitamin B-1) 100 MG tablet TAKE 1 TABLET BY MOUTH EVERYDAY AT NOON 90 tablet 025 Active cyanocobalamin (Vitamin B-12) 1000 MCG tablet TAKE 1 TABLET BY MOUTH EVERYDAY AT NOON 90 tablet 025 Active metFORMIN (Glucophage) 500 MG tablet TAKE 1/2 TABLET BY MOUTH TWICE DAILY AT NOON AND IN THE EVENING WITH MEALS 30 tablet 11 025 Active traMADol (Ultram) 50 MG tabletIndicatio ns:Chronic low back pain, unspecified back pain laterality, unspecified whether sciatica present Take 0.5 tablets (25 mg) by mouth every 12 (twelve) hours. As needed for severe pain 25 tablet Active acetaminophen (Tylenol Extra Strength) 500 MG tablet Take 1 tablet (500 mg) by mouth every 8 (eight) hours if needed for moderate pain. 90 tablet 025 2024 Active aspirin 81 MG chewable tablet Chew 1 tablet (81 mg) every other day. 15 tablet 11 025 2025 Active olmesartan (Benicar) 20 MG tablet Take 1 tablet (20 mg) by mouth Once per day. 30 tablet 11 025 2025 Active metFORMIN (Glucophage) 500 MG tablet Take 0.5 tablets (250 mg) by mouth with breakfast and with evening meal. 30 tablet 11 024 2024 Discontinued olmesartan (BENIcar) 5 MG tabletIndicatio ns:Resistant hypertension Take 1 tablet (5 mg) by mouth Once per day. 30 tablet 3 025 2024 Discontinued(D ose adjustment) traMADol (Ultram) 50 MG tabletIndicatio ns:Chronic low back pain, unspecified back pain laterality, unspecified whether sciatica present Take 0.5 tablets (25 mg) by mouth every 12 (twelve) hours. As needed for severe pain 25 tablet 025 2024 Discontinued(R eorder (will not trigger notification to Pharmacy)) olmesartan (BENIcar) 5 MG tabletIndicatio ns:Hypertension , unspecified type Take 2 tablets (10 mg) by mouth Once per day. 30 tablet 3 025 2024 Discontinued(D ose adjustment) Active Problems Problem Noted Date Diagnosed Date Cirrhosis of liver without ascites 12/29/2024 Cortical visual impairment 01/02/2024 Overview (01/02/2024): CT/CT [...] Overview (03/15/2023): Remote history cholecystectomy ERCP at [facility] 2018 Common bile duct calculus 09/26/2017 Postherpetic neuralgia 08/23/201709/26 Epigastric pain 08/23/2017 10/17/2023 Dizziness 08/23/2017 10/17/2023 Dyspnea on exertion 07/05/2017 10/17/19 Encounters Date Type Department Care Team Description 01/21/2025 Refill [facility] [place] [address] Francisco Murillo MD 01/13/2025 11:00 AM EDT Telemedicine [facility] [place] [address] Federica Gu, FITZ Hypertension, unspecified type 01/13/2025 Telephone [facility] [place] [address] Francisco Murillo MD 01/13/2025 Travel 12/29/2024 11:00 AM EDT Office Visit [facility] [place] [address] Francisco Murillo MD Type 2 diabetes mellitus without complication, without long-term current use of insulin (CMS/HCC) (Primary Dx); Hypertension, unspecified type; Coronary arteriosclerosis; Cortical visual impairment; Cirrhosis of liver without ascites, unspecified hepatic cirrhosis type (CMS/HCC); Chronic low back pain, unspecified back pain laterality, unspecified whether sciatica present 12/29/2024 Travel 12/29/2024 Refill [facility] [place] [address] Francisco Murillo MD Vitamin D deficiency 12/26/2024 Telephone [facility] [place] [address] Francisco Murillo MD CHART PREP 12/24/2024 Refill [facility] [address] [place] [address] Francisco Murillo MD Vitamin D deficiency 12/11/2024 Refill [facility] [place] [address] Francisco Murillo MD 12/02/2024 Telephone [facility] [place] [address] Francisco Murillo MD 12/02/2024 Refill [facility] [address] [place] [address] Francisco Murillo MD Resistant hypertension (Primary Dx) 12/02/2024 Telephone [facility] [address] [place] [address] Francisco Murillo MD FYI 11/28/2024 Refill [facility] [address] [facility] [place] [address] Newcomb, Lou, LENS SHAPER GRINDER Chronic low back pain, unspecified back pain laterality, unspecified whether sciatica present (Primary Dx); Rib pain on right side 11/25/2024 10:15 AM EDT Procedure Visit [facility] [address] [place] [address] Nicki Alvarado MD Chronic pain of left knee (Primary Dx); Type 2 diabetes mellitus without complication, without long-term current use of insulin (CMS/[facility]) 11/25/2024 Travel 11/17/2024 Refill [facility] [address] [place], [place] [phone] Francisco Murillo MD Chronic low back pain, unspecified back pain laterality, unspecified whether sciatica present 11/16/2024 Refill [facility] [address] [place] [address] Francisco Murillo MD Asthma, unspecified asthma severity, unspecified whether complicated, unspecified whether persistent 11/07/2024 Telephone [facility] [address] [place] [address] Francisco Murillo MD Results 11/04/2024 Refill [facility] [address] [place] [address] Francisco Murillo MD 11/03/2024 Telephone [facility] [address] [place] [phone] Francisco Murillo MD [employer] (Boost, vanilla tetra brik 8oz (/)) 10/27/2024 Telephone [facility] [address] [place] [phone] Francisco Murillo MD Durable Medical Equipment 10/24/2024 1:30 PM EST Office Visit [facility] [address] [place] [phone] AnastaciaLou, LENS SHAPER GRINDER Orbital fracture, closed, initial encounter (CMS/[facility]) (Primary Dx); Rib pain on right side; Primary hypertension; Chronic liver disease; Encounter for removal of sutures 10/24/2024 Travel 10/24/2024 Refill [facility] [address] [place] [phone] Lamar Prescott MD from Last 3 Months Immunizations Immunization Administration Dates Next Due Influenza High-dose Quadriva [...] Patient Health Questionnaire-2 Score 0 01/02/2024 Comments No Sex and Gender Information Value Date Recorded Sex Assigned at Female 07/03/2022 10:14 AM EDT Legal Sex Female 10:14 AM EDT Gender Identity Female 07/03/2022 10:14 AM EDT Sexual Orientation Straight 07/03/2022 10 :14 AM EDT Last Filed Vital Signs Vital Sign Reading Time Taken Comments Blood Pressure 160/84 12/29/2024 11:25 AM EDT Pulse 99 12/29/2024 11:25 AM EDT Temperature 35.9 ??C (96.7 ??F) 12/29/2024 11:25 AM E DT Respiratory Rate 20 12/29/2024 11:25 AM EDT Oxygen Saturation 96% 12/29/2024 11:25 AM EDT Inhaled Oxygen Concentration - - Weight 72.7 kg (160 lb 3.2 oz) 12/29/2024 11:25 AM EDT Height 160 cm (5' 3 ) 11/25/2024 10:29 AM EDT Body Mass Index 28.38 11/25/2024 10:29 AM EDT Plan of Treatment Upcoming Encounters Date Type Department Care Team (Late st Contact Info) Description 01/23/2025 10:15 AM EDT Procedure Visit [facility] [address] [place] [address] Nicki Alvarado MD [address] [place] [address] 01/27/2025 11:00 AM EDT Telemedicine [facility] [address] [place] [phone] 03/02/2025 11:00 AM EDT Office Visit [facility] [address] [place] [address] [phone] Name, MD Francisco [address] [place] [address] Health Maintenance Due Date Last Done Comments Alcohol/Substance Use Screening 1947 Hepatitis A Vaccines (1 of 2 - Risk 2-dose series) 1955 Hepatitis B Vaccines (1 of 3 - Risk 3-dose series) 1996 RSV Patients and Patients Aged 60 years or older (1 - 1-dose 75+ series) 2011 Eye Exam 01/19/2024 01/18/2023 COVID-19 Vaccine ( season) 2024 06/29/2022, 08/18/2021, 01/21/2021, Additional history exists Depression Screening 01/01/2025 01/02/2024, 01/02/20 Diabetes: Foot Exam 01/01/2025 01/02/2024, 01/02/2024, 01/02/2024, Additional history exists SDOH Screening 01/01/2025 01/02/2024 Diabetes: Hemoglobin A1C 03/30/202512/29/2 025, 09/26/2024, 01/02/2024, Additional history exists Lipid Panel 07/25/2025 07/25/2024, 05/16/2021 Diabetes: Urine Protein Screening 08/04/2025 08/04/2024 Tobacco Screening 11/25/2025 11/25/2024 DTaP/Tdap/Td Vaccines (3 - Td or Tdap) [...] age to complete this topic Meningococcal B Vaccine Aged Out No l onger eligible based on patient's age to complete [...] Procedure Name Priority Date/Time Associated Diagnosis Comments POCT GLYCATED HEMOGLOBIN, TOTAL Routine 12/29/2024 11:27 AM EDT Type 2 diabetes mellitus without complication, without long-term current use of insulin ([facility]) POCT GLUCOSE Routine 12/29/2024 11:26 AM EDT Type 2 diabetes mellitus without complication, without long-term current use of insulin ([facility]) BD DEXA AXIAL Routine 11/27/2024 11:40 AM EDT Age related osteoporosis, unspecified pathological fracture presence WI ARTHROCENTESIS ASPIR&/INJ MAJOR JT/BURSA W/O US Routine 11/25/2024 11:02 AM EDT Chronic pain of left knee POCT GLUCOSE Routine 11/25/2024 10:33 AM EDT Type 2 diabetes mellitus without complication, without long-term current use of insulin ([facility]) XR RIBS 2 VIEWS RIGHT Routine 11/03/2024 12:27 PM EST Rib pain on right side SUTURE REMOVAL Routine 10/24/2024 3:11 PM EST Encounter for removal of sutures ALBUMIN, RANDOM URINE W/CREATININE Routine 08/04/2024 1:00 PM EST Type 2 diabetes mellitus without complication, without long-term current use of insulin ([facility]) LIPID PANEL, STANDARD Routine 07/25/2024 12:05 PM EST Type 2 diabetes mellitus without complication, without long-term current use of insulin ([facility]) HM DIABETES EYE EXAM Routine 01/18/2023 from Last 3 Months or Most Recently Relevant to Health Maintenance Results * (ABNORMAL) POCT HGB A1C (12/29/2024 11:27 AM EDT) Hemoglobin A1C 7.0(A) 4.0 - 6.0 % QC Media Lot # [id number] Lot# Expiration Date ,026 Blood 12/29/2024 11:2 7 AM EDT us Francisco Murillo MD POINT OF CARE TEST ENTER/EDIT OR DERABLES Final Result * (ABNORMAL) POCT Glucose (12/29/2024 11:26 AM EDT) Only the most recent of2 resultswithin the time period is included. Glucose Blood, POC 242(A) 60 - 200 mg/dL QC Media Lot # [id number] Lot# Expiration Date ,025 Blood Capillary blood specimen / Unknown 12/29/2024 11:26 AM EDT us Francisco Murillo MD POINT OF CARE TEST ENTER/EDIT OR DERABLES Final Result * BD DEXA Axial (11/27/2024 11:40 AM EDT) Anatomical Region Laterality Modality Body Radiographic Brianna ging 11/27/2024 11:4 0 AM EDT Narrative 11/27/2024 1:30 PM EDT ? [facility] ? [address] ?[place] [address] ?[phone] ? Mammography Report ? Signed ? Patient: Daniel,Emily ?MR#: [id number] ?? [id number] ? : 1935 ?Acct:[id number] ? Age/Sex: 89 / F ?ADM Date: 11/27/24 ? Loc: HO.MAMMO ? Attending Dr: Francisco Murillo MD ? Ordering Physician: Lidia,Francisco NAVA ?Results: ? Date of Service: 11/27/24 ?Follow Up: ? Procedure(s): XR DEXA axial skeleton ?? Accession Number(s): [id number] ? cc: Name,Francisco NAVA ? EXAMINATION: ??DXA BONE DENSITY AXIAL ? HISTORY: ??Estrogen deficiency ? TECHNIQUE: SnappyTV Dual energy absorptiometry (DEXA) ?? of the lumbar spine, total left hip, and femoral neck was performed. ? COMPARISON: Comparison is made with the prior examination dated ?? 12/31/2012. ? FINDINGS: ? The bone mineral density of the lumbar spine is 0.807 with a T-score of ?? -3.0, and a Z-score of -1.3. This is indicative of osteoporosis. ? This represents a BMD change of -9.0% compared to the prior exam. ??This ?? is statistically significant. ? The bone mineral density of the left total hip is 0.692 with a T-score ?? of -2.5, and a Z-score of -0.2. This is indicative of osteoporosis. ? This represents a BMD change of -27.7% compared to the prior exam. ? This is statistically significant. ? The bone mineral density of the left femoral neck is 0.700 with a ?? T-score of -2.4, and a Z-score of -0.1. This is indicative of ?? osteopenia. ? This represents a BMD change of -19.7% compared to the prior exam. ? MM/XR DEXA axial skeleton ?? IMPRESSION: ?? Based on bone mineral density, and according to World Health ?? Organization (WHO) criteria, the diagnosis is consistent with ?? osteoporosis. ? All bone density values are in grams per centimeter squared (g/cm2). ?? Statistically, 68% of repeat scans fall within 1 SD (+/- 0.010 g/cm2 ?? for AP spine L1-L4) and 1 SD (+/- 0.012 g/cm2 for femur total) ?? FRAX is a trademark of the [employer]'s ?? [employer] Metabolic Bone Disease, a World Health Organization (WHO) ?? Collaborating Center. ? Electronically signed by: ??Nando Giron MD ??11/27/2024 01:27 PM EDT ? Dictated By: ?Nando Giron MD ? Signed By: ?<Electronically signed by Nando Giron MD in OV> ?11/27/24 1327 ? DD/ 1140 ? TD/TT: 11/27/24 1205 ? Gardening Supervisor: ? Procedure Note Alberto Longoria - 11/27/2024 [facility] [address] [place] [address] Dr. Schulte, [place] [address] Mammography Report Signed Patient: Ольга Sanchez [facility]#: [id number] : 6Acct:[id number] Age/Sex: 89 / FADM Date: 11/27/24 Loc: HO.MAMMO Attending Dr: Francisco Murillo MD Ordering Physician: Francisco Murilloults: Date of Service: 11/27/24Follow Up: Procedure(s): XR DEXA axial skeleton Accession Number(s): [id number] cc: Name,Francisco NAVA EXAMINATION: DXA BONE DENSITY AXIAL HISTORY: Estrogen deficiency TECHNIQUE: SnappyTV Dual energy absorptiometry (DEXA) of the lumbar spine, total left hip, and femoral neck was performed. COMPARISON: Comparison is made with the prior examination dated 12/31/2012. FINDINGS: The bone mineral density of the lumbar spine is 0.807 with a T-score of -3.0, and a Z-score of -1.3. This is indicative of osteoporosis. This represents a BMD change of -9.0% compared to the prior exam. This is statistically significant. The bone mineral density of the left total hip is 0.692 with a T-score of -2.5, and a Z-score of -0.2. This is indicative of osteoporosis. This represents a BMD change of -27.7% compared to the prior exam. This is statistically significant. The bone mineral density of the left femoral neck is 0.700 with a T-score of -2.4, and a Z-score of -0.1. This is indicative of osteopenia. This represents a BMD change of -19.7% compared to the prior exam. MM/XR DEXA axial skeleton IMPRESSION: Based on bone mineral density, and according to World Health Organization (WHO) criteria, the diagnosis is consistent with osteoporosis. All bone density values are in grams per centimeter squared (g/cm2). Statistically, 68% of repeat scans fall within 1 SD (+/- 0.010 g/cm2 for AP spine L1-L4) and 1 SD (+/- 0.012 g/cm2 for femur total) FRAX is a trademark of the [employer]'s [employer] Metabolic Bone Disease, a World Health Organization (WHO) Collaborating Center. Electronically signed by: Nando Giron MD 11/27/2024 01:27 PM EDT Dictated By: Nando Giron MD Signed By: <Electronically signed by Nando Giron MD in OV> 11/27/24 1327 DD/ 1140 TD/TT: 11/27/24 1205 Gardening Supervisor: us Francisco Murillo MD IMG DXA PROCEDURES Final Result * WI ARTHROCENTESIS ASPIR&/INJ MAJOR JT/BURSA W/O US (11/25/2024 11:02 AM EDT) Narrative Nicki Alvarado MD - 11/25/2024 11:02 AM EDT Nicki Alvarado MD ? 11/25/2024 11:09 AM Arthrocentesis Date/Time: 11/25/2024 11:02 AM Performed by: Nicki Alvarado MD Authorized by: Nicki Alvarado MD ?? Consent: ??Consent obtained: ??Verbal ??Consent given by: ??Patient ??Risks, benefits, and alternatives were discussed: yes ?Risks discussed: ??Pain ??Alternatives discussed: ??Referral [place] protocol: ??Procedure explained and questions answered to patient or proxy's satisfaction: yes ?Relevant documents present and verified: yes ?Test results available: yes ?Imaging studies available: yes ?Required blood products, implants, devices, and special equipment available: yes ?Site/side marked: yes ?Immediately prior to procedure, a time out was called: yes ?Patient identity confirmed: ??Verbally with patient Location: ??Location: ??Knee ??Knee: ??L knee Anesthesia: ??Anesthesia method: ??Topical application Procedure details: ??Preparation: Patient was prepped and draped in usual sterile fashion ?Needle gauge: ??22 G ??Ultrasound guidance: no ?Approach: ??Lateral ??Steroid injected: yes ?Specimen collected: no ?? Post-procedure details: ??Procedure completion: ??Tolerated us Nicki Alvarado MD IN CLINIC/BEDSIDE ORDERABLES Fin al Result * XR Ribs 2 Views Right (11/03/2024 12:27 PM EST) Anatomical Region Laterality Modality Rib, Abdomen Right Radiographic Brianna ging 11/03/2024 12:2 7 PM EST Narrative 11/04/2024 10:16 AM EST ? [facility] ?[address] ?[place] [address] ?XRay Report ? Signed ? Patient: Daniel,Emily ?MR#: [id number] ?? [id number] ? : 1935 ?Acct:[id number] ? Age/Sex: 89 / F ?ADM Date: 11/03/24 ? Loc: HO.XRAY ? Attending Dr: Lou Galaviz LENS SHAPER GRINDER ? Ordering Physician: Lou Galaviz LENS SHAPER GRINDER ?? Date of Service: 11/03/24 ?? Procedure(s): XR ribs RT 2V ?? Accession Number(s): [id number] ? cc: Name,Francisco NAVA; Lou Galaviz ? EXAMINATION: ?? XR RIBS, RIGHT ? CLINICAL INFORMATION: ?? 89 y.o F s/p fall, right rib pain ? COMPARISON: ?? September 09, 2017. ? TECHNIQUE: ?? 3 views of the right ribs were obtained. ? FINDINGS: ?? Cortical irregularity/deformity in the anterior lateral aspect of the ?? ribs in the right lower hemithorax probably involving the right eighth, ?? ninth and questionable 10th ribs. ?? Pulmonary reticular pattern no fully included in the [id number]. ?? Vascular clips in the right upper quadrant abdomen. Multilevel ?? thoracolumbar spondylosis. ? XR/XR ribs RT 2V ?? IMPRESSION: ?? Probable old traumatic deformities in the anterior lateral right eighth ?? ninth and questionable 10th ribs. ? Electronically signed by: ??Angel Bueno MD ??11/04/2024 10:12 AM ?? EST RP ? Dictated By: ?Angel Jackson MD ? Signed By: ?<Electronically signed by Angel Quevedo MD in OV> ? 11/04/24 1012 ? DD/ 1227 ? TD/TT: 11/03/24 1246 ? Gardening Supervisor: ? Procedure Note Alberto Longoria - 11/04/[address] [place] [address] XRay Report Signed Patient: Ольга Sanchez [facility]#: [id number] : 6Acct:[id number] Age/Sex: 89 / FADM Date: 11/03/24 Loc: HO.XRRONI Attending Dr: Lou HARPER Ordering Physician: Lou Galaviz Date of Service: 11/03/24 Procedure(s): XR ribs RT 2V Accession Number(s): [id number] cc: Lidia,Francisco NAVA; Lou Galaviz EXAMINATION: XR RIBS, RIGHT CLINICAL INFORMATION: 89 y.o F s/p fall, right rib pain COMPARISON: September 09, 2017. TECHNIQUE: 3 views of the right ribs were obtained. FINDINGS: Cortical irregularity/deformity in the anterior lateral aspect of the ribs in the right lower hemithorax probably involving the right eighth, ninth and questionable 10th ribs. Pulmonary reticular pattern no fully included in the [id number]. Vascular clips in the right upper quadrant abdomen. Multilevel thoracolumbar spondylosis. XR/XR ribs RT 2V IMPRESSION: Probable old traumatic deformities in the anterior lateral right eighth ninth and questionable 10th ribs. Electronically signed by: Angel Bueno MD 11/04/2024 10:12 AM EST Dictated By: Angel Jackson MD Signed By: <Electronically signed by Angel Quevedo MDin OV> 11/04/24 1012 DD/ 1227 TD/TT: 11/03/24 1246 Gardening Supervisor: Lou HARPER IMG XR PROCEDURES Final Resul t * Suture Removal (10/24/2024 3:11 PM EST) Lou Guidry FNP - 10/24/2024 3:11 PM EST MEREDITH Hendricks ? 10/27/2024 ??4:09 PM Suture Removal Date/Time: 10/24/2024 3:11 PM Performed by: MEREDITH Hendricks Authorized by: MEREDITH Hendricks ?? Consent: ??Consent obtained: ??Written ??Consent given by: ??Patient ??Risks, benefits, and alternatives were discussed: yes ?Risks discussed: ??Bleeding, pain and wound separation ??Alternatives discussed: ??Referral [place] protocol: ??Procedure explained and questions answered to [...] ??Post-removal: ??Antibiotic ointment applied ??Procedure completion: ??Tolerated [facility] LENS SHAPER GRINDER IN CLINIC/BEDSIDE ORDERABLES Final Result * Albumin, Random Urine W/Creatinine (08/04/2024 1:00 PM EST) Creatinine, Urine 127.97 mg/dL [facility] Microalbumin Urine 8.0 mg/L [facility] Microalbum Creatinine Ratio Ur 6.2 <30 ug/mg cr [facility] Comment:Albumin/Creatinine R atio Reference Ranges: Normal: < 30 ug/mg creatinine Microalbuminuria: 30 - 300 ug/mg creatinineClinical Albuminuria: > 300 ug/mg creatinine Urine (Urine, Random) 08/04/2024 1:00 PM EST 08/04/2024 4:25 PM EST us Francisco Murillo MD LAB URINE ORDERABLES Final Resul t [facility] [address] [place] [phone] * Lipid Panel, Standard (07/25/2024 12:05 PM EST) Triglycerides 59 <150 mg/dL [facility] Comment:Desirable Triglyceri de: less than [...] 190 mg/dL HDL Cholesterol 47 >40 mg/dL [facility] Comment:Desirable HDL: great er than 40 mg/dL Note: This HDL assay may give artificially low results in patients with liver disease. Blood Venous blood specimen / Unknown 07/25/2024 12:05 PM EST 07/25/2024 1:07 PM EST us Francisco Murillo MD LAB BLOOD ORDERABLES Final Resul t [facility] [address] [place] [phone] * Diabetes Eye Exam (01/18/2023) [facility] Signature Eye Exam Normal Normal us Francisco Murillo MD HEALTH MAINTENANCE Final Result from Last 3 Months or Most Recently Relevant to Health Maintenance Insurance [facility] [employer] (O D-SNP) Care Teams Cook House Laborer Relationship Specialty Start Date End Date Name, MD Francisco [address] [place] [address] [place] [address] PCP - General Family Medicine 05/16/17 [facility] 10/18/24
--- OUTSIDE RECORDS SUMMARY | 2025-01-21 13:04 | XMS_ITS | Clinical Summary ---
Author Organization [facility] Address [address] [place] [address] Phone Care Team Providers Care Drafting Layout Worker Name Role Phone Elvin Freedman NP Primary Care Provider [phone] Allergies Active Allergy Reactions Criticality Noted Date Comments Penicillins Hives,Swelling 10/14/2024 Medications atorvastatin (LIPITOR) 40 mg tablet Take 1 tablet (40 mg total) by mouth 1 (one) time each day. Active cyanocobalamin (VITAMIN B-12) 1,000 mcg tablet Take 1 tablet (1,000 mcg total) by mouth 1 (one) time each day in the morning. 12/18/2023 Active gabapentin (NEURONTIN) 100 mg capsule Take 1 capsule (100 mg total) by mouth at bedtime. 05/20/2024 Active levothyroxine (SYNTHROID, LEVOTHROID) 50 mcg tablet Take 1 tablet (50 mcg total) by mouth 1 (one) time each day before breakfast. 10/13/2024 Active loratadine (CLARITIN) 10 mg tablet Take 1 tablet (10 mg total) by mouth 1 (one) time each day. NOON Active metFORMIN (GLUCOPHAGE) 500 mg tablet Take 0.5 tablets (250 mg total) by mouth 2 (two) times a day with meals. NOON + EVENING 01/02/2024 Active thiamine 100 mg tablet Take 1 tablet (100 mg total) by mouth 1 (one) time each day in the morning. 09/19/2024 Active lactulose (CHRONULAC) solution Take 15 mL (10 g total) by mouth 2 (two) times a day. 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/2024 Right orbital fracture ([facility] V24, [facility] V28 ) 10/14/2024 Postconcussive syndrome 10/14/2024 Resolved Problems Problem Noted Date Diagnosed Date Resolved Date Hepatic encephalopathy ([facility] V24, [facility] V28) 10/14/2024 10/15/2024 Medical History Medical History Date Comments COPD (chronic obstructive pulmonary disease) ( S/[facility] V24, [facility] V28) Diabetes mellitus ([facility] V24, [facility] V28) GERD (gastroesophageal reflux disease) Headache Hypercholesteremia Hypertension Hepatic steatosis Hyperammonemia ([facility] V24) Disease of thyroid gland Family History Medical [...] Annual Retina Eye Exam 1945 RSV Immunization Adult Patients (1 - 1-dose 75+ series) 2011 Medicare [...] Procedure Name Priority Date/Time Associated Diagnosis Comments BASIC METABOLIC PANEL Routine 10/16/2024 6:49 AM EST from Last 3 Months or Most Recently Relevant to Health Maintenance Results * (ABNORMAL) Basic metabolic panel (10/16/2024 6:49 AM EST) Sodium 140 133 - 145 mmol/L LAB CHEMISTRY METHOD 10/16/2024 7:41 AM [facility] Potassium 3.5 3.5 - 5.5 mmol/L LAB CHEMISTRY METHOD 10/16/2024 7:41 AM [facility] Chloride 105 96 - 110 mmol/L LAB CHEMISTRY METHOD 10/16/2024 7:41 AM [facility] CO2 29 21 - 32 mmol/L LAB CHEMISTRY METHOD 10/16/2024 7:41 AM [facility] Anion Gap 6 3 - 11 LAB CHEMISTRY METHOD 10/16/2024 7:41 AM [facility] Glucose 127(H) 70 - 100 mg/dL LAB CHEMISTRY METHOD 10/16/2024 7:41 AM [facility] BUN 16 5 - 25 mg/dL LAB CHEMISTRY METHOD 10/16/2024 7:41 AM [facility] Creatinine 1.08 0.50 - 1.10 mg/dL LAB CHEMISTRY METHOD 10/16/2024 7:41 AM [facility] eGFR 50(L) >=60 mL/min/1. 73m2 LAB CHEMISTRY METHOD 10/16/2024 7:41 AM [facility] Comment:Calculation based on the??Chronic Kidney Disease Epidemiology Collaboration (CKD-EPI) equation refit??without adjustment for race. BUN/Creatinine Ratio 14.8 LAB CHEMISTRY METHOD 10/16/2024 7:41 AM [facility] Calcium 8.9 8.5 - 10.5 mg/dL LAB CHEMISTRY METHOD 10/16/2024 7:41 AM EST [facility]) [facility] Blood Venous blood specimen / Unknown Venipuncture / Unknown 10/16/2024 6:49 AM EST 10/16/2024 7:04 AM EST Marcos Dawson MD LAB BLOOD ORDERABLES Final Re sult [facility] ([facility]) [facility] [address] [place] [address], [place] [phone] from Last 3 Months or Most Recently Relevant to Health Maintenance Insurance MEDICAID - [place] [facility] MEDICARE Member Subscriber Plan / Payer (Ef fective 2017-Present) Name:Ольга Sanchez Relation to Subscriber:Self Name:Ольга Sanchez Payer ID:[id number] Group ID:[id number] Type:Not on file Address: [address] [place] [address] Advance Directives * Full Code - Default [...] currently active code status orders. Care Teams Drafting Layout Worker Relationship Specialty Start Date End Date Elvin Freedman NP [address] [place] [address] NILSON Shen PCP - General 06/22/08
--- OUTSIDE RECORDS SUMMARY | 2025-01-21 13:04 | XMS_ITS | Encounter Summary ---
Author Organization [employer] Address [address] [place] [address] Care Team Providers Care Wood Scaler Name Role Phone Name, Francisco NAVA Primary Care Provider [phone] Reason for Visit * Reason Comments Med Refill Encounter Details Date Type Department Care Team (Late st Contact Info) Description 08/24/[address] [facility] MED & PEDS [address] [place] [address] Name, MD Francisco [address] [place] [address] Social History Tobacco Use Types Packs/Day Years [...] Description 01/23/2025 10:15 AM EDT Procedure Visit [facility] & PEDS [address] [place] [address] Nicki Alvarado MD 505 [place] [address] 01/27/2025 11:[address] [facility] [address] [place] [address] 03/02/2025 11:00 AM EDT Office Visit [facility] [address] [place] [address] Name, MD Francisco [address] [place] [address] documented as of this encounter Visit Diagnoses Not on filedocumented in this encounter Additional Health Concerns Assessment Noted Time PHQ-9 Depression Total Score: 0 12/21/19 23 11:04 AM EDT documented as of this encounter Care Teams Wood Scaler Relationship Specialty Start Date End Date Name, MD Francisco [address] [place] [address] PCP - General Family Medicine 05/16/17 [facility] 10/18/24 documented as of this encounter
--- OUTSIDE RECORDS SUMMARY | 2025-01-21 13:04 | XMS_ITS | Encounter Summary ---
Author Organization [employer] Address [address] 7t [place] [address] Care Team Providers Care Teletypesetter Operator Name Role Phone Name, Francisco NAVA Primary Care Provider [phone] Reason for Visit * Reason Onset Date Comments call back 01/25/2023 Encounter Details Date Type Department Care Team ([facility] st Contact Info) Description 01/25/2023 Telephone [facility] MED[facility]INE [address] [place] [address] [phone] Name, MD Francisco [address] [place] [address] [phone] call back Social History Tobacco Use Types [...] kind of flavor. Please contact radha at [phone] ext [phone] documented in this encounter Plan of Treatment Upcoming Encounters Date Type Department Care Team (Late st Contact Info) Description 01/23/2025 10:15 AM EDT Procedure Visit [facility] MED & PEDS [address] [place] [address] Nicki Alvarado MD 505 [place] [address] 01/27/2025 11:00 AM EDT Telemedicine [facility] [address] [place] [address] 03/02/2025 11:00 AM EDT Office Visit [address] [address] Name, MD Francisco [address] [place] [address] documented as of this encounter Visit Diagnoses Not on filedocumented in this encounter Additional Health Concerns Assessment Noted Time PHQ-9 Depression Total Score: 0 12/21/19 11:04 AM EDT documented as of this encounter Care Teams Teletypesetter Operator Relationship Specialty Start Date End Date NameFrancisco MD [address] [place] [address] PCP - General Family Medicine 05/16/17 [facility] 10/18/24 documented as of this encounter
--- OUTSIDE RECORDS SUMMARY | 2025-01-21 13:04 | XMS_ITS | Encounter Summary ---
Author Organization [employer] Address [address] 7t [place] [address] Care Team Providers Care Director Of Physician Practices Name Role Phone Name, Francisco NAVA Primary Care Provider [phone] Reason for Visit * Reason Comments Med Refill Encounter Details Date Type Department Care Team ([facility] st Contact Info) Description 12/28/2023 Refill [facility] [address] [place] [address] Name, MD Francisco [address] [place] [address] Lumbago with sciatica, left side Social History [...] Description 01/23/2025 10:15 AM EDT Procedure Visit [facility] MED & PEDS [address] [place] [address] Nicki Alvarado MD 505 [place] [address] 01/27/2025 11:00 AM EDT Telemedicine [facility] [address] [place] [address] 03/02/2025 11:00 AM EDT Office Visit [facility] [address] [place] [address] NameFrancisco MD [address] [place] [address] documented as of this encounter Visit Diagnoses Diagnosis Lumbago with sciatica, left side documented in this encounter Additional Health Concerns Assessment Noted Time PHQ-9 Depression Total Score: 0 12/21/19 23 11:04 AM EDT documented as of this encounter Care Teams Director Of Physician Practices Relationship Specialty Start Date End Date NameFrancisco MD [address] [place] [address] PCP - General Family Medicine 05/16/17 [facility] 10/18/24 documented as of this encounter
--- OUTSIDE RECORDS SUMMARY | 2025-01-21 13:04 | XMS_ITS | Encounter Summary ---
Author Organization [employer] Address [address] 7t [place] [address] Care Team Providers Care Judicial Clerk Name Role Phone NameFrancisco MD Primary Care Provider [phone] Reason for Visit * Reason Comments Med Refill Encounter Details Date Type Department Care Team ([facility] st Contact Info) Description 10/04/2022 Refill [facility] [address] [place] [address] Name, MD Francisco [address] [place] [address] Social History Tobacco Use Types Packs/Day Years [...] Description 01/23/2025 10:15 AM EDT Procedure Visit [facility] CH[facility] MED & PEDS [address] [place] [address] Nicki Alvarado MD 505 [place] [address] 01/27/2025 11:00 AM EDT Telemedicine [facility] MEDICINE [address] [place] [address] 03/02/2025 11:00 AM EDT Office Visit [address] [address] Francisco Murillo MD 230 [place] [address] documented as of this encounter Visit Diagnoses Not on filedocumented in this encounter Care Teams Judicial Clerk Relationship Specialty Start Date End Date Francisco Murillo MD [address] [place] [address] PCP - General Family Medicine 05/16/17 [facility] 10/18/24 documented as of this encounter
--- OUTSIDE RECORDS SUMMARY | 2025-01-21 13:04 | XMS_ITS | Encounter Summary ---
Author Organization [employer] Address [address] [facility] 7t [place] [address] Care Team Providers Care Supervisor Metalizing Name Role Phone Name, Francisco NAVA Primary Care Provider [phone] Encounter Details Date Type Department Care Team (Late Contact Info) Description 09/14/2022 Orders Only [facility] MED[facility]INE [address] [place] [phone] Brandy Lindsay LPN Social History Tobacco Use [...] Department Care Team (Late Contact Info) Description 01/23/2025 10:15 AM EDT Procedure Visit [facility] CH[facility] MED & PEDS 505 [place] [address] Nicki Alvarado MD 505 [place] [address] 01/27/2025 11:00 AM EDT Telemedicine [facility] [address] [place] [address] 03/02/2025 11:00 AM EDT Office Visit [address] [address] Name, MD Francisco [address] [place] [address] documented as of this encounter Visit Diagnoses Not on filedocumented in this encounter Care Teams Supervisor Metalizing Relationship Specialty Start Date End Date Name, MD Francisco [address] [place] [address] PCP - General Family Medicine 05/16/17 [facility] 10/18/24 documented as of this encounter
--- OUTSIDE RECORDS SUMMARY | 2025-01-21 13:04 | XMS_ITS | Encounter Summary ---
Author Organization [employer] Address [address] 7t [place] [address] Care Team Providers Care Busperson Name Role Phone Name, Francisco NAVA Primary Care Provider [phone] Reason for Visit * Reason Comments Med Refill Encounter Details Date Type Department Care Team ([facility] st Contact Info) Description 10/24/2024 Refill [facility] MED[facility]INE [address] [place] [address] Lamar Prescott MD 230 [place] [address] Social History Tobacco Use Types Packs/Day Years [...] the past 12 months, has t he [employer] gas, oil or water [employer] threatened to shut off services in your [...] Description 01/23/2025 10:15 AM EDT Procedure Visit [facility] MED & PEDS [address] [place] [address] Nicki Alvarado MD 505 [place] [address] 01/27/2025 11:00 AM EDT Telemedicine [facility] MEDICINE [address] [place] [address] 03/02/2025 11:00 AM EDT Office Visit [facility] MEDICINE [address] [place] [address] Francisco Murillo MD [address] [place] [address] documented as of this encounter Visit Diagnoses Not on filedocumented in this encounter Additional Health Concerns Assessment Noted Time PHQ-9 Depression Total Score: 0 01/02/20 24 11:09 AM EDT documented as of this encounter Care Teams Busperson Relationship Specialty Start Date End Date Francisco Murillo MD [address] [place] [address] [place] [address] PCP - General Family Medicine 05/16/17 [facility] 10/18/24 documented as of this encounter
--- OUTSIDE RECORDS SUMMARY | 2025-01-21 13:04 | XMS_ITS | Encounter Summary ---
Author Organization [employer] Address [address] [facility] 7t [place] [address] Care Team Providers Care Carding Machine Feeder Name Role Phone Name, Francisco NAVA Primary Care Provider [phone] Reason for Visit * Reason Comments Med Refill Encounter Details Date Type Department Care Team ([facility] Contact Info) Description 10/16/2022 Refill [facility] 230 [place] [address] Name, MD Francisco [address] [place] [address] Social History Tobacco Use Types Packs/Day Years [...] Upcoming Encounters Date Type Department Care Team ([facility] Contact Info) Description 01/23/2025 10:15 AM EDT Procedure Visit [facility] MED & PEDS [address] [place] [address] Nicki Alvarado MD 505 [place] [address] 01/27/2025 11:00 AM EDT Telemedicine [address] [address] 03/02/2025 11:00 AM EDT Office Visit [address] [address] Name, MD Francisco [address] [place] [address] documented as of this encounter Visit Diagnoses Not on filedocumented in this encounter Care Teams Carding Machine Feeder Relationship Specialty Start Date End Date Name, MD Francisco [address] [place] [address] PCP - General Family Medicine 05/16/17 [facility] 10/18/24 documented as of this encounter
--- OUTSIDE RECORDS SUMMARY | 2025-01-21 13:04 | XMS_ITS | Encounter Summary ---
Author Organization [employer] Address [address] [facility] [address] 7t [place] [address] Care Team Providers Care Terrazzo Tile Maker Name Role Phone Name, Francisco NAVA Primary Care Provider [phone] Reason for Visit * Reason Onset Date Comments Durable Medical Equipment 08/10/2023 Incont inence Supplies Encounter Details Date Type Department Care Team ([facility] st Contact Info) Description 08/10/2023 Telephone [facility] MEDICINE [address] [place], [place] [phone] Name, MD Francisco [address] [place], [place] [phone] Durable Medical Equipment (Incontinence Supplies) Social History [...] and bed pads to be faxed to [phone] documented in this encounter Plan of Treatment Upcoming Encounters Date Type Department Care Team (Late st Contact Info) Description 01/23/2025 10:15 AM EDT Procedure Visit [facility]ED[facility] 505 [place] [address] Nicki Alvarado MD 505 [place] [address] 01/27/2025 11:00 AM EDT Telemedicine [facility] MEDICINE [address] [place] [address] 03/02/2025 11:00 AM EDT Office Visit [address] [address] Name, [place] [address] documented as of this encounter Visit Diagnoses Not on filedocumented in this encounter Additional Health Concerns Assessment Noted Time PHQ-9 Depression Total Score: 0 12/21/19 11:04 AM EDT documented as of this encounter Care Teams Terrazzo Tile Maker Relationship Specialty Start Date End Date Name, MD Francisco [address] [place] [address] PCP - General Family Medicine 05/16/17 [facility] 10/18/24 documented as of this encounter
--- OUTSIDE RECORDS SUMMARY | 2025-01-21 13:04 | XMS_ITS | Encounter Summary ---
Author Organization [employer] Address [address] 7[address] [place] [address] Care Team Providers Care Assurance Services Manager Health Care Name Role Phone Name, Francisco NAVA Primary Care Provider Reason for Visit * Reason Comments Med Refill Encounter Details Date Type Department Care Team ([facility] st Contact Info) Description 12/24/2024 Refill [facility] 230 [place] [address] Name, MD Francisco [address] [place] [address] Vitamin D deficiency Social History Tobacco Use Types Packs/Day Years [...] the past 12 months, has t he [employer], gas, oil or water company threatened to [...] Description 01/23/2025 10:15 AM EDT Procedure Visit [facility] MED & PEDS 505 [place] [address] Nicki Alvarado MD 505 [place] [address] 01/27/2025 11:00 AM EDT Telemedicine [facility] MED[facility]INE [address] [place] [address] 03/02/2025 11:00 AM EDT Office Visit [facility] [address] [place] [address] Francisco Murillo MD [address] [place] [address] documented as of this encounter Visit Diagnoses Diagnosis Vitamin D deficiency documented in this encounter Additional Health Concerns Assessment Noted Time PHQ-9 Depression Total Score: 0 01/02/20 24 11:09 AM EDT documented as of this encounter Care Teams Assurance Services Manager Health Care Relationship Specialty Start Date End Date Francisco Murillo MD [address] [place] [address], [place] [address] PCP - General Family Medicine 05/16/17 [facility] 10/18/24 documented as of this encounter
--- OUTSIDE RECORDS SUMMARY | 2025-01-21 13:04 | XMS_ITS | Encounter Summary ---
Author Organization [employer] Address [address] [facility] 7t [place] [address] Care Team Providers Care Service Counselor Name Role Phone Name, Francisco NAVA Primary Care Provider [phone] Encounter Details Date Type Department Care Team ([facility] Contact Info) Description 02/13/2023 Abstract [facility] MED[facility]INE 230 [place] [address] Name, MD Francisco [address] [place] [address] Social History Tobacco Use Types Packs/Day Years [...] Upcoming Encounters Date Type Department Care Team ([facility] Contact Info) Description 01/23/2025 10:15 AM EDT Procedure Visit [facility] CH[facility] MED & PEDS 505 [place] [address] Nicki Alvarado MD 505 [place] [address] 01/27/2025 11:00 AM EDT Telemedicine [facility] MEDICINE [address] [place] [address] 03/02/2025 11:00 AM EDT Office Visit [address] [address] Francisco Murillo MD 230 [place] [address] documented as of this encounter Visit Diagnoses Not on filedocumented in this encounter Additional Health Concerns Assessment Noted Time PHQ-9 Depression Total Score: 0 12/21/19 23 11:04 AM EDT documented as of this encounter Care Teams Service Counselor Relationship Specialty Start Date End Date Francisco Murillo MD [address] [place] [address] PCP - General Family Medicine 05/16/17 [facility] 10/18/24 documented as of this encounter
--- OUTSIDE RECORDS SUMMARY | 2025-01-21 13:04 | XMS_ITS | Encounter Summary ---
Author Organization [employer] Address [address] [place] [address] Care Team Providers Care Embedded Hardware Engineer Name Role Phone Name, Francisco NAVA Primary Care Provider [phone] Reason for Visit * Reason Onset Date Comments Hospital Follow-up 10/17/2024 Encounter Details Date Type Department Care Team ([facility] st Contact Info) Description 10/17/2024 Telephone [facility] MEDICINE [address] [place] [address] Name, MD Francisco [address] [place] [address] [phone] Hospital Follow-up Social History Tobacco Use Types [...] from pt requesting a HDF appt. Hospital: [facility] Date of admission: 10/14/2024 Discharge date: 10/16/2024 Diagnosed: Concussion and stitches on eyebrow (Right) *Send message to [place] Clinical Care Coordinators documented in this encounter Plan of Treatment Upcoming Encounters Date Type Department Care Team (Late st Contact Info) Description 01/23/2025 10:15 AM EDT Procedure Visit [facility] MED [facility] [place] [facility] [place] [address] Nicki Alvarado MD 505 [place] [address] 01/27/2025 11:00 AM EDT Telemedicine [facility] MEDICINE 230 [place] [address] 03/02/2025 11:00 AM EDT Office Visit [facility] [address] [place] [address] Name, MD Francisco [address] [place] [address] documented as of this encounter Visit Diagnoses Not on filedocumented in this encounter Additional Health Concerns Assessment Noted Time PHQ-9 Depression Total Score: 0 01/02/20 11:09 AM EDT documented as of this encounter Care Teams Embedded Hardware Engineer Relationship Specialty Start Date End Date Name, MD Francisco 230 [place] [address] PCP - General Family Medicine 05/16/17 [facility] 10/18/24 documented as of this encounter
--- OUTSIDE RECORDS SUMMARY | 2025-01-21 13:04 | XMS_ITS | Encounter Summary ---
Author Organization [employer] Address [address] [facility] [address] [place] [address] Care Team Providers Care Air Reduction Equipment Operator Name Role Phone Name, Francisco NAVA Primary Care Provider [phone] Reason for Visit * Reason Comments Med Refill Encounter Details Date Type Department Care Team ([facility] st Contact Info) Description 01/21/2025 Refill [facility] [address] [place], [place] [phone] Name, MD Francisco [address] [place] [address] Social History Tobacco Use Types Packs/Day Years [...] the past 12 months, has t he [employer], gas, oil or water [employer] threatened to shut off services in your [...] Description 01/23/2025 10:15 AM EDT Procedure Visit [facility] [address] [place] [address] Nicki Alvarado MD 505 [place] [address] 01/27/2025 11:00 AM EDT Telemedicine [facility] [address] [place] [address] 03/02/2025 11:00 AM EDT Office Visit [facility] [address] [place] [address] Francisco Murillo MD [address] [place] [address] documented as of this encounter Visit Diagnoses Not on filedocumented in this encounter Additional Health Concerns Assessment Noted Time PHQ-9 Depression Total Score: 0 01/02/20 24 11:09 AM EDT documented as of this encounter Care Teams Air Reduction Equipment Operator Relationship Specialty Start Date End Date Francisco Murillo MD [address] [place] [address] PCP - General Family Medicine 05/16/17 [facility] 10/18/24 documented as of this encounter
--- OUTSIDE RECORDS SUMMARY | 2025-01-21 13:04 | XMS_ITS ---
Author Organization [facility] Address [address] [place] [phone] Care Team Providers Care Corporate Vp Advertising & Online Name Role Phone NICK OWENS MD Primary Care Provider Nando Hernandez [phone] REASON FOR VISIT New pt no showed Encounters Encounter Location Date Provider Diagnosis [facility] [address] [place] [phone] 10/03/2023 Nando Sparks Plan Of Treatment No Information Progress Notes * EMILE MCCLELLANDDOB:[birth year] (88 yo M)Acc No.[id number]:10/03/2023 Patient:?STAS EMILE :1935???Age:88 Y???Sex:Male Address:[address] [place] [address] * true * Date:? Generated for Lizette pierre/Loretta/eTeversmitting on:?01/21/2025 01:04 PM EDT
--- OUTSIDE RECORDS SUMMARY | 2025-01-21 13:04 | XMS_ITS | Encounter Summary ---
Author Organization [employer] Address [address] [facility] [address] 7[address] [place] [address] Care Team Providers Care Refrigeration Tech Name Role Phone Name, Francisco NAVA Primary Care Provider [phone] Reason for Visit * Reason Onset Date Comments Medication Question 07/17/2023 Encounter Details Date Type Department Care Team ([facility] st Contact Info) Description 07/17/2023 Telephone [facility] MED[facility]INE [address] [place] [phone] Name, MD Francisco [address] [place], [place] [phone] Medication Question Social History Tobacco Use Types Packs/Day Years Used Date Smoking Tobacco: Never Smokeless Tobacco: Never Alcohol Use Standard Drinks/Week Comments Never 0 (1 standard drink = 0.6 oz pur e alcohol) Depression Answer Date Recorded Patient Health Questionnaire-9 Score 0 12/20/2022 Housing Stability Answer Date Recorded What is your housing situation today? I have jaynejeison stevenson 06/19/[address] you [...] 6:03 PM EST Tc from Nav with [employer] requesting a call back in regards questions on medications. Please call Nav [phone] TC was placed to Nav at above number with [employer] (patient's VNA service).Nav stated that he was [...] prescription for rifaximin was sent to the [facility] pharmacy ten days ago. No other questions or concerns at this time. Patient has follow-up visit with Dr. Murillo on 07/30/23. Routing message to Dr. Murillo so he is aware patient may be discharged from VNA services in coming weeks. * Telephone Encounter - Ariadne Johnson - 07/17/2023 11:15 AM EST Tc from Nav with [employer] requesting a call back in regards questions on medications. Please call Nav [phone] documented in this encounter Plan of Treatment Upcoming Encounters Date Type Department Care Team (Late st Contact Info) Description 01/23/2025 10:15 AM EDT Procedure Visit [facility] [address] [place] [address] Nicki Alvarado MD 505 [place] [address] 01/27/2025 11:00 AM EDT Telemedicine [facility]INE [address] [place] [address] 03/02/2025 11:00 AM EDT Office Visit [address] [address] NameFrancisco MD [address] [place] [address] documented as of this encounter Visit Diagnoses Not on filedocumented in this encounter Additional Health Concerns Assessment Noted Time PHQ-9 Depression Total Score: 0 12/21/19 23 11:04 AM EDT documented as of this encounter Care Teams Refrigeration Tech Relationship Specialty Start Date End Date NameFrancisco MD [address] [place] [address] PCP - General Family Medicine 05/16/17 [facility] 10/18/24 documented as of this encounter
--- OUTSIDE RECORDS SUMMARY | 2025-01-21 13:04 | XMS_ITS | Patient Health Record ---
Author Organization [employer] Address [address] [place] [phone] Care Team Providers Care Head Porter Name Role Phone NICK OWENS MD Primary Care Provider Nando Hernandez [phone] Reason For Referral No Information Plan Of Treatment No Information Insurance Providers Payer Name Payer Address Payer Phone Subscriber Number Group Number Insured Name Patient Relationship to Insured Coverage Start Date Coverage End Date [facility] [address] [place] [address] [id number] EMILE ZAVALA Self - patient is the insured
--- OUTSIDE RECORDS SUMMARY | 2025-01-21 13:04 | XMS_ITS ---
Author Organization [facility] Address [address] [place] [address] Care Team Providers Care Maintenance Mechanic Helper Name Role Phone GRACIELA NAVA, NICK Primary Care Provider Nando Hernandez [phone] REASON FOR VISIT Patient presents today for elevated amonia level Encounters Encounter Location Date Provider Diagnosis [facility] [address] [place] [phone] 10/03/2023 Nando Sparks Plan Of Treatment No Information Progress Notes * EMILE MCCLELLANDDOB:[birth year] (89 yo M)Acc No.[id number]:10/03/2023 Progress Notes Patient:?EMILE MCCLELLAND Provider:?Nando Sparks MD :1935???Age:88 Y???Sex:Male Nomi e:10/03/2023 Address:[address] [place], [place] [phone] Pcp:NICK OWENS MD Subjective: * Chief Complaints: * ???1. Patient presents today for elevated amonia level. * Medical History:? Objective: * Vitals:? Assessment: Plan: * Treatment: * * The named appointment provid er may or may not be the originator of this progress note, and it is not deemed complete until electronically signed by the appointment provider. Sign off status: Pending * Provider:?Nando Sparks MD Date:? 024 Generated for Lizette pierre/Loretta/eTransmitting on:?01/21/2025 01:03 PM EDT
--- OUTSIDE RECORDS SUMMARY | 2025-01-21 13:04 | XMS_ITS | Encounter Summary ---
Author Organization [employer] Address [address] [facility] 7t [place] [address] Care Team Providers Care Accountant Machine Processing Name Role Phone Name, Francisco NAVA Primary Care Provider [phone] Encounter Details Date Type Department Care Team (Late Contact Info) Description 11/06/2022 Orders Only [facility] MED & PEDS [address] [place] [address] Rere Robles LPN Social History Tobacco Use [...] Description 01/23/2025 10:15 AM EDT Procedure Visit [facility] [address] [place] [address] Nicki Alvarado MD 505 [place] [address] 01/27/2025 11:00 AM EDT Telemedicine [facility] MED[facility]INE [address] [place] [address] 03/02/2025 11:00 AM EDT Office Visit [address] [address] Name, MD Francisco [address] [place] [address] documented as of this encounter Visit Diagnoses Not on filedocumented in this encounter Care Teams Accountant Machine Processing Relationship Specialty Start Date End Date Name, MD Francisco [address] [place] [address] PCP - General Family Medicine 05/16/17 [facility] 10/18/24 documented as of this encounter
--- OUTSIDE RECORDS SUMMARY | 2025-01-21 13:04 | XMS_ITS | Encounter Summary ---
Author Organization [employer] Address 75 [facility] 7t [place] [address] Care Team Providers Care Leasing Representative Name Role Phone Name, Francisco NAVA Primary Care Provider [phone] Encounter Details Date Type Department Care Team ([facility] Contact Info) Description 10/04/2022 Orders Only [facility] MEDICINE [address] [place] [address] Brandy Lindsay LPN Social History Tobacco Use [...] Upcoming Encounters Date Type Department Care Team ([facility] Contact Info) Description 01/23/2025 10:15 AM EDT Procedure Visit [facility]EDS [address] [place] [address] Nicki Alvarado MD [address] [place] [address] 01/27/2025 11:00 AM EDT Telemedicine [facility] [place] [address] 03/02/2025 11:00 AM EDT Office Visit [facility] [place] [address] [place] [address] documented as of this encounter Procedures Procedure Name Priority Date/Time Associated Diagnosis Comments US ABDOMEN COMPLETE Routine 11/03/2022 9 :14 AM EST documented in this encounter Results * US Abdomen Complete (11/03/2022 9:14 AM EST) Anatomical Region Laterality Modality Abdomen Ultrasound 11/03/2022 9:14 AM EST Narrative 11/05/2022 11:42 PM EST ? [facility] ?[address] ?[place] [address] ? Ultrasound Report ? Signed ? Patient: Ольга Sanchez ?MR#: [id number] ?? [id number] ? : 1935 ?Acct:[id number] ? Age/Sex: 87 / F ?ADM Date: 11/03/22 ? Loc: HO.US ? Attending Dr: Francisco Murillo MD ? Ordering Physician: Francisco Murillo MD ?? Date of Service: 11/03/22 ?? Procedure(s): US abdomen complete ?? Accession Number(s): [id number] ? cc: Francisco Murillo MD ? EXAMINATION: [...] 11/05/229 ? DD/ 0914 ? TD/TT: ? Pulping Machine Operator: SS ? Procedure Note Von, Image - 11/05/2022 [place] [address] Ultrasound Report Signed Patient: Ольга Sanchez SMR#: [id number] : 6Acct:[id number] Age/Sex: 87 / FADM Date: 11/03/22 Loc: HO.US Attending Dr: Francisco Murillo MD Ordering Physician: Francisco Murillo MD Date of Service: 11/03/22 Procedure(s): US abdomen complete Accession Number(s): [id number] cc: Francisco Murillo MD EXAMINATION: US ABDOMEN [...] in OV> 11/05/22 2339 DD/ 0914 TD/TT: Pulping Machine Operator: SS [facility] External Provider IMG US PROCEDURES Edited Result - Final documented in this encounter Visit Diagnoses Not on filedocumented in this encounter Care Teams Leasing Representative Relationship Specialty Start Date End Date Name, MD Francisco [address] [place] [address] PCP - General Family Medicine 05/16/17 [facility] 10/18/24 documented as of this encounter
--- OUTSIDE RECORDS SUMMARY | 2025-01-21 13:04 | XMS_ITS | Encounter Summary ---
Author Organization [employer] Address [address] [facility] [address] [place] [address] Care Team Providers Care Director Heart Name Role Phone Name, Francisco NAVA Primary Care Provider [phone] Reason for Visit * Reason Comments Med Refill Encounter Details Date Type Department Care Team (Late st Contact Info) Description 07/12/2023 Refill [facility] [address] [place] [address] Name, MD Francisco [address] [place] [address] Social History Tobacco Use Types Packs/Day Years [...] Description 01/23/2025 10:15 AM EDT Procedure Visit [facility] [address] [place] [address] Nicki Alvarado MD 505 [place] [address] 01/27/2025 11:00 AM EDT Telemedicine [facility] [address] [place] [address] 03/02/2025 11:00 AM EDT Office Visit [facility] [address] [place] [address] Name, MD Francisco [address] [place] [address] documented as of this encounter Visit Diagnoses Not on filedocumented in this encounter Additional Health Concerns Assessment Noted Time PHQ-9 Depression Total Score: 0 12/21/19 23 11:04 AM EDT documented as of this encounter Care Teams Director Heart Relationship Specialty Start Date End Date Name, MD Francisco [address] [place] [address] PCP - General Family Medicine 05/16/17 [facility] 10/18/24 documented as of this encounter
[2025-01-21 13:24] LABS: Basophils Absolute Auto 0.1 X10*3/uL (0.0-0.2); Basophils Percent Auto 1.1 % (0-2); Eosinophils Absolute Auto 0.2 X10*3/uL (0.0-0.4); Eosinophils Percent Auto 2.9 % (0-4); Hemoglobin 14.9 g/dl (12.0-16.0); Imm Gran Abs Auto 0.01 X10*3/uL (0.00-0.03); Imm Gran Pct Auto 0.2 % (0.0-0.4); Lymphocytes Absolute Auto 2.2 X10*3/uL (1.2-4.9); Lymphocytes Percent Auto 40.3 % (20-40); MANUAL DIFF FLAG SCAN; Mean Corpuscular HGB Conc 33.9 g/dl (31.0-35.0); Mean Corpuscular Hemoglobin 31.5 pg (27.0-33.0); Monocytes Absolute Auto 0.7 X10*3/uL (0.1-1.2); Monocytes Percent Auto 12.1 % (2-11); Neutrophils Absolute Auto 2.4 x10*3/uL (2.0-8.3); Neutrophils Percent Auto 43.4 % (45-73); PLT CLUMP 1; Red Blood Count 4.73 X10*6/uL (4.20-5.50); SCAN SMEAR FLAG 1
[2025-01-21 13:25] LABS: White Blood Count 5.5 X10*3/uL (4.8-10.8)
[2025-01-21 13:49] LABS: Platelet Count 133 X10*3/uL (160-400)
[2025-01-21 13:50] LABS: SLIDE REVIEW VERIFIED
[2025-01-21 14:41] LABS: Alanine Aminotransferase 47 U/L (0-31); Albumin Level 3.1 g/dL (3.5-5.0); Anion Gap 13 (12-20); Aspartate Amino Transferase 61 U/L (5-31); Bilirubin Total 1.3 mg/dL (0.0-1.0); Blood Urea Nitrogen 10 mg/dL (9-16); Calcium 9.5 mg/dL (8.4-10.2); Carbon Dioxide 28 mmol/L (22-29); Chloride 101 mmol/L (96-108); Estimated Glomerular Filt Rate > 60; Glucose Random 128 mg/dL (60-115); Potassium 4.5 mmol/L (3.3-5.1); Sodium 137 mmol/L (135-145); Total Protein 6.6 g/dL (6.5-8.0)
[2025-01-21 14:58] LABS: Alkaline Phosphatase 142 U/L (39-117)
[2025-01-21 18:35] LABS: Appearance Urine Clear; Color Urine Yellow; Glucose Urine UA Negative (Negative); Leukocyte Esterase Urine Trace (Negative); Nitrite Urine Negative (Negative); Specific Gravity - Urine 1.015 (1.005-1.025); UMIC TRIGGER UACC YES; Urine Blood Negative (Negative); Urine Ketones Trace mg/dL (Negative); Urine Protein Trace mg/dL (Neg-Trace)
[2025-01-21 18:53] LABS: Bacteria Urine None Seen (None Seen); Hyaline Casts Urine 0-2 /LPF (0-2); RBC Urine 0-2 /HPF (0-2); Squamous Epithelial Cell Urine 0-2 /HPF (0-2); WBC Urine 0-5 /HPF (0-5)
== END 2025-01-21 12:01 | disposition home or self-care (01) ==
LOC: HO.HHCL 12:00
PROVIDERS: Family Medicine; Visit Provider Internal Medicine Geriatric Medicine
DX: I10 Essential (primary) hypertension (principal); I25.10 Atherosclerotic heart disease of native coronary artery without angina pectoris; R35.0 Frequency of micturition; H47.9 Unspecified disorder of visual pathways
CPT/HCPCS: 36415; 80053; 81001; 85025

== ENCOUNTER 2025-03-02 12:02 | Outpatient (REF) | payer OTHER, SELFPAY ==
--- OUTSIDE RECORDS SUMMARY | 2023-10-03 11:00 | XMS_ITS ---
Author Organization [facility] Address [address] [place] [id number] Care Team Providers Care Termite Control Service Representative Name Role Phone NICK OWENS MD Primary Care Provider Nando Hernandez [phone] REASON FOR VISIT Patient presents today for elevated amonia level Encounters Encounter Location Date Provider Diagnosis [facility] [address] [place] [phone] 10/03/2023 Nando Sparks Plan Of Treatment No Information Progress Notes * EMILE MCCLELLANDDOB:[birth year] (89 yo M)Acc No.[id number]:10/03/2023 Progress Notes Patient: EMILE MAX Provider: Sandra Sparks MD :[id number] A ge:88 Y S ex:Male Date:10/03/2023 Address:[address] [place], [place] [id number] Pcp:NICK OWENS MD Subjective: * Chief Complaints: * 1 . Patient presents today for elevated amonia level. * Medical History: Objective: * Vitals: Assessment: Plan: * Treatment: * * The named appointment provid er may or may not be the originator of this progress note, and it is not deemed complete until electronically signed by the appointment provider. Sign off status: Pending * Provider: Sandra Sparks MD Date: 0 10/03/2023 Generated for Lizette pierre/Loretta/eTeversmitting on: 03/02/2025 07:21 AM EDT
--- OUTSIDE RECORDS SUMMARY | 2025-03-02 11:00 | XMS_ITS | Encounter Summary ---
Author Organization [employer] Address [address] [facility] [address] [place] [address] Care Team Providers Care Cafe Server Name Role Phone Name, Francisco NAVA Primary Care Provider [phone] Reason for Visit * Reason Comments Diabetes Encounter Details Date Type Department Care Team ([facility] st Contact Info) Description 03/02/2025 11:00 AM EDT Office Visit [facility] MEDICINE [address] [place] [address] Name, MD Francisco [address] [place] [address] Type 2 diabetes mellitus without complication, without long-term current use of insulin ([facility]) (Primary Dx); Hypertension, unspecified type; Bruising Social History Tobacco Use Types Packs/Day Years [...] Sign Reading Time Taken Comments Blood Pressure 126/74 03/02/2025 11:38 AM EDT Pulse 88 03/02/2025 11:38 AM EDT Temperature 36 C (96.8 F) 03/02/2025 11:38 AM EDT Respiratory Rate 12 03/02/2025 11:38 AM EDT Oxygen Saturation 97% 03/02/2025 11:38 AM EDT Inhaled Oxygen Concentration - - Weight 71.7 kg (158 lb) 03/02/2025 11:38 AM EDT Height 167.6 cm (5' 6 ) 03/02/2025 11:38 AM EDT Body Mass Index 25.5 03/02/2025 11:38 AM EDT documented in this encounter Progress Notes * Francisco Murillo MD - 03/02/2025 11:00 AM EDT Subjective Patient ID: Ольга Sanchez is a 89 y.o. female who presents for Diabetes. Patient comes accompanied by her granddaughter and a friend. She feels very well. BP is well-controlled. Blood sugars are well-controlled. The patient has excellent memory. 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 She denies any chest pains or shortness of breath. She has mild decreased platelet count because of history of chronic liver disease. Review of Systems Constitutional: Negative for chills and fever. HENT: Negative for sore throat. Respiratory: Negative for cough, shortness of breath and wheezing. Cardiovascular: Negative for chest pain, palpitations and leg swelling. Gastrointestinal: Negative for abdominal pain and blood in stool. Visit Vitals BP 126/74 (BP Location: Left arm, Patient Position: Sitting, BP Cuff Size: Adult) Pulse 88 Temp 96.8 ??F (36 ??C) (Temporal) Resp 12 Ht 5' 6 (1.676 m) Wt 158 lb (71.7 kg) SpO2 97% BMI 25.50 kg/m?? OB Status Premenopausal Smoking Status Never BSA 1.83 m?? Objective Physical Exam Constitutional: Appearance: Normal appearance. Cardiovascular: Rate and Rhythm: Normal rate and regular rhythm. Heart sounds: No murmur heard. No gallop. Pulmonary: Effort: Pulmonary effort is normal. No respiratory distress. Breath sounds: Normal breath sounds. No wheezing. Musculoskeletal: Right lower leg: No edema. Left lower leg: No edema. Skin: Comments: The patient has a few small bruises in the left forearm Neurological: Mental Status: She is alert. Lab Results Component Value Date HGBA1C 6.7 (A) 03/02/2025 HGBA1C 7.0 (A) 12/29/2024 HGBA1C 6.3 (A) 09/26/2024 HGBA1C 6.6 (A) 01/02/2024 HGBA1C 5.9 10/17/2023 HGBA1C 5.5 06/25/2023 HGBA1C 6.1 (A) 03/15/2023 HGBA1C 5.9 (H) 09/26/2022 HGBA1C 7.2 (H) 12/27/2021 Lab Results Component Value Date WBC 5.5 01/21/2025 HGB 14.9 01/21/2025 HCT 44.0 01/21/2025 MCV 93.0 01/21/2025 PLT 133 (L) 01/21/2025 Assessment/Plan Diagnoses and all orders for this visit: Type 2 diabetes mellitus without complication, without long-term current use of insulin ([facility]) Comments: Well-controlled on low-dose metformin Orders: - POCT Glucose - POCT HGB A1C Hypertension, unspecified type Comments: Well-controlled on current dose of olmesartan. Recheck BMP. Orders: - Basic Metabolic Panel; Future Bruising Comments: Likely secondary to the use of aspirin. She is using 81 mg every other day for prevention of strokes and heart attacks. I will recheck her CBC. I might have to discontinue the aspirin if the platelets are lower since in that case I think the risk of the medication is more than the benefit. Orders: - CBC auto differential; Future documented in this encounter Plan of Treatment Scheduled Orders Name Type Priority Associated Diagnoses Orde r Schedule CBC auto differential Lab Routine Bruising Expected: 03/02/2025 (Approximate), Expires: 03/02/2026 Basic Metabolic Panel Lab Routine Hypertension, unspecified type Expected: 03/02/2025 (Approximate), Expires: 03/02/2026 documented as of this encounter Procedures Procedure Name Priority Date/Time Associated Diagnosis Comments POCT GLYCATED HEMOGLOBIN, TOTAL Routine 03/02/2025 11:41 AM EDT Type 2 diabetes mellitus without complication, without long-term current use of insulin ([facility]) POCT GLUCOSE Routine 03/02/2025 11:41 AM EDT Type 2 diabetes mellitus without complication, without long-term current use of insulin ([facility]) documented in this encounter Results * (ABNORMAL) POCT HGB A1C (03/02/2025 11:41 AM EDT) Hemoglobin A1C 6.7(A) 4.0 - 5.7 % QC Media Lot # [id number] Lot# Expiration Date Blood 03/02/2025 11:4 1 AM EDT Francisco Murillo MD POINT OF CARE TEST ENTER/EDIT OR DERABLES Final Result * POCT Glucose (03/02/2025 11:41 AM EDT) Glucose Blood, POC 180 60 - 200 mg/dL QC Media Lot # [id number] Lot# Expiration Date Blood Capillary blood specimen / Unknown 03/02/2025 11:41 AM EDT Francisco Name POINT OF CARE TEST ENTER/EDIT OR DERABLES Final Result documented in this encounter Visit Diagnoses Diagnosis Type 2 diabetes mellitus without complication, without long-term current use of insulin ([facility])- Primary Hypertension, unspecified type Bruising Contusion of unspecified site documented in this encounter Additional Health Concerns Assessment Noted Time PHQ-9 Depression Total Score: 0 01/02/20 24 11:09 AM EDT documented as of this encounter Care Teams Cafe Server Relationship Specialty Start Date End Date Name, MD Francisco [address] [place] [address] PCP - General Family Medicine 05/16/17 [facility] 10/18/24 documented as of this encounter
--- OUTSIDE RECORDS SUMMARY | 2025-03-02 12:43 | XMS_ITS | Data Portability ---
Author Organization [facility], [facility] Address [address] [place] [address] Care Team Providers Care Delivery Lead Name Role Phone [facility] Referring Provider NAME, GLORY Primary Care Provider [facility] Referring Provider Assessment Encounter Date Assessment Date Assessment LastModified by Organization Details LastModified Time 02/01/2023 02/01/2023 I have reviewed and agree with the assessment and plan as documented by the police captain. I provided real time medical direction for this encounter and was immediately available to provide additional phone based assistance as needed. History as noted by police captain. Pt with history of recent admission 12/21-12/26/2022 to [facility] for acute metabolic encephalopathy i/s/o UTI with proteus sp. Pt had elevated ammonia levels during admission and required lactulose as well as IV antibiotics. Pt was seen for routine follow up at her primary care's office last week and provided a f/u urine sample on 01/25. Last night, the family states that the pt started becoming confused and today is more confused and now lethargic. No report of any recent fevers or vomiting. Pt has been able to drink some fluids this AM. Pt's vitals are ok, she is afebrile. Medic reports that the pt is currently very lethargic and not speaking, which is a marked change from her baseline per her family. Urine dip is positive for leukocytes and nitrite. Impression: Pt with subacute altered mental status that began last night and now pt is lethargic and not interactive. Vitals are ok and she is afebrile. Urine dip is c/w UTI. A UTI as the sole etiology of her current encephalopathy is possible but I am concerned about possible elevated ammonia levels as well given her recent admission with similar symptoms requiring treatment of elevated ammonia. Given the pt's relatively abrupt change in her mental status with current lethargy, I feel that pt needs to have a comprehensive w/u in the ED including neuro imaging and the family agrees with this plan. The medic will arrange for ambulance transport to [facility] ED. I have called an expect to the [facility] ED RN as well. [email or web address] Not available 02/01/2023 13:44:18 05/22/2023 05/22/2023 I provided real -time medical direction via phone for this encounter, and was available for additional phone based assistance as needed. I have reviewed and agree with the Assessment and Plan as documented by the Foundry Hand. Patient given the opportunity to ask questions. as per above, patient with altered mental status and abdominal pain. We have been out to visit patient with same and has a history of elevated ammonia levels. Discussed with family members and they are requesting return to emergency department for evaluation which is necessary to fully evaluate altered mental status. Patient safely transported and expect note in to . [email or web address] Not available 05/22/2023 17:11:58 07/30/2023 07/30/2023 I have reviewed and agree with the assessment and plan as documented by the police captain. I provided real-time medical direction for this encounter and was immediately available to provide additional phone-based assistance as needed. 88F with COPD/Asthma, CAD, epigastric pain, osteoporosis and osteopenia, diabetes, depression, neuropathy presenting with, vomiting last night. Unclear if new foods/ingestions. Pt also had headache last night. Used Tylenol with good effect. Today pt denies any nausea/vomiting/a bdominal pain. Normal PO intake today. Lots of family at bedside, no sick contacts. Ate soup today with no issues. O/E: Vitals at baseline. Pt well appearing, hydrated. Respiratory exam normal. COVID/Flu negative. Abdo exam normal. Imp/Plan: 88F with episodesof vomiting last night, none today. Pt well appearing with no complaints today other than mild headache. Recommend supportive care and close monitoring. Tylenol and PO hydration. Red flags and return precautions discussed. [email or web address] Not available 07/30/2023 14:09:44 12/07/2023 12/07/2023 88 yo F with hx hyperammonemia (?cirrhosis) whose daughter called to report altered mental status for 3 days. On exam, pt is alert and oriented x 3. She denies any symptoms other than mild fatigue. Otherwise, no recent illnesses/infecti ons, CP, SOB, abd pain, N/V/D/C, sick contacts. She is eating slightly less than normal. Pt has capacity for medical decision making and declines intervention and does not intend to seek further evaluation. Discussed importance of adherence to medications and strongly urged to get adequate hydration. Pt and family have red flag s/sxs for which to callback or go to ED. [email or web address] Not available 12/28/2023 15:13:14 Plan of Treatment Reminders Order Date Submit Date Provider Last Modified By Organization Details Last Modified Time Details Appointments None recorded. Lab urinalysis , dipstick 2022 023 [email or web address] [facility], [address] [place] [address], [phone] 3 12:32:59 Referral None recorded. Procedures None recorded. Surgeries None recorded. Imaging None recorded. Medication Orders None recorded. Patient TargetsNo targets recorded. Patient InstructionsNo instructions recorded. Reason for Referral None Reported. Results Created Date Observation Date Name Description Value Unit Range Abnormal Flag Note LastModifiedBy Organization Detail LastModifiedTime 02/02/20 23 02/01/2023 urina lysis , dipst ick Leukocytes positi ve Not Available [facility] ed [address] [place] [address], [address] [place] [address] 02/01/2023 12:32:40 02/02/20 23 02/01/2023 urina lysis , dipst ick Nitrite positi ve Not Available [address], [phone] 02/01/2023 12:32:40 02/02/20 23 02/01/2023 urina lysis , dipst ick Blood negati ve Not Available [facility] ed [address] [place] [address], [phone] 02/01/2023 12:32:40 Result Notes None recorded. Medical Equipment None Reported. Allergies Allergen ID Allergen Name Allergen Category Reaction Reaction Severity Criticality Documentation Date Start Date Code Code System Note Provider Name and Address Organization Details Recorded Time 7623 acetamino phen medicatio n Not available Not available Not available 07/01/2024 161 RxNorm Not Available [facility] - production 03:38:42 7624 ceftriaxo ne medicatio n Not available Not available Not available 07/01/2024 2193 RxNorm Not Available [facility] - production 4 03:38:42 7625 Product containin g penicilli n (product) medicatio n Not available Not available Not available 07/01/2024 32572 8001 SNOMED [facility] Available [facility] 4 03:38:42 7626 vancomyci n medicatio n Not available Not available Not available 07/01/2024 06886 RxNorm Not Available [facility] - production 4 03:38:42 Medications Name Sig Start Date Stop Date Status Note LastModified by Organization Details LastModified Time medbox status USE DIRECTED active Not Available Not Available No t Available atorvastatin 40 mg tablet TAKE 1 TABLET BY MOUTH EVERYDAY AT NOON active Not Available Not Available No t Available metformin 500 mg tablet TAKE 1/2 TABLET BY MOUTH TWICE DAILY AT NOON AND IN THE EVENING WITH MEALS active Not Available Not Available N ot Available clindamycin HCl 150 mg capsule TAKE 3 CAPSULES BY MOUTH THREE TIMES DAILY FOR 7 DAYS active Not Available Not Available N ot Available aspirin 81 mg tablet,delay ed release TAKE 1 TABLET BY MOUTH EVERYDAY AT NOON active Not Available Not Available No t Available tramadol 50 mg tablet TAKE 1 TABLET BY MOUTH THREE TIMES DAILY IN THE MORNING, AT NOON, AND AT BEDTIME FOR SEVERE PAIN active Not Available Not Available No t Available levothyroxin e 75 mcg tablet TAKE 1 TABLET BY MOUTH EVERY MORNING active Not Available Not Available No t Available levothyroxin e 50 mcg tablet TAKE 1 TABLET BY MOUTH EVERY MORNING (BEFORE BREAKFAST) active Not Available Not Available N ot Available pantoprazole 40 mg tablet,delay ed release TAKE 1 TABLET BY MOUTH EVERYDAY AT NOON active Not Available Not Available No t Available Banophen 25 mg capsule TAKE 1 CAPSULE BY MOUTH AT BEDTIME NEEDED (EVERY 24 HOURS) active Not Available Not Available No t Available gabapentin 100 mg capsule TAKE 1 CAPSULE BY MOUTH EVERY EVENING active Not Available Not Available No t Available fluticasone propionate 50 mcg/actuatio n nasal spray,suspen imani INHALE 2 SPRAYS IN EACH NOSTRIL ONCE DAILY active Not Available Not Available N ot Available doxycycline hyclate 100 mg tablet TAKE 1 TABLET BY MOUTH TWICE DAILY FOR 7 DAYS active Not Available Not Available No t Available loratadine 10 mg tablet TAKE 1 TABLET BY MOUTH EVERYDAY AT NOON active Not Available Not Available No t Available olmesartan 5 mg tablet TAKE 1 TABLET BY MOUTH EVERY MORNING active Not Available Not Available No t Available Flovent HFA 220 mcg/actuatio n aerosol inhaler INHALE 1 PUFF TWICE DAILY. RINSE MOUTH AFTER USING. active Not Available Not Available No t Available FreeStyle Lite Strips TEST BLOOD SUGAR ONCE DAILY active Not Available Not Available No t Available amlodipine 5 mg-olmesarta n 20 mg tablet TAKE 1 TABLET BY MOUTH EVERYDAY AT NOON active Not Available Not Available No t Available FreeStyle [place] Lite kit USE DAILY TO TEST BLOOD SUGAR active Not Available Not Available Not Available Oyster Shell Calcium-Gayle min D3 500 mg-10 mcg (400 unit) tablet TAKE 1 TABLET BY MOUTH TWICE DAILY AT NOON AND IN THE EVENING active Not Available Not Available Not Available TRUEplus Lancets 33 gauge TEST BLOOD SUGAR ONCE DAILY DIRECTED active Not Available Not Available No t Available Incruse Ellipta 62.5 mcg/actuatio n powder for inhalation INHALE 1 PUFF EVERY DAY AT THE SAME TIME active Not Available Not Available No t Available naloxone 4 mg/actuation nasal spray FOR SUSPECTED OPIOID OVERDOSE. SPRAY 0.1mL IN ONE NOSTRIL. REPEAT IN ALTERNATE NOSTRIL 2-3 MINUTES IF NEEDED. SEEK MEDICAL ATTENTION IMMEDIATELY EVEN IF PATIENT RESPONDS. active Not Available Not Available No t Available Vitals Date Recorded Body temperature Respiratory rate Oxygen saturation Oxygen saturation in Arterial blood by Pulse oximetry Heart rate Systolic blood pressure Diastolic blood pressure Provider Name and Address Organization Details Last Updated DateTime 4 98 [degF] 16 /min 98 % 98 % 88 /min 125 mm[Hg] 69 mm[Hg] Not Available [facility] - production 4 19:02:01 Date Recorded Body temperature Oxygen saturation Oxygen saturation in Arterial blood by Pulse oximetry Heart rate Body weight Respiratory rate Body temperature Oxygen saturation Oxygen saturation in Arterial blood by Pulse oximetry Heart rate Body weight Respiratory rate Systolic blood pressure Diastolic blood pressure Systolic blood pressure Diastolic blood pressure Provider Name and Address Organization Details Last Updated DateTime 3 97.5 [degF] 99 % 99 % 85 /min 68049.9 6 g 14 /min 97.5 [degF] 99 % 99 % 85 /min 71657.9 6 g 14 /min 133 mm[Hg] 84 mm[Hg] 133 mm[Hg] 84 mm[Hg] Not Available [facility] - production 3 13:12:03 Date Recorded Heart rate Body temperature Respiratory rate Body height Body weight Oxygen saturation Oxygen saturation in Arterial blood by Pulse oximetry Systolic blood pressure Diastolic blood pressure Provider Name and Address Organization Details Last Updated DateTime 3 70 /min 98 [degF] 14 /min 152.4 cm 76662.8 g 98 % 98 % 166 mm[Hg] 80 mm[Hg] Not Available [facility] - 3 17:09:37 Date Recorded Oxygen saturation Oxygen saturation in Arterial blood by Pulse oximetry Heart rate Body weight Body temperature Respiratory rate Systolic blood pressure Diastolic blood pressure Provider Name and Address Organization Details Last Updated DateTime 3 99 % 99 % 90 /min 81573.8 8 g 98 [degF] 16 /min 155 mm[Hg] 80 mm[Hg] Not Available [facility] 3 13:02:52 Date Recorded Heart rate Body temperature Oxygen saturation Oxygen saturation in Arterial blood by Pulse oximetry Respiratory rate Systolic blood pressure Diastolic blood pressure Provider Name and Address Organization Details Last Updated DateTime 3 84 /min 97.2 [degF] 96 % 96 % 61 /min 154 mm[Hg] 70 mm[Hg] Not Available [facility] 3 13:57:47 Social History None recorded. Functional Status None recorded. Mental Status None recorded. Family History Nothing Reported. Medical History No medical history recorded. Gynecological HistoryNo gynecological history recorded. Obstetrics History GPAL:G 0 P 0 0 0 0 Past Encounters Encounter ID Performer Location Encounter Start Date Encounter Closed Date Diagnosis/Indication Diagnosis SNOMED-CT Code Diagnosis ICD10 Code Diagnosis Note [id number] Gwendolyn Weber MD [facility] - [facility] [address] [place] [address] 11/29/2022 14:30:48 12/04/2022 09:50:47 Dog bite of finger [id number] S61.259A Evaluation in the field was performed by my police captain colleague, as noted above, I provided real-time direction and supervisio n for this visit. 87yo F who suffered dog bite Sunday s/p rabies shot given unknown status of dog and put on doxy and clindamyci n which she has taken without missing doses p/w worsening pain, edema, purulent drainage, and erythema. No fevers/chi lls and current VS reassuring . Picture not suggestive of worsening infection however given family report of marked worsening over past 48 hrs recommend repeat in person eval for possible imaging, drainage, and IV abx. Expect called to [facility]. We discussed the diagnostic uncertaint y of home visits and the risk associated with this. [id number] Mark Glasgow MD Main - [facility] [address] [place] [phone] 02/01/2023 12:17:18 02/02/2023 12:02:32 Altered mental status [id number] R41.82 [id number] Shaista Sousa MD Main - [facility] [address] [place] [phone] 05/22/2023 17:09:32 05/23/2023 12:06:01 Altered mental status [id number] R41.82 [id number] Jayne Valentin MD Main - [facility] [address] [place] [phone] 06/15/2023 13:02:42 06/15/2023 13:09:27 Constipation [id number] K59.00 Advised tid lactulose and miralax. IF she does not have regular bowel movements with this she can take bisacodyl 5 mg. Exam not c/w bowel obstructio n. Advised hydration and ambulation . EMT to review glucometer and ensure that her sugars are not very high [place]. [id number] Tuyet Sher MD Main - [facility] [address] [place] [phone] 07/30/2023 13:57:45 07/30/2023 23:02:04 Nausea and vomiting [id number] R11.2 [id number] LAYTON OCASIO MD Main - [facility] [address] [place] [phone] 12/07/2023 19:01:58 12/31/2023 09:52:55 Malaise and fatigue [id number] R53.81 Health Concerns Section Related Observation LastModified by Organization Detai ls LastModified Time None Recorded Concern Status LastModified by Organization Details LastModified Time None Recorded Advance Directives Directive None Recorded Payers Insurance Date Sequence Insurance Name Policy Number Policy Gould Covered Member ID Gould Member ID Guarantor Name 02/01/2023 1 [facility] - DOS PRIOR TO 2022 - DUAL ELIGIBLE (MEDICARE REPLACEMENT/AD VANTAGE - HMO) Ольга Sanchez [id number] Ольга Sanchez 12/31/2023 1 [facility] - DOS ON OR AFTER 2022 - DUAL ELIGIBLE - DETENTION OPTIONS AND ONE CARE (MEDICARE REPLACEMENT/AD VANTAGE - HMO) Ольга Sanchez [id number] Ольга Sanchez Notes Date Note Type Note Provider Name and Address Organization Details Recorded Time 02/01/2023 text/html This was a supervised home visit with police captain Piyush Ortega. [facility] Nursing Assessment: Reason For Request: Granddaughter calling calling to report signs of UTI. States pt is slightly out of it, has been drinking fluids eating. [facility] took a urine sample but family has not heard from them in regards to results. Dropped off urine 01/25/23. Chief Complaints: UTI/Pyelonephritis PMH: COPD/Asthma, Severe Dementia Allergies: Acetaminophen, Ceftriaxone, Penicillin Comments: Granddaughter calling on behalf of member with request for [facility] visit for eval fatigue and increased confusion . Hx similar symptoms in the past with UTI. Discuss red flags and if symptoms progress to seek emergent care-verbalize understanding. Verify member name/- .................... .................... .................... .................... .................... .................... .................... . Foundry Hand Note From Piyush Ortega: Pt's daughter reports increased confusion and lethargy since last night. Daughter sts pt has had several UTI's over the past several months and has been hospitalized twice, most recently on 5/14/23 for hyperammonemic encephalopathy and a UTI. Daughter denies f/n/v/d. Pt is normally fully alert and able to walk. Pt presents very confused, minimally verbal and unable to stand or walk VSS. Afebrile. Lungs CTA. ABD is soft, non distended. Straight cath for urine sample, +NJ, +NIT, +BLO. [facility] contacted and advised the pt be sent to the ED to r/o a reoccurance of hyperammonemic encephalopathy. 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 .................... .................... .................... .................... .................... .................... . Disposition: Fulfilled Mark Glasgow MD [address] [facility],[address], [place], [phone], Nokori 02/01/2023 13:44:37 05/22/2023 text/html HPI: other allergies: hyperammonemia, C. Diff. Pt has been having BM q 4days not taking lactulose, mucous evident in stools. Pt began to have vomiting today 4x , foul odor, greenish color no blood. Last BM 16th evening. Pt is not eating . .................... .................... .................... .................... .................... .................... .................... . [facility] Nursing Assessment: Comments: No additional information needed to process visit. .................... .................... .................... .................... .................... .................... .................... . Foundry Hand Note From Justyn Umaña: PT caox2, caregiver reports more confused than normal. Caregiver reports pt constipated, no BM x 3 days. Pt stopped eating and drinking x 36 hours. Pt complains of pressure in abdomen, diffuse. Pt denies other complaints. Pt pink warm and dry, poor skin turgor, positive tenting. Abdomen soft, tender, no masses, no rigidity. No edema, secondary exam unremarkable. [facility] advises pt to be transported to ED for xray to rule out GI blockage. [facility] orders NS 500ml IV, administered as noted. [facility] ambulance arrives and transports pt to [facility] ED. .................... .................... .................... .................... .................... .................... .................... . Disposition: Fulfilled Shaista Suosa MD [address] [facility],[address], [place], [phone], HARISH LUJAN 05/22/2023 17:12:15 06/15/2023 text/html HPI: Patient with history of CDiff in February 2023. Now having ongoing constipation with use of lactulose and miralax. Moving bowels about every 4th day. Foul odor noted. [facility] concerned with history of cdiff. .................... .................... .................... .................... .................... .................... .................... . [facility] Nursing Assessment: Comments: Reviewed - Mir RN - Home evaluation of patient with abdominal discomfort with constipation on meds. No acute pain or fever. No nausea or vomiting. Concern at present is foul odor with stool and history of CDiff in February. Provide education and sterile cup with order for stool as indicated. Jayne Valentin MD [address] [facility],[address], [place], [phone], [facility] 06/15/2023 13:09:24 07/30/2023 text/html HPI: Patient with extensive diagnosis. COPD/Asthma, CAD,Epigastric pain. Osteoporosis and osteopenia New DM Depression. Neuropathy. Now with > 48 hours of headache cough and cold symptoms. Vomited phlegm with acid x 1 yesterday no fever general malaise and body aches. Poor po fluid intake. Ammonia elevated @ 95 07/09/23 .................... .................... .................... .................... .................... .................... .................... . [facility] Nursing Assessment: Comments: Reviewed. Anuradha Daniel RN .................... .................... .................... .................... .................... .................... .................... . Baseline Information: Baseline Creatinine: 0.81 mg/dL Baseline Weight: 157 lbs .................... .................... .................... .................... .................... .................... .................... . Foundry Hand Note From Piyush Ortega: Pt reports isolated episode of vomiting last night around 10 pm and slight headache since. Pt currently denies CP, SOB, WYNNE, cough/URI sx, f/n/v/d. Pt sts she has Tylenol at home but has not taken any yet. Pt sts she is drinking plenty of water and was able to tolerate a light meal two hours ago. Pt is alert, NAD. VSS. Afebrile. Neuro exam and gait normal. Lungs CTA. ABD is soft, non tender, non distended. No R[place]T. Rapid covid and flu negative. Pt encouraged to continue to stay well hydrated and eat whatever she can tolerate. Red flags reviewed. .................... .................... .................... .................... .................... .................... .................... . Disposition: Porfirio Sher MD [address] [facility],[address], [place], [phone], Nok[facility] 07/30/2023 16:36:15 12/07/2023 text/html [facility] Nurse Triage Notes (Edith Hernandez): Reason For Request: URI Chief Complaints: URI PMH: COPD/Asthma, Severe Dementia, Hypertension, Diabetes, Heart Disease Allergies: Acetaminophen, Ceftriaxone, Penicillin, Vancomycin Comments: Verified / address/ Member is a occitan speaking 88 yr old female, with a PMH dementia, who can verbalize symptoms, DM but no longer taking meds due to a1C, Asthma The granddaughter is calling for a member who has had URI symptoms for three days. The member has felt unwell, has a sore throat, weakness, red eyes, coughing, chills, and fever. The member had one day of vomiting, but it has since resolved. The member has been taking emergency C, day quil/ night quil, which has helped, but he has just been sleeping. Mild sob due to asthma, takes inhalers . RED FLGS reviewed .................... .................... .................... .................... .................... .................... .................... . Foundry Hand Note From Piyush Ortega: Pt s daughter reports increased AMS and weakness for three days. Pt is also refusing to eat and take her daily meds including lactulose. Pt has hx of cirrhosis and these sx are c/w when the pt has hyperammonemia, which I have personally seen in this pt. Pt is awake and alert x3 and adamantly refusing ED transport. Pt is NAD, VSS, Afebrile. Non focal neuro exam. Lungs CTA. Benign ABD exam. No LE edema. Family is instructed to monitor sx closely and to call 911 for new or worsening sx, which are reviewed with them. .................... .................... .................... .................... .................... .................... .................... . Disposition: Fulfilled LAYTON OCASIO MD [address] [facility],[address], [place], [phone], [facility] 12/28/2023 15:13:22 OBGyn Episode No OBEpisode recorded.
--- OUTSIDE RECORDS SUMMARY | 2025-03-02 12:43 | XMS_ITS | Clinical Summary ---
Author Organization [facility] Address [address] [place] [address] Phone Care Team Providers Care Police Radio Dispatcher Name Role Phone Elvin Freedman NP Primary Care Provider [phone] Allergies Active Allergy Reactions Criticality Noted Date [...] Date Gait instability 10/14/2024 Right orbital fracture ([facility] V24, [facility] V28 ) 10/14/2024 Postconcussive syndrome 10/14/2024 Resolved Problems Problem Noted Date Diagnosed Date Resolved Date Hepatic encephalopathy ([facility] V24, [facility] V28) 10/14/2024 10/15/2024 Medical History Medical History Date Comments COPD (chronic obstructive pulmonary disease) ( [facility] V24, [facility] V28) Diabetes mellitus ([facility] V24, [facility] V28) GERD (gastroesophageal reflux disease) Headache Hypercholesteremia Hypertension Hepatic steatosis Hyperammonemia ([facility] V24) Disease of thyroid gland Family History [...] 77 10/16/2024 2:51 PM EST Temperature 36.8 C (98.3 F) 10/16/2024 2:51 PM EST Respiratory Rate 14 10/16/2024 2:51 PM EST [...] mmol/L LAB CHEMISTRY METHOD 10/16/2024 7:41 AM [facility] Potassium 3.5 3.5 - 5.5 mmol/L LAB CHEMISTRY METHOD 10/16/2024 7:41 AM [facility] Chloride 105 96 - 110 mmol/L LAB CHEMISTRY METHOD 10/16/2024 7:41 AM [facility] CO2 29 21 - 32 mmol/L LAB CHEMISTRY METHOD 10/16/2024 7:41 AM [facility] Anion Gap 6 3 - 11 LAB CHEMISTRY METHOD 10/16/2024 7:41 AM [facility] Glucose 127(H) 70 - 100 mg/dL LAB CHEMISTRY METHOD 10/16/2024 7:41 AM [facility] BUN 16 5 - 25 mg/dL LAB CHEMISTRY METHOD 10/16/2024 7:41 AM [facility] Creatinine 1.08 0.50 - 1.10 mg/dL LAB CHEMISTRY METHOD 10/16/2024 7:41 AM [facility] eGFR 50(L) >=60 mL/min/1. 73m2 LAB CHEMISTRY METHOD 10/16/2024 7:41 AM [facility] Comment:Calculation based on the Chronic Kidney Disease Epidemiology Collaboration (CKD-EPI) equation refit without adjustment for race. BUN/Creatinine Ratio 14.8 LAB CHEMISTRY METHOD 10/16/2024 7:41 AM [facility] Calcium 8.9 8.5 - 10.5 mg/dL LAB CHEMISTRY METHOD 10/16/2024 7:41 AM [facility] Blood Venous blood specimen / Unknown Venipuncture / Unknown 10/16/2024 6:49 AM EST 10/16/2024 7:04 AM EST Marcos Dawson MD LAB BLOOD ORDERABLES Final Re sult [facility] [place] ([facility]) [facility] [address] [place] [address], [place] [phone] from Last 3 Months or Most Recently Relevant to Health Maintenance Insurance [place]ICA[place] - [place] [facility] MEDIC[facility] Member Subscriber Plan / Payer (Ef fective 2017-Present) Name:Ольга Sanchez Relation to Subscriber:Self Name:Ольга Sanchez Payer ID:[id number] Group ID:[id number] Type:Not on file Address: [address] [place] [address] Advance Directives * Full Code - Default [...] currently active code status orders. Care Teams Police Radio Dispatcher Relationship Specialty Start Date End Date Elvin Freedman NP [address] [place], [place] PCP - General 06/22/08
[2025-03-02 13:17] LABS: MANUAL DIFF FLAG NO
[2025-03-02 13:26] LABS: Basophils Absolute Auto 0.1 X10*3/uL (0.0-0.2); Basophils Percent Auto 1.2 % (0-2); Eosinophils Absolute Auto 0.2 X10*3/uL (0.0-0.4); Hematocrit 43.8 % (37.0-47.0); Hemoglobin 14.6 g/dl (12.0-16.0); Imm Gran Abs Auto 0.01 X10*3/uL (0.00-0.03); Imm Gran Pct Auto 0.2 % (0.0-0.4); Lymphocytes Percent Auto 37.4 % (20-40); Mean Corpuscular HGB Conc 33.3 g/dl (31.0-35.0); Mean Corpuscular Hemoglobin 31.3 pg (27.0-33.0); Mean Platelet Volume 10.3 fL (9.4-12.3); Monocytes Absolute Auto 0.7 X10*3/uL (0.1-1.2); Monocytes Percent Auto 12.9 % (2-11); Neutrophils Absolute Auto 2.3 x10*3/uL (2.0-8.3); Neutrophils Percent Auto 44.3 % (45-73); Platelet Count 153 X10*3/uL (160-400); Red Blood Count 4.66 X10*6/uL (4.20-5.50); Red Cell Distribution Width 17.4 % (11.0-16.0); White Blood Count 5.2 X10*3/uL (4.8-10.8)
[2025-03-02 14:14] LABS: Anion Gap 12 (12-20); Blood Urea Nitrogen 11 mg/dL (9-16); Calcium 9.4 mg/dL (8.4-10.2); Carbon Dioxide 27 mmol/L (22-29); Chloride 101 mmol/L (96-108); Estimated Glomerular Filt Rate > 60; Glucose Random 181 mg/dL (60-115); Potassium 4.6 mmol/L (3.3-5.1); Sodium 135 mmol/L (135-145)
== END 2025-03-02 12:03 | disposition home or self-care (01) ==
LOC: HO.HHCL 12:02
PROVIDERS: PCP Internal Medicine Geriatric Medicine; Visit Provider Internal Medicine Geriatric Medicine
DX: I10 Essential (primary) hypertension (principal); T14.8XXA Other injury of unspecified body region, initial encounter
CPT/HCPCS: 36415; 80048; 85025

== ENCOUNTER 2025-05-13 11:28 | Outpatient (AMB) | payer OTHER, SELFPAY ==
--- NOTE | 2025-05-13 11:32 | MHC.OFFVIS ---
Vital Signs 05/13/25 11:35 Height 5 ft 6 in Weight 164 lb BMI 26.5 BP 90/41 L Blood Pressure Location Lt brachial Position Sitting Pulse 82 Intake Visit Reasons: Liver Disease Intake Note: Patient new consult for liver disease. Patient cc: nauseas/vomiting on and off, adbominal discomfort, and poor appetite. Denies any other GI issues. Head School Custodian Required: No Accompanied by: Family/Other Allergies Penicillins Allergy (Unknown, Verified 05/13/25 11:32) SWELLING HPI Comments Details: 89 y.o F with PMH of DM, hypothyroidism, HTN, who is here to [facility]. Here with her grand daughter and daughter in law who provide most of the history. Pt was admitted to [facility] in Oct after a fall. She was found to have fatty liver on imaging. There was also concern for encephalopathy based on high ammonia level but no documentation of clinical exam in records. She has been on lactulose since then. Pt herself reports fluctuating appetite, aggravated by certain foods. Otherwise no abd distention, fluid retention, confusion, regular BMs. Endoscopy: ERCP 2017 (Dr. Sparks) general anesthesia. Status post [place] pre cut sphincterotomy with balloon extraction. EGD 2013: Gastritis. H pylori negative. [facility] Medical History Acute epigastric pain Age related osteoporosis Angina of effort Asthma CAD (coronary artery disease) Chronic eczema Chronic radicular low back pain COPD, severe Depression Diabetes mellitus Elevated LFTs Gastroesophageal reflux History of CVA (cerebrovascular accident) History of shingles Hyperlipidemia Hypertension Pancreatitis due to common bile duct stone Pathological fracture Postherpetic neuralgia PTSD (post-traumatic stress disorder) Sciatica Venous insufficiency Surgical History History of lumbosacral spine surgery Social History (Updated 05/13/25 @ 11:40 by Ольга Reynolds) Household Members: Family Alcohol intake: never Patient Tobacco Use Status: Never used Tobacco Review of Systems Const All systems reviewed & are unremarkable except as noted in HPI and below Physical Exam Exam Exam: Elderly female Nonicteric Seated in wheelchair Abdomen soft, nontender, nondistended No asterixis Vital Signs: Last Vital Signs Pulse 82 05/13/25 11:35 BP 90/41 L 09/10/25 11:35 BMI result Body Mass Index 26.5 Assessment & Plan Assessment & Plan (1) Metabolic dysfunction-associated steatotic liver: Code(s): K76.0 - Fatty (change of) liver, not elsewhere classified Category: Medical Plan Reviewed with the patient and her family, that based on the information available, patient likely has at least fatty liver. Whether she has underlying cirrhosis is unclear. First order the business will be to establish a clear diagnosis, to then help guide further management. Plan: -labs -Ultrasound abdomen with elastography -continue lactulose for now, however if noninvasive testing not consistent with underlying cirrhosis, this can be discontinued Follow-up 3 months Orders: Orders Prothrombin Time INR Today K76.0 - Fatty (change of) liver, not elsewhere classified US abdomen comp w elastography Today K76.0 - Fatty (change of) liver, not elsewhere classified Lipid Panel Today K76.0 - Fatty (change of) liver, not elsewhere classified Complete Blood Count no Diff Today K76.0 - Fatty (change of) liver, not elsewhere classified Comprehensive Met. Panel Today K76.0 - Fatty (change of) liver, not elsewhere classified TSH reflex Free T4 Today K76.0 - Fatty (change of) liver, not elsewhere classified Hemoglobin A1c Today K76.0 - Fatty (change of) liver, not elsewhere classified Coding Level of Care Code New Pt Level 4 (07492) Complex EM visit Add On G2211 Diagnoses Metabolic dysfunction-associated steatotic liver K76.0
[2025-05-13 11:35] VITALS: BP 90/41; PULSE 82; BMI 26.5
--- OUTSIDE RECORDS SUMMARY | 2025-05-13 14:38 | XMS_ITS | Encounter Summary ---
Author Organization [employer] Address [address] [place] [address] Care Team Providers Care Mill Manager Name Role Phone Name, Francisco NAVA Primary Care Provider [phone] Reason for Visit * Reason Comments Med Refill Encounter Details Date Type Department Care Team (Late st Contact Info) Description 07/12/2023 Refill [facility] [address] [place] [address] Name, MD Francisco [address] [place] [address] Social History Tobacco Use Types Packs/Day Years [...] Care Team (Late st Contact Info) Description 07/03/2025 10:00 AM EDT Telemedicine [facility] [address] [place] [address] Kym Lisa, RN documented as of this encounter Visit Diagnoses Not on filedocumented in this encounter Additional Health Concerns Assessment Noted Time PHQ-9 Depression Total Score: 0 12/21/19 23 11:04 AM EDT documented as of this encounter Care Teams Mill Manager Relationship Specialty Start Date End Date Name, MD Francisco [address] [place] [address] PCP - General Family Medicine 05/16/17 [facility] 10/18/24 documented as of this encounter
--- OUTSIDE RECORDS SUMMARY | 2025-05-13 14:38 | XMS_ITS | Encounter Summary ---
Author Organization [employer] Address [address] 7[address] [place] [address] Care Team Providers Care Spa Associate Name Role Phone Name, Francisco NAVA Primary Care Provider [phone] Reason for Visit * Reason Onset Date Comments Medication Question 07/17/2023 Encounter Details Date Type Department Care Team ([facility] st Contact Info) Description 07/17/2023 Telephone [facility] MED[facility]INE [address] [place] [address] [phone] Name, MD Francisco [address] [place], [place] [phone] Medication Question Social History Tobacco Use Types [...] 6:03 PM EST Tc from Nav with [facility] requesting a call back in regards questions on medications. Please call Nav [phone] TC was placed to Nav at above number with [facility] (patient's VNA service).Nav stated that he was [...] prescription for rifaximin was sent to the [facility] pharmacy ten days ago. No other questions or concerns at this time. Patient has follow-up visit with Dr. Murillo on 07/30/23. Routing message to Dr. Murillo so he is aware patient may be discharged from VNA services in coming weeks. * Telephone Encounter - Ariadne Johnson - 07/17/2023 11:15 AM EST Tc from Nav with [facility] requesting a call back in regards questions on medications. Please call Nav [phone] documented in this encounter Plan of Treatment Upcoming Encounters Date Type Department Care Team (Late st Contact Info) Description 07/03/2025 10:00 AM EDT Telemedicine [facility] [address] [place] [address] Kym Lisa, FITZ documented as of this encounter Visit Diagnoses Not on filedocumented in this encounter Additional Health Concerns Assessment Noted Time PHQ-9 Depression Total Score: 0 12/21/19 23 11:04 AM EDT documented as of this encounter Care Teams Spa Associate Relationship Specialty Start Date End Date Name, MD Francisco [address] [place] [address] PCP - General Family Medicine 05/16/17 [facility] 10/18/24 documented as of this encounter
--- OUTSIDE RECORDS SUMMARY | 2025-05-13 14:38 | XMS_ITS | Encounter Summary ---
Author Organization [employer] Address [address] [place] [address] Care Team Providers Care Dairy Processing Supervisor Name Role Phone Name, Francisco NAVA Primary Care Provider [phone] Reason for Visit * Reason Comments Med Refill Encounter Details Date Type Department Care Team ([facility] st Contact Info) Description 12/24/2024 Refill [facility] MED[facility]INE [address] [place] [address] Name, MD Francisco [address] [place] [address] Vitamin D deficiency Social History Tobacco Use [...] Info) Description 07/03/2025 10:00 AM EDT Telemedicine [facility] MEDICINE [address] [place] [address] Kym Lisa RN documented as of this encounter Visit Diagnoses Diagnosis Vitamin D deficiency documented in this encounter Additional Health Concerns Assessment Noted Time PHQ-9 Depression Total Score: 0 01/02/20 24 11:09 AM EDT documented as of this encounter Care Teams Dairy Processing Supervisor Relationship Specialty Start Date End Date Name, MD Francisco [address] [place] [address] PCP - General Family Medicine 05/16/17 [facility] 10/18/24 documented as of this encounter
--- OUTSIDE RECORDS SUMMARY | 2025-05-13 14:38 | XMS_ITS | Encounter Summary ---
Author Organization [employer] Address [address] 7[address] [place] [address] Care Team Providers Care Attendant Arcade Name Role Phone Name, Francisco NAVA Primary Care Provider [phone] Reason for Visit * Reason Comments Med Refill Encounter Details Date Type Department Care Team ([facility] st Contact Info) Description 12/28/2023 Refill [facility] [address] [place], [place] [phone] Name, MD Francisco [address] [place] [address] Lumbago with sciatica, left side Social History [...] Info) Description 07/03/2025 10:00 AM EDT Telemedicine [facility] [address] [place] [address] Kym Lisa RN documented as of this encounter Visit Diagnoses Diagnosis Lumbago with sciatica, left side documented in this encounter Additional Health Concerns Assessment Noted Time PHQ-9 Depression Total Score: 0 12/21/19 23 11:04 AM EDT documented as of this encounter Care Teams Attendant Arcade Relationship Specialty Start Date End Date Name, MD Francisco [address] [place] [address] PCP - General Family Medicine 05/16/17 [facility] 10/18/24 documented as of this encounter
--- OUTSIDE RECORDS SUMMARY | 2025-05-13 14:38 | XMS_ITS | Encounter Summary ---
Author Organization [employer] Address [address] 7t [place] [address] Care Team Providers Care Television Journalist Name Role Phone Name, Francisco NAVA Primary Care Provider Encounter Details Date Type Department Care Team ([facility] Contact Info) Description 09/14/2022 Orders Only [facility] [address] [place] [address] Brandy Lindsay LPN Social History Tobacco Use [...] Department Care Team (Late Contact Info) Description 07/03/2025 10:00 AM EDT Telemedicine [facility] [address] [place] [address] Kym Lisa, FITZ documented as of this encounter Visit Diagnoses Not on filedocumented in this encounter Care Teams Television Journalist Relationship Specialty Start Date End Date Name, MD Francisco [address] [place] [address] PCP - General Family Medicine 05/16/17 [facility] 10/18/24 documented as of this encounter
--- OUTSIDE RECORDS SUMMARY | 2025-05-13 14:38 | XMS_ITS | Encounter Summary ---
Author Organization [employer] Address [address] [place] [address] Care Team Providers Care Information Resources Manager Name Role Phone Name, Francisco NAVA Primary Care Provider [phone] Reason for Visit * Reason Comments Med Refill Encounter Details Date Type Department Care Team (Late st Contact Info) Description 08/24/2023 Refill [facility] [address] [place] [address] Name, MD Francisco [address] [place] [address] Social History Tobacco Use Types Packs/Day Years [...] Info) Description 07/03/2025 10:00 AM EDT Telemedicine [facility] [address] [place] [address] Kym Lisa, RN documented as of this encounter Visit Diagnoses Not on filedocumented in this encounter Additional Health Concerns Assessment Noted Time PHQ-9 Depression Total Score: 0 12/21/19 23 11:04 AM EDT documented as of this encounter Care Teams Information Resources Manager Relationship Specialty Start Date End Date Name, MD Francisco [address] [place] [address] PCP - General Family Medicine 05/16/17 [facility] 10/18/24 documented as of this encounter
--- OUTSIDE RECORDS SUMMARY | 2025-05-13 14:38 | XMS_ITS | Clinical Summary ---
Author Organization [facility] Address [address] [place] [address] Phone Care Team Providers Care Molten Iron Pourer Name Role Phone Elvin Freedman NP Primary Care Provider [phone] Allergies Active Allergy Reactions Criticality Noted Date [...] Date Gait instability 10/14/2024 Right orbital fracture ([facility] V24, [facility] V28 ) 10/14/2024 Postconcussive syndrome 10/14/2024 Resolved Problems Problem Noted Date Diagnosed Date Resolved Date Hepatic encephalopathy ([facility] V24, [facility] V28) 10/14/2024 10/15/2024 Medical History Medical History Date Comments COPD (chronic obstructive pulmonary disease) ( [facility] V24, [facility]28) Diabetes mellitus ([facility] V24, [facility] V28) GERD (gastroesophageal reflux disease) Headache Hypercholesteremia Hypertension Hepatic steatosis Hyperammonemia ([facility] V24) Disease of thyroid gland Family History [...] 10/02/2023 Social Influencers of Health Screening 10/02/2023 Depression Screening 09/03/2024 Diabetes: Blood Sugar Control Test (HGBA1C) 03/26/2025 09/26/2024 COVID-19 Vaccine ( season) 2025 06/29/2022, 08/18/2021, 01/21/2021, Additional history exists Influenza Vaccine (#1) 2025 , 06/06/2023, 06/02/2022, Additional history exists Falls Risk Assessment 10/16/2025 10/16/2024 Hypertension/CHF/CAD Annual BMP Blood Test 10/16/2025 10/16/2024, 10/15/2024, 10/14/2024, Additional history exists Cholesterol Screening (Lipid Panel) 07/25/2029 07/25/2024 DTaP,Tdap,and Td Vaccines (4 - Td or Tdap) 10/17/2033 10/17/2023, 06/03/2012, 04/15/2009 Pneumococcal Vaccine: 50+ Years Completed 07/05/2017, 04/15/2009 Zoster Vaccines Completed 12/03/2020, 09/04, 06/30/2014 HIB Vaccines Aged Out No longer eligi [...] mmol/L LAB CHEMISTRY METHOD 10/16/2024 7:41 AM [facility] Potassium 3.5 3.5 - 5.5 mmol/L LAB CHEMISTRY METHOD 10/16/2024 7:41 AM [facility] Chloride 105 96 - 110 mmol/L LAB CHEMISTRY METHOD 10/16/2024 7:41 AM [facility] CO2 29 21 - 32 mmol/L LAB CHEMISTRY METHOD 10/16/2024 7:41 AM [facility] Anion Gap 6 3 - 11 LAB CHEMISTRY METHOD 10/16/2024 7:41 AM [facility] Glucose 127(H) 70 - 100 mg/dL LAB CHEMISTRY METHOD 10/16/2024 7:41 AM [facility] BUN 16 5 - 25 mg/dL LAB CHEMISTRY METHOD 10/16/2024 7:41 AM [facility] Creatinine 1.08 0.50 - 1.10 mg/dL LAB CHEMISTRY METHOD 10/16/2024 7:41 AM [facility] eGFR 50(L) >=60 mL/min/1. 73m2 LAB CHEMISTRY METHOD 10/16/2024 7:41 AM [facility] Comment:Calculation based on the Chronic Kidney Disease Epidemiology Collaboration (CKD-EPI) equation refit without adjustment for race. BUN/Creatinine Ratio 14.8 LAB CHEMISTRY METHOD 10/16/2024 7:41 AM [facility] Calcium 8.9 8.5 - 10.5 mg/dL LAB CHEMISTRY METHOD 10/16/2024 7:41 AM [facility] Blood Venous blood specimen / Unknown Venipuncture / Unknown 10/16/2024 6:49 AM EST 10/16/2024 7:04 AM EST us Marcos Dawson MD LAB BLOOD ORDERABLES Final Re sult [facility] [address] [place] [address], [place] [phone] from Last 3 Months or Most Recently Relevant to Health Maintenance Insurance MEDICAID - [place] [facility] MEDICARE Member Subscriber Plan / Payer (Ef fective 2017-Present) Name:Daniel Ольга Relation to Subscriber:Self Name:Ольга Sanchez Payer ID:[id number] Group ID:[id number] Type:Not on file Address: [address] [place] [phone] Advance Directives * Full Code - Default [...] currently active code status orders. Care Teams Molten Iron Pourer Relationship Specialty Start Date End Date Elvin Freedman NP [address] [place] [address] NILSON Shen PCP - General 06/22/08
--- OUTSIDE RECORDS SUMMARY | 2025-05-13 14:38 | XMS_ITS | Encounter Summary ---
Author Organization [employer] Address [address] [place] [address] Care Team Providers Care Enrollment Management Coordinator Name Role Phone Name, Francisco NAVA Primary Care Provider [phone] Reason for Visit * Reason Onset Date Comments Durable Medical Equipment 08/10/2023 Incont inence Supplies Encounter Details Date Type Department Care Team ([facility] st Contact Info) Description 08/10/2023 Telephone [facility]INE [address] [place], [place] [phone] Name, MD Francisco [address] [place], [place] [phone] Durable Medical Equipment (Incontinence Supplies) Social History [...] and bed pads to be faxed to [phone] documented in this encounter Plan of Treatment Upcoming Encounters Date Type Department Care Team (Late st Contact Info) Description 07/03/2025 10:00 AM EDT Telemedicine [facility] MED[facility]INE [address] [place] [address] Kym Lisa RN documented as of this encounter Visit Diagnoses Not on filedocumented in this encounter Additional Health Concerns Assessment Noted Time PHQ-9 Depression Total Score: 0 12/21/19 23 11:04 AM EDT documented as of this encounter Care Teams Enrollment Management Coordinator Relationship Specialty Start Date End Date Name, MD Francisco [address] [place] [address] PCP - General Family Medicine 05/16/17 [facility] 10/18/24 documented as of this encounter
--- OUTSIDE RECORDS SUMMARY | 2025-05-13 14:39 | XMS_ITS | Patient Health Record ---
Author Organization [employer] Address [address] [place] [address] Care Team Providers Care Dobby Looms Pegger Name Role Phone NICK OWENS MD Primary Care Provider Nando Hernandez [phone] Reason For Referral No Information Plan Of Treatment No Information Insurance Providers Payer Name Payer Address Payer Phone Subscriber Number Group Number Insured Name Patient Relationship to Insured Coverage Start Date Coverage End Date [facility] [address] [place] [phone] [id number] EMILE ZAVALA Self - patient is the insured
--- OUTSIDE RECORDS SUMMARY | 2025-05-13 14:39 | XMS_ITS | Encounter Summary ---
Author Organization [employer] Address [address] [place] [address] Care Team Providers Care Nuclear Monitoring Technician Name Role Phone Name, Francisco NAVA Primary Care Provider [phone] Reason for Visit * Reason Onset Date Comments call back 01/25/2023 Encounter Details Date Type Department Care Team ([facility] st Contact Info) Description 01/25/2023 Telephone [facility] MEDICINE [address] [place] [address] [phone] Name, MD Francisco [address] [place] [address] [phone] call back Social History Tobacco Use Types [...] Miscellaneous Notes * Telephone Encounter - Orquidea Girish - 01/25/2023 12:27 PM EDT VM left at [facility] for Janeth regarding Boost for patient. * Telephone Encounter - Nav Herring - 01/25/2023 11:47 AM EDT Tc from Radha with [facility] requesting a call back to have verbal order for script for boost shakes and what kind of flavor. Please contact radha at [phone] ext [phone] documented in this encounter Plan of Treatment Upcoming Encounters Date Type Department Care Team (Late st Contact Info) Description 07/03/2025 10:00 AM EDT Telemedicine [facility] MEDICINE [address] [place] [address] Kym Lisa, FITZ documented as of this encounter Visit Diagnoses Not on filedocumented in this encounter Additional Health Concerns Assessment Noted Time PHQ-9 Depression Total Score: 0 12/21/19 23 11:04 AM EDT documented as of this encounter Care Teams Nuclear Monitoring Technician Relationship Specialty Start Date End Date Name, MD Francisco [address] [place] [address] PCP - General Family Medicine 05/16/17 [facility] 10/18/24 documented as of this encounter
--- OUTSIDE RECORDS SUMMARY | 2025-05-13 14:39 | XMS_ITS | Encounter Summary ---
Author Organization [employer] Address [address] [facility] 7t [place] [address] Care Team Providers Care Lap Runner Name Role Phone Name, Francisco NAVA Primary Care Provider [phone] Reason for Visit * Reason Comments Med Refill Encounter Details Date Type Department Care Team ([facility] Contact Info) Description 10/16/2022 Refill [facility] [address] [place] [phone] Name, MD Francisco [address] [place] [address] [phone] Social History Tobacco Use Types Packs/Day Years [...] Upcoming Encounters Date Type Department Care Team ([facility] Contact Info) Description 07/03/2025 10:00 AM EDT Telemedicine [facility] [address] [place], [place] [phone] Maria L, Kym, RN documented as of this encounter Visit Diagnoses Not on filedocumented in this encounter Care Teams Lap Runner Relationship Specialty Start Date End Date Name, MD Francisco [address] [place] [address] PCP - General Family Medicine 05/16/17 [facility] 10/18/24 documented as of this encounter
--- OUTSIDE RECORDS SUMMARY | 2025-05-13 14:39 | XMS_ITS | Encounter Summary ---
Author Organization [employer] Address 75 [facility] 7t [place] [address] Care Team Providers Care Turbine Engine Assembler Name Role Phone Name, Francisco NAVA Primary Care Provider [phone] Encounter Details Date Type Department Care Team ([facility] Contact Info) Description 02/13/2023 Abstract [facility] [address] [place] [address] Name, MD Francisco [address] [place] [address] Social History Tobacco Use Types Packs/Day Years [...] Upcoming Encounters Date Type Department Care Team ([facility] Contact Info) Description 07/03/2025 10:00 AM EDT Telemedicine [facility] MED[facility]INE [address] [place] [address] Kym Lisa, RN documented as of this encounter Visit Diagnoses Not on filedocumented in this encounter Additional Health Concerns Assessment Noted Time PHQ-9 Depression Total Score: 0 12/21/19 23 11:04 AM EDT documented as of this encounter Care Teams Turbine Engine Assembler Relationship Specialty Start Date End Date Name, MD Francisco [address] [place] [address] PCP - General Family Medicine 05/16/17 [facility] 10/18/24 documented as of this encounter
--- OUTSIDE RECORDS SUMMARY | 2025-05-13 14:39 | XMS_ITS | Encounter Summary ---
Author Organization [employer] Address [address] [facility] [address] 7t [place] [address] Care Team Providers Care Director Personal Name Role Phone Name, Francisco NAVA Primary Care Provider [phone] Reason for Visit * Reason Comments Med Refill Encounter Details Date Type Department Care Team ([facility] st Contact Info) Description 10/24/2024 Refill [facility] [address] [place] [address] Lamar Prescott MD [address] [place] [address] Social History Tobacco Use Types Packs/Day Years [...] Info) Description 07/03/2025 10:00 AM EDT Telemedicine [facility] [address] [place] [address] Kym Lisa RN documented as of this encounter Visit Diagnoses Not on filedocumented in this encounter Additional Health Concerns Assessment Noted Time PHQ-9 Depression Total Score: 0 01/02/20 24 11:09 AM EDT documented as of this encounter Care Teams Director Personal Relationship Specialty Start Date End Date Name, MD Francisco [address] [place] [address] PCP - General Family Medicine 05/16/17 [facility] 10/18/24 documented as of this encounter
--- OUTSIDE RECORDS SUMMARY | 2025-05-13 14:39 | XMS_ITS | Encounter Summary ---
Author Organization [employer] Address [address] [facility] [address] [place] [address] Care Team Providers Care Hand I Thermal Cutter Name Role Phone NameFrancisco MD Primary Care Provider [phone] Reason for Visit * Reason Comments Med Refill Encounter Details Date Type Department Care Team ([facility] st Contact Info) Description 10/04/2022 Refill [facility] [address] [place] [address] Name, MD Francisco [address] [place] [address] Social History Tobacco Use Types Packs/Day Years [...] Info) Description 07/03/2025 10:00 AM EDT Telemedicine [facility] [address] [place] [address] Kym Lisa, RN documented as of this encounter Visit Diagnoses Not on filedocumented in this encounter Care Teams Hand I Thermal Cutter Relationship Specialty Start Date End Date Lidia, MD Francisco [address] [place] [address] PCP - General Family Medicine 05/16/17 [facility] 10/18/24 documented as of this encounter
--- OUTSIDE RECORDS SUMMARY | 2025-05-13 14:39 | XMS_ITS | Encounter Summary ---
Author Organization [employer] Address [address] [facility] [address] 7[address] [place] [address] Care Team Providers Care Book Publisher Name Role Phone Name, Francisco NAVA Primary Care Provider [phone] Encounter Details Date Type Department Care Team ([facility] st Contact Info) Description 05/13/2025 Orders Only GENERIC EXTERNAL DATA DEPARTMENT Provider, Generic External Data Social History Tobacco Use Types Packs/Day Years [...] housing situation today? I have jaynejeison stevenson 01/02/[address] you [...] Info) Description 07/03/2025 10:00 AM EDT Telemedicine [facility] MEDICINE [address] [place] [address] Kym Lisa RN documented as of this encounter Procedures Procedure Name Priority Date/Time Associated Diagnosis Comments TSH W/REFLEX TO FT4 Routine 05/13/2025 1 2:23 PM EDT PROTHROMBIN TIME-INR Routine 05/13/2025 12:23 PM EDT CBC Routine 05/13/2025 12:23 PM EDT HEMOGLOBIN A1C Routine 05/13/2025 12:23 PM EDT LIPID PANEL, STANDARD Routine 05/13/2025 12:23 PM EDT COMPREHENSIVE METABOLIC PANEL Routine 05/13/2025 12:23 PM EDT documented in this encounter Results * TSH with Reflex to Free T4 (05/13/2025 12:23 PM EDT) TSH reflex Free T4 2.42 0.32 - 4.0 uIU/mL [facility] 05/13/2025 12:2 3 PM EDT 05/13/2025 12:23 PM EDT us Generic External Data Provider LAB BLOOD ORDERAB LES Final Result Performing Organization Address [facility]/ZIP Co de Phone Number [facility] [address] [place] [address] [phone] * Lipid Panel, Standard (05/13/2025 12:23 PM EDT) Triglycerides 37 <150 mg/dL [facility] Comment:Desirable Triglyceri de: less than 150 mg/dLBorderline High Triglyceride 150-199 mg/dLHigh Triglyceride: 200-499 mg/dLVery High Triglyceride: greater than or equal to 5OO mg/dL Cholesterol 108 <200 mg/dL [facility] Comment:Desirable Cholestero l: less than 200 mg/dLBorderline High Cholesterol: 200-239 mg/dLHigh Cholesterol: greater than 239 mg/dL LDL Cholesterol Calculated 58 <100 mg/dL [facility] Comment:Desirable LDL: less than 100 mg/dLNear Optimal/Above Optimal LDL: 110- 129 mg/dLBorderline High LDL: 130-159 mg/dLHigh LDL: 160-189 mg/dLVery High LDL: greater than or equal to 190 mg/dL HDL Cholesterol 43 >40 mg/dL [facility] Comment:Desirable HDL: great er than 40 mg/dL Note: This HDL assay may give artificially low results in patients with liver disease. 05/13/2025 12:2 3 PM EDT 05/13/2025 12:23 PM EDT us Generic External Data Provider LAB BLOOD ORDERAB LES Final Result Performing Organization Address City/[facility]/ZIP Co de Phone Number [facility] [address] [place] [address] [phone] * (ABNORMAL) Comprehensive Metabolic Panel (05/13/2025 12:23 PM EDT) Sodium 135 135 - 145 mmol/L [facility] Potassium 4.2 3.3 - 5.1 mmol/L [facility] Chloride 103 96 - 108 mmol/L [facility] Carbon Dioxide 27 22 - 29 mmol/L [facility] Anion Gap 9(L) 12 - 20 [facility] Urea Nitrogen (BUN) 13 9 - 16 mg/dL [facility] Creatinine, Serum 0.75 0.5 - 1.4 mg/dL [facility] Estimated Glomerular Filt Rate >60 [facility] Comment:Chronic Kidney Disea se: Estimated GFR < 60 mL/min/1.47e0Cwiali Kidney Disease: Estimated GFR < 15 mL/min/1.73m2 Glucose 168(H) 60 - 115 mg/dL [facility] Calcium 9.0 8.4 - 10.2 mg/dL [facility] Bilirubin, Total 1.0 0.0 - 1.0 mg/dL [facility] Aspartate Amino Transferase 63(H) 5 - 31 U/L [facility] Alanine Aminotransferase 40(H) 0 - 31 U/L [facility] Total Protein 6.5 6.5 - 8.0 g/dL [facility] Albumin Level 2.8(L) 3.5 - 5.0 g/dL [facility] Alkaline Phosphatase 175(H) 39 - 117 U/L [facility] 05/13/2025 12:2 3 PM EDT 05/13/2025 12:23 PM EDT us Generic External Data Provider LAB BLOOD ORDERAB LES Final Result [facility] [address] [place] [address] [phone] * Hemoglobin A1c (05/13/2025 12:23 PM EDT) Hemoglobin A1c 6.0 <6.0 % [facility] Comment:Hemoglobin A1C Refer ence Range Adults: 4.8 - 6.0 % Non diabetic: < 6.0 % Goal: < 7.0 %Additional Action Suggested: > 8.0 %Note: Hemoglobin A1c results are invalid for patients with abnormal amounts of HbF. Blood transfusions may impact the HbA1c concentration in the patient sample. Estimated Average Glucose 126 mg/dL [facility] Comment:eAG = Estimated ave rage glucose which is %A1C expressed asaverage glucose, using the formula of the N0C-GmeqvrqGbfiplg Glucose study (ADAG), Diabetes Care, Vol.31,#8,Apr. 2007 05/13/2025 12:2 3 PM EDT 05/13/2025 12:23 PM EDT Generic External Data Provider LAB BLOOD ORDERAB LES Final Result Performing Organization Address [facility] Co de Phone Number [facility] [address] [place] [phone] * (ABNORMAL) Prothrombin Time-INR (05/13/2025 12:23 PM EDT) Prothrombin Time 13.2(H) 10.9 - 12.4 SEC [facility] INTERNATIONAL NORM RATIO 1.2(H) 0.9 - 1.1 [facility] Comment:INTERNATIONAL NORMAL IZED RATIO (INR) REFERENCE RANGES Reference RangeFor patients not on anticoagulant therapy: 0.9 - 1.1INR ranges for oral anticoagulanttherapy:For prevention and treatment of venous thrombosis and pulmonary embolism: 2.0 - 3.0For acute myocardial infarction with aspirin therapy: 2.0 - 3.0For acute myocardial infarction without aspirin therapy: 3.0 - 4.0For patients with mechanical prosthetic heart valves: 2.5 - 3.5 05/13/2025 12:2 3 PM EDT 05/13/2025 12:23 PM EDT [facility] External Data Provider LAB BLOOD ORDERAB LES Final Result Performing Organization Address [facility] Co de Phone Number [facility] [address] [place] [phone] * (ABNORMAL) CBC (05/13/2025 12:23 PM EDT) White Blood Count 5.9 4.8 - 10.8 X10*3/uL [facility] Red Blood Count 4.18(L) 4.20 - 5.50 X10*6/uL [facility] Hemoglobin 13.7 12.0 - 16.0 g/dl [facility] Hematocrit 39.9 37.0 - 47.0 % [facility] Mean Corpuscular Volume 95.5 80.0 - 98.0 fL [facility] Mean Corpuscular Hemoglobin 32.8 27.0 - 33.0 pg [facility] Mean Corpuscular HGB Conc 34.3 31.0 - 35.0 g/dl [facility] Red Cell Distribution Width 14.3 11.0 - 16.0 % [facility] Platelet Count 174 160 - 400 X10*3/uL [facility] Mean Platelet Volume 10.0 9.4 - 12.3 fL [facility] NRBC Pct Auto 0.0 0.0 - 0.2 /100WBC [facility] NRBC Abs Auto 0.000 0.0 - 0.012 X10*3/uL [facility] 05/13/2025 12:2 3 PM EDT 05/13/2025 12:23 PM EDT us Generic External Data Provider LAB BLOOD ORDERAB LES Final Result [facility] [address] [place] [address] [phone] documented in this encounter Visit Diagnoses Not on filedocumented in this encounter Additional Health Concerns Assessment Noted Time PHQ-9 Depression Total Score: 0 01/02/20 24 11:09 AM EDT documented as of this encounter Care Teams Book Publisher Relationship Specialty Start Date End Date Name, MD Francisco [address] [place] [address] PCP - General Family Medicine 05/16/17 [facility] 10/18/24 documented as of this encounter
--- OUTSIDE RECORDS SUMMARY | 2025-05-13 14:39 | XMS_ITS | Encounter Summary ---
Author Organization [employer] Address [address] [facility] [address] [place] [address] Care Team Providers Care Research Rn Spec Name Role Phone Name, Francisco NAVA Primary Care Provider [phone] Reason for Visit * Reason Comments Med Refill Encounter Details Date Type Department Care Team ([facility] st Contact Info) Description 05/08/2025 Refill [facility] [address] [place] [address] Name, MD Francisco [address] [place] [address] Chronic low back pain, unspecified back pain laterality, unspecified whether sciatica present Social History Tobacco Use Types Packs/Day Years [...] Description 07/03/2025 10:00 AM EDT Telemedicine [facility] MEDICINE [address] [place] [address] Kym Lisa, FITZ documented as of this encounter Visit Diagnoses Diagnosis Chronic low back pain, unspecified back pain laterality, unspecified whether sciatica present documented in this encounter Additional Health Concerns Assessment Noted Time PHQ-9 Depression Total Score: 0 01/02/20 24 11:09 AM EDT documented as of this encounter Care Teams Research Rn Spec Relationship Specialty Start Date End Date Name, MD Francisco [address] [place] [address] PCP - General Family Medicine 05/16/17 [facility] 10/18/24 documented as of this encounter
--- OUTSIDE RECORDS SUMMARY | 2025-05-13 14:39 | XMS_ITS | Encounter Summary ---
Author Organization [employer] Address [address] [facility] [address] [place] [address] Care Team Providers Care Development Eng Name Role Phone Name, Francisco NAVA Primary Care Provider [phone] Reason for Visit * Reason Comments Med Refill Encounter Details Date Type Department Care Team ([facility] st Contact Info) Description 04/29/2025 Refill [facility] [address] [place], [place] [phone] Name, MD Francisco [address] [place] [address] Chronic low back pain, unspecified back pain [...] Info) Description 07/03/2025 10:00 AM EDT Telemedicine [facility] [address] [place] [address] Kym Lisa, FITZ documented as of this encounter Visit Diagnoses Diagnosis Chronic low back pain, unspecified back pain laterality, unspecified whether sciatica present documented in this encounter Additional Health Concerns Assessment Noted Time PHQ-9 Depression Total Score: 0 01/02/20 24 11:09 AM EDT documented as of this encounter Care Teams Development Eng Relationship Specialty Start Date End Date Name, MD Francisco [address] [place] [address] PCP - General Family Medicine 05/16/17 [facility] 10/18/24 documented as of this encounter
--- OUTSIDE RECORDS SUMMARY | 2025-05-13 14:39 | XMS_ITS | Encounter Summary ---
Author Organization [employer] Address 75 [facility] 7t [place] [address] Care Team Providers Care Gospel Worker Name Role Phone Name, Francisco NAVA Primary Care Provider [phone] Encounter Details Date Type Department Care Team ([facility] Contact Info) Description 11/06/2022 Orders Only [facility] [address] [place] [address] Rere Robles LPN Social History Tobacco Use [...] Info) Description 07/03/2025 10:00 AM EDT Telemedicine [facility] MEDICINE [address] [place] [address] Kym Lisa RN documented as of this encounter Visit Diagnoses Not on filedocumented in this encounter Care Teams Gospel Worker Relationship Specialty Start Date End Date Name, MD Francisco [address] [place] [address] PCP - General Family Medicine 05/16/17 [facility] 10/18/24 documented as of this encounter
--- OUTSIDE RECORDS SUMMARY | 2025-05-13 14:39 | XMS_ITS | Encounter Summary ---
Author Organization [employer] Address [address] [facility] [address] 7t [place] [address] Care Team Providers Care Industry Segment Specialist Name Role Phone Name, Francisco NAVA Primary Care Provider [phone] Reason for Visit * Reason Onset Date Comments Hospital Follow-up 10/17/2024 Encounter Details Date Type Department Care Team ([facility] st Contact Info) Description 10/17/2024 Telephone [facility] MEDICINE [address] [place] [phone] Name, MD Francisco [address] [place] [address] [phone] Hospital Follow-up Social History Tobacco Use Types [...] from pt requesting a HDF appt. [facility] Date of admission: 10/14/2024 Discharge date: 10/16/2024 Diagnosed: Concussion and stitches on eyebrow (Right) *Send message to [place] Clinical Care Coordinators documented in this encounter Plan of Treatment Upcoming Encounters Date Type Department Care Team ([facility] st Contact Info) Description 07/03/2025 10:00 AM EDT Telemedicine [facility] MEDICINE [address] [place] [address] Kym Lisa RN documented as of this encounter Visit Diagnoses Not on filedocumented in this encounter Additional Health Concerns Assessment Noted Time PHQ-9 Depression Total Score: 0 01/02/20 24 11:09 AM EDT documented as of this encounter Care Teams Industry Segment Specialist Relationship Specialty Start Date End Date Name, MD Francisco [address] [place] [address] PCP - General Family Medicine 05/16/17 [facility] 10/18/24 documented as of this encounter
--- OUTSIDE RECORDS SUMMARY | 2025-05-13 14:39 | XMS_ITS | Encounter Summary ---
Author Organization [employer] Address [address] [facility] 7t [place] [address] Care Team Providers Care Ecg Technician Name Role Phone Name, Francisco NAVA Primary Care Provider [phone] Encounter Details Date Type Department Care Team ([facility] Contact Info) Description 10/04/2022 Orders Only [facility] [address] [place] [address] [phone] Brandy Lindsay LPN Social History Tobacco Use [...] Info) Description 07/03/2025 10:00 AM EDT Telemedicine [facility] [address] [place] [address] Kym Lisa RN documented as of this encounter Procedures Procedure Name Priority Date/Time Associated Diagnosis Comments US ABDOMEN COMPLETE Routine 11/03/2022 9 :14 AM EST documented in this encounter Results * US Abdomen Complete (11/03/2022 9:14 AM EST) Anatomical Region Laterality Modality Abdomen Ultrasound 11/03/2022 9:14 AM EST Narrative 11/05/2022 11:42 PM EST [address] [address] Ultrasound Report Signed Patient: Ольга Sanchez MR#: [id number] : 1935 Acct:[id number] Age/Sex: 87 / F ADM Date: 11/03/22 Loc: HO.US Attending Dr: Francisco Murillo MD Ordering Physician: Francisco Murillo MD Date of Service: 11/03/22 Procedure(s): US abdomen complete Accession Number(s): [id number] cc: Francisco Murillo MD EXAMINATION: US ABDOMEN [...] in OV> 11/05/22 2339 DD/ 0914 TD/TT: Olericulture Professor: SS Procedure Note Donotuseinterpreter, Image - 11/05/2022 [place] [address] Ultrasound Report Signed Patient: Ольга Sanchez [facility]#: [id number] : 6Acct:[id number] Age/Sex: 87 / FADM Date: 11/03/22 Loc: HO.US Attending Dr: Francisco Murillo MD Ordering Physician: Francisco Murillo MD Date of Service: 11/03/22 Procedure(s): US abdomen complete Accession Number(s): [id number] cc: Francisco Murillo MD EXAMINATION: US ABDOMEN [...] in OV> 11/05/22 2339 DD/ 0914 TD/TT: Olericulture Professor: JAYDEN [facility] External Provider IMG PROCEDURES Edited Result - Final documented in this encounter Visit Diagnoses Not on filedocumented in this encounter Care Teams Ecg Technician Relationship Specialty Start Date End Date Name, MD Francisco [address] [place] [address] PCP - General Family Medicine 05/16/17 [facility] 10/18/24 documented as of this encounter
--- OUTSIDE RECORDS SUMMARY | 2025-05-13 14:39 | XMS_ITS | Clinical Summary ---
Author Organization [employer] Address [address] [facility] [address] [place] [address] Care Team Providers Care Fur Farmer Name Role Phone Name, Francisco NAVA Primary Care Provider [phone] Allergies Active Allergy Reactions Criticality Noted Date [...] 3 times/week) 30 g 1 023 Active pantoprazole (ProtoNix) 40 MG EC tablet TAKE 1 TABLET BY MOUTH EVERYDAY AT NOON 90 tablet 3 024 Active Ca Phosphate-Paula calciferol (Calcium 500 + D3) 250-12.5 MG-MCG chewable tablet Chew. Active Blood Pressure kitIndications: Primary hypertension Use as directed 1 kit Active loratadine (Claritin) 10 MG tabletIndicatio ns:Asthma, unspecified asthma severity, unspecified whether complicated, unspecified whether persistent TAKE 1 TABLET BY MOUTH EVERYDAY AT NOON 30 tablet 5 025 Active gabapentin (Neurontin) 100 MG capsuleIndicati ons:Chronic low back pain, unspecified back pain laterality, unspecified whether sciatica present TAKE 1 CAPSULE BY MOUTH EVERY EVENING 90 capsule 1 025 Active thiamine (Vitamin B-1) 100 MG tablet TAKE 1 TABLET BY MOUTH EVERYDAY AT NOON 90 tablet 3 025 Active cyanocobalamin (Vitamin B-12) 1000 MCG tablet TAKE 1 TABLET BY MOUTH EVERYDAY AT NOON 90 tablet 3 025 Active metFORMIN (Glucophage) 500 MG tablet TAKE 1/2 TABLET BY MOUTH TWICE DAILY AT NOON AND IN THE EVENING WITH MEALS 30 tablet Active aspirin 81 MG chewable tablet Chew 1 tablet (81 mg) every other day. 15 tablet 025 2025 Active olmesartan (Benicar) 20 MG tablet Take 1 tablet (20 mg) by mouth Once per day. 30 tablet 025 2025 Active Trelegy Ellipta 200-62.5-25 MCG/ACT aerosol powder INHALE 1 PUFF BY MOUTH EVERY DAY AT THE SAME TIME RINSE MOUTH AFTER USING 60 each Active fluticasone (Flonase) 50 MCG/ACT nasal spray USE 1 SPRAY IN EACH NOSTRIL ONCE DAILY 16 g 2 Active lactulose (Chronulac) 10 GM/15ML solution TAKE 45 ML BY MOUTH THREE TIMES DAILY. HOLD IF 3 BOWEL MOVEMENT (s) IN 1 DAY 946 mL Active glucose blood (FREESTYLE LITE) test stripIndication s:Type 2 diabetes mellitus without complication, without long-term current use of insulin ([facility]) TEST BLOOD SUGAR ONCE DAILY 50 strip Active atorvastatin (Lipitor) 40 MG tablet TAKE 1 TABLET BY MOUTH EVERYDAY AT NOON 90 tablet 3 025 Active levothyroxine (Synthroid, Levoxyl) 50 MCG tabletIndicatio ns:Hypothyroidi sm, unspecified type TAKE 1 TABLET BY MOUTH EVERY MORNING BEFORE BREAKFAST 30 tablet 5 025 Active naloxone (Narcan) 4 mg/0.1 mL nasal sprayIndication s:Long-term current use of opiate analgesic Administer 1 spray (4 mg) into affected nostril(s) if needed for opioid reversal. May repeat every 2-3 minutes if needed, alternating nostrils, until medical assistance becomes available. 2 each 3 025 2025 Active traMADol (Ultram) 50 MG tabletIndicatio ns:Chronic low back pain, unspecified back pain laterality, unspecified whether sciatica present TAKE 1 TABLET BY MOUTH TWICE DAILY IN THE MORNING AND AT BEDTIME NEEDED FOR SEVERE PAIN 56 tablet 025 Active atorvastatin (Lipitor) 40 MG tablet TAKE 1 TABLET BY MOUTH EVERYDAY AT NOON 90 tablet 3 024 2024 Discontinued levothyroxine (Synthroid, Levoxyl) 50 MCG tabletIndicatio ns:Hypothyroidi sm, unspecified type TAKE 1 TABLET BY MOUTH EVERY MORNING BEFORE MEALS 30 tablet 5 025 2024 Discontinued traMADol (Ultram) 50 MG tabletIndicatio ns:Chronic low back pain, unspecified back pain laterality, unspecified whether sciatica present TAKE 1 TABLET BY MOUTH TWICE DAILY IN THE MORNING AND AT BEDTIME NEEDED FOR SEVERE PAIN FOR UP TO 10 DAYS 56 tablet 025 2024 Discontinued Active Problems Problem Noted Date Diagnosed Date Long-term current use of opiate analgesic 2024 Cirrhosis of liver without ascites 12/29/2024 Cortical [...] Overview (03/15/2023): Remote history cholecystectomy ERCP at [facility] 2018 Common bile duct calculus 09/26/2017 Postherpetic neuralgia 08/23/201709/26 Epigastric pain 08/23/2017 10/17/2023 Dizziness 08/23/2017 10/17/2023 Dyspnea on exertion 07/05/2017 10/17/19 24 Encounters Date Type Department Care Team Description 05/13/2025 Orders Only GENERIC EXTERNAL DATA DEPARTMENT Provider, Generic External Data 05/08/2025 Refill [facility] [place] [address] Francisco Murillo MD Chronic low back pain, unspecified back pain laterality, unspecified whether sciatica present 04/29/2025 Refill [facility] [place] [address] Francisco Murillo MD Chronic low back pain, unspecified back pain laterality, unspecified whether sciatica present 04/23/2025 10:30 AM EDT Telemedicine [facility] [place] [address] Kym Lisa, FITZ Long-term current use of opiate analgesic 04/23/2025 Refill [facility] [place] [address] Kym Lisa, RN Long-term current use of opiate analgesic (Primary Dx) 04/23/2025 Travel 04/16/2025 Refill [facility] [place] [address] Francisco Murillo MD Hypothyroidism, unspecified type 04/06/2025 Refill [facility] [place] [address] Francisco Murillo MD Chronic low back pain, unspecified back pain laterality, unspecified whether sciatica present 03/04/2025 Orders Only [facility] [place] [address] Francisco Murillo MD 03/04/2025 Orders Only [facility] [place] [place] [address] Francisco Murillo MD Chronic low back pain, unspecified back pain laterality, unspecified whether sciatica present (Primary Dx) 03/03/2025 Results Follow-Up [facility] [place] [address] Francisco Murillo MD POCT Glucose, POCT HGB A1C, CBC auto differential, Basic Metabolic Panel 03/02/2025 11:00 AM EDT Office Visit [facility] [place] [address] Name, MD Francisco Type 2 diabetes mellitus without complication, without long-term current use of insulin ([facility]) (Primary Dx); Hypertension, unspecified type; Bruising 03/02/2025 Refill [facility] [address] [place] [address] Name, MD Francisco 03/02/2025 Refill [facility] [address] [place] [address] Name, MD Francisco Type 2 diabetes mellitus without complication, without long-term current use of insulin ([facility]) 03/02/2025 Travel 02/23/2025 Refill [facility] [address] [place], [place] [phone] Name, MD Francisco Chronic low back pain, unspecified back pain laterality, unspecified whether sciatica present from Last 3 Months Immunizations Immunization Administration [...] Mass Index 25.5 03/02/2025 11:38 AM EDT Plan of Treatment Upcoming Encounters Date Type Department Care Team (Late st Contact Info) Description 07/03/2025 10:00 AM EDT Telemedicine [facility] [address] [place] [id number] Kym Lisa, RN Health Maintenance Due Date Last Done Comments Alcohol/Substance Use Screening 1947 Hepatitis A Vaccines (1 of 2 - Risk 2-dose series) 1955 Hepatitis B Vaccines (1 of 3 - Risk 3-dose series) 1996 RSV Patients and Patients Aged 60 years or older (1 - 1-dose 75+ series) 2011 Eye Exam 01/19/2024 01/18/2023 Depression Screening 01/01/2025 01/02/2024, 01/02/20 Diabetes: Foot Exam 01/01/2025 01/02/2024, 01/02/2024, 01/02/2024, Additional history exists SDOH Screening 01/01/2025 01/02/2024 COVID-19 Vaccine ( season) 2025 06/29/2022, 08/18/2021, 01/21/2021, Additional history exists Influenza Vaccine (#1) 2025 , 06/06/2023, 06/02/2022, Additional history exists Diabetes: Urine Protein Screening 08/04/2025 08/04/2024 Diabetes: Hemoglobin A1C 11/10/2025 025, 03/02/2025, 12/29/2024, Additional history exists Tobacco Screening 03/02/2026 03/02/2025 Lipid Panel 05/13/2026 05/13/2025, 1110/2023, 05/16/2021 DTaP/Tdap/Td Vaccines (3 - Td or Tdap) [...] FT4 Routine 05/13/2025 1 2:23 PM EDT LIPID PANEL, STANDARD Routine 05/13/2025 12:23 PM EDT COMPREHENSIVE METABOLIC PANEL Routine 05/13/2025 12:23 PM EDT HEMOGLOBIN A1C Routine 05/13/2025 12:23 PM EDT PROTHROMBIN TIME-INR Routine 05/13/2025 12:23 PM EDT CBC Routine 05/13/2025 12:23 PM EDT BASIC METABOLIC PANEL Routine 03/02/2025 12:11 PM EDT Hypertension, unspecified type CBC WITH AUTO DIFFERENTIAL Routine 03/02/2025 12:11 PM EDT Bruising POCT GLYCATED HEMOGLOBIN, TOTAL Routine 03/02/2025 11:41 AM EDT Type 2 diabetes mellitus without complication, without long-term current use of insulin ([facility]) POCT GLUCOSE Routine 03/02/2025 11:41 AM EDT Type 2 diabetes mellitus without complication, without long-term current use of insulin ([facility]) ALBUMIN, RANDOM URINE W/CREATININE Routine 08/04/2024 1:00 PM EST Type 2 diabetes mellitus without complication, without long-term current use of insulin ([facility]) DIABETES EYE EXAM Routine 01/18/2023 from Last 3 Months or Most Recently Relevant to Health Maintenance Results * TSH with Reflex to Free T4 (05/13/2025 12:23 PM EDT) TSH reflex Free T4 2.42 0.32 - 4.0 uIU/mL [facility] 05/13/2025 12:2 3 PM EDT 05/13/2025 12:23 PM EDT us Generic External Data Provider LAB BLOOD ORDERAB LES Final Result [facility] [address] [place] [phone] * (ABNORMAL) Prothrombin Time-INR (05/13/2025 12:23 PM EDT) Prothrombin Time 13.2(H) 10.9 - 12.4 SEC [facility] INTERNATIONAL NORM RATIO 1.2(H) 0.9 - 1.1 [facility] Comment:INTERNATIONAL NORMAL IZED RATIO (INR) REFERENCE [...] Provider LAB BLOOD ORDERAB LES Final Result [facility] [address] [place] [phone] [phone] * (ABNORMAL) CBC (05/13/2025 12:23 PM EDT) White Blood Count 5.9 4.8 - 10.8 X10*3/uL [facility] Red Blood Count 4.18(L) 4.20 - 5.50 X10*6/uL [facility] Hemoglobin 13.7 12.0 - 16.0 g/dl [facility] Hematocrit 39.9 37.0 - 47.0 % [facility] Mean Corpuscular Volume 95.5 80.0 - 98.0 fL [facility] Mean Corpuscular Hemoglobin 32.8 27.0 - 33.0 pg [facility] Mean Corpuscular HGB Conc 34.3 31.0 - 35.0 g/dl [facility] Red Cell Distribution Width 14.3 11.0 - 16.0 % [facility] Platelet Count 174 160 - 400 X10*3/uL [facility] Mean Platelet Volume 10.0 9.4 - 12.3 fL [facility] NRBC Pct Auto 0.0 0.0 - 0.2 /100WBC [facility] NRBC Abs Auto 0.000 0.0 - 0.012 X10*3/uL [facility] 05/13/2025 12:2 3 PM EDT 05/13/2025 12:23 PM EDT us Generic External Data Provider LAB BLOOD ORDERAB LES Final Result Performing Organization Address City/[facility]/ZIP Co de Phone Number [facility] [address] [place] [phone] [phone] * Hemoglobin A1c (05/13/2025 12:23 PM EDT) Hemoglobin A1c 6.0 <6.0 % [facility] Comment:Hemoglobin A1C Refer ence Range Adults: 4.8 - 6.0 % Non diabetic: < 6.0 % Goal: < 7.0 %Additional Action Suggested: > 8.0 %Note: Hemoglobin A1c results are invalid for patients with abnormal amounts of HbF. Blood transfusions may impact the HbA1c concentration in the patient sample. Estimated Average Glucose 126 mg/dL [facility] Comment:eAG = Estimated ave rage glucose which is %A1C expressed asaverage glucose, using the formula of the [id number] Glucose study (ADAG), Diabetes Care, Vol.31,#8,Apr. 2007 05/13/2025 12:2 3 PM EDT 05/13/2025 12:23 PM EDT us Generic External Data Provider LAB BLOOD ORDERAB LES Final Result [facility] [address] [place] [phone] * Lipid Panel, Standard (05/13/2025 12:23 PM EDT) Triglycerides 37 <150 mg/dL [facility] Comment:Desirable Triglyceri de: less than 150 mg/dLBorderline High Triglyceride 150-199 mg/dLHigh Triglyceride: 200-499 mg/dLVery High Triglyceride: greater than or equal to 5OO mg/dL Cholesterol 108 <200 mg/dL [facility] Comment:Desirable Cholestero l: less than 200 mg/dLBorderline High Cholesterol: 200-239 mg/dLHigh Cholesterol: greater than 239 mg/dL LDL Cholesterol Calculated 58 <100 mg/dL [facility] Comment:Desirable LDL: less than 100 mg/dLNear Optimal/Above Optimal LDL: 110- 129 mg/dLBorderline High LDL: 130-159 mg/dLHigh LDL: 160-189 mg/dLVery High LDL: greater than or equal to 190 mg/dL HDL Cholesterol 43 >40 mg/dL [facility] Comment:Desirable HDL: great er than 40 mg/dL Note: This HDL assay may give artificially low results in patients with liver disease. 05/13/2025 12:2 3 PM EDT 05/13/2025 12:23 PM EDT us Generic External Data Provider LAB BLOOD ORDERAB LES Final Result [facility] [address] [place] [phone] * (ABNORMAL) Comprehensive Metabolic Panel (05/13/2025 12:23 PM EDT) Sodium 135 135 - 145 mmol/L [facility] Potassium 4.2 3.3 - 5.1 mmol/L [facility] Chloride 103 96 - 108 mmol/L [facility] Carbon Dioxide 27 22 - 29 mmol/L [facility] Anion Gap 9(L) 12 - 20 [facility] Urea Nitrogen (BUN) 13 9 - 16 mg/dL [facility] Creatinine, Serum 0.75 0.5 - 1.4 mg/dL [facility] Estimated Glomerular Filt Rate >60 [facility] Comment:Chronic Kidney Disea se: Estimated GFR < 60 mL/min/1.96s3Poiont Kidney Disease: Estimated GFR < 15 mL/min/1.73m2 Glucose 168(H) 60 - 115 mg/dL [facility] Calcium 9.0 8.4 - 10.2 mg/dL [facility] Bilirubin, Total 1.0 0.0 - 1.0 mg/dL [facility] Aspartate Amino Transferase 63(H) 5 - 31 U/L [facility] Alanine Aminotransferase 40(H) 0 - 31 U/L [facility] Total Protein 6.5 6.5 - 8.0 g/dL [facility] Albumin Level 2.8(L) 3.5 - 5.0 g/dL [facility] Alkaline Phosphatase 175(H) 39 - 117 U/L [facility] 05/13/2025 12:2 3 PM EDT 05/13/2025 12:23 PM EDT us Generic External Data Provider LAB BLOOD ORDERAB LES Final Result [facility] [address] [place], [place] [phone] * (ABNORMAL) CBC auto differential (03/02/2025 12:11 PM EDT) White Blood Count 5.2 4.8 - 10.8 X10*3/uL [facility] Red Blood Count 4.66 4.20 - 5.50 X10*6/uL [facility] Hemoglobin 14.6 12.0 - 16.0 g/dl [facility] Hematocrit 43.8 37.0 - 47.0 % [facility] Mean Corpuscular Volume 94.0 80.0 - 98.0 fL [facility] Mean Corpuscular Hemoglobin 31.3 27.0 - 33.0 pg [facility] Mean Corpuscular HGB Conc 33.3 31.0 - 35.0 g/dl [facility] Red Cell Distribution Width 17.4(H) 11.0 - 16.0 % [facility] Platelet Count 153(L) 160 - 400 X10*3/uL [facility] Mean Platelet Volume 10.3 9.4 - 12.3 fL [facility] Neutrophils Percent Auto 44.3(L) 45 - 73 % [facility] Imm Gran Pct Auto 0.2 0.0 - 0.4 % [facility] Lymphocytes Percent Auto 37.4 20 - 40 % [facility] Monocytes Percent Auto 12.9(H) 2 - 11 % [facility] Eosinophils Percent Auto 4.0 0 - 4 % [facility] Basophils Percent Auto 1.2 0 - 2 % [facility] NRBC Pct Auto 0.0 0.0 - 0.2 /100WBC [facility] Neutrophils Absolute Auto 2.3 2.0 - 8.3 x10*3/uL [facility] Imm Gran Abs Auto 0.01 0.00 - 0.03 X10*3/uL [facility] Lymphocytes Absolute Auto 2.0 1.2 - 4.9 X10*3/uL [facility] Monocytes Absolute Auto 0.7 0.1 - 1.2 X10*3/uL [facility] Eosinophils Absolute Auto 0.2 0.0 - 0.4 X10*3/uL [facility] Basophils Absolute Auto 0.1 0.0 - 0.2 X10*3/uL [facility] NRBC Abs Auto 0.000 0.0 - 0.012 X10*3/uL [facility] Blood Venous blood specimen / Unknown 03/02/2025 12:11 PM EDT 03/02/2025 1:15 PM EDT us Francisco Murillo MD LAB BLOOD ORDERABLES Final Resul t [facility] [address] [place] [phone] * (ABNORMAL) Basic Metabolic Panel (03/02/2025 12:11 PM EDT) Sodium 135 135 - 145 mmol/L [facility] Potassium 4.6 3.3 - 5.1 mmol/L [facility] Chloride 101 96 - 108 mmol/L [facility] Carbon Dioxide 27 22 - 29 mmol/L [facility] Anion Gap 12 12 - 20 [facility] Urea Nitrogen (BUN) 11 9 - 16 mg/dL [facility] Creatinine, Serum 0.63 0.5 - 1.4 mg/dL [facility] Estimated Glomerular Filt Rate >60 [facility] Comment:Chronic Kidney Disea se: Estimated GFR < 60 mL/min/1.70d2Jcnhnx Kidney Disease: Estimated GFR < 15 mL/min/1.73m2 Glucose 181(H) 60 - 115 mg/dL [facility] Calcium 9.4 8.4 - 10.2 mg/dL [facility] Blood Venous blood specimen / Unknown 03/02/2025 12:11 PM EDT 03/02/2025 1:10 PM EDT Result Karrie Murillo MD LAB BLOOD ORDERABLES Final Resul t [facility] [address] [place] [phone] * (ABNORMAL) POCT HGB A1C (03/02/2025 11:41 AM EDT) Hemoglobin A1C 6.7(A) 4.0 - 5.7 % QC Media Lot # [id number] Lot# Expiration Date Blood 03/02/2025 11:4 1 AM EDT Result Karrie Murillo MD POINT OF CARE TEST ENTER/EDIT OR DERABLES Final Result * POCT Glucose (03/02/2025 11:41 AM EDT) Glucose Blood, POC 180 60 - 200 mg/dL QC Media Lot # [id number] Lot# Expiration Date ,025 Blood Capillary blood specimen / Unknown 03/02/2025 11:41 AM EDT Result Karrie Murillo MD POINT OF CARE TEST ENTER/EDIT OR DERABLES Final Result * Albumin, Random Urine W/Creatinine (08/04/2024 1:00 PM EST) Creatinine, Urine 127.97 mg/dL [facility] Microalbumin Urine 8.0 mg/L [facility] Microalbum Creatinine Ratio Ur 6.2 <30 ug/mg cr [facility] Comment:Albumin/Creatinine R atio Reference Ranges: Normal: < 30 ug/mg creatinine Microalbuminuria: 30 - 300 ug/mg creatinineClinical Albuminuria: > 300 ug/mg creatinine Urine (Urine, Random) 08/04/2024 1:00 PM EST 08/04/2024 4:25 PM EST Result Karrie Murillo MD LAB URINE ORDERABLES Final Resul t [facility] [address] [place] [phone] * Diabetes Eye Exam (01/18/2023) [facility] Signature Eye Exam Normal Normal Francisco Murillo MD HEALTH MAINTENANCE Final Result from Last 3 Months or Most Recently Relevant to Health Maintenance Insurance [employer] (O D-SNP) JUNI ORNELAS [id number] Care Teams Fur Farmer Relationship Specialty Start Date End Date Name, MD Francisco [address] [place] [address] PCP - General Family Medicine 05/16/17 [facility] 10/18/24
--- OUTSIDE RECORDS SUMMARY | 2025-05-13 14:39 | XMS_ITS | Encounter Summary ---
Author Organization [employer] Address [address] [place] [address] Care Team Providers Care Plating Foreman Name Role Phone Name, Francisco NAVA Primary Care Provider [phone] Encounter Details Date Type Department Care Team (Special Care Hospital Contact Info) Description 10/17/2024 Telephone [facility] [address] [place], [place] [phone] Name, MD Francisco [address] [place], [place] [phone] Social History Tobacco Use Types Packs/Day Years [...] Info) Description 07/03/2025 10:00 AM EDT Telemedicine [facility] [address] [place] [address] Kym Lisa RN documented as of this encounter Visit Diagnoses Not on filedocumented in this encounter Additional Health Concerns Assessment Noted Time PHQ-9 Depression Total Score: 0 01/02/20 24 11:09 AM EDT documented as of this encounter Care Teams Plating Foreman Relationship Specialty Start Date End Date Name, MD Francisco [address] [place] [address] PCP - General Family Medicine 05/16/17 [facility] 10/18/24 documented as of this encounter
== END 2025-05-13 12:03 | disposition home or self-care (01) ==
LOC: HO.HGI 11:29
PROVIDERS: PCP Internal Medicine Geriatric Medicine; Visit Provider Internal Medicine
DX: K76.0 Fatty (change of) liver, not elsewhere classified (principal)
CPT/HCPCS: 99204; G2211

== ENCOUNTER 2025-05-13 11:28 | Outpatient (REF) | payer OTHER, SELFPAY ==
[2025-05-13 12:39] LABS: Hematocrit 39.9 % (37.0-47.0); Hemoglobin 13.7 g/dl (12.0-16.0); Mean Corpuscular HGB Conc 34.3 g/dl (31.0-35.0); Mean Corpuscular Hemoglobin 32.8 pg (27.0-33.0); Mean Corpuscular Volume 95.5 fL (80.0-98.0); NRBC Abs Auto 0.000 X10*3/uL (0.0-0.012); NRBC Pct Auto 0.0 /100WBC (0.0-0.2); Platelet Count 174 X10*3/uL (160-400); Red Blood Count 4.18 X10*6/uL (4.20-5.50); White Blood Count 5.9 X10*3/uL (4.8-10.8)
[2025-05-13 12:44] LABS: INTERNATIONAL NORM RATIO 1.2 (0.9-1.1); Prothrombin Time 13.2 SEC (10.9-12.4)
[2025-05-13 12:49] LABS: Hemoglobin A1C 148.3864 umol/L; Total Hemoglobin (HGBA1C) 3545.2930 umol/L
[2025-05-13 13:17] LABS: Alanine Aminotransferase 40 U/L (0-31); Albumin Level 2.8 g/dL (3.5-5.0); Alkaline Phosphatase 175 U/L (39-117); Anion Gap 9 (12-20); Aspartate Amino Transferase 63 U/L (5-31); Blood Urea Nitrogen 13 mg/dL (9-16); Calcium 9.0 mg/dL (8.4-10.2); Carbon Dioxide 27 mmol/L (22-29); Chloride 103 mmol/L (96-108); Cholesterol 108 mg/dL (<200); Estimated Glomerular Filt Rate > 60; HDL Cholesterol 43 mg/dL (>40); Potassium 4.2 mmol/L (3.3-5.1); Sodium 135 mmol/L (135-145); Total Protein 6.5 g/dL (6.5-8.0); Triglycerides 37 mg/dL (<150)
== END 2025-05-13 11:29 | disposition home or self-care (01) ==
LOC: HO.LAB 11:28
PROVIDERS: PCP Internal Medicine Geriatric Medicine; Visit Provider Internal Medicine
DX: K76.0 Fatty (change of) liver, not elsewhere classified (principal); Z13.1 Encounter for screening for diabetes mellitus; Z13.29 Encounter for screening for other suspected endocrine disorder
CPT/HCPCS: 36415; 80053; 80061; 83036; 84443; 85027; 85610; 99202